=== PATIENT | male | born 1955 | race Two or more races ===

== ENCOUNTER 2023-10-21 09:14 | Outpatient (OUT) | payer MEDICARE, OTHER, SELFPAY ==
[2023-10-21 10:04] LABS: Creatinine Urine Random 140.42 mg/dL (20.00-300.00); Microalbum Creatinine Ratio Ur 140.2 mg/g (0.0-29.9); Microalbumin Urine Random 19.7 mg/dL (<=30.0)
[2023-10-21 10:18] LABS: Albumin Level 3.7 g/dL (3.4-5.0); Anion Gap 15.1; BUN Creatinine Ratio 18.1; Calcium 8.9 mg/dL (8.5-10.1); Carbon Dioxide 26.7 mmol/L (21.0-32.0); Chloride 105 mmol/L (98-107); Chol HDL Ratio 3.5; Cholesterol 165 mg/dL (<=200); Estimated GFR (African America 52 (>=60); Estimated GFR (Non-African Ame 43 (>=60); Free T3 2.05 pg/mL (2.18-3.98); Glucose 204 mg/dL (74-106); HDL Cholesterol 47 mg/dL (40-60); Phosphorus 4.2 mg/dL (2.6-4.7); Potassium 4.8 mmol/L (3.5-5.1); Sodium 142 mmol/L (136-145); Thyroid Stimulating Hormone 1.857 uIU/mL (0.358-3.740); Triglycerides 159 mg/dL (<=150); VLDL CHOLESTEROL 31.8 mg/dL
[2023-10-21 11:37] LABS: Free T4 1.16 ng/dL (0.76-1.46)
[2023-10-22 07:09] LABS: Thyroid Peroxidase (TPO) Ab <9 IU/mL (0-34)
[2023-10-23 11:07] LABS: C-Peptide, Serum 5.3 ng/mL (1.1-4.4)
== END 2023-10-21 09:15 | disposition home or self-care (01) ==
LOC: LAB 09:17
PROVIDERS: PCP Family Medicine; Visit Provider Internal Medicine
DX: E11.65 Type 2 diabetes mellitus with hyperglycemia (principal); E55.9 Vitamin D deficiency, unspecified; E06.3 Autoimmune thyroiditis; E03.9 Hypothyroidism, unspecified; Z71.3 Dietary counseling and surveillance; I10 Essential (primary) hypertension
CPT/HCPCS: 36415; 80061; 80069; 82043; 82306; 82570; 84439; 84443; 84481; 84681; 86376

== ENCOUNTER 2024-01-27 08:58 | Outpatient (OUT) | payer MEDICARE, SELFPAY ==
--- OUTSIDE RECORDS SUMMARY | 2024-01-27 09:09 | XMS_ITS | CCD ---
Author Name Unknown Address [address] [place] [address] Organization [facility] Care Team Providers Care Viscose Department Worker Name Role Phone WONG CARRENO Referring Unavailable KRISTIAN JONES Primary Care Unavailable ROBSON SANDERSON Referring Unavailable KRISTIAN JONES Primary Care Unavailable Grace Murray Primary Care Provider [phone] MISC, DOCTOR Attending Unavailable MISC, DOCTOR Admitting Unavailable MISC, DOCTOR Admitting Unavailable GRACE MURRAY Primary Care Unavailable MISC, DOCTOR Attending Unavailable MISC, DOCTOR Consulting Unavailable GRACE MURRAY Primary Care Unavailable MISC, DOCTOR Attending Unavailable MISC, DOCTOR Consulting Unavailable MISC, DOCTOR Admitting Unavailable Grace Murray Primary Care Provider MARIAM HAZEL Referring Unavailable GRACE MURRAY Primary Care Unavailable Tony Vasquez Primary Care Physician MD Tony Vasquez Attending Unavailable MD Tony Vasquez Attending Unavailable MD Tony Vasquez Attending Unavailable MD Tony Vasquez Attending Unavailable MD oTny Vasquez Attending Unavailable MD Tony Vasquez Admitting Unavailable MD Tony Vasquez Attending Unavailable Allergies Allergy Classification Reported Allergen(s) Allergy Type Date of Onset Reaction(s) Facility (1 source) No Known Medication Allergies; Translations: [No Known Medication Allergies] Propensity to adverse reactions (disorder) [facility] Repository Medications Current Medications Medication Drug Class(es) Dates Sig (Normalized) Sig (Original) atorvastatin 80 mg oral tablet (3 sources) HMG-CoA Reductase Inhibitor Start: 05-05-2023 take 1 tablet by mouth once daily atorvastatin 80 mg Tab 80 mg = 1 tab(s), Oral, Daily, Refills(s) 0 Start Date: 05/05/23 Status: Ordered take 1 tablet by mouth once eyal y atorvastatin (LIPITOR) 80 MG tablet Take 80 mg by mouth nightly 0 Active cholecalciferol 65517 unt oral capsule (2 sources) Vitamin D Cholecalciferol (VITAMIN D3) 64494 UNITS CAPS Take by mouth every 14 days 0 Active ergocalciferol 1.25 mg oral capsule (1 source) Provitamin D2 Compound Start: take 1 capsule by mouth every other week ergocalciferol 50,000 intl units Cap See Instructions, 1 cap(s) Oral every other week, Refills(s) 0 Start Date: 05/05/23 Status: Ordered fenofibrate 48 mg oral tablet (3 sources) Peroxisome Proliferator Receptor alpha Agonist Start: take 1 tablet by mouth once daily fenofibrate 48 mg Tab 48 mg = 1 tab(s), Oral, Daily, Refills(s) 0 Start Date: 05/05/23 Status: Ordered fenofibrate 160 MG tablet Take 48 mg by mouth daily 0 Active glipiZIDE 5 mg oral tablet (2 sources) Sulfonylurea take 1 tablet by mouth once daily glipiZIDE (GLUCOTROL) 5 MG tablet 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) Take 5 mg by mouth daily 0 Active 3 ml insulin detemir 100 unt/ml pen injector (2 sources) Insulin Analog Start: 10-30-20 LEVEMIR FLEXTOUCH 100 UNIT/ML injection pen 35 Units 2 times daily 0 10/30/2019 Active 1.5 ml insulin glargine 300 unt/ml pen injector (1 source) Insulin Analog Insulin Glargine , 1 Unit Dial, 300 UNIT/ML SOPN Inject into the skin 0 Active NPH Insulin, Human / Regular Insulin, Human (1 source) Insulin Start: 05-05-20 inject 40 [IU] by subcutaneous injection at breakfast, then inject 80 [IU] by subcutaneous injection at bedtime insulin isophane-insulin regular See Instructions, Refill(s) 0, inject 40 units SQ at breakfast and 80 units at bedtime Start Date: 05/05/23 Status: Ordered 3 ml insulin lispro 50 unt/ml / insulin, protamine lispro, human 50 unt/ml pen injector (1 source) Insulin Analog insulin lispro p rot & lispro (HUMALOG 50/50) (50-50) 100 UNIT per ML SUPN injection pen Inject into the skin 3 times daily 0 Active insulin, regular, human 100 unt/ml injectable solution (1 source) Insulin Start: 05-05-20 inject 20 [IU] by subcutaneous injection at breakfast, then inject 35 [IU] by subcutaneous injection at dinner Novolin R 100 units/mL Injection See Instructions, inject 20 units SQ at breakfast and lunch and 35 units at dinner, Refills(s) 0 Start Date: 05/05/23 Status: Ordered levothyroxine sodium 0.125 mg oral tablet (3 sources) l-Thyroxine Start: 05-05-20 take 1 tablet by mouth once daily levothyroxine 125 mcg (0.125 mg) Tab 125 mcg = 1 tab(s), Oral, Daily, Refills(s) 0 Start Date: 05/05/23 Status: Ordered take 1 tablet by mouth once eyal y levothyroxine (SYNTHROID) 125 MCG tablet Take 125 mcg by mouth Daily. 0 Active lisinopril 2.5 mg oral tablet (3 sources) Angiotensin Converting Enzyme Inhibitor Start: 05-05-2023 take 1 tablet by mouth once daily lisinopril 2.5 mg Tab 2.5 mg = 1 tab(s), Oral, Daily, Refills(s) 0 Start Date: 05/05/23 Status: Ordered Start: 10-02-2015 take 1 tablet by sindi th once daily lisinopril (PRINIVIL;ZESTRIL) 2.5 MG tablet Take 2.5 mg by mouth daily 0 10/02/2015 Active magnesium oxide 400 mg oral tablet (3 sources) Start: 05-05-2023 take 1 tablet by mouth once daily magnesium oxide 400 mg Tab 400 mg = 1 tab(s), Oral, Daily, Refills(s) 0 Start Date: 05/05/23 Status: Ordered take 1 tablet by sindi th once daily in the morning magnesium oxide (MAG-OX) 400 MG tablet Take 400 mg by mouth every morning 0 Active omeprazole 20 mg delayed release oral capsule (3 sources) Proton Pump Inhibitor Start: 05-05-2023 take 1 capsule by mouth once daily omeprazole 20 mg Cap-DR 20 mg = 1 cap(s), Oral, Daily, Refills(s) 0 Start Date: 05/05/23 Status: Ordered take 1 capsule by mouth once julian ly omeprazole (PRILOSEC) 20 MG delayed release capsule Take 20 mg by mouth daily 0 Active sucralfate 1000 mg oral tablet (1 source) Aluminum Complex Start: 03-14-2017 take 1 tablet by mouth four times daily sucralfate (CARAFATE) 1 GM tablet Take 1 g by mouth 4 times daily 0 03/14/2017 Active Problems Active Problems Problem Classification Problem Date Documented Date Episodic/Chronic Acute and unspecified renal failure (1 source) Ficqb-qv-vybyqoz renal failure; Translations: [Acute on chronic kidney failure] 07-05-2014 Chronic Chronic kidney disease (3 sources) Chronic kidney disease, stage 3 (moderate); Translations: [Chronic kidney disease stage 3] Onset: 06-06-2014 06-06-2014 Chronic Deficiency and other anemia (1 source) 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; Translations: [Antineoplastic chemotherapy induced anemia] Onset: 11-08-2014 11-08-2014 Diabetes mellitus with complications (7 sources) Other specified diabetes mellitus with diabetic chronic kidney disease; Translations: [Type 2 diabetes mellitus with other diabetic kidney complication] Onset: 03-02-2018 Resolved: 03-02-2018 03-02-2018 Chronic Diabetes mellitus without complication (2 sources) Diabetes mellitus; Translations: [Diabetes mellitus] 07-05-2014 Chronic Disorders of lipid metabolism (4 sources) Hyperlipidemia; Translations: [Hyperlipidemia, unspecified] Onset: 12-03-2020 07-05-2014 Chronic Esophageal disorders (2 sources) Gastroesophageal reflux disease; Translations: [Gastroesophageal reflux disease without esophagitis] Onset: 03-31-2017 04-22-2020 Chronic Essential hypertension (3 sources) Hypertensive disorder; Translations: [Hypertension] 07-05-2014 Chronic Fluid and electrolyte disorders (2 sources) Hyperkalemia; Translations: [Hyperkalemia] Onset: 02-13-2019 Episodic Hypertension with complications and secondary hypertension (6 sources) Hypertensive chronic kidney disease with stage 1 through stage 4 chronic kidney disease, or unspecified chronic kidney disease; Translations: [Hypertensive chronic kidney disease with stage 1 through stage 4 chronic kidney disease, or unspecified chronic kidney disease] Onset: 03-02-2018 Resolved: 03-02-2018 03-02-2018 Chronic Malaise and fatigue (1 source) Fatigue; Translations: [Chronic fatigue, unspecified] 07-31-2023 Chronic Miscellaneous mental health disorders (2 sources) Primary insomnia; Translations: [Primary insomnia] Onset: 09-12-2017 09-12-2017 Chronic Non-Hodgkin`s lymphoma (12 sources) Non-Hodgkin's lymphoma (clinical); Translations: [Diffuse non-Hodgkin's lymphoma, large cell (clinical)] Onset: 05-13-2014 05-24-2016 Chronic Nutritional deficiencies (1 source) Vitamin D deficiency 05-05-2023 Chronic Other aftercare (1 source) Long-term current use of insulin; 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] Onset: 06-27-2023 Episodic Other male genital disorders (2 sources) Disorder of prostate; Translations: [Disorder of prostate, unspecified] Onset: 05-04-2019 04-22-2020 Episodic Other nutritional; endocrine; and metabolic disorders (1 source) Hypomagnesemia; Translations: [Hypomagnesemia] Onset: 03-02-2018 Chronic Other nutritional; endocrine; and metabolic disorders (1 source) Severe obesity; Translations: [Severe obesity (BMI 35.0-39.9) with comorbidity] Onset: 07-05-2018 04-22-2020 Chronic Residual codes; unclassified (2 sources) Sleep apnea; Translations: [Sleep apnea] 07-05-2014 Chronic Residual codes; unclassified (1 source) Sleep disorder 06-27-2023 Episodic Thyroid disorders (1 source) Hypothyroidism 05-05-2023 Chronic Thyroid disorders (2 sources) Disorder of thyroid gland; Translations: [Thyroid disease] 07-05-2014 Episodic Unclassified (1 source) CHRN KIDNEY DISEASE STG 3 UNSP; Translations: [CHRN KIDNEY DISEASE STG 3 UNSP] Onset: 12-19-2020 Past or Other Problems Problem Classification Problem Date Documented Date Episodic/Chronic Acute and unspecified renal failure (1 source) [id number] renal failure 07-05-2014 Episodic Chronic kidney disease (1 source) Chronic kidney disease Resolved: 03-02-2018 03-02-2018 Deficiency and other anemia (1 source) 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 Onset: 11-08-2014 11-08-2014 Episodic Diabetes mellitus with complications (1 source) Diabetes mellitus with complications Resolved: 03-02-2018 03-02-2018 Other male genital disorders (2 sources) Testicular mass; Translations: [Testicular mass] Onset: 05-13-2014 Episodic Other skin disorders (2 sources) Mass of chest wall; Translations: [Chest wall mass] Onset: 05-09-2014 Episodic Results Test Name Value Interpretation Reference Range Facil ity Consultation Noteon 11-03-20 Consultation Note [id number] .00TIFF Normal [facility] Consultation Noteon 10-26-20 Consultation Note [id number] .00TIFF Normal [facility] Lab Reportson 10-26-2023 Lab Reports [id number]. 00TIFF Normal [facility] Lab Reports [id number] .00TIFF [facility] Lab Reports [id number]#1. 00TIFF [facility] Ambulatory Visit Summaryon 1 12-25-2022 Ambulatory Visit Summary ISAIAH MORROW I :1955 Visit Date:10/25/2023 Ambulatory Visit Instructions Your Diagnosis Type 2 diabetes mellitus with hypercholesterolemia Hypercholesterolemia Long-term insulin use Morbid obesity Stage 3a chronic kidney disease (CKD) Type 2 diabetes mellitus with stage 3a chronic kidney disease BMI 39.0-39.9,adult Class 1 obesity due to excess calories in adult Former smoker Your Care Team Attending Physician - Tony Vasquez MD Primary Care Physician - Tony Vasquez MD This Is Your Medications List Misc Prescription (Misc DME Prescription) Misc Prescription (syrings) Misc Prescription (test strips) atorvastatin (atorvastatin 80 mg Tab) ergocalciferol (ergocalciferol 50,000 intl units Cap) fenofibrate (fenofibrate 48 mg Tab) insulin isophane-insulin regular insulin regular (Novolin R 100 units/mL Injection) levothyroxine (levothyroxine 125 mcg (0.125 mg) Tab) lisinopril (lisinopril 2.5 mg Tab) magnesium oxide (magnesium oxide 400 mg Tab) omeprazole (omeprazole 20 mg Cap-DR) quetiapine (SEROquel 25 mg Tab) Procedures Performed Insulin pump, Tonsillectomy and adenoidectomy. Discharge Vitals Temperature (Temporal Artery) 37.0 ?C Heart Rate (Peripheral) 84 Respiratory Rate 16 Blood Pressure 126/74 Height 172.9 cm Height 68 in Weight 117.4 kg Weight 258.28 lb BMI 39.27 Medications What How Much When Instructions Unchanged atorvastatin (atorvastatin 80 mg Tab) 1 Tablets By Mouth Every day Unchanged ergocalciferol (ergocalciferol 50,000 intl units Cap) See instructions 1 cap(s) Oral every other week Unchanged fenofibrate (fenofibrate 48 mg Tab) 1 Tablets By Mouth Every day Unchanged insulin isophane-insulin regular See instructions inject 40 units SQ at breakfast and 80 units at bedtime Unchanged insulin regular (Novolin R 100 units/ mL Injection) See instructions inject 20 units SQ at breakfast and lunch and 35 units at dinner Unchanged levothyroxine (levothyroxine 125 mcg (0.125 mg) Tab) 1 Tablets By Mouth Every day Unchanged lisinopril (lisinopril 2.5 mg Tab) 1 Tablets By Mouth Every day Unchanged magnesium oxide (magnesium oxide 400 mg Tab) 1 Tablets By Mouth Every day Unchanged Misc Prescription (Misc DME Prescription) See instructions lancet use QID e11.9 Unchanged Misc Prescription (syrings) See instructions syrings 31g x8mm use qid and prn E11.9 Unchanged Misc Prescription (test strips) See instructions [employer] test strips Test sugars 4 times a day e11.9 Unchanged omeprazole (omeprazole 20 mg Cap-DR) 1 Capsules By Mouth Every day Unchanged quetiapine (SEROquel 25 mg Tab) 2 Tablets By Mouth Every day as needed for Insomnia Allergies No Known Medication Allergies Problems Ongoing - Any problem that you are currently receiving treatment for. Chronic fatigue Disorder of prostate Gastroesophageal reflux disease without esophagitis Hypercholesterolemia Hypothyroidism Long-term insulin use Lymphoblastic lymphoma Morbid obesity Primary hypertension Sleep disorder Stage 3a chronic kidney disease (CKD) 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 2 diabetes mellitus with stage 3a chronic kidney disease Vitamin D deficiency Patient Survey You may receive a survey via text or e-mail asking about your office visit. Please share your experience with us by completing your survey. We appreciate your feedback and thank you for choosing us for your care. Normal [facility] Family Medicine Office/Clini c Noteon 10-25-2023 Family Medicine Office/Clinic Note HPI Staff Isaiah is a 68 year old male presenting for 3 month follow up DM and HTN Do you have any of the following symptoms? Foot Exam: none Eye Exam: Due Oct 2023 Last A1C: Hgb A1C %: 7.7 % High (06/27/23 15:17:00) A1C @ endo 6.7% on 07/28/23 Statin: atorvastatin 80mg qd Patient is here for follow up on hypertension. How often are you checking your blood pressure? Doesnt check BP at home What are your average readings? N/A, Not checking at home Yearly BMP: 10/21/23 flu: UTD questions/concerns: none History of Present Illness - See staff HPI. Review of Systems PHQ Score Initial Depression Screen Score: 0 SCORE Physical Exam Vitals & Measurements T: 37.0 ?C(Temporal Artery) HR: 84(Peripheral) RR: 16 BP: 126/74 SpO2: 95% HT: 68 in HT: 172.9 cm WT: 117.4 kg WT: 258.28 lb BMI: 39.27 General: alert, no acute distress ENMT: oral mucosa moist, Cardiovascular: regular rate and rhythm, normal peripheral perfusion Respiratory: Lungs CTA, respirations non labored Extremities: no deformity, no trauma Neurological: oriented x 4, LOC appropriate for age, CN II-XII intact, motor strength equal & normal bilaterally, speech normal Abdomen: Soft, Nontender, Non-distended, + BS Assessment/Plan 1. Type 2 diabetes mellitus with hypercholesterolemia (E11.69: Type 2 diabetes mellitus with other specified complication) - Have asked Endos help to transition the patient from Novolin to Lantus and SSI. - Pt is also wanting Ozempic. - Discussed in detail. - Follow up in 6 months. - Pt is at goal with an A1c of 6.7. Ordered: Body Mass Index (BMI) documented 3008F Current tobacco non-user 1036F Depression Screening Negative 3352F Influenza immunization administered or previously received 4274F Most recent diastolic blood pressure <80 mm Hg 3078F Patient screen for fall risk: no falls in last year or 1 fall with no injury in last year 1101F Systolic BP <130 mm Hg (Most Recent) 3074F 2. Hypercholesterolemia (E78.00: Pure hypercholesterolemia, unspecified) - Continue on a statin. Ordered: Body Mass Index (BMI) documented 3008F Current tobacco non-user 1036F Depression Screening Negative 3352F Influenza immunization administered or previously received 4274F Most recent diastolic blood pressure <80 mm Hg 3078F Patient screen for fall risk: no falls in last year or 1 fall with no injury in last year 1101F Systolic BP <130 mm Hg (Most Recent) 3074F 3. 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 Morbid obesity (E66.01: Morbid (severe) obesity due to excess calories) - Diet and exercise discussed. - Possible use of Ozempic to help Ordered: Body Mass Index (BMI) documented 3008F Current tobacco non-user 1036F Depression Screening Negative 3352F Influenza immunization administered or previously received 4274F Most recent diastolic blood pressure <80 mm Hg 3078F Patient screen for fall risk: no falls in last year or 1 fall with no injury in last year 1101F Systolic BP <130 mm Hg (Most Recent) 3074F 5. Stage 3a chronic kidney disease (CKD) (N18.31: Chronic kidney disease, stage 3a) - Will continue to monitor. Ordered: Body Mass Index (BMI) documented 3008F Current tobacco non-user 1036F Depression Screening Negative 3352F Influenza immunization administered or previously received 4274F Most recent diastolic blood pressure <80 mm Hg 3078F Patient screen for fall risk: no falls in last year or 1 fall with no injury in last year 1101F Systolic BP <130 mm Hg (Most Recent) 3074F 6. Type 2 diabetes mellitus with stage 3a chronic kidney disease (E11.22: Type 2 diabetes mellitus with diabetic chronic kidney disease) - As per Number 1. Ordered: Body Mass Index (BMI) documented 3008F Current tobacco non-user 1036F Depression Screening Negative 3352F Influenza immunization administered or previously received 4274F Most recent diastolic blood pressure <80 mm Hg 3078F Patient screen for fall risk: no falls in last year or 1 fall with no injury in last year 1101F Systolic BP <130 mm Hg (Most Recent) 3074F 7. BMI 39.0-39.9,adult (Z68.39: Body mass index [BMI] 39.0-39.9, adult) - BMI education given Ordered: Body Mass Index (BMI) documented 3008F Current tobacco non-user 1036F Depression Screening Negative 3352F Influenza immunization administered or previously received 4274F Most recent diastolic blood pressure <80 mm Hg 3078F Patient screen for fall risk: no falls in last year or 1 fall with no i (more content not included)... Normal [facility] Comment on above: Result Comment: Elec tronically Signed By: Pedro RODRIGES, Tony Hoffman\.br\Date and Time Signed: 10/25/23 13:38 EST Patient Educationon 10-25-20 Patient Education Nutrition BMI for Adults What is BMI? Body mass index (BMI) is a number that is calculated from a person's weight and height. BMI can help estimate how much of a person's weight is composed of fat. BMI does not measure body fat directly. Rather, it is an alternative to procedures that directly measure body fat, which can be difficult and expensive. BMI can help identify people who may be at higher risk for certain medical problems. What are BMI measurements used for? BMI is used as a screening tool to identify possible weight problems. It helps determine whether a person is obese, overweight, a healthy weight, or underweight. BMI is useful for: ? Identifying a weight problem that may be related to a medical condition or may increase the risk for medical problems. ? Promoting changes, such as changes in diet and exercise, to help reach a healthy weight. BMI screening can be repeated to see if these changes are working. How is BMI calculated? BMI involves measuring your weight in relation to your height. Both height and weight are measured, and the BMI is calculated from those numbers. This can be done either in [place] or metric measurements. Note that charts and online BMI calculators are available to help you find your BMI quickly and easily without having to do these calculations yourself. To calculate your BMI in [place] measurements: 1. Measure your weight in pounds (lb). 2. Multiply the number of pounds by 703. ? For example, for a person who weighs 180 lb, multiply that number by 703, which equals 126,540. 3. Measure your height in inches. Then multiply that number by itself to get a measurement called inches squared. ? For example, for a person who is 70 inches tall, the inches squared measurement is 70 inches x 70 inches, which equals 4,900 inches squared. 4. Divide the total from step 2 (number of lb x 703) by the total from step 3 (inches squared): 126,540 ? 4,900 = 25.8. This is your BMI. To calculate your BMI in metric measurements: 1. Measure your weight in kilograms (kg). 2. Measure your height in meters (m). Then multiply that number by itself to get a measurement called meters squared. ? For example, for a person who is 1.75 m tall, the meters squared measurement is 1.75 m x 1.75 m, which is equal to 3.1 meters squared. 3. Divide the number of kilograms (your weight) by the meters squared number. In this example: 70 ? 3.1 = 22.6. This is your BMI. What do the results mean? BMI charts are used to identify whether you are underweight, normal weight, overweight, or obese. The following guidelines will be used: ? Underweight: BMI less than 18.5. ? Normal weight: BMI between 18.5 and 24.9. ? Overweight: BMI between 25 and 29.9. ? Obese: BMI of 30 or above. Keep these notes in mind: ? Weight includes both fat and muscle, so someone with a muscular build, such as an athlete, may have a BMI that is higher than 24.9. In cases like these, BMI is not an accurate measure of body fat. ? To determine if excess body fat is the cause of a BMI of 25 or higher, further assessments may need to be done by a health care provider. ? BMI is usually interpreted in the same way for men and women. Where to find more information For more information about BMI, including tools to quickly calculate your BMI, go to these websites: ? Centers for Disease Control and Prevention: www.cdc.gov ? [place] [employer]: www.heart.org ? National Heart, Lung, and Blood Fitzpatrick: www.nhlbi.nih.gov Summary ? Body mass index (BMI) is a number that is calculated from a person's weight and height. ? BMI may help estimate how much of a person's weight is composed of fat. BMI can help identify those who may be at higher risk for certain medical problems. ? BMI can be measured using [place] measurements or metric measurements. ? BMI charts are used to identify whether you are underweight, normal weight, overweight, or obese. This information is not intended to replace advice given to you by your health care provider. Make sure you discuss any questions you have with your health care provider. Document Revised: 08/06/2020 Document Reviewed: 06/13/2020 [employer] Patient Education ? 2022 [employer] [facility] Pre-Visit Planningon 023 Pre-Visit Planning - From: Selin Davis To: Pedro RODRIGES, Tony Hoffman; Sent: 10/21/2023 14:04:51 EST Subject: Pre-Visit Planning Due Date/Time: 10/21/2023 14:04:00 EST Caller Name: ISAIAH MORROW I; Caller Number: Adam , Vt Dr. Vasquez. During a pre-visit planning chart review, I noted the following documentation in the medical record: ? Glomerular filtration rate (GFR): =52 on 10/21/2023 and =50 on 06/27/2023. Based on your medical judgment, can you please clarify which, if any, of the following conditions are present? I can update the Chronic Problem List with your response if you would like. -Chronic Kidney Disease Stage 3a (GFR 45-59) -Chronic Kidney Disease Stage 3, unspecified (GFR 30-59) -Other (please specify): In responding to this request, please exercise your independent professional judgment. The fact that a question is asked does not imply that any particular answer is desired or expected. If you have any questions, please feel free to contact me at extension [phone]. Thank you! Selin Davis LPN From: Tony Vasquez MD To: Selni Davis; Sent: 10/23/2023 12:46:22 EST Subject: RE: Pre-Visit Planning Caller Name: ISAIAH MORROW I; Caller Number: H , M CKD stage 3a- Please add Normal [address] [facility] Pre-Visit Planning - From: Selin Davis To: Tony Vasquez MD; Sent: 10/21/2023 14:01:17 EST Subject: Pre-Visit Planning Due Date/Time: 10/21/2023 14:01:00 EST Caller Name: ISAIAH MORRWO I; Caller Number: H , M Vt Dr. Vasquez. During a pre-visit planning chart review, I noted the following documentation in the medical record indicates that this patient had BMI of 37.69 on 07/25/2023 and a diagnosis of Hypertension and Type 2 diabetes mellitus with hyperlipidemia noted on Current Problem List. If BMI during this current visit is greater than 35: Based on your medical judgment, can you further clarify the following? I can update the Chronic Problem List with your response if you would like. -Morbid obesity (please also include additional diagnosis to reflect current BMI) -Class 3 severe obesity with serious comorbidity in adult (please also include additional diagnosis to reflect current BMI) -Other (please specify): -Unable to determine In responding to this request, please exercise your independent professional judgment. The fact that a question is asked does not imply that any particular answer is desired or expected. If you have any questions, please feel free to contact me per TEAMS or . Thank you! Selin Davis LPN From: Tony Vasquez MD To: Selin Davis; Sent: 10/23/2023 12:45:55 EST Subject: RE: Pre-Visit Planning Caller Name: ISAIAH MORROW I; Caller Number: H , M Morbid Obesity- Please add Normal [address] [facility] Consultation Noteon 08-10-20 Consultation Note [id number]. 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 Your Care Team Attending Physician - Tony Vasquez MD Primary Care Physician - Tony Vasquez MD This Is Your Medications List Misc Prescription (Misc DME Prescription) Misc Prescription (Misc DME Prescription) Misc Prescription (syrings) atorvastatin (atorvastatin 80 mg Tab) ergocalciferol (ergocalciferol 50,000 intl units Cap) fenofibrate (fenofibrate 48 mg Tab) insulin isophane-insulin regular insulin regular (Novolin R 100 units/mL Injection) levothyroxine (levothyroxine 125 mcg (0.125 mg) Tab) lisinopril (lisinopril 2.5 mg Tab) magnesium oxide (magnesium oxide 400 mg Tab) omeprazole (omeprazole 20 mg Cap-DR) Procedures Performed Insulin pump, Tonsillectomy and adenoidectomy. Discharge Vitals Temperature (Oral) 36.7 ?C Heart Rate (Peripheral) 93 Respiratory Rate 16 Blood Pressure 126/68 Height 175.2 cm Height 69 in Weight 115.7 kg Weight 254.54 lb BMI 37.69 What to do next Scheduled Follow-Up Appointments Tuesday 2:00 PM EDT With: Where: [facility] [address] [place] [address]- \.br\ Medications\.br\ What How Much When Instructions\.br\ Unchanged atorvastatin (atorvastatin 80 mg Tab) 1 Tablets By Mouth Every day\.br\ Unchanged ergocalciferol (ergocalciferol 50,000 intl units Cap) See instructions 1 cap(s) Oral every other week \.br\ Unchanged fenofibrate (fenofibrate 48 mg Tab) 1 Tablets By Mouth Every day\.br\ Unchanged insulin isophane-insulin regular See instructions inject 40 units SQ at breakfast and 80 units at bedtime \.br\ Unchanged insulin regular (Novolin R 100 units/ mL Injection) See instructions inject 20 units SQ at breakfast and lunch and 35 units at dinner \.br\ Unchanged levothyroxine (levothyroxine 125 mcg (0.125 mg) Tab) 1 Tablets By Mouth Every day\.br\ Unchanged lisinopril (lisinopril 2.5 mg Tab) 1 Tablets By Mouth Every day\.br\ Unchanged magnesium oxide (magnesium oxide 400 mg Tab) 1 Tablets By Mouth Every day\.br\ Unchanged Misc Prescription (Misc DME Prescription) See instructions [employer] [facility] test strips Test sugars 4 times a day \.br\ Unchanged Misc Prescription (Misc DME Prescription) [facility] pro twist lancets use to test sugars 4 times a day \.br\ Unchanged Misc Prescription (syrings) See instructions syrings 31g x8mm use qid and prn E11.9 \.br\ Unchanged omeprazole (omeprazole 20 mg Cap-DR) 1 Capsules By Mouth Every day\.br\ Allergies\.br\ No Known Medication Allergies\.br\ Problems\.br\ Ongoing - Any problem that you are currently receiving treatment for.\.br\ Chronic fatigue\.br\ Disorder of prostate\.br\ Gastroesophageal reflux disease without esophagitis\.br\ Hypercholesterole manuel\.br\ Hypothyroidism\.b r\ Lymphoblastic lymphoma\.br\ Primary hypertension\.br\ Sleep disorder\.br\ Type 2 diabetes mellitus without complication, with long-term current use of insulin\.br\ Vitamin D deficiency\.br\ \.br\ [facility] Family Medicine Office/Clini c Noteon 07-25-2023 Family Medicine Office/Clinic Note Chief Complaint follow up diabetes HPI Staff Patient presents for one month follow up diabetes Do you have any of the following symptoms? Foot Exam: none Eye Exam: next month has appt Last A1C: Hgb A1C %: 7.7 % High (06/27/23 15:17:00) Statin: atorvastatin 80mg questions/concerns: none History of Present Illness - Here for follow up. - A1c is elevated - Pt states he has an apt with endo - He would like to try ozempic - No other issues today. Review of Systems PHQ Score Initial Depression Screen Score: 0 Physical Exam Vitals & Measurements T: 36.7 ?C(Oral) HR: 93(Peripheral) RR: 16 BP: 126/68 SpO2: 95% HT: 69 in HT: 175.2 cm WT: 115.7 kg WT: 254.54 lb BMI: 37.69 General: alert, no acute distress ENMT: oral mucosa moist, Cardiovascular: regular rate and rhythm, normal peripheral perfusion Respiratory: Lungs CTA, respirations non labored Extremities: no deformity, no trauma Neurological: oriented x 4, LOC appropriate for age, CN II-XII intact, motor strength equal & normal bilaterally, speech normal Abdomen: Soft, Nontender, Non-distended, + BS Assessment/Plan 1. Type 2 diabetes mellitus without complication, with long-term current use of insulin (E11.9: Type 2 diabetes mellitus without complications) ? Not at goal at this time and patient is seeing endo at the end of the month ?Goal is to get the patient off regular insulin and a mixed insulin. ?Discussed GLP-1 and how this m Ordered: Body Mass Index (BMI) documented 3008F Current tobacco non-user 1036F Depression Screening Negative 3352F Influenza immunization administered or previously received 4274F Most recent diastolic blood pressure <80 mm Hg 3078F Patient screen for fall risk: no falls in last year or 1 fall with no injury in last year 1101F Systolic BP <130 mm Hg (Most Recent) 3074F 2. Primary hypertension (I10: Essential (primary) hypertension) - At goal. Ordered: Body Mass Index (BMI) documented 3008F Current tobacco non-user 1036F Depression Screening Negative 3352F Influenza immunization administered or previously received 4274F Most recent diastolic blood pressure <80 mm Hg 3078F Patient screen for fall risk: no falls in last year or 1 fall with no injury in last year 1101F Systolic BP <130 mm Hg (Most Recent) 3074F 3. Adult BMI 37.0-37.9 kg/sq m (Z68.37: Body mass index [BMI] 37.0-37.9, adult) - BMI education given Ordered: Body Mass Index (BMI) documented 3008F Current tobacco non-user 1036F Depression Screening Negative 3352F Influenza immunization administered or previously received 4274F Most recent diastolic blood pressure <80 mm Hg 3078F Patient screen for fall risk: no falls in last year or 1 fall with no injury in last year 1101F Systolic BP <130 mm Hg (Most Recent) 3074F 4. 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) - Discussed issues with Insulin Ordered: Body Mass Index (BMI) documented 3008F Current tobacco non-user 1036F Depression Screening Negative 3352F Influenza immunization administered or previously received 4274F Most recent diastolic blood pressure <80 mm Hg 3078F Patient screen for fall risk: no falls in last year or 1 fall with no injury in last year 1101F Systolic BP <130 mm Hg (Most Recent) 3074F Follow-up No qualifying data available Problem List/Past Medical History Ongoing Chronic fatigue Disorder of prostate Gastroesophageal reflux disease without esophagitis Hypercholesterolemia Hypothyroidism Lymphoblastic lymphoma Primary hypertension Sleep disorder Type 2 diabetes mellitus without complication, with long-term current use of insulin Vitamin D deficiency Historical No qualifying data Procedure/Surgical History Insulin pump, Tonsillectomy and adenoidectomy. Medications atorvastatin 80 mg Tab, 80 mg= 1 tab(s), Oral, Daily ergocalciferol 50,000 intl units Cap, See Instructions fenofibrate 48 mg Tab, 48 mg= 1 tab(s), Oral, Daily insulin isophane-insulin regular, See Instructions levothyroxine 125 mcg (0.125 mg) Tab, 125 mcg= 1 tab(s), Oral, Daily lisinopril 2.5 mg Tab, 2.5 mg= 1 tab(s), Oral, Daily magnesium oxide 400 mg Tab, 400 mg= 1 tab(s), Oral, Daily Misc DME Prescription, See Instructions, 3 refills Misc DME Prescription Novolin R 100 units/mL Injection, See Instructions omeprazole 20 mg Cap-DR, 20 mg= 1 cap(s), Oral, Daily syrings, See Instructions, 3 refills Allergies N (more content not included)... Normal [facility] Comment on above: Result Comment: Elec tronically Signed By: Pedro RODRIGES, Tony Brown.br\Date and Time Signed: 07/25/23 11:48 EDT Physician Referralon 023 Physician Referral [id number] .00CD:127 Normal [facility] Formson 06-28-2023 Forms [id number]#1 .00CD:127 Normal [facility] Physician Referralon 023 Physician Referral [id number]# 1.00CD:127 Normal [facility] Auto Diffon 06-27-2023 Basophils/100 WBC (Bld) 0.9 % Normal 0.0-2.0 [facility] Comment on above: Order Comment: Order Added by Discern Expert. Performed By: #### 2 755467, 0753291, 6355639, 21138611, 7124808, 853065305, 62297661 ####[facility] [address] [place] [address] Basophils/Leukocytes Auto (Bld) [Pure # fraction] 0.1 E9/L Normal 0.0-0.2 [facility] Comment on above: Order Comment: Order Added by Discern Expert. Performed By: #### 2 168054, 2598432, 6619006, 76817320, 9597981, 064628611, 50706002 ####[facility] [address] [place] [address] Eosinophils/100 WBC (Bld) 3.5 % Normal 0.0-8.0 [facility] Comment on above: Order Comment: Order Added by Discern Expert. Performed By: #### 2 816369, 1127449, 4324412, 56984331, 7002579, 414155649, 43719555 ####[address] [place] [address] Eosinophils/Leukocyte s Auto (Bld) [Pure # fraction] 0.4 E9/L Normal 0.0-0.5 [facility] Comment on above: Order Comment: Order Added by Discern Expert. Performed By: #### 2 098506, 1589420, 2039626, 41575032, 4446149, 932263694, 39679377 ####[address] [address] Lymphocytes/100 WBC (Bld) 18.3 % Normal 14.0-50.0 [facility] Comment on above: Order Comment: Order Added by Discern Expert. Performed By: #### 2 332036, 0876624, 2916283, 98647273, 0927692, 660597869, 37904607 ####[address] [address] Lymphocytes/Leukocyte s Auto (Bld) [Pure # fraction] 1.9 E9/L Normal 1.0-4.0 [facility] Comment on above: Order Comment: Order Added by Discern Expert. Performed By: #### 2 215556, 4296662, 4068352, 94674842, 0628729, 502108570, 29261029 ####[address] [place] [address] Monocytes/100 WBC (Bld) 6.7 % Normal 4.0-14.0 [facility] Comment on above: Order Comment: Order Added by Discern Expert. Performed By: #### 2 223670, 5169553, 1677374, 47647119, 8240540, 958036046, 67304868 ####[address] [place] [address] Monocytes/Leukocytes Auto (Bld) [Pure # fraction] 0.7 E9/L Normal 0.2-1.0 [facility] Comment on above: Order Comment: Order Added by Discern Expert. Performed By: #### 2 231788, 0758685, 7732384, 60809345, 1762033, 867564960, 68459089 ####[facility] [address] [place] [address] Neutrophils/100 WBC (Bld) 70.6 % Normal 36.0-75.0 [facility] Comment on above: Order Comment: Order Added by Discern Expert. Performed By: #### 2 903279, 7176899, 7117344, 82161534, 7497607, 629597596, 54121925 ####[facility] [address] [place] [address] Neutrophils/Leukocyte s Auto (Bld) [Pure # fraction] 7.5 E9/L Normal 2.0-7.5 [facility] Comment on above: Order Comment: Order Added by Discern Expert. Performed By: #### 2 705039, 0710961, 5012423, 16132723, 5535141, 669590501, 63512616 ####[facility] [address] [place] [address] CBC w/ Auto Diffon 3 Erythrocyte distribution width (RBC) [Ratio] 15.1 % High 10.9-14.2 [facility] Comment on above: Performed By: #### 2 964301, 5986784, 9548631, 22786212, 5828745, 301517403, 46594627 ####[facility] [address] [place] [address] Hematocrit (Bld) [Volume fraction] 41.8 % Normal 37.7-49.0 [facility] Comment on above: Performed By: #### 2 035136, 9466035, 2165685, 11778023, 6958098, 206108476, 48560916 ####[facility] [address] [place] [address] Hemoglobin (Bld) [Mass/Vol] 13.7 g/dL Normal 13.5-17.5 [facility] Comment on above: Performed By: #### 2 978201, 6029819, 9610575, 88754522, 5055774, 097924708, 72012258 ####[facility] [address] [place] [address] MCH (RBC) [Entitic mass] 27.5 pg Normal 27.0-34.0 [facility] Comment on above: Performed By: #### 2 778002, 3576248, 8471369, 74667122, 1716458, 820035469, 24751324 ####[facility] [address] [place] [address] MCHC (RBC) [Mass/Vol] 32.7 g/dL Normal 31.4-36.0 [facility] Comment on above: Performed By: #### 2 206367, 5668682, 7166727, 24927034, 0790120, 923644721, 85656652 ####[address] [address] MCV (RBC) [Entitic vol] 84.2 fL Normal 80.0-100.0 [facility] Comment on above: Performed By: #### 2 172803, 5142959, 0415264, 49960092, 9723292, 249572896, 36131661 ####[address] [place] [address] Platelet mean volume (Bld) [Entitic vol] 9.9 fL Normal 6.4-10.8 [facility] Comment on above: Performed By: #### 2 222815, 6665752, 4129987, 32685231, 1650088, 829457429, 97722519 ####[address] [address] Platelets (Bld) [#/Vol] 209.0 E9/L Normal 150.0-500.0 [facility] Comment on above: Performed By: #### 2 185430, 6828184, 3565155, 96656564, 4328230, 260163606, 59970824 ####[facility] [address] [place] [address] RBC (Bld) [#/Vol] 5.0 E12/L Normal 4.3-5.9 [facility] Comment on above: Performed By: #### 2 786185, 4390497, 4955110, 78830058, 5371522, 855784166, 83895540 ####[facility] [address] [place] [address] WBC corrected for nucl RBC Auto (Bld) [#/Vol] 10.6 E9/L Normal 4.0-11.0 [facility] Comment on above: Performed By: #### 2 342725, 8231585, 7166700, 74382710, 9427819, 180372245, 20489858 ####[facility] [address] [place] [address] CHEMISTRYOrdered By: SYSTEM SYSTEM on 06-27-2023 Albumin [Mass/Vol] 4.3 g/dL Normal 3.3 - 5.0 gm/dL [facility] Albumin/Globulin [Mass ratio] 1.3 {ratio} Normal 1.1 - 2.2 [facility] ALP [Catalytic activity/Vol] 78 [iU]/d Normal 21 - 98 Int._Unit/L [facility] ALT No additional P-5'-P [Catalytic activity/Vol] 23 [iU]/d Normal 6 - 46 Int._Unit/L [facility] Anion gap [Moles/Vol] 12 mmol/L Normal 6 - 16 mEq/L [facility] AST [Catalytic activity/Vol] 22 [iU]/d Normal 5 - 43 Int._Unit/L [facility] Bilirubin [Mass/Vol] 0.5 mg/dL Normal 0.0 - 1.1 mg/dL [facility] Calcium [Mass/Vol] 10.1 mg/dL Normal 8.9 - 11.1 mg/dL [facility] Chloride [Moles/Vol] 107 mmol/L Normal 101 - 111 mmol/ L [facility] Cholesterol [Mass/Vol] 180 mg/dL Normal 120 - 200 mg/dL [facility] Cholesterol in HDL [Mass/Vol] 43 mg/dL Invalid Interpretation Code [facility] Cholesterol in LDL [Mass/Vol] 104 mg/dL Normal <=129mg/dL [facility] Cholesterol in VLDL [Mass/Vol] 47 mg/dL High 7 - 40 mg/dL [facility] CO2 [Moles/Vol] 27 mmol/L Normal 21 - 31 mmol/L [facility] Creatinine [Mass/Vol] 1.5 mg/dL High 0.5 - 1.3 mg/d L [facility] GFR/1.73 sq M.predicted among non-blacks MDRD (S/P/Bld) [Vol rate/Area] 50 mL/min/1.73 m2 Low >=59mL/min/1.73 m2 [facility] Chem S Globulin (S) [Mass/Vol] 3.2 g/dL Normal 1.4 - 4.0 gm/dL [facility] Glucose [Mass/Vol] 65 mg/dL Normal 55 - 199 mg/dL [facility] Potassium [Moles/Vol] 4.4 mmol/L Normal 3.5 - 5.3 mmol /L [facility] Protein [Mass/Vol] 7.5 g/dL Normal 6.0 - 7.8 gm/dL [facility] Sodium [Moles/Vol] 142 mmol/L Normal 135 - 145 mmol/L [facility] Triglyceride [Mass/Vol] 237 mg/dL High <=149mg/dL [facility] TSH Qn 1.09 m[IU]/L Normal 0.34 - 5.60 mcIU/mL [facility] Urea nitrogen [Mass/Vol] 25 mg/dL High 5 - 21 mg/dL [facility] Urea nitrogen/Creatinine [Mass ratio] 17 mg/mg Normal 10 - 20 [facility] CHEMISTRYOrdered By: Vaughn velasco on 06-27-2023 Albumin DL <= 20 mg/L (U) [Mass/Vol] 75.3 microgram/mL High 0.0 - 19.0 mcg/mL [facility] Albumin Elph (U) [Mass fraction] 13.8 mg/dL Invalid Interpretation Code [facility] Creatinine (U) [Mass/Vol] 78.2 mg/dL Invalid Interpretation Code [facility] Remisol U Prot/Creat Ratio 176.50 mg/gm Cr Normal 0.00 - 200.00 mg/gm Cr [facility] CHEMISTRYOrdered By: Nelson stanley on 06-27-2023 HbA1c (Bld) [Mass fraction] 7.7 % High <=5.9% [facility] ChemAutoSS CMPon 06-27-2023 Albumin [Mass/Vol] 4.3 g/dL Normal 3.3-5.0 [facility] Comment on above: Performed By: #### 2 566361, 0631357, 7296702, 03273619, 2052980, 043992532, 61166051 ####[facility] [address] [place] [address] Albumin/Globulin (S) [Mass conc ratio] 1.3 Normal 1.1-2.2 [facility] Comment on above: Performed By: #### 2 796044, 2010213, 9892722, 32679975, 7034103, 364700242, 08523450 ####[facility] [address] [place] [address] ALP [Catalytic activity/Vol] 78 Int._Unit/L Normal 21-98 [facility] Comment on above: Performed By: #### 2 609476, 7424958, 2526176, 41475201, 5789018, 379392320, 74193198 ####[facility] [address] [place] [address] ALT No additional P-5'-P [Catalytic activity/Vol] 23 Int._Unit/L Normal 6-46 [facility] Comment on above: Performed By: #### 2 656351, 2261506, 8967153, 34439106, 2606816, 140458091, 54381868 ####[facility] [address] [place] [address] Anion gap [Moles/Vol] 12 mmol/L Normal 6-16 [facility] Comment on above: Performed By: #### 2 008260, 8471914, 3937021, 47394497, 2372653, 730936155, 84845816 ####[facility] [address] [place] [address] AST [Catalytic activity/Vol] 22 Int._Unit/L Normal 5-43 [facility] Comment on above: Performed By: #### 2 715736, 1763489, 1886090, 44965188, 2542083, 852730025, 93156803 ####[facility] [address] [place] [address] Bilirubin [Mass/Vol] 0.5 mg/dL Normal 0.0-1.1 [facility] Comment on above: Performed By: #### 2 916755, 0293334, 6001398, 59477169, 2359208, 921270840, 33585861 ####[facility] [address] [place] [address] Calcium [Mass/Vol] 10.1 mg/dL Normal 8.9-11.1 [facility] Comment on above: Performed By: #### 2 903985, 4160133, 8166296, 75061293, 2187463, 142992777, 79586850 ####[facility] [address] [place] [address] Chloride [Moles/Vol] 107 mmol/L Normal 101-111 [facility] Comment on above: Performed By: #### 2 633297, 1322425, 2890279, 38257630, 2015855, 010778298, 24820150 ####[facility] [address] [place] [address] CO2 [Moles/Vol] 27 mmol/L Normal 21-31 [facility] Comment on above: Performed By: #### 2 966971, 3790619, 0129974, 36736485, 4250679, 609665044, 65187914 ####[facility] [address] [place] [address] Creatinine [Mass/Vol] 1.5 mg/dL High 0.5-1.3 [facility] Comment on above: Performed By: #### 2 267157, 6117278, 4775404, 64777563, 0695493, 842182982, 63400507 ####[facility] [address] [place] [address] Globulin (S) [Mass/Vol] 3.2 g/dL Normal 1.4-4.0 [facility] Comment on above: Performed By: #### 2 495727, 6232559, 0464872, 80864411, 3160502, 095895580, 04670338 ####[facility] [address] [place] [address] Glucose [Mass/Vol] 65 mg/dL Normal 55-199 [facility] Comment on above: Result Comment: If t his glucose result represents a fasting glucose, interpretation should refer to the following reference range: 55-99 mg/dL Performed By: #### 2 658127, 2440778, 5731296, 12040921, 9143816, 526134389, 40046510 ####[facility] [address] [place] [address] Potassium [Moles/Vol] 4.4 mmol/L Normal 3.5-5.3 [facility] Comment on above: Performed By: #### 2 140953, 2019202, 8365536, 19027936, 3898346, 803511416, 05507217 ####[facility] [address] [place] [address] Protein [Mass/Vol] 7.5 g/dL Normal 6.0-7.8 [facility] Comment on above: Performed By: #### 2 707839, 9242336, 6085451, 62966002, 1768399, 776686112, 13636437 ####[facility] [address] [place] [address] Sodium [Moles/Vol] 142 mmol/L Normal 135-145 [facility] Comment on above: Performed By: #### 2 271926, 4766605, 8220352, 60756980, 7262258, 218542629, 45814046 ####[facility] [address] [place] [address] Urea nitrogen [Mass/Vol] 25 mg/dL High 5-21 [facility] Comment on above: Performed By: #### 2 095562, 5777031, 9920047, 44259497, 8899025, 575487118, 12598051 ####[facility] [address] [place] [address] Urea nitrogen/Creatinine [Mass ratio] 17 No Units Normal 10-20 [facility] Comment on above: Performed By: #### 2 992168, 8472065, 8591246, 96095920, 4723371, 635600522, 81790856 ####[facility] [address] [place] [address] Family Medicine Office/Clini c Noteon 06-27-2023 Family Medicine Office/Clinic Note Chief Complaint establish care HPI Staff establish care, former patient or Dr Murray's Establish Care: History: IDDM,hypothyroid, htn, gerd, hypercholesterolemia Last provider: Trevor Any recent labs: Health Maintenance UTD: Colonoscopy: never, refuses PSA: unknown covid: UTD Acute: Current issues/complaints: dxed in past with sleep apnea, can't sleep well on his back with the mask he originally got, can he get a new and different machine recommend vitamins for his age pills to help lose weight History of Present Illness - Here to establish - BS are elevated. - Takes medications as prescribed - No longer seeing Endo - Wants medications to help with weight loss. - Has not seen a sleep doctor in many years Review of Systems PHQ Score Initial Depression Screen Score: 0 Physical Exam General: alert, no acute distress ENMT: oral mucosa moist, Cardiovascular: regular rate and rhythm, normal peripheral perfusion Respiratory: Lungs CTA, respirations non labored Extremities: no deformity, no trauma Neurological: oriented x 4, LOC appropriate for age, CN II-XII intact, motor strength equal & normal bilaterally, speech normal Abdomen: Soft, Nontender, Non-distended, + BS Procedure Vitals reviewed. Will not pull into note. Assessment/Plan 1. Type 2 diabetes mellitus without complication, with long-term current use of insulin (E11.9: Type 2 diabetes mellitus without complications) - Will order an A1c - Possible need for endos help with medications and not being controlled Ordered: Body Mass Index (BMI) documented 3008F CBC w/ Auto Diff Comprehensive Metabolic Panel Current tobacco non-user 1036F Depression Screening Negative 3352F [facility] [place] Ambulatory Referral HgbA1c Influenza immunization administered or previously received 4274F Lab Specimen Collect 33651 Lipid Panel Microalbumin Level Urine Most recent diastolic blood pressure <80 mm Hg 3078F Patient screen for fall risk: no falls in last year or 1 fall with no injury in last year 1101F Systolic BP 130-139 mm Hg (Most Recent) 3075F TSH With T4fr Reflex U Protein/Creat Ratio 2. Gastroesophageal reflux disease without esophagitis (K21.9: Gastro-esophageal reflux disease without esophagitis) - Continue on PPI Ordered: Body Mass Index (BMI) documented 3008F CBC w/ Auto Diff Comprehensive Metabolic Panel Current tobacco non-user 1036F Depression Screening Negative 3352F [facility] [place] Ambulatory Referral HgbA1c Influenza immunization administered or previously received 4274F Lab Specimen Collect 86051 Lipid Panel Microalbumin Level Urine Most recent diastolic blood pressure <80 mm Hg 3078F Patient screen for fall risk: no falls in last year or 1 fall with no injury in last year 1101F Systolic BP 130-139 mm Hg (Most Recent) 3075F TSH With T4fr Reflex U Protein/Creat Ratio 3. 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, unspecified site) - Pt should follow up with oncology Ordered: Body Mass Index (BMI) documented 3008F CBC w/ Auto Diff Comprehensive Metabolic Panel Current tobacco non-user 1036F Depression Screening Negative 3352F [facility] [place] Ambulatory Referral HgbA1c Influenza immunization administered or previously received 4274F Lab Specimen Collect 64567 Lipid Panel Microalbumin Level Urine Most recent diastolic blood pressure <80 mm Hg 3078F Patient screen for fall risk: no falls in last year or 1 fall with no injury in last year 1101F Systolic BP 130-139 mm Hg (Most Recent) 3075F TSH With T4fr Reflex U Protein/Creat Ratio 4. Sleep disorder (G47.9: Sleep disorder, unspecified) - Referral to sleep lab present. Ordered: Body Mass Index (BMI) documented 3008F CBC w/ Auto Diff Comprehensive Metabolic Panel Current tobacco non-user 1036F Depression Screening Negative 3352F [facility] [place] Ambulatory Referral HgbA1c Influenza immunization administered or previously received 4274F Lab Specimen Collect 25609 Lipid Panel Microalbumin Level Urine Most recent diastolic blood pressure <80 mm Hg 3078F Patient screen for fall risk: no falls in last year or 1 fall with no injury in last year 1101F Systolic BP 130-139 mm Hg (Most Recent) 3075F TSH With T4fr Reflex U Protein/Creat Ratio 5. Chronic fatigue (R53.82: Chronic fatigue, unspecified) - Will check sleep study and labs Ordered: Body Mass Index (BMI) documented 3008F CBC w/ Auto Diff Comprehensive Metabolic Panel Current tobacco non-user 1036F Depression Screening Negative 3352F [facility] [place] Ambulatory Referral HgbA1c Influenza immunization administered or previously received 4274F Lab Specimen Collect 86172 Lipid Panel Microalbumin Level Urine Most recent diastolic blood pressure <80 mm Hg 3078F Patient screen for fall risk: no falls in last year or 1 fall with no injury in last year 1101F Systolic BP 130- (more content not included)... Normal [facility] Comment on above: Result Comment: Elec tronically Signed By: Pedro RODRIGES, Tony Hoffman\.br\Date and Time Signed: 06/27/23 16:39 EDT HEMATOLOGYOrdered By: SYSTEM SYSTEM on 06-27-2023 Basophils/100 WBC (Bld) 0.9 % Normal 0.0 - 2.0 % [facility] Basophils/Leukocytes Auto (Bld) [Pure # fraction] 0.1 E9/L Normal 0.0 - 0.2 E9/L [facility] Eosinophils/100 WBC (Bld) 3.5 % Normal 0.0 - 8.0 % [facility] Eosinophils/Leukocyte s Auto (Bld) [Pure # fraction] 0.4 E9/L Normal 0.0 - 0.5 E9/L [facility] Lymphocytes/100 WBC (Bld) 18.3 % Normal 14.0 - 50.0 % [facility] Lymphocytes/Leukocyte s Auto (Bld) [Pure # fraction] 1.9 E9/L Normal 1.0 - 4.0 E9/L [facility] Monocytes/100 WBC (Bld) 6.7 % Normal 4.0 - 14.0 % [facility] Monocytes/Leukocytes Auto (Bld) [Pure # fraction] 0.7 E9/L Normal 0.2 - 1.0 E9/L [facility] Neutrophils/100 WBC (Bld) 70.6 % Normal 36.0 - 75.0 % [facility] Neutrophils/Leukocyte s Auto (Bld) [Pure # fraction] 7.5 E9/L Normal 2.0 - 7.5 E9/L [facility] HEMATOLOGYOrdered By: Nelson Orellana on 06-27-2023 Erythrocyte distribution width (RBC) [Ratio] 15.1 % High 10.9 - 14.2 % [facility] Hematocrit (Bld) [Volume fraction] 41.8 % Normal 37.7 - 49.0 % [facility] Hemoglobin (Bld) [Mass/Vol] 13.7 g/dL Normal 13.5 - 17.5 gm/dL [facility] MCH (RBC) [Entitic mass] 27.5 pg Normal 27.0 - 34.0 pg [facility] MCHC (RBC) [Mass/Vol] 32.7 g/dL Normal 31.4 - 36.0 gm /dL [facility] MCV (RBC) [Entitic vol] 84.2 fL Normal 80.0 - 100.0 fL [facility] Platelet mean volume (Bld) [Entitic vol] 9.9 fL Normal 6.4 - 10.8 fL [facility] Platelets (Bld) [#/Vol] 209.0 E9/L Normal 150.0 - 500.0 E9/L [facility] RBC (Bld) [#/Vol] 5.0 E12/L Normal 4.3 - 5.9 E12/L [facility] WBC corrected for nucl RBC Auto (Bld) [#/Vol] 10.6 E9/L Normal 4.0 - 11.0 E9/L [facility] [id number] 06-27-2023 HbA1c (Bld) [Mass fraction] 7.7 % High <=5.9 [facility] Comment on above: Performed By: #### 2 292767, 2752520, 5537577, 39566837, 9432693, [id number], [id number] ####[facility] [address] [place] [address] Lipid Panelon 06-27-2023 Cholesterol [Mass/Vol] 180 mg/dL Normal 120-200 [facility] Comment on above: Performed By: #### 2 106065, 4721729, 3234314, 70975713, 0884095, [id number], [id number] ####[facility] [address] [place] [address] Cholesterol in HDL [Mass/Vol] 43 mg/dL Invalid Interpretation Code [facility] Comment on above: Result Comment: HDL > or equal to 60 mg/dL: Low cardiovascular risk HDL < 40 mg/dL : High cardiovascular risk Performed By: #### 2 951886, 0115787, 9541798, 70981528, 4087707, [id number], 68151031 ####[facility] [address] [address] Cholesterol in LDL [Mass/Vol] 104 mg/dL Normal <=129 [facility] Comment on above: Performed By: #### 2 567025, 8310847, 7432006, 83826539, 6292133, 953021933, 37478420 ####[facility] [address] [place] [address] Cholesterol in VLDL [Mass/Vol] 47 mg/dL High 7-40 [facility] Comment on above: Performed By: #### 2 639375, 5295806, 5860878, 46177328, 5444505, [id number], 86212678 ####[facility] [address] [place] [address] Triglyceride [Mass/Vol] 237 mg/dL High <=149 [facility] Comment on above: Performed By: #### 2 015435, 2072549, 3858212, 94555561, 0401029, 799598548, 74503520 ####[facility] [address] [place] [address] TSH With T4fr Reflexon 06-27 TSH Qn 1.09 m[IU]/L Normal 0.34-5.60 [facility] Comment on above: Performed By: #### 2 877821, 4283811, 6981562, 99736155, 1613859, 064867467, 83096119 ####[facility] [address] [place] [address] U Microalbon 06-27-2023 Albumin DL <= 20 mg/L (U) [Mass/Vol] 75.3 microgram/mL High 0.0-19.0 [facility] Comment on above: Performed By: #### 1 1735469, [id number] ####[facility] [address] [place] [address] U Protein/Creat Ratioon 05-30 Albumin Elph (U) [Mass fraction] 13.8 mg/dL Invalid Interpretation Code [facility] Comment on above: Result Comment: The reference range and other method performance specifications have not been established for this test; results should be integrated into the clinical context for interpretation. Performed By: #### 1 [id number], [id number] ####[address] [address] Creatinine (U) [Mass/Vol] 78.2 mg/dL Invalid Interpretation Code [facility] Comment on above: Result Comment: The reference range and other method performance specifications have not been established for this test; results should be integrated into the clinical context for interpretation. Performed By: #### 1 2743542, [id number] ####[facility] [address] [place] [address] U Prot/Creat Ratio 176.50 mg/gm Cr Normal .00-200.00 [facility] Comment on above: Performed By: #### 1 6788438, [id number] ####[facility] [address] [place] [address] eGFRon 06-27-2023 GFR/1.73 sq M.predicted among non-blacks MDRD (S/P/Bld) [Vol rate/Area] 50 mL/min/1.73 m2 Low >=59 [facility] Comment on above: Order Comment: Order added by Discern Expert. Result Comment: Clerical Secretary starla kidney disease could be indicated at eGFR's of less than 60 mL/min/1.73m2. Kidney failure is indicated at less than 15 mL/min/1.73m2. Performed By: #### 2 546612, 1773989, 9172438, 84999418, 2386147, [id number], 73793643 ####[facility] [address] [place] [address] CBC with Diffon 05-27-2023 Abs. Basophil 0.10 k/uL Normal 0.0-0.2 [facility] Comment on above: Performed By: #### C JUSTICE, CP #### [place] [address] Carpenter Mold: Ernst Noriega MD #### LD #### [place] [phone] [place]: Jasbir Healy MD Abs.Neutrophil (Seg) 7.50 k/uL Normal 1.8-7.7 [facility] Comment on above: Performed By: #### C DP, CP #### [place] [phone] [place]: Ernst Noriega MD #### LD #### [place] [phone] [place]: Jasbir Healy MD Basophils/100 WBC (Bld) 1 % Normal 0-2 [facility] Comment on above: Performed By: #### C DP, CP #### [place] [phone] [place] [employer]: Ernst Noriega MD #### LD #### [address] [phone] [place] [employer]: Jsabir Healy MD Eosinophils (Bld) [#/Vol] 0.40 10*3/uL Normal 0.0-0.4 [facility] Comment on above: Performed By: #### C DP, CP #### [address] [phone] [place]: Ernst Noriega MD #### LD #### [address] [phone] [place] [employer]: Jasbir Healy MD Eosinophils/100 WBC (Bld) 3 % Normal 1-4 [facility] Comment on above: Performed By: #### C DP, CP #### [address] [phone] [place] [employer]: Ernst Noriega MD #### LD #### [address] [phone] [place] [employer]: Jasbir Healy MD Erythrocyte distribution width (RBC) [Ratio] 15.7 % High 12.5-15.4 [facility] Comment on above: Performed By: #### C DP, CP #### [address] [phone] [place] [employer]: Ernst Noriega MD #### LD #### [address] [phone] [place] [employer]: Jasbir Healy MD Hematocrit (Bld) [Volume fraction] 41.3 % Normal 41-53 [facility] Comment on above: Performed By: #### C DP, CP #### [address] [phone] [place] [employer]: Ernst Noriega MD #### LD #### [address] [address] [place]: Jasbir Healy MD Hemoglobin (Bld) [Mass/Vol] 13.4 g/dL Low 13.5-17.5 [facility] Comment on above: Performed By: #### C DP, CP #### [address] [phone] [employer]: Ernst Noriega MD #### LD #### [address] [phone] [place] [employer]: Jasbir Healy MD Lymphocytes (Bld) [#/Vol] 1.80 10*3/uL Normal 1.0-4.8 [facility] Comment on above: Performed By: #### C DP, CP #### [place] [phone] [place] [employer]: Ernst Noriega MD #### LD #### [place] [address] Carpenter Mold: Jasbir Healy MD Lymphocytes/100 WBC (Bld) 17 % Low 24-44 [facility] Comment on above: Performed By: #### C DP, CP #### [place] [phone] [employer]: Ernst Noriega MD #### LD #### [place] [address] Carpenter Mold: Jasbir Healy MD MCH (RBC) [Entitic mass] 27.6 pg Normal 26-34 [facility] Comment on above: Performed By: #### C DP, CP #### [place] [phone] Carpenter [employer]: Ernst Noriega MD #### LD #### [address] [phone] Carpenter [employer]: Jasbir Healy MD MCHC (RBC) [Mass/Vol] 32.5 g/dL Normal 31-37 [facility] Comment on above: Performed By: #### C DP, CP #### [address] [phone] [place] [employer]: Ernst Noriega MD #### LD #### [address] [phone] [place] [employer]: Jasbir Healy MD MCV (RBC) [Entitic vol] 84.8 fL Normal 80-100 [facility] Comment on above: Performed By: #### C DP, CP #### [place] [phone] Carpenter [employer]: Ernst Noriega MD #### LD #### [place] [address] Carpenter Mold: Jasbir Healy MD Monocytes (Bld) [#/Vol] 0.80 10*3/uL Normal 0.1-1.2 [facility] Comment on above: Performed By: #### C DP, CP #### [address] [phone] [place] [employer]: Ernst Noriega MD #### LD #### [address] [address] Carpenter [employer]: Jasbir Healy MD Monocytes/100 WBC (Bld) 7 % Normal 2-11 [facility] Comment on above: Performed By: #### C DP, CP #### [address] [phone] Carpenter [employer]: Ernst Noriega MD #### LD #### [address] [phone] Carpenter [employer]: Jasbir Healy MD Neutrophil (Seg) 72 % High 36-66 [facility] Comment on above: Performed By: #### C DP, CP #### [address] [phone] Carpenter [employer]: Ernst Noriega MD #### LD #### [address] [phone] Carpenter [employer]: Jasbir Healy MD Platelet mean volume (Bld) [Entitic vol] 9.9 fL Normal 6.0-12.0 [facility] Comment on above: Performed By: #### C DP, CP #### [place] [phone] Carpenter [employer]: Ernst Noriega MD #### LD #### [place] [address] Carpenter Mold: Jasbir Healy MD Platelets (Bld) [#/Vol] 203 10*3/uL Normal 140-450 [facility] Comment on above: Performed By: #### C DP, CP #### [place] [phone] Carpenter [employer]: Ernst Noriega MD #### LD #### [place] [address] Carpenter Mold: Jasbir Healy MD RBC (Bld) [#/Vol] 4.87 10*6/uL Normal 4.5-5.9 [facility] Comment on above: Performed By: #### C DP, CP #### [address] [phone] Carpenter [employer]: Ernst Noriega MD #### LD #### [address] [phone] Carpenter [employer]: Jasbir Healy MD WBC (Bld) [#/Vol] 10.6 10*3/uL Normal 3.5-11.0 [facility] Comment on above: Performed By: #### C DP, CP #### [place] [address] Carpenter Mold: Ernst Noriega MD #### LD #### [address] [address] Carpenter [place]: Jasbir Healy MD Comp Metabolic Profon 2022 Albumin [Mass/Vol] 4.1 g/dL Normal 3.5-5.2 [facility] Comment on above: Performed By: #### C DP, CP #### [place] [address] Carpenter Mold: Ernst Noriega MD #### LD #### [place] [address] Carpenter [employer]: Jasbir Healy MD Albumin/Glob Ratio 1.8 Normal 1.0-2.5 [facility] Comment on above: Performed By: #### C DP, CP #### [place] [address] Carpenter [employer]: Ernst Noriega MD #### LD #### [place] [address] Carpenter [employer]: Jasbir Healy MD Alkaline Phos 80 U/L Normal 40-129 [facility] Comment on above: Performed By: #### C DP, CP #### [place] [phone] Carpenter Mold: Ernst Noriega MD #### LD #### [address] [phone] Carpenter [employer]: Jasbir Healy MD ALT [Catalytic activity/Vol] 15 U/L Normal 5-41 [facility] Comment on above: Performed By: #### C DP, CP #### [address] [phone] [place] [employer]: Ernst Noriega MD #### LD #### [address] [phone] [place] [employer]: Jasbir Healy MD Anion gap [Moles/Vol] 10 mmol/L Normal 9-17 [facility] Comment on above: Performed By: #### C DP, CP #### [address] [phone] Carpenter [employer]: Ernst Noriega MD #### LD #### [address] [phone] Carpenter [employer]: Jasbir Healy MD AST [Catalytic activity/Vol] 15 U/L Normal <40 [facility] Comment on above: Performed By: #### C DP, CP #### [address] [phone] [place] [employer]: Ernst Noriega MD #### LD #### [address] [phone] Carpenter [employer]: Jasbir Healy MD Bilirubin [Mass/Vol] 0.4 mg/dL Normal 0.3-1.2 [facility] Comment on above: Performed By: #### C DP, CP #### [address] [phone] Carpenter [employer]: Ernst Noriega MD #### LD #### [address] [phone] Carpenter [employer]: Jasbir Healy MD Calcium [Mass/Vol] 9.4 mg/dL Normal 8.6-10.4 [facility] Comment on above: Performed By: #### C DP, CP #### [address] [phone] Carpenter [employer]: Ernst Noriega MD #### LD #### [address] [phone] Carpenter [employer]: Jasbir Healy MD Chloride [Moles/Vol] 104 mmol/L Normal 98-107 [facility] Comment on above: Performed By: #### C DP, CP #### [address] [phone] [place] [employer]: Ernst Noriega MD #### LD #### [address] [phone] [employer]: Jasbir Healy MD CO2 [Moles/Vol] 26 mmol/L Normal 20-31 [facility] Comment on above: Performed By: #### C DP, CP #### [address] [phone] Carpenter [employer]: Ernst Noriega MD #### LD #### [address] [phone] Carpenter [employer]: Jasbir Healy MD Creatinine [Mass/Vol] 1.77 mg/dL High 0.70-1.20 [facility] Comment on above: Performed By: #### C DP, CP #### [address] [phone] Carpenter [employer]: Ernst Noriega MD #### LD #### [address] [phone] Carpenter [employer]: Jasbir Healy MD GFR/1.73 sq M.predicted among non-blacks MDRD (S/P/Bld) [Vol rate/Area] 41 mL/min/{1.73_m2} Low >60 [facility] Comment on above: Result Comment: These results are not intended for use in patients <18 years of age. eGFR results are calculated without a race factor using the 2020 CKD-EPI equation. Careful clinical correlation is recommended, particularly when comparing to results calculated using previous equations. The CKD-EPI equation is less accurate in patients with extremes of muscle mass, extra-renal metabolism of creatine, excessive creatine ingestion, or following therapy that affects renal tubular secretion. Performed By: #### C JUSTICE, CP #### [address] [address] [place]: Ernst Noriega MD #### LD #### [address] [address] [place] [employer]: Jasbir Healy MD Glucose [Mass/Vol] 243 mg/dL High 70-99 [facility] Comment on above: Performed By: #### C JUSTIEC, CP #### [address] [address] [place] [employer]: Ernst Noriega MD #### LD #### [address] [address] Carpenter Mold: Jasbir Healy MD Potassium [Moles/Vol] 4.8 mmol/L Normal 3.7-5.3 [facility] Comment on above: Performed By: #### C DP, CP #### [address] [phone] [place] [employer]: Ernst Noriega MD #### LD #### [address] [phone] Carpenter [employer]: Jasbir Healy MD Protein [Mass/Vol] 6.4 g/dL Normal 6.4-8.3 [facility] Comment on above: Performed By: #### C DP, CP #### [address] [address] Carpenter [employer]: Ernst Noriega MD #### LD #### [address] [phone] Carpenter [employer]: Jasbir Healy MD Sodium [Moles/Vol] 140 mmol/L Normal 135-144 [facility] Comment on above: Performed By: #### C DP, CP #### [address] [address] Carpenter [employer]: Ernst Noriega MD #### LD #### [address] [phone] Carpenter [employer]: Jasbir Healy MD Urea nitrogen [Mass/Vol] 25 mg/dL High 8-23 [facility] Comment on above: Performed By: #### C JUSTICE, CP #### [address] [phone] Carpenter [employer]: Ernst Noriega MD #### LD #### [address] [phone] Carpenter [employer]: Jasbir Healy MD Lactate Dehydrogenaseon 04-30 LDH [Catalytic activity/Vol] 195 U/L Normal 135-225 [facility] Comment on above: Performed By: #### C DP, CP #### [address] [address] [place] [employer]: Ernst Noriega MD #### LD #### [address] [address] Carpenter [place]: Jasbir Healy MD BUNon 12-16-2020 Urea nitrogen [Mass/Vol] 32.0 mg/dL Critically high 9.0-20.0 [facility] Comment on above: Performed By: #### P HOS, CREA, BUN, ELEC, CA, MG #### [facility] [address] [place], [place] [address] Pb Lottie CALCIUMon 12-16-2020 Calcium [Mass/Vol] 9.8 mg/dL Normal 8.4-10.2 [facility] Comment on above: Performed By: #### P HOS, CREA, BUN, ELEC, CA, MG #### [facility] [address] [place], [place] [address] Pb Lottie CBC AUTO DIFFon 12-16-2020 Basophils (Bld) [#/Vol] 0.1 103/ul Normal 0.0-0.1 [facility] Comment on above: Performed By: #### C BC #### [facility] [address] [place], [place] [address] Pb Lottie Basophils/100 WBC (Bld) 0.6 % Normal 0.2-2.0 [facility] Comment on above: Performed By: #### C BC #### [facility] [address] [place], [place] [address] Pb Lottie Eosinophils (Bld) [#/Vol] 0.3 103/ul Normal 0.0-0.7 [facility] Comment on above: Performed By: #### C BC #### [facility] [address] [place], [place] [address]35[address] Pb Lottie Eosinophils/100 WBC (Bld) 3.2 % Normal 0.9-7.0 [facility] Comment on above: Performed By: #### C BC #### [facility] [address] [place], [place] [address] Pb Lottie Erythrocyte distribution width (RBC) [Ratio] 14.0 % Normal 11.0-15.0 [facility] Comment on above: Performed By: #### C BC #### [facility] [address] [place] [address] Pb Tafoya Hematocrit (Bld) [Volume fraction] 43.0 % Normal 42.0-54.0 [facility] Comment on above: Performed By: #### C BC #### [facility] [address] [place], [place] [address] Pb Lottie Hemoglobin (Bld) [Mass/Vol] 13.6 g/dL Critically low 14.0-18.0 [facility] Comment on above: Performed By: #### C BC #### [facility] [address] [place], [place] [address] Pb Lottie IG # 0.12 10e3/ul Critically high 0.00-0.03 [facility] Comment on above: Performed By: #### C BC #### [facility] [address] [place] [address] Pb Lottie IG % 1.2 % Critically high 0.0-0.5 [facility] Comment on above: Performed By: #### C BC #### [facility] [address] [place] [address] Pb Lottie Lymphocytes (Bld) [#/Vol] 1.9 103/ul Normal 1.2-3.8 [facility] Comment on above: Performed By: #### C BC #### [facility] [address] [place], [place] [address] Pb Tafoya Lymphocytes/100 WBC (Bld) 19.0 % Critically low 20.5-60.0 [facility] Comment on above: Performed By: #### C BC #### [facility] [address] [place], [place] [address] Pb Tafoya MANUAL DIFF REQ NO Normal [facility] Comment on above: Performed By: #### C BC #### [facility] [address] [place], [place] [address] Pb Tafoya MCH (RBC) [Entitic mass] 27.4 pg Normal 25.9-34.0 [facility] Comment on above: Performed By: #### C BC #### [facility] [address] [place], [place] [address] Pb Tafoya MCHC (RBC) [Mass/Vol] 31.6 g/dL Normal 29.9-35.2 [facility] Comment on above: Performed By: #### C BC #### [facility] [address] [id number] Pb Tafoya MCV (RBC) [Entitic vol] 86.5 fL Normal 80.0-94.0 [facility] Comment on above: Performed By: #### C BC #### [facility] [address] [place], [place] [address] Pb Lottie Monocytes (Bld) [#/Vol] 0.8 103/ul Normal 0.3-0.8 [facility] Comment on above: Performed By: #### C BC #### [facility] [address] [place] [address] Pb Lottie Monocytes/100 WBC (Bld) 7.8 % Normal 1.7-12.0 [facility] Comment on above: Performed By: #### C BC #### [facility] [address] [place] [address] Pb Lottie Neutrophils (Bld) [#/Vol] 6.7 103/ul Critically high 1.4-6.5 [facility] Comment on above: Performed By: #### C BC #### [facility] [address] [place] [address] Pb Lottie Neutrophils/100 WBC (Bld) 68.2 % Normal 43.0-75.0 [facility] Comment on above: Performed By: #### C BC #### [facility] [facility] [address] [place], [place] [id number] Pb Lottie Platelet mean volume (Bld) [Entitic vol] 11.1 fL Normal 9.5-13.5 [facility] Comment on above: Performed By: #### C BC #### [facility] [address] [place] [address] Pb Lottie Platelets (Bld) [#/Vol] 215 103/ul Normal 150-450 [facility] Comment on above: Performed By: #### C BC #### [facility] [address] [place] [address] Pb Tafoya RBC (Bld) [#/Vol] 4.97 106/ul Normal 4.70-6.10 [facility] Comment on above: Performed By: #### C BC #### [facility] [address] [place] [address] Pb Tafoya WBC (Bld) [#/Vol] 9.9 103/ul Normal 4.0-11.0 [facility] Comment on above: Performed By: #### C BC #### [facility] [address] [place] [address] Pb Tafoya CREATININEon 12-16-2020 Creatinine [Mass/Vol] 1.58 mg/dL Critically high 0.66-1.25 [facility] Comment on above: Performed By: #### P HOS, CREA, BUN, ELEC, CA, MG #### [facility] [address] [place] [address] Pb Lottie Creatinine [Mass/Vol] 44 mL/min/1.73m2 Critically low >=60 [facility] Comment on above: Performed By: #### P HOS, CREA, BUN, ELEC, CA, MG #### [facility] [address] [place] [address] Pb Lottie Creatinine [Mass/Vol] 53 mL/min/1.73m2 Critically low >=60 [facility] Comment on above: Performed By: #### P HOS, CREA, BUN, ELEC, CA, MG #### [facility] [address] [place] [address] Pb Tafoya ELECTROLYTESon 12-16-2020 Anion gap [Moles/Vol] 12.7 mmol/L Normal [facility] Comment on above: Performed By: #### P HOS, CREA, BUN, ELEC, CA, MG #### [facility] [address] [place] [address] Pb Tafoya Chloride [Moles/Vol] 107 mmol/L Normal 98-107 [facility] Comment on above: Performed By: #### P HOS, CREA, BUN, ELEC, CA, MG #### [facility] [address] [place] [address] Pb Lottie CO2 [Moles/Vol] 28.4 mmol/L Normal 22.0-30.0 [facility] Comment on above: Performed By: #### P HOS, CREA, BUN, ELEC, CA, MG #### [facility] [address] [place] [address] Pb Lottie Potassium [Moles/Vol] 4.1 mmol/L Normal 3.4-5.0 [facility] Comment on above: Performed By: #### P HOS, CREA, BUN, ELEC, CA, MG #### [facility] [address] [place] [address] Pb Lottie Sodium [Moles/Vol] 144 mmol/L Normal 137-145 [facility] Comment on above: Performed By: #### P HOS, CREA, BUN, ELEC, CA, MG #### [facility] [address] [place] [address] Pb Lottie MAGNESIUMon 12-16-2020 Magnesium [Mass/Vol] 1.8 mg/dL Normal 1.6-2.3 [facility] Comment on above: Performed By: #### C BC #### [facility] [address] [place] [address] Pb Lottie MICROALB CREAT RATIO RANDOMo n 12-16-2020 mALB 11.1 mg/dL Normal <=30.0 [facility] Comment on above: Performed By: #### M CRR #### [facility] [address] [place] [address] Pb Lottie MALB CR RATIO 115.1 MG/G Critically high 0.0-29.9 [facility] Comment on above: Performed By: #### M CRR #### [facility] [address] [place] [address] Pb Lottie MALB CR RATIO RANGE SEE BELOW Normal [facility] Comment on above: Result Comment: NO M ICROALBUMIN 0-29 MG/G CLINICAL MICROALBUMINURIA 30-300 MG/G MACROALBUMINURIA >300 MG/G Performed By: #### M CRR #### [facility] [address] [id number] Pb Tafoya URINE CREAT 96.40 mg/dL Normal 20.00-300.00 [facility] Comment on above: Performed By: #### M CRR #### [facility] [address] [place], [place] [id number] Pb Tafoya PHOSPHORUSon 12-16-2020 Phosphate [Mass/Vol] 3.1 mg/dL Normal 2.5-4.5 [facility] Comment on above: Performed By: #### P HOS, CREA, BUN, ELEC, CA, MG #### [facility] [address] [place], [place] [address] Pb Tafoya VITAMIN D 25 OHon 12-16-2020 VIT D 25-OH 71.6 ng/mL Normal [facility] Comment on above: Performed By: #### V ITAD #### [facility] [address] [place], [place] [id number] Pb Tafoya VIT D RANGES SEE BELOW Normal [facility] Comment on above: Result Comment: <20 ng/mL Vit D deficient 20 - <30 ng/mL Vit D insufficient 30 - 100 ng/mL Vit D sufficient >100 ng/mL Potential Toxicity Performed By: #### V ITAD #### [facility] [address] [place], [place] [id number] Pb Tafoya CBC With Auto Differentialon 12-01-2020 Basophils (Bld) [#/Vol] 0.10 10*3/uL [facility], [place] Basophils/100 WBC (Bld) 1 % 0 - 2 % [facility], [place] Differential Type NOT REPORTED [facility] Eosinophils (Bld) [#/Vol] 0.40 10*3/uL [facility] [place] Eosinophils/100 WBC (Bld) 4 % 1 - 4 % [facility] [place] Erythrocyte distribution width (RBC) [Ratio] 15.1 % 12.5 - 15.4 % [facility] [place] Hematocrit (Bld) [Volume fraction] 42.1 % 41 - 53 % [facility] [place] Hemoglobin (Bld) [Mass/Vol] 13.9 g/dL 13.5 - 17.5 g/dL [place], [place] Interpretation and review of laboratory results Abnormal [place] Lymphocytes (Bld) [#/Vol] 2.00 10*3/uL [place] Lymphocytes/100 WBC (Bld) 20 % Low 24 - 44 % [place] MCH (RBC) [Entitic mass] 27.9 pg 26 - 34 pg [place] MCHC (RBC) [Mass/Vol] 33.1 g/dL 31 - 37 g/dL [place] MCV (RBC) [Entitic vol] 84.2 fL 80 - 100 fL [place] Monocytes (Bld) [#/Vol] 0.70 10*3/uL [place] Monocytes/100 WBC (Bld) 7 % 2 - 11 % [place] Platelet mean volume (Bld) [Entitic vol] 9.3 fL 6 - 12 fL [place] Platelets (Bld) [#/Vol] NOT REPORTED [place] Platelets (Bld) [#/Vol] 254 10*3/uL [place] RBC (Bld) [#/Vol] 5.00 10*6/uL 4.5 - 5.9 m/uL [place] RBC morphology finding Nom (Bld) NOT REPORTED [place] Segmented neutrophils/100 WBC (Bld) 68 % High 36 - 66 % [place] Segs Absolute 7.10 [place] WBC (Bld) [#/Vol] 10.2 10*3/uL [place] WBC (Bld) [#/Vol] NOT REPORTED per 100 WBC [place] WBC Morphology NOT REPORTED [place] Comprehensive Metabolic Pane rey 12-01-2020 Albumin [Mass/Vol] 4.4 g/dL 3.5 - 5.2 g/dL [place], [place] Albumin/Globulin [Mass ratio] 1.6 {ratio} [place] ALP [Catalytic activity/Vol] 130 U/L High 40 - 129 U/L [place] ALT [Catalytic activity/Vol] 23 U/L 5 - 41 U/L [place] Anion gap [Moles/Vol] 12 mmol/L 9 - 17 mmol/L [place] AST [Catalytic activity/Vol] 22 U/L <40 [place] Bilirubin Ql (U) 0.33 mg/dL 0.3 - 1.2 mg/dL [place], [place] Bun/Cre Ratio NOT REPORTED [place] Calcium [Mass/Vol] 10.4 mg/dL 8.6 - 10.4 mg/dL [place] Chloride [Moles/Vol] 104 mmol/L 98 - 107 mmol/L [place] CO2 [Moles/Vol] 26 mmol/L 20 - 31 mmol/L [place] Creatinine [Mass/Vol] 1.4 mg/dL High 0.7 - 1.2 mg/d L [place] GFR >60 >60 mL/min [place] GFR Non- 51 mL/min Low >60 [place] GFR/1.73 sq M predicted among non-blacks MDRD (S/P/Bld) [Vol rate/Area] [place] Comment on above: Average GFR for 60-6 9 years old: 85 mL/min/1.73sq m Chronic Kidney Disease: <60 mL/min/1.73sq m Kidney failure: <15 mL/min/1.73sq m eGFR calculated using average adult body mass. Additional eGFR calculator available at: http://www.[employer]/multiple_crcl_2012.htm GFR/1.73 sq M predicted among non-blacks MDRD (S/P/Bld) [Vol rate/Area] NOT REPORTED [place] Glucose [Mass/Vol] 217 mg/dL High 70 - 99 mg/dL [place], [place] Interpretation and review of laboratory results Abnormal [place] Potassium [Moles/Vol] 5.0 mmol/L 3.7 - 5.3 mmol /L [place] Protein [Mass/Vol] 7.2 g/dL 6.4 - 8.3 g/dL [place] Sodium [Moles/Vol] 142 mmol/L 135 - 144 mmol/L [place] Urea nitrogen [Mass/Vol] 26 mg/dL High 8 - 23 mg/dL [place] Lactate Dehydrogenaseon LD 198 U/L 135 - 225 U/L [place] Otheron 12-01-2020 Immature granulocytes (Bld) [#/Vol] NOT REPORTED 0 % [place] LIPID PROFILEon 11-25-2020 CHOL-HDL RATIO NORM SEE BELOW Normal [facility] Comment on above: Result Comment: 3.3 - 4.4 LOW RISK 4.4 - 7.1 AVERAGE RISK 7.1 - 11.0 MODERATE RISK >11.0 HIGH RISK Performed By: #### L IPID, CMP #### [facility] [address] [place] [address] Pb Lottie Cholesterol [Mass/Vol] 193 mg/dL Normal <=200 [facility] Comment on above: Performed By: #### L IPID, CMP #### [facility] [address] [address] Pb Lottie Cholesterol in HDL [Mass/Vol] 45 mg/dL Normal [facility] Comment on above: Performed By: #### L IPID, CMP #### [facility] [address] [id number] Pb Lottie Cholesterol in HDL [Mass/Vol] > or = 60 mg/dl - LOW CARDIOVASCULAR RISK <40 mg/dl - HIGH CARDIOVASCULAR RISK Normal [facility] Comment on above: Performed By: #### L IPID, CMP #### [facility] [address] [id number] Pb Lottie Cholesterol in LDL [Mass/Vol] 108.4 mg/dL Normal [facility] Comment on above: Performed By: #### L IPID, CMP #### [facility] [address] [id number] Pb Lottie Cholesterol in LDL [Mass/Vol] SEE BELOW Normal [facility] Comment on above: Result Comment: <100 mg/dl OPTIMAL 100 - 129 mg/dl NEAR OR ABOVE OPTIMAL 130 - 159 mg/dl BORDERLINE HIGH 160 - 189 mg/dl HIGH >190 mg/dl VERY HIGH Performed By: #### L IPID, CMP #### [facility] [address] [id number] Pb Lottie Cholesterol.total/Cho lesterol in HDL [Mass ratio] 4.3 {ratio} Normal [facility] Comment on above: Performed By: #### L IPID, CMP #### [facility] [address] [id number] Pb Lottie Triglyceride [Mass/Vol] 198 mg/dL Critically high <=150 [facility] Comment on above: Performed By: #### L IPID, CMP #### [facility] [address] [place] [address] Pb Lottie VLDL CALC 39.6 mg/dL Normal [facility] Comment on above: Performed By: #### L IPID, CMP #### [facility] [address] [place], [place] [address] Pb Lottie MICROALB CREAT RATIO RANDOMo n 11-25-2020 mALB 14.8 mg/dL Normal <=30.0 [facility] Comment on above: Performed By: #### C BC #### [facility] [address] [place] [address] Pb Lottie MALB CR RATIO 174.1 MG/G Critically high 0.0-29.9 [facility] Comment on above: Performed By: #### C BC #### [facility] [address] [place], [place] [address] Pb Lottie MALB CR RATIO RANGE SEE BELOW Normal [facility] Comment on above: Result Comment: NO M ICROALBUMIN 0-29 MG/G CLINICAL MICROALBUMINURIA 30-300 MG/G MACROALBUMINURIA >300 MG/G Performed By: #### C BC #### [facility] [address] [place] [address] Pb Lottie URINE CREAT 85.02 mg/dL Normal 20.00-300.00 [facility] Comment on above: Performed By: #### C BC #### [facility] [address] [address] Pb Lottie PROF 14(COMP METB)on 020 Albumin [Mass/Vol] 3.9 g/dL Normal 3.5-5.0 [facility] Comment on above: Performed By: #### L IPID, CMP #### [facility] [address] [id number] Pb Lottie Albumin/Globulin [Mass ratio] 1.2 {ratio} Normal [facility] Comment on above: Performed By: #### L IPID, CMP #### [facility] [address] [address] Pb Lottie ALP [Catalytic activity/Vol] 125 U/L Normal 38-126 [facility] Comment on above: Performed By: #### L IPID, CMP #### [facility] [address] [place] [address] Pb Lottie ALT [Catalytic activity/Vol] 36 U/L Normal 21-72 [facility] Comment on above: Performed By: #### L IPID, CMP #### [facility] [address] [id number] Pb Lottie Anion gap [Moles/Vol] 13.0 mmol/L Normal [facility] Comment on above: Performed By: #### L IPID, CMP #### [facility] [address] [address] Pb Lottie AST [Catalytic activity/Vol] 26 U/L Normal 17-59 [facility] Comment on above: Performed By: #### L IPID, CMP #### [facility] [address] [place], [place] [address] Pb Lottie Bilirubin Ql (U) 0.5 mg/dL Normal 0.2-1.3 [facility] Comment on above: Performed By: #### L IPID, CMP #### [facility] [address] [place], [place] [address] Pb Lottie Calcium [Mass/Vol] 9.5 mg/dL Normal 8.4-10.2 [facility] Comment on above: Performed By: #### L IPID, CMP #### [facility] [address] [id number] Pb Lottie Chloride [Moles/Vol] 105 mmol/L Normal 98-107 [facility] Comment on above: Performed By: #### L IPID, CMP #### [facility] [address] [place] [address] Pb Lottie CO2 [Moles/Vol] 28.1 mmol/L Normal 22.0-30.0 [facility] Comment on above: Performed By: #### L IPID, CMP #### [facility] [address] [place] [address] Pb Lottie Creatinine [Mass/Vol] 1.54 mg/dL Critically high 0.66-1.25 [facility] Comment on above: Performed By: #### L IPID, CMP #### [facility] [address] [place] [address] Pb Lottie EGFR-AF INDONESIAN 55 mL/min/1.73m2 Critically low >=60 [facility] Comment on above: Performed By: #### L IPID, CMP #### [facility] [address] [place] [address] Pb Lottie EGFR-NON AF INDONESIAN 45 mL/min/1.73m2 Critically low >=60 [facility] Comment on above: Performed By: #### L IPID, CMP #### [facility] [address] [place] [address] Pb Lottie Globulin (S) [Mass/Vol] 3.2 g/dL Normal [facility] Comment on above: Performed By: #### L IPID, CMP #### [facility] [address] [place] [address] Pb Lottie Glucose [Mass/Vol] 208 mg/dL Critically high 74-106 [facility] Comment on above: Performed By: #### L IPID, CMP #### [facility] [address] [place] [address] Pb Lottie Potassium [Moles/Vol] 5.1 mmol/L Critically high 3.4-5.0 [facility] Comment on above: Performed By: #### L IPID, CMP #### [facility] [address] [place], [place] [address] Pb Lottie Protein [Mass/Vol] 7.1 g/dL Normal 6.1-8.2 [facility] Comment on above: Performed By: #### L IPID, CMP #### [facility] [address] [place], [place] [address] Pb Lottie Sodium [Moles/Vol] 141 mmol/L Normal 137-145 [facility] Comment on above: Performed By: #### L IPID, CMP #### [facility] [address] [place], [place] [address] Pb Lottie Urea nitrogen [Mass/Vol] 26.0 mg/dL Critically high 9.0-20.0 [facility] Comment on above: Performed By: #### L IPID, CMP #### [facility] [address] [place], [place] [address] Pb Lottie Urea nitrogen/Creatinine [Mass ratio] 16.9 mg/mg Normal [facility] Comment on above: Performed By: #### L IPID, CMP #### [facility] [address] [place], [place] [address] Pb Lottie CBC With Auto DifferentialOr dered By: Mariam Hazel on 12-03-2019 Absolute Eos # 0.40 [employer] Phone: Absolute Immature Granulocyte NOT REPORTED [facility] Phone: Absolute Lymph # 1.40 [place] Phone: Absolute [place] # 0.60 [facility] Phone: Basophils (Bld) [#/Vol] 0.10 10*3/uL [facility] Phone: Basophils/100 WBC (Bld) 1 % 0 - 2 % [facility] Phone: Differential Type NOT REPORTED [facility] Phone: Eosinophils/100 WBC (Bld) 4 % 1 - 4 % [facility] Phone: Erythrocyte distribution width (RBC) [Ratio] 14.7 % 12.5 - 15.4 % [facility] Phone: Hematocrit (Bld) [Volume fraction] 40.9 % Low 41 - 53 % [facility] Phone: Hemoglobin (Bld) [Mass/Vol] 13.5 g/dL 13.5 - 17.5 g/dL [place] Phone: Immature Granulocytes NOT REPORTED 0 % M [facility] Phone: Interpretation and review of laboratory results Abnormal [place] Phone: Lymphocytes/100 WBC (Bld) 16 % Low 24 - 44 % [facility] Phone: MCH (RBC) [Entitic mass] 27.3 pg 26 - 34 pg [facility] Phone: MCHC (RBC) [Mass/Vol] 33.0 g/dL 31 - 37 g/dL M [facility] Phone: MCV (RBC) [Entitic vol] 82.7 fL 80 - 100 fL [place] Phone: Monocytes/100 WBC (Bld) 7 % 2 - 11 % [facility] Phone: NRBC Automated NOT REPORTED per 100 WBC [facility] Phone: Platelet Estimate NOT REPORTED [facility] Phone: Platelet mean volume (Bld) [Entitic vol] 9.6 fL 6 - 12 fL [facility] Phone: Platelets (Bld) [#/Vol] 204 10*3/uL [facility] Phone: RBC (Bld) [#/Vol] 4.95 10*6/uL 4.5 - 5.9 m/uL [facility] Phone: RBC morphology finding Nom (Bld) NOT REPORTED [facility] Phone: Segmented neutrophils/100 WBC (Bld) 72 % High 36 - 66 % [facility] Phone: Segs Absolute 6.20 [facility] Phone: WBC (Bld) [#/Vol] 8.7 10*3/uL [facility] Phone: WBC Morphology NOT REPORTED [facility] Phone: Comprehensive Metabolic Pane lOrdered By: Mariam Hazel on 12-03-2019 Albumin [Mass/Vol] 4.3 g/dL 3.5 - 5.2 g/dL [facility]: Albumin/Globulin [Mass ratio] 1.5 {ratio} [place] [place] Phone: ALP [Catalytic activity/Vol] 150 U/L High 40 - 129 U/L [facility] Phone: ALT [Catalytic activity/Vol] 33 U/L 5 - 41 U/L [facility] Phone: Anion gap [Moles/Vol] 12 mmol/L 9 - 17 mmol/L [facility] Phone: AST [Catalytic activity/Vol] 34 U/L <40 [facility] Phone: Bilirubin [Mass/Vol] 0.38 mg/dL 0.3 - 1.2 mg/dL [facility] Phone: Bun/Cre Ratio NOT REPORTED [facility] Phone: Calcium [Mass/Vol] 9.5 mg/dL 8.6 - 10.4 mg/dL [facility] Phone: Chloride [Moles/Vol] 103 mmol/L 98 - 107 mmol/L [facility] Phone: CO2 [Moles/Vol] 25 mmol/L 20 - 31 mmol/L [facility]: Creatinine [Mass/Vol] 1.56 mg/dL High 0.7 - 1.2 mg/d L [facility] [employer] Phone: GFR 54 mL/min Low >60 [facility] [employer] Phone: GFR Comment [facility]: Comment on above: Average GFR for 60-6 9 years old: 85 mL/min/1.73sq m Chronic Kidney Disease: <60 mL/min/1.73sq m Kidney failure: <15 mL/min/1.73sq m eGFR calculated using average adult body mass. Additional eGFR calculator available at: http://www.[employer]/multiple_crcl_2012.htm GFR Non- 45 mL/min Low >60 [facility]: GFR Staging NOT REPORTED [facility] [employer] Phone: Glucose [Mass/Vol] 227 mg/dL High 70 - 99 mg/dL [facility] [employer] Phone: Interpretation and review of laboratory results Abnormal [facility] [employer] Phone: Potassium [Moles/Vol] 4.8 mmol/L 3.7 - 5.3 mmol /L [facility] [employer] Phone: Protein [Mass/Vol] 7.1 g/dL 6.4 - 8.3 g/dL [facility] [employer] Phone: Sodium [Moles/Vol] 140 mmol/L 135 - 144 mmol/L [facility]: Urea nitrogen [Mass/Vol] 30 mg/dL High 8 - 23 mg/dL [facility] [employer] Phone: Lactate DehydrogenaseOrdered By: Mariam Hazel on 12-03-2019 LD 189 U/L 135 - 225 U/L [facility] Work Phone: K (Potassium)on 02-13-2019 Potassium molar conc 4.6 mmol/L Normal 3.7-5.3 [facility] Comment on above: Performed By: #### K #### [facility] [address] [place] [address] Carpenter Mold: Alvarado Casillas MD BUN + Creatinineon 8 (cont.) Normal [facility] Comment on above: Result Comment: Aver age GFR for 60-69 years old: 85 mL/min/1.73sq m Chronic Kidney Disease: <60 mL/min/1.73sq m Kidney failure: <15 mL/min/1.73sq m eGFR calculated using average adult body mass. Additional eGFR calculator available at: http://www.[employer]/multiple_crcl_2011.htm Performed at [facility] [address] [place] [address] Performed By: #### B UNCRT, LYTE #### [address] [address] Creatinine mass conc 1.46 mg/dL High 0.70-1.20 [facility] Comment on above: Performed By: #### B UNCRT, LYTE #### [address] [address] GFR, Amer 59 mL/min Low >60 [facility] Comment on above: Performed By: #### B UNCRT, LYTE #### [address] [place] [address] GFR,non Amer 49 mL/min Low >60 [facility] Comment on above: Performed By: #### B UNCRT, LYTE #### [address] [address] Urea nitrogen mass conc 27 mg/dL High 8-23 [facility] Comment on above: Performed By: #### B UNCRT, LYTE #### [address] [address] Staging: NOT REPORTED Normal [facility] Comment on above: Performed By: #### B UNCRT, LYTE #### [address] [address] Electrolyteson 03-02-2018 Anion gap molar conc 14 mmol/L Normal 9-17 [facility] Comment on above: Result Comment: Perf ormed at [address] [address] Performed By: #### B UNCRT, LYTE #### [address] [address] Chloride molar conc 104 mmol/L Normal 98-107 [facility] Comment on above: Performed By: #### B UNCRT, LYTE #### [address] [address] CO2 molar conc 23 mmol/L Normal 20-31 [facility] Comment on above: Performed By: #### B UNCRT, LYTE #### [address] [address] Potassium molar conc 4.7 mmol/L Normal 3.7-5.3 [facility] Comment on above: Performed By: #### B UNCRT, LYTE #### [address] [address] Sodium molar conc 141 mmol/L Normal 135-144 [facility] Comment on above: Performed By: #### B UNCRT, LYTE #### [address] [address] Encounters Encounter Date Encounter Type Care Provider Facility Start: 01-30-2024 ambulatory MD Tony Vasquez [facility] ity:[facility] Start: 10-25-2023 End: 10-26-2023 ambulatory MD [facility] Start: 08-16-2023 End: 08-17-2023 ambulatory MD [facility] Vasquez [facility] Start: 07-25-2023 End: 07-26-2023 ambulatory MD Tony Vasquez Facility:[facility] Start: 06-27-2023 End: 06-28-2023 ambulatory MD Tony Vasquez Facility[facility] Start: 06-27-2023 End: 06-28-2023 ambulatory MD Tony Vasquez Facility:[facility] Start: 06-27-2023 End: 06-27-2023 Lab Drop off Tony Vasquez [facility] Start: 05-27-2023 End: 05-28-2023 ambulatory MARIAM Clifford [facility] Start: 05-05-2023 ambulatory MD Tony Vasquez [facility] Start: 12-16-2020 End: 12-17-2020 Patient encounter procedure DOCTOR MISC Facility:[facility] Start: 12-01-2020 End: 12-01-2020 Subsequent hospital visit by physician Grace Murray [facility] Comment on above: Non-Hodgkin's lympho ma, unspecified body region, unspecified non-Hodgkin lymphoma type (HCC) Start: 11-25-2020 End: 11-26-2020 Patient encounter procedure GRACE MURRAY Facility:[facility] Start: 04-09-2020 Patient encounter procedure DOCTOR MISC Facility:[facility] Start: 12-03-2019 End: 12-03-2019 Subsequent hospital visit by physician Grace Murray Work Phone: [facility] Comment on above: Diffuse large B-cell lymphoma of lymph nodes of multiple regions (HCC) Start: 02-13-2019 End: 02-14-2019 Patient encounter procedure ROBSON SANDERSON [facility] Start: 03-02-2018 End: 03-03-2018 Patient encounter procedure AKINFEMI S WAI [facility] Procedures Date Procedure Procedure Detail Performing Clinician Start: 12-01-2020 Blood count complete auto&auto difrntl wbc Mariam Hazel Work Phone: Start: 12-01-2020 Comprehensive metabo lic panel Mariam Hazel Work Phone: Start: 12-01-2020 Lactate dehydrogenase ldh Mariam Hazel Work Phone: Start: 12-03-2019 Comprehensive metabo lic panel Mariam Hazel MD Work Phone: Start: 02-13-2019 Potassium serum plasma/whole blood AKINFEMI WAI Start: 03-02-2018 BUN AND CREATININE THAO ELI [facility] Start: 03-02-2018 ELECTROLYTE PANEL AKINF CATHI [facility] Insulin pump, device (physical object) Tony Vasquez Tonsillectomy and adenoidectomy Tony Vasquez Plan of Treatment Date Care Activity Detail Author Start: 12-01-2021 Creatinine measurement Creatinine mo nitoring [place] [place] Start: 12-01-2021 Potassium monitoring Potassium monit [place], [place] Start: 08-28-2021 Pneumococcal 65+ yrs at Risk Vaccine (2 of 2 - PCV13) Pneumococcal 65+ yrs at Risk Vaccine (2 of 2 - PCV13) [place] Start: 12-23-2020 End: 12-23-2020 Office Visit 12/23/2020 Office Visit Nephrology Wong Carreno MD [address] [place] [address] [phone] [facility] Start: 05-28-2020 [facility] Start: 05-28-2020 Potassium monitoring Potassium monit [facility] Work Phone: Start: 02-07-2020 Lipid panel Lipid screen [place], [place] Start: 02-07-2020 Lipid screen Lipid screen [facility] Phone: Start: 07-29-2019 Influenza [facility] (# [facility] Start: 05-16-2019 Annual Wellness Visi t (AWV) Annual Wellness Visit (AWV) [facility] Phone: Start: 2019 Pneumococcal 65+ yea rs Vaccine (1 of 1 - PPSV23) Pneumococcal 65+ years Vaccine (1 of 1 - PPSV23) [facility] Phone: Start: 01-04-2018 A1C test (Diabetic o r Prediabetic) A1C test (Diabetic or Prediabetic) [facility]: Start: 01-04-2018 HbA1c (Bld) [Mass fraction] A1C test (Diabetic or Prediabetic) [place] Start: 2004 Colon cancer screen colonoscopy Colon cancer screen colonoscopy [facility] [employer] [facility] Phone: Start: 2004 Screening for malign ant neoplasm of colon Colon cancer screen colonoscopy [place], [place] Start: 2004 Shingles Vaccine (1 of 2) Shingles Vaccine (1 of 2) [facility] Start: 1973 DTaP/Tdap/Td vaccine (1 - Tdap) DTaP/Tdap/Td vaccine (1 - Tdap) [place] Start: 1965 DTaP/Tdap/Td vaccine (1 - Tdap) DTaP/Tdap/Td vaccine (1 - Tdap) [facility]: Start: 1964 3 comp foot exam completed Diabetic foot exam [facility]: Start: 1964 Diabetic foot examination Diabetic foot exam [place] Start: 1964 Diabetic retinal exam Diabetic retin al exam [facility]: Immunizations Immunization Date Immunization Notes Care Provider Fa cili 09-19-2022 influenza virus vacc ine, unspecified formulation Tony Vasquez [facility] 09-19-2022 SARS-CoV-2 (COVID-19 ) [id number] Tony Vasquez [facility] 03-06-2022 SARS-CoV-2 mRNA (oubnoqamnvu-hegl-bahbakd ) vaccine Tony Vasquez [facility] 08-29-2021 pneumococcal conjuga te vaccine, 13 valent Tony Vasquez [facility] 08-24-2021 influenza virus vacc ine, unspecified formulation Tony Vasquez [facility] 08-24-2021 SARS-CoV-2 (COVID-19 ) mRNA BNT-162b2 vax Tony Vasquez [facility] 02-07-2021 SARS-CoV-2 (COVID-19 ) mRNA BNT-162b2 vax Tony Vasquez [facility] Comment on above: Result Comment: 2022: [id number] 01-17-2021 SARS-CoV-2 (COVID-19 ) mRNA BNT-162b2 vamagan Vasquez [facility] Comment on above: Result Comment: 2022: [id number] 08-28-2020 influenza virus vacc ine, unspecified formulation Tony Vaqsuez [facility] 08-28-2020 pneumococcal polysaccharide vaccine, 23 valent Tony Vasquez [facility] 09-12-2017 influenza virus vacc ine, unspecified formulation Tony Vasquez [facility] 09-12-2017 influenza, injectabl e, quadrivalent, preservative free [facility], [place] 09-06-2005 Influenza Vaccine, unspecified formulation [facility] , [place] 09-06-2005 influenza virus vacc ine, unspecified formulation Tony Pedro [facility] Payers Date Payer Category Payer Medicare [id number] 2019 Medicare MEDICARE RAFRANROA D MEDICARE xxxxxxxxxxx 2019-Present [phone] [address] [address] [place] [address] xxxxxxxxxxx [id number] 2019 Unknown [employer] M [employer] [address] xxxxxxxxxxxx 2019-Present [phone] [address] [place] [address] xxxxxxxxxxxx [id number] 2014 Private Health Insurance [id number] 2014 Private Health Insurance [id number] 1959 Medicare [id number] 1959 Self-pay 1959 Unknown [id number] 1954 Unknown [id number] [id number] .176 1954 Unknown [id number] 2.16.840.1.472333.3.579.2 .176 1954 Unknown [id number] 2.16.840.1.079166.3.579.2 .593 1954 Unknown [id number] 2.16.840.1.855162.3.579.2 .593 1954 Unknown [id number] 2.16.840.1.897451.3.579.2 .593 1954 Unknown [id number] 2.16.840.1.999668.3.579.2 .175 1954 Unknown [id number] 2.16.840.1.471748.3.579.2 .727 1954 Unknown [id number] 2.16.840.1.419623.3.579.2 .727 1954 Unknown [id number] 2.16.840.1.939554.3.579.2 .727 1954 Unknown [id number] 2.16.840.1.912142.3.579.2 .727 1954 Unknown [id number] 2.16.840.1.611264.3.579.2 .727 1954 Unknown [id number] .727 Private Health Insurance [id number] Social History Date Type Detail Facility Start: 12-01-2020 End: 06-27-2023 Tobacco smoking status [facility] Former smoker [facility] End: 05-08-1990 History of tobacco use Current smoker [facility] Phone: End: 05-08-1990 History of tobacco use Cigarette Smoker [facility] Phone: Start: 12-03-2019 End: 12-01-2020 Cigarettes smoked current (pack per day) - Reported [facility] Phone: Start: 12-01-2020 Tobacco use and exposure Never used [employer] [place], [place] Start: 12-03-2019 End: 12-01-2020 Alcohol intake Current drinker of alcohol (finding) [facility] Phone: Start: 12-29-2015 Alcohol Comment social [employer] [facility] Work Phone: Sex Assigned At Not on file [facility] Phone: Tobacco smoking status Never [facility] Sex Assigned At Male [facility] Medical Equipment Procedure Code Equipment Code Equipment Origin al Text Equipment Identifier Dates BD PEN NEEDLE NA NO U/F 32G X 4 MM [facility] [id number] Start: 09-11-2015 TRUEPLUS INSULIN SYRINGE 31G X 5/16 1 ML [facility] [id number] Start: 04-02-2020 See Instructions , [employer] test strips Test sugars 4 times a day Start: 06-27-2023 [employer] health pr o twist lancets use to test sugars 4 times a day Start: 06-27-2023 syrings, See Instructions, 120 EA, 3, syrings 31g x8mm use qid and prn E11.9, [facility] [id number], Supply Start: 06-13-2023 Evaluation + Plan note Note Date & Type Note Facility Evaluation + Plan note Future Appointments Appointment Date:07/25/2023 11:40:00 AM Scheduled Provider:[facility]: Open Appointment Date:08/16/2023 02:00:00 PM Scheduled Provider: Location:[facility] Appointment Type: Medicare Wellness Subsequent [facility] Evaluation note Note Date & Type Note Facility Evaluation note Diagnosis Diffuse large B-cell lymphoma of lymph nodes of multiple regions (HCC) documented in this encounter [facility] Phone: Hospital course Narrative Note Date & Type Note Facility Hospital course Narrative No data available for this section [facility] Hospital Discharge instructions Note Date & Type Note Facility Hospital Discharge instructions No data available for this section [facility] Progress note Note Date & Type Note Facility Progress note No data available for this section [facility] Summary Purpose Family History No Family History Records FoundNo Family History Records FoundNo Family History Records FoundNo Family History Records Found Advance Directives No Advanced Directives Records FoundDocuments on File Type Date Recorded Patient [employer] Expl anation ACP-Advance Directive ACP-Power of [employer] Latest Code Status on File Code Status Date Activated Date Inactivated Comments Full Code 09/03/2014 2:03 PM 09/04/2014 3:11 AM Full Code 07/23/2014 1:30 PM 07/24/2014 3:09 AM Full Code 07/02/2014 1:51 PM 07/03/2014 3:10 AM Full Code 06/11/2014 2:21 PM 06/12/2014 3:09 AM Full Code 05/21/2014 10:55 AM 05/22/2014 9:57 PM Documents on File Type Date Recorded Patient [employer] Expl anation Advance Directives and Living Will 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 DATE CREATED AUTHOR AUTHOR'S ORGANIZ ATION 01/16/2024 [facility] Patient Care team informatio n (unrecognized section and content) Personnel Name: Tony Vasquez MD Address: Address: [address] [place], [place] [address] FOR RECORDS PERTAINING TO PATIENTS WHO ARE OR HAVE BEEN ENROLLED IN A CHEMICAL DEPENDENCY/SUBSTANCEABUSE PROGRAM, SOME INFORMATION MAY BE OMITTED. This clinical summary was aggregated from multiple sources. Caution should be exercised in using it in the provision of clinical care. This summary normalizes information from multiple sources, and as a consequence, information in this document may materially change the coding, format and clinical context of patient data. In addition, data may be omitted in some cases. CLINICAL DECISIONS SHOULD BE BASED ON THE PRIMARY CLINICAL RECORDS. [facility]. provides no warranty or guarantee of the accuracy or completeness of information in this document.
[2024-01-27 10:36] LABS: Albumin Level 3.4 g/dL (3.4-5.0); Anion Gap 11.3; BUN Creatinine Ratio 15.3; Carbon Dioxide 28.8 mmol/L (21.0-32.0); Chloride 108 mmol/L (98-107); Estimated GFR (African America 40 (>=60); Estimated GFR (Non-African Ame 33 (>=60); Glucose 164 mg/dL (74-106); Phosphorus 3.7 mg/dL (2.6-4.7); Potassium 5.1 mmol/L (3.5-5.1); Sodium 143 mmol/L (136-145)
[2024-01-27 10:41] LABS: Creatinine Urine Random 154.87 mg/dL (20.00-300.00); Microalbum Creatinine Ratio Ur 156.9 mg/g (0.0-29.9); Microalbumin Urine Random 24.3 mg/dL (<=30.0)
== END 2024-01-27 08:59 | disposition home or self-care (01) ==
LOC: LAB 09:01
PROVIDERS: PCP Family Medicine; Visit Provider Internal Medicine
DX: E11.65 Type 2 diabetes mellitus with hyperglycemia (principal); E55.9 Vitamin D deficiency, unspecified; Z71.3 Dietary counseling and surveillance
CPT/HCPCS: 36415; 80069; 82043; 82570

== ENCOUNTER 2024-08-17 10:13 | Outpatient (OUT) | payer MEDICARE, SELFPAY ==
--- OUTSIDE RECORDS SUMMARY | 2024-08-17 10:34 | XMS_ITS | CCD ---
Author Organization [facility] Care Team Providers Care [employer] Teacher Name Role Phone WAI, MARGAUX Donovan Referring Unavailable JONES, KRISTIAN Primary Care Unavailable ROBSON SANDERSON Referring Unavailable KAREN, KRISTIAN Primary Care Unavailable Lloyd Murray Primary Care Provider MISC, DOCTOR Attending Unavailable MISC, DOCTOR Admitting Unavailable MISC, DOCTOR Admitting Unavailable LLOYD MURRAY Primary Care Unavailable MISC, DOCTOR Attending Unavailable MISC, DOCTOR Consulting Unavailable LLOYD MURRAY Primary Care Unavailable MISC, DOCTOR Attending Unavailable MISC, DOCTOR Consulting Unavailable MISC, DOCTOR Admitting Unavailable Lloyd Murray Primary Care Provider Tony Figueroa Primary Care Physician REN SPAIN Attending Unavailable DERIAN DALTON Referring Unavailable LLOYD MURRAY Primary Care Unavailable CURT, IVANNA Consulting Unavailable LIZ, RATIKA Admitting Unavailable LLOYD MURRAY Primary Care Unavailable MARIAM HAZEL Referring Unavailable MD Pablo Beal Referring Unavailable MD Pablo Beal Attending Unavailable MD Pablo Beal Admitting Unavailable Tony Figueroa Attending Unavailable Tony Figueroa Admitting Unavailable Tony Figueroa Admitting Unavailable Tony Figueroa Attending Unavailable Elbert Hill Attending Unavailable Tony Figueroa Attending Unavailable Tony Figueroa Attending Unavailable Tony Figueroa Attending Unavailable Tony Figueroa Attending Unavailable Tony Figueroa Attending Unavailable Tony Figueroa Attending Unavailable Tony Figueroa Attending Unavailable Tony Figueroa Referring Unavailable MD Pablo Beal Attending Unavailable Allergies Allergy Classification Reported Allergen(s) Allergy Type Date of Onset Reaction(s) Facility (2 sources) No Known Medication Allergies; Translations: [No Known Medication Allergies] Propensity to adverse reactions (disorder) [facility] Repository Medications Current Medications Medication Drug Class(es) Dates Sig (Normalized) Sig (Original) atorvastatin 80 mg oral tablet (7 sources) HMG-CoA Reductase Inhibitor Start: 12-05-2023 take 1 tablet by mouth once daily atorvastatin 80 mg Tab 80 mg = 1 tab(s), Oral, Daily, # 90 tab(s), Refills(s) 3, Pharmacy: [facility]/pharmacy #[id number], 172.9, cm, 10/25/23 13:05:00 EST, Height/Length Dosing, 117.4, kg, 10/25/23 13:05:00 EST, Weight Dosing Start Date: 12/05/23 Status: Ordered Start: 05-05-2023 take 1 tablet by sindi once daily atorvastatin 80 mg Tab 80 mg = 1 tab(s), Oral, Daily, Refills(s) 0 Start Date: 05/05/23 Status: Ordered take 1 tablet by sindi once daily atorvastatin (LIPITOR) 80 MG tablet Take 80 mg by mouth nightly 0 Active cholecalciferol 93460 unt oral capsule (2 sources) Vitamin D Cholecalciferol (VITAMIN D3) 59690 UNITS CAPS Take by mouth every 14 days 0 Active ergocalciferol 1.25 mg oral capsule (5 sources) Provitamin D2 Compound Start: 07-17-20 take 1 capsule by mouth every other week ergocalciferol 50,000 intl units Cap See Instructions, 1 cap(s) Oral every other week, # 90 cap(s), Refills(s) 1, Pharmacy: [facility]/pharmacy #[id number], 175, cm, 07/17/24 13:17:00 EDT, Height/Length Dosing, 117.8, kg, 07/17/24 13:17:00 EDT, Weight Dosing Start Date: 07/17/24 Status: Ordered Start: 12-05-2023 take 1 capsule by mo [facility] every other week ergocalciferol 50,000 intl units Cap See Instructions, 1 cap(s) Oral every other week, # 90 cap(s), Refills(s) 1, Pharmacy: [facility]/pharmacy #[id number], 172.9, cm, 10/25/23 13:05:00 EST, Height/Length Dosing, 117.4, kg, 10/25/23 13:05:00 EST, Weight Dosing Start Date: 12/05/23 Status: Ordered Start: 05-05-2023 take 1 capsule by mo [facility] every other week ergocalciferol 50,000 intl units Cap See Instructions, 1 cap(s) Oral every other week, Refills(s) 0 Start Date: 05/05/23 Status: Ordered fenofibrate 48 mg oral tablet (7 sources) Peroxisome Proliferator Receptor alpha Agonist Start: 05-28-2024 take 1 tablet by mouth once daily fenofibrate 48 mg Tab See Instructions, TAKE 1 TABLET BY MOUTH EVERY DAY, # 90 tab(s), Refills(s) 1, Pharmacy: [facility] STORE [id number], 175.2, cm, 02/16/24 11:07:00 EDT, Height/Length Dosing, 116.6, kg, 02/16/24 11:07:00 EDT, Weight Dosing Start Date: 05/28/24 Status: Ordered Start: 12-05-2023 [facility] 48 mg Tab 48 mg = 1 tab(s), Oral, Daily, # 90 tab(s), Refills(s) 1, Pharmacy: [facility]/pharmacy #[id number], 172.9, cm, 10/25/23 13:05:00 EST, Height/Length Dosing, 117.4, kg, 10/25/23 13:05:00 EST, Weight Dosing Start Date: 12/05/23 Status: Ordered Start: 05-05-2023 take 1 tablet by sindi once daily fenofibrate 48 mg Tab 48 [...] pen injector (2 sources) Insulin Analog Start: 9 LEVEMIR FLEXTOUCH 100 UNIT/ML injection pen 35 Units 2 times daily 0 10/30/2019 Active 1.5 ml insulin glargine 300 unt/ml pen injector (1 source) Insulin Analog Insulin Glargine , 1 Unit Dial, 300 UNIT/ML SOPN Inject into the skin 0 Active insulin isophane / insulin, regular, human (5 sources) Insulin Start: 3 inject 40 [IU] by subcutaneous injection at [...] insulin, regular, human 100 unt/ml injectable solution (5 sources) Insulin Start: 4 inject 20 [IU] by subcutaneous injection at breakfast, then inject 35 [IU] by subcutaneous injection at dinner Novolin R 100 units/mL Injection See Instructions, inject 20 units SQ at breakfast and lunch and 35 units at dinner, # 15 mL, Refills(s) 1, Pharmacy: [facility]/pharmacy #[id number], 172.9, cm, 10/25/23 13:05:00 EST, Height/Length Dosing, 117.4, kg, 10/25/23 13:05:00 EST, Weight Dosing Start Date: 12/05/23 Status: Ordered Start: 05-05-2023 inject 20 [IU] by cantu bcutaneous injection at breakfast, then inject 35 [IU] by subcutaneous injection at dinner Novolin R 100 units/mL Injection See Instructions, inject 20 units SQ at breakfast and lunch and 35 units at dinner, Refills(s) 0 Start Date: 05/05/23 Status: Ordered levothyroxine sodium 0.125 mg oral tablet (7 sources) l-Thyroxine Start: 05-28-2024 take 1 tablet by mouth once daily levothyroxine 125 mcg (0.125 mg) Tab See Instructions, TAKE 1 TABLET BY MOUTH EVERY DAY, # 90 tab(s), Refills(s) 1, Pharmacy: [facility] STORE [id number], 175.2, cm, 02/16/24 11:07:00 EDT, Height/Length Dosing, 116.6, kg, 02/16/24 11:07:00 EDT, Weight Dosing Start Date: 05/28/24 Status: Ordered Start: 12-05-2023 take 1 tablet by sindi th once daily levothyroxine 125 mcg (0.125 mg) Tab 125 mcg = 1 tab(s), Oral, Daily, # 90 tab(s), Refills(s) 1, [id number] 172.9, cm, 10/25/23 13:05:00 EST, Height/Length Dosing, 117.4, kg, 10/25/23 13:05:00 EST, Weight Dosing Start Date: 12/05/23 Status: Ordered Start: 05-05-2023 take 1 tablet by sindi th once daily levothyroxine 125 mcg (0.125 mg) Tab 125 mcg = 1 tab(s), Oral, Daily, Refills(s) 0 Start Date: 05/05/23 Status: Ordered take 1 tablet by sindi th once daily levothyroxine (SYNTHROID) 125 MCG tablet Take 125 mcg by mouth Daily. 0 Active lisinopril 2.5 mg oral tablet (7 sources) Angiotensin Converting Enzyme Inhibitor Start: 05-28-2024 take 1 tablet by mouth once daily lisinopril 2.5 mg Tab See Instructions, TAKE 1 TABLET BY MOUTH EVERY DAY, # 90 tab(s), Refills(s) 1, Pharmacy: [facility] [id number], 175.2, cm, 02/16/24 11:07:00 EDT, Height/Length Dosing, 116.6, kg, 02/16/24 11:07:00 EDT, Weight Dosing Start Date: 05/28/24 Status: Ordered Start: 12-05-2023 take 1 tablet by sindi th once daily lisinopril 2.5 mg Tab 2.5 mg = 1 tab(s), Oral, Daily, # 90 tab(s), Refills(s) 1, Pharmacy: [facility]/pharmacy #[id number], 172.9, cm, 10/25/23 13:05:00 EST, Height/Length Dosing, 117.4, kg, 10/25/23 13:05:00 EST, Weight Dosing Start Date: 12/05/23 Status: Ordered Start: 05-05-2023 take 1 tablet by sindi th once daily lisinopril 2.5 mg Tab 2.5 [...] omeprazole 20 mg delayed release oral capsule (7 sources) Proton Pump Inhibitor Start: 05-28-2024 take 1 capsule by mouth once daily omeprazole 20 mg Cap-DR See Instructions, TAKE 1 CAPSULE BY MOUTH EVERY DAY, # 90 cap(s), Refills(s) 1, Pharmacy: [facility] STORE [id number], 175.2, cm, 02/16/24 11:07:00 EDT, Height/Length Dosing, 116.6, kg, 02/16/24 11:07:00 EDT, Weight Dosing Start Date: 05/28/24 Status: Ordered Start: 12-05-2023 take 1 capsule by mo [facility] once daily omeprazole 20 mg Cap-DR 20 mg = 1 cap(s), Oral, Daily, # 90 cap(s), Refills(s) 1, Pharmacy: [facility]/pharmacy #[id number], 172.9, cm, 10/25/23 13:05:00 EST, Height/Length Dosing, 117.4, kg, 10/25/23 13:05:00 EST, Weight Dosing Start Date: 12/05/23 Status: Ordered Start: 05-05-2023 take 1 capsule by mo [facility] once daily omeprazole 20 mg Cap-DR 20 mg = 1 cap(s), Oral, Daily, Refills(s) 0 Start Date: 05/05/23 Status: Ordered take 1 capsule by [facility] once daily omeprazole (PRILOSEC) 20 MG delayed release capsule Take 20 mg by mouth daily 0 Active sucralfate 1000 mg oral tablet (1 source) Aluminum Complex Start: 03-14-2017 take 1 tablet by mouth four times daily sucralfate (CARAFATE) 1 GM tablet Take 1 g by mouth 4 times daily 0 03/14/2017 Active Completed/Discontinued Medications Medication Drug Class(es) Dates Sig (Normalized) Sig (Original) 02 (3 sources) Start: 02-16-2024 02 02, See Instructions, 1 EA, 0, Ok to discontinue O2., Supply Start Date: 02/16/24 Status: Ordered Problems Active Problems Problem Classification Problem Date Documented Date Episodic/Chronic Acute and unspecified renal failure (1 source) [id number] renal failure; Translations: [Acute on chronic kidney failure] 07-05-2014 Chronic Cardiac dysrhythmias (1 source) Sinus bradycardia; Translations: [Bradycardia, unspecified] Onset: 01-30-2024 Episodic Chronic kidney disease (7 sources) Chronic kidney disease, stage 3 (moderate); Translations: [Chronic kidney disease stage 3] Onset: 06-06-2014 06-06-2014 Chronic Comment on above: added per 10/21/2023 query response. 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 linked DM with CKD p er OP CDI policy. Disorders of lipid metabolism (8 sources) Hyperlipidemia; Translations: [Hyperlipidemia, unspecified] Onset: 12-03-2020 07-05-2014 Chronic Esophageal disorders (6 sources) Gastroesophageal reflux disease; Translations: [Gastroesophageal reflux disease without esophagitis] Onset: 03-31-2017 04-22-2020 Chronic Essential hypertension (8 sources) Hypertensive disorder; Translations: [Essential hypertension] Onset: 06-22-2024 07-05-2014 Chronic Fluid and electrolyte disorders (2 [...] Resolved: 03-02-2018 03-02-2018 Chronic Malaise and fatigue (5 sources) Fatigue; Translations: [Chronic fatigue, unspecified] 06-27-2023 Chronic Miscellaneous mental health disorders (2 sources) Primary insomnia; Translations: [Primary insomnia] Onset: 09-12-2017 09-12-2017 Chronic Non-Hodgkin`s lymphoma (12 sources) Non-Hodgkin's lymphoma (clinical); Translations: [Diffuse non-Hodgkin's lymphoma, large cell (clinical)] Onset: 05-13-2014 05-24-2016 Chronic Non-Hodgkin`s lymphoma (4 sources) History of malignant lymphoma 01-30-2024 Episodic Nutritional deficiencies (5 sources) Vitamin D deficiency 05-05-2023 Chronic Other aftercare (1 source) Long-term current use of insulin; Translations: [long term care administrator (current) use of insulin] Onset: 06-27-2023 Episodic Other lower respiratory disease (4 sources) Dyspnea on exertion 01-30-2024 Episodic Other male genital disorders (6 sources) Disorder of prostate; Translations: [Disorder of prostate, unspecified] Onset: 05-04-2019 04-22-2020 Episodic Other nutritional; endocrine; and metabolic disorders (1 source) Hypomagnesemia; Translations: [Hypomagnesemia] Onset: 03-02-2018 Chronic Other nutritional; endocrine; and metabolic disorders (1 source) Severe obesity; Translations: [Severe obesity (BMI 35.0-39.9) with comorbidity] Onset: 07-05-2018 04-22-2020 Chronic Other nutritional; endocrine; and metabolic disorders (4 sources) Morbid obesity 10-24-2023 Chronic Comment on above: added per 10/21/2023 query response. Other nutritional; endocrine; and metabolic disorders (1 source) Morbid (severe) obesity due to excess calories; Translations: [Morbid (severe) obesity due to excess calories] Onset: 01-31-2024 Chronic Other nutritional; endocrine; and metabolic disorders (2 sources) Body mass index 30+ - obesity 07-17-2024 Chronic Residual codes; unclassified (2 sources) Sleep apnea; Translations: [Sleep apnea] 07-05-2014 Chronic Residual codes; unclassified (5 sources) Sleep disorder 06-27-2023 Episodic Thyroid disorders (5 sources) Hypothyroidism 05-05-2023 Chronic Thyroid disorders (2 sources) Disorder of thyroid gland; Translations: [Thyroid disease] 07-05-2014 Episodic Unclassified (1 source) CHRN KIDNEY DISEASE STG 3 UNSP; Translations: [CHRN KIDNEY DISEASE STG 3 UNSP] Onset: 12-19-2020 Unclassified (4 sources) Long-term current use of insulin 10-21-2023 Comment on above: Current Medication L ist includes Novolin R. added per OP CDI policy. Viral infection (3 sources) Disease caused by 2019-nCoV 02-08-2024 Past or Other Problems Problem Classification Problem Date Documented Date Episodic/Chronic Acute and unspecified renal failure (1 source) [id number]-[id number] renal failure 07-05-2014 Episodic Chronic kidney disease [...] Name Value Interpretation Reference Range Facil ity Ambulatory Visit Summaryon 0 07-25-2024 Ambulatory Visit Summary Ambulatory Visit Summary ISAIAH MORROW I :1955 Visit Date:07/17/2024 Ambulatory Visit Instructions Your Diagnosis Encounter for Medicare annual examination with abnormal findings Type 2 diabetes mellitus with hypercholesterolemi a Long-term insulin use Hypercholesterolemi a, Pure hypercholesterolemi a, unspecified Primary hypertension Gastroesophageal reflux disease without esophagitis Advance care planning Colonoscopy refused Chronic fatigue Class 1 obesity due to excess calories in adult Your Care Team Attending Physician - Pedro RODRIGES, Tony Figueroa MD, Tony Figueroa MD, Tony Hoffman Primary Care Physician - Pedro RODRIGES, Tony Hoffman This Is Your Medications List ergocalciferol (ergocalciferol 50,000 intl units Cap) Contact prescribing physician if questions or concerns Misc Prescription (02) Misc Prescription (Misc DME Prescription) Misc Prescription (syrings) atorvastatin (atorvastatin 80 mg Tab) fenofibrate (fenofibrate 48 mg Tab) insulin isophane-insulin regular insulin regular (Novolin R 100 units/mL Injection) levothyroxine (levothyroxine 125 mcg (0.125 mg) Tab) lisinopril (lisinopril 2.5 mg Tab) omeprazole (omeprazole 20 mg Cap-DR) Procedures Performed Pacemaker catheter, device (02/02/2024), Insulin pump, Tonsillectomy and adenoidectomy. Discharge Vitals Heart Rate (Peripheral) 110 Blood Pressure 130/70 Height 175 cm Height 69 in Weight 117.85 kg Weight 259.27 lb BMI 38.48 What to do next Scheduled Follow-Up Appointments 2023 11:30 AM EDT Where: [facility] Services Tuesday 9:30 AM EDT Where: [place] [id number]- Medications What How Much When Instructions Unchanged ergocalciferol (ergocalciferol 50,000 intl units Cap) See instructions 1 cap(s) Oral every other week Pickup at [facility]/pharmacy #[id number] Unchanged atorvastatin (atorvastatin 80 mg Tab) 1 Tablets By Mouth Every day Contact prescribing physician if questions or concerns Unchanged fenofibrate (fenofibrate 48 mg Tab) See instructions TAKE 1 TABLET BY MOUTH EVERY DAY Contact prescribing physician if questions or concerns Unchanged insulin isophane-insulin regular See instructions inject 40 units SQ at breakfast and 80 units at bedtime Contact prescribing physician if questions or concerns Unchanged insulin regular (Novolin R 100 units/ mL Injection) See instructions inject 20 units SQ at breakfast and lunch and 35 units at dinner Contact prescribing physician if questions or concerns Unchanged levothyroxine (levothyroxine 125 mcg (0.125 mg) Tab) See instructions TAKE 1 TABLET BY MOUTH EVERY DAY Contact prescribing physician if questions or concerns Unchanged lisinopril (lisinopril 2.5 mg Tab) See instructions TAKE 1 TABLET BY MOUTH EVERY DAY Contact prescribing physician if questions or concerns Unchanged Misc Prescription (02) See instructions Ok to discontinue O2. Contact prescribing physician if questions or concerns Unchanged Misc Prescription (Misc DME Prescription) See instructions lancet use QID e11.9 Contact prescribing physician if questions or concerns Unchanged Misc Prescription (syrings) See instructions syrings 31g x8mm use qid and prn E11.9 Contact prescribing physician if questions or concerns Unchanged omeprazole (omeprazole 20 mg Cap-DR) See instructions TAKE 1 CAPSULE BY MOUTH EVERY DAY Contact prescribing physician if questions or concerns Pharmacy Information [facility]/pharmacy #[id number]: [address], [place] [phone] Allergies No Known Medication Allergies Problems Ongoing - Any problem that you are currently receiving treatment for. BMI 38.0-38.9,adult Chronic fatigue COVID Disorder of prostate Gastroesophageal reflux disease without esophagitis Hx of lymphoma Hypercholesterolemi a Hypothyroidism Long-term insulin use Primary hypertension S/P placement of cardiac pacemaker Sleep disorder SOB (shortness of breath) on exertion Stage 3a chronic kidney disease (CKD) Type 2 diabetes mellitus with hypercholesterolemi a Type 2 diabetes mellitus with stage 3a chronic kidney disease Vitamin D deficiency Historical - Any problem that you are no longer receiving treatment for. Morbid obesity Patient Survey You may receive a survey via text or e-mail asking about your office visit. Please share your experience with us by completing your survey. We appreciate your feedback and thank you for choosing us for your care. Education Materials Heartburn Heartburn is a type of pain or discomfort that can happen in the throat or chest. It is often described as a burning pain. It may also cause a bad, acid-like taste in the mouth. Heartburn may feel worse when you lie down or bend over, and it is often worse at night. Heartburn may be caused by stomach contents that move back up into (more content not included)... Normal [facility] Family Medicine Office/Clini c Noteon 07-25-2024 Family Medicine Office/Clinic Note Family Medicine Office/Clinic Note Chief Complaint Initial Wellness Visit HPI Staff Isaiah is a 69 year old male presenting for visit after initial AMW Per Veronica he had an energy drink and has a pacemaker HR 110 Do you have any of the following symptoms? Foot Exam: none Eye Exam: Has appt in jul or Aug. Last A1C: Hgb A1C %: 7.7 % High (06/27/23 15:17:00) Statin: atorvastatin 80mg Patient is here for follow up on hypertension. How often are you checking your blood pressure? Doesnt check BP at home What are your average readings? N/A, Not checking at home Yearly BMP: 01/30/24_ questions/concerns: Needs his VIt D2 refilled rechecked HR still at 110 Review of Systems PHQ Score Initial Depression Screen Score: 1 SCORE Physical Exam Vitals & Measurements HR: 110(Peripheral) BP: 130/70 SpO2: 96% HT: 175 cm HT: 69 in WT: 117.85 kg WT: 259.27 lb BMI: 38.48 General: alert, no acute distress ENMT: oral mucosa moist, Cardiovascular: regular rate and rhythm, normal peripheral perfusion Respiratory: Lungs CTA, respirations non labored Extremities: no deformity, no trauma Neurological: oriented x 4, LOC appropriate for age, CN II-XII intact, motor strength equal & normal bilaterally, speech normal Abdomen: Soft, Nontender, Non-distended, + BS Assessment/Plan 1. Encounter for Medicare annual examination with abnormal findings (Z00.01: Encounter for general adult medical examination with abnormal findings) The patient was given a customized and personalized print out of all the current AHRQ USPSTF?s recommendations for preventative services and all current CDC recommended immunizations, relevant risk recommendations and the following patient brochures were given. Reviewed Medicare Prevention Services checklist. CDC-Falls Prevention and home safety screening reviewed. Patient denies any falls in last 12 months, voices no worry about falling. Exhibits no problems with sitting, standing or ambulation. Patient aware with keeping walk way area free of clutter to prevent tripping and/or falling. [place] Advance Directives discussed. Documents provided, encouraged to bring in for scanning into chart once completed. Patient denies any problems with ADL?s and Instrumental ADL?s. Cognitive screening completed with memory and clock face drawing. Patient was able to put the numbers on the clock, but was not able to draw hands on the clock to read 10:45. Patient did recite 3/3 memory words without difficulty. Immunization record reviewed, discussed Shingrix vaccine with educational handout and availability. 2 COVID vaccines have been administered, with 3 Boosters received. Allergies and medications reviewed and up to date. No concerns with taking medication as prescribed. Reviewed OTC medications, medication list up to date. Blood tests were reviewed: Discussed what tests need to be updated. Patient would like to discuss what is due with pcp. Patient has an appointment with pcp after wellness visit. Reviewed pain symptoms : Patient denies pain. Reviewed all outside providers that patient follows. Last visit summary notes available in chart and/or have been requested. Patient declines any signs or symptoms of depression at this time. 8 minutes spent with screening and documentation. PHQ2 screening score 0. Patient drinks alcohol 2-4 times monthly, 1-2 drinks, denies concerns. 8 minutes spent with screening and documentation. Audit score . Follow up scheduled with PCP, today after wellness visit. AWV has been scheduled, 07/22/2025 Abnormal findings with elevated Pulse 110. Patient reports drinking an energy prior to visit. Patient declines CCM referral. 2. Type 2 diabetes mellitus with hypercholesterolemi a (E11.69: Type 2 diabetes mellitus with other specified complication) Patient is compliant on current DM Insulins. Patient does monitors BS at home: DM stoplight handout reviewed with s/s to monitor for and report to PCP. Discussed ADA dietary recommendations with low carbs and reduce sugar intake. Patient encouraged to increase daily physical activity, adequate water intake and maintain a healthy weight. Pt follows up with Dr. Sy, Endocrinology as directed and prn. Reviewed healthy lifestyle with low fat diet and exercise regimen. When you are overweight our body produces more lipids. Risk also increases with family history of hyperlipidemia and with monitoring alcohol use and avoid smoking. Pt voices understanding with importance of monitoring dietary intake to reduce risk factors associated with CVA. Taking statin medications daily as directed. Will continue to follow up with office visits with updated labs as directed. 3. Long-term insulin use (Z79.4: long term care administrator (current) use of insulin) see #2 4. Hypercholesterolemi a, (E78.00: Pure hypercholesterolemi a, unspecified)Pure hypercholesterolemi a, unspecified see #2 5. Primary hypertension (I10: Essential (primary) hypertension) Patient is taking lisinopril daily as direc (more content not included)... Normal [facility] Comment on above: Result Comment: Elec tronically Signed By: Tony Figueroa MD\.br\Date and Time Signed: 07/25/24 08:53 EDT\.br\Electronically Co-Signed By: Veronica Paul\.br\Date and Time Co-Signed: 07/17/24 15:39 EDT Ambulatory Visit Summaryon 0 07-17-2024 Ambulatory Visit Summary Ambulatory Visit Summary ISAIAH MORROW I :1955 Visit Date:07/17/2024 Ambulatory Visit Instructions Your Diagnosis Primary hypertension Type 2 diabetes mellitus with hypercholesterolemi a Type 2 diabetes mellitus with stage 3a chronic kidney disease Hypothyroidism Sleep disorder Stage 3a chronic kidney disease (CKD) Vitamin D deficiency BMI 38.0-38.9,adult Class 1 obesity due to excess calories in adult Nonsmoker Your Care Team Attending Physician - Pedro RODRIGES, Tony Figueroa MD, Tony Aden MD Primary Care Physician - Tony Figueroa MD This Is Your Medications List ergocalciferol (ergocalciferol 50,000 intl units Cap) Contact prescribing physician if questions or concerns Misc Prescription (02) Misc Prescription (Misc DME Prescription) Misc Prescription (syrings) atorvastatin (atorvastatin 80 mg Tab) fenofibrate (fenofibrate 48 mg Tab) insulin isophane-insulin regular insulin regular (Novolin R 100 units/mL Injection) levothyroxine (levothyroxine 125 mcg (0.125 mg) Tab) lisinopril (lisinopril 2.5 mg Tab) omeprazole (omeprazole 20 mg Cap-DR) Procedures Performed Pacemaker catheter, device (02/02/2024), Insulin pump, Tonsillectomy and adenoidectomy. Discharge Vitals Heart Rate (Peripheral) 110 Blood Pressure 130/70 Height 175 cm Height 69 in Weight 117.85 kg Weight 259.27 lb BMI 38.48 What to do next Scheduled Follow-Up Appointments 2023 11:30 AM EDT Where: Cardiovascular Services Tuesday 9:30 AM EDT Where: [facility] [address] [id number]- Medications What How Much When Instructions Unchanged ergocalciferol (ergocalciferol 50,000 intl units Cap) See instructions 1 cap(s) Oral every other week Pickup at [facility]/pharmacy #[id number] Unchanged atorvastatin (atorvastatin 80 mg Tab) 1 Tablets By Mouth Every day Contact prescribing physician if questions or concerns Unchanged fenofibrate (fenofibrate 48 mg Tab) See instructions TAKE 1 TABLET BY MOUTH EVERY DAY Contact prescribing physician if questions or concerns Unchanged insulin isophane-insulin regular See instructions inject 40 units SQ at breakfast and 80 units at bedtime Contact prescribing physician if questions or concerns Unchanged insulin regular (Novolin R 100 units/ mL Injection) See instructions inject 20 units SQ at breakfast and lunch and 35 units at dinner Contact prescribing physician if questions or concerns Unchanged levothyroxine (levothyroxine 125 mcg (0.125 mg) Tab) See instructions TAKE 1 TABLET BY MOUTH EVERY DAY Contact prescribing physician if questions or concerns Unchanged lisinopril (lisinopril 2.5 mg Tab) See instructions TAKE 1 TABLET BY MOUTH EVERY DAY Contact prescribing physician if questions or concerns Unchanged Misc Prescription (02) See instructions Ok to discontinue O2. Contact prescribing physician if questions or concerns Unchanged Misc Prescription (Misc DME Prescription) See instructions lancet use QID e11.9 Contact prescribing physician if questions or concerns Unchanged Misc Prescription (syrings) See instructions syrings 31g x8mm use qid and prn E11.9 Contact prescribing physician if questions or concerns Unchanged omeprazole (omeprazole 20 mg Cap-DR) See instructions TAKE 1 CAPSULE BY MOUTH EVERY DAY Contact prescribing physician if questions or concerns Pharmacy Information [facility]/pharmacy #[id number]: [address], [place] [id number] [phone] Allergies No Known Medication Allergies Problems Ongoing - Any problem that you are currently receiving treatment for. Chronic fatigue COVID Disorder of prostate Gastroesophageal reflux disease without esophagitis Hx of lymphoma Hypercholesterolemi a Hypothyroidism Long-term insulin use Morbid obesity Primary hypertension S/P placement of cardiac pacemaker Sleep disorder SOB (shortness of breath) on exertion Stage 3a chronic kidney disease (CKD) Type 2 diabetes mellitus with hypercholesterolemi a Type 2 diabetes mellitus with stage 3a chronic kidney disease Vitamin D deficiency Patient Survey You may receive a survey via text or e-mail asking about your office visit. Please share your experience with us by completing your survey. We appreciate your feedback and thank you for choosing us for your care. Education Materials Hypertension, Adult High blood pressure (hypertension) is when the force of blood pumping through the arteries is too strong. The arteries are the blood vessels that carry blood from the heart throughout the body. Hypertension forces the heart to work harder to pump blood and may cause arteries to become narrow or stiff. Untreated or uncontrolled hypertension can lead to a heart attack, heart failure, a stroke, kidney disease, and other problems. A blood pressure reading consists of a higher number over a lowe (more content not included)... Normal [facility] CBC w/ Auto Diffon 4 Basophils/100 WBC (Bld) 0.9 % Normal 0.0-2.0 [facility] Comment on above: Performed By: #### 2 [id number] #### [facility] [address] [place] [address] Basophils/Leukocyte s Auto (Bld) [Pure # fraction] 0.1 E9/L Normal 0.0-0.2 [facility] Comment on above: Performed By: #### 2 [id number] #### [facility] [address] [place] [address] Eosinophils (Bld) [#/Vol] 0.3 E9/L Normal 0.0-0.5 [facility] Comment on above: Performed By: #### 2 [id number] #### [facility] [address] [place] [address] Eosinophils/100 WBC (Bld) 2.3 % Normal 0.0-8.0 [facility] Comment on above: Performed By: #### 2 [id number] #### [facility] [address] [place] [address] Erythrocyte distribution width (RBC) [Ratio] 15.2 % High 10.9-14.2 [facility] Comment on above: Performed By: #### 2 [id number] #### [facility] [address] [place] [address] Hematocrit (Bld) [Volume fraction] 40.3 % Normal 37.7-49.0 [facility] Comment on above: Performed By: #### 2 [id number] #### [facility] [address] [place] [address] Hemoglobin (Bld) [Mass/Vol] 13.0 g/dL Low 13.5-17.5 [facility] Comment on above: Performed By: #### 2 [id number] #### [facility] [address] [place] [address] Lymphocytes (Bld) [#/Vol] 2.2 E9/L Normal 1.0-4.0 [facility] Comment on above: Performed By: #### 2 [id number] #### [facility] [address] [place] [address] Lymphocytes/100 WBC (Bld) 17.3 % Normal 14.0-50.0 [facility] Comment on above: Performed By: #### 2 [id number] #### [facility] [address] [place] [address] MCH (RBC) [Entitic mass] 27.1 pg Normal 27.0-34.0 [facility] Comment on above: Performed By: #### 2 [id number] #### [facility] [address] [place] [address] MCHC (RBC) [Mass/Vol] 32.3 g/dL Normal 31.4-36.0 [facility] Comment on above: Performed By: #### 2 [id number] #### [facility] [address] [place] [address] MCV (RBC) [Entitic vol] 84.1 fL Normal 80.0-100.0 [facility] Comment on above: Performed By: #### 2 [id number] #### [facility] [address] [place] [address] Monocytes (Bld) [#/Vol] 0.8 E9/L Normal 0.2-1.0 [facility] Comment on above: Performed By: #### 2 [id number] #### [facility] [address] [place] [address] Neutrophils (Bld) [#/Vol] 9.4 E9/L High 2.0-7.5 [facility] Comment on above: Performed By: #### 2 [id number] #### [facility] [address] [place] [address] Neutrophils/100 WBC (Bld) 73.6 % Normal 36.0-75.0 [facility] Comment on above: Performed By: #### 2 [id number] #### [facility] [address] [place] [address] Platelet mean volume (Bld) [Entitic vol] 10.2 fL Normal 6.4-10.8 [facility] Comment on above: Performed By: #### 2 [id number] #### [facility] [address] [place] [address] Platelets (Bld) [#/Vol] 227.0 E9/L Normal 150.0-500.0 [facility] Comment on above: Performed By: #### 2 [id number] #### [facility] [address] [place] [address] RBC (Bld) [#/Vol] 4.8 E12/L Normal 4.3-5.9 [facility] Comment on above: Performed By: #### 2 [id number] #### [facility] [address] [place] [address] WBC corrected for nucl RBC Auto (Bld) [#/Vol] 12.8 E9/L High 4.0-11.0 [facility] Comment on above: Performed By: #### 2 [id number] #### [facility] [address] [place] [address] CHEMISTRYOrdered By: SYSTEM SYSTEM on 07-17-2024 25-hydroxyvitamin D3 [Mass/Vol] 34.3 ng/mL Normal 30.0 - 100.0 ng/mL [facility] Chem Albumin [Mass/Vol] 4.3 g/dL Normal 3.3 - 5.0 gm/dL R emisol Chem Albumin/Globulin [Mass ratio] 1.4 {ratio} Normal 1.1 - 2.2 [facility] ALP [Catalytic activity/Vol] 78 [iU]/d Normal 21 - 98 Int._Unit/L [facility] Chem ALT No additional P-5'-P [Catalytic activity/Vol] 22 [iU]/d Normal 6 - 46 Int._Unit/L [facility] Anion gap [Moles/Vol] 12 mmol/L Normal 6 - 16 mEq/L [facility] AST [Catalytic activity/Vol] 22 [iU]/d Normal 5 - 43 Int._Unit/L [facility] Bilirubin [Mass/Vol] 0.4 mg/dL Normal 0.0 - 1.1 mg/dL [facility] Calcium [Mass/Vol] 9.8 mg/dL Normal 8.9 - 11.1 mg/dL [facility] Chloride [Moles/Vol] 106 mmol/L Normal 101 - 111 mmol/L [facility] Cholesterol [Mass/Vol] 182 mg/dL Normal 120 - 200 mg/dL [facility] Cholesterol in HDL [Mass/Vol] 45 mg/dL Invalid Interpretation Code [facility] Comment on above: Result Comment: '>= 60 LOW RISK' '<= 40 HIGH RISK' Cholesterol in LDL [Mass/Vol] 99 mg/dL Normal <=129mg/dL [facility] Cholesterol in VLDL [Mass/Vol] 67 mg/dL High 7 - 40 mg/dL [facility] CO2 [Moles/Vol] 25 mmol/L Normal 21 - 31 mmol/L Remis ol Chem Creatinine [Mass/Vol] 1.8 mg/dL High 0.5 - 1.3 mg/dL [facility] eGFR 40 mL/min/1.73 m2 Low >=59mL/min/1.73 m2 [facility] Globulin (S) [Mass/Vol] 3.1 g/dL Normal 1.4 - 4.0 gm/dL [facility] Glucose [Mass/Vol] 171 mg/dL Normal 55 - 199 mg/dL Re misol Chem Potassium [Moles/Vol] 4.8 mmol/L Normal 3.5 - 5.3 mmol/L [facility] Prostate specific Ag [Mass/Vol] 0.2 ng/mL Normal 0.1 - 3.5 ng/mL [facility] Comment on above: Interpretive Data: T he concentration of PSA determined by different manufacturers can vary due to differences in assay methods and reagent specificity. Values obtained from different assay methods cannot be used interchangeably. The methodology used for this result was chemiluminescence using [employer]'s Access Hybritech PSA reagent. Protein [Mass/Vol] 7.4 g/dL Normal 6.0 - 7.8 gm/dL R emisol Chem Sodium [Moles/Vol] 138 mmol/L Normal 135 - 145 mmol/L [facility] Triglyceride [Mass/Vol] 333 mg/dL High <=149mg/dL [facility] TSH Qn 2.77 m[IU]/L Normal 0.34 - 5.60 mcIU/mL Rem isol Chem Urea nitrogen [Mass/Vol] 37 mg/dL High 5 - 21 mg/dL [facility] Urea nitrogen/Creatinine [Mass ratio] 21 mg/mg High 10 - 20 [facility] CHEMISTRYOrdered By: Jackson Daigle on 07-17-2024 HbA1c (Bld) [Mass fraction] 7.6 % High <=5.9% [facility] ChemAutoSS CMPon 07-17-2024 Albumin [Mass/Vol] 4.3 g/dL Normal 3.3-5.0 [facility] Comment on above: Performed By: #### 2 [id number] #### [facility] [address] [place] [address] Albumin/Globulin (S) [Mass conc ratio] 1.4 Normal 1.1-2.2 [facility] Comment on above: Performed By: #### 2 [id number] #### [facility] [address] [place] [address] ALP [Catalytic activity/Vol] 78 Int._Unit/L Normal 21-98 [facility] Comment on above: Performed By: #### 2 [id number] #### [facility] [address] [place] [address] ALT No additional P-5'-P [Catalytic activity/Vol] 22 Int._Unit/L Normal 6-46 [facility] Comment on above: Performed By: #### 2 [id number] #### [facility] [address] [place] [address] Anion gap [Moles/Vol] 12 mmol/L Normal 6-16 [facility] Comment on above: Performed By: #### 2 [id number] #### [facility] [address] [place] [address] AST [Catalytic activity/Vol] 22 Int._Unit/L Normal 5-43 [facility] Comment on above: Performed By: #### 2 [id number] #### [facility] [address] [place] [address] Bilirubin [Mass/Vol] 0.4 mg/dL Normal 0.0-1.1 [facility] Comment on above: Performed By: #### 2 [id number] #### [facility] [address] [place] [address] Calcium [Mass/Vol] 9.8 mg/dL Normal 8.9-11.1 [facility] Comment on above: Performed By: #### 2 [id number] #### [facility] [address] [place] [address] Chloride [Moles/Vol] 106 mmol/L Normal 101-111 [facility] Comment on above: Performed By: #### 2 [id number] #### [facility] [address] [place] [address] CO2 [Moles/Vol] 25 mmol/L Normal 21-31 [facility] Comment on above: Performed By: #### 2 [id number] #### [facility] [address] [place] [address] Creatinine [Mass/Vol] 1.8 mg/dL High 0.5-1.3 [facility] Comment on above: Performed By: #### 2 [id number] #### [facility] [address] [place] [address] Globulin (S) [Mass/Vol] 3.1 g/dL Normal 1.4-4.0 [facility] Comment on above: Performed By: #### 2 [id number] #### [facility] [address] [place] [address] Glucose [Mass/Vol] 171 mg/dL Normal 55-199 [facility] Comment on above: Performed By: #### 2 [id number] #### [facility] [address] [place] [address] Potassium [Moles/Vol] 4.8 mmol/L Normal 3.5-5.3 [facility] Comment on above: Performed By: #### 2 [id number] #### [facility] [address] [place] [address] Protein [Mass/Vol] 7.4 g/dL Normal 6.0-7.8 [facility] Comment on above: Performed By: #### 2 [id number] #### [facility] [address] [place] [address] Sodium [Moles/Vol] 138 mmol/L Normal 135-145 [facility] Comment on above: Performed By: #### 2 [id number] #### [facility] [address] [place] [address] Urea nitrogen [Mass/Vol] 37 mg/dL High 5-21 [facility] Comment on above: Performed By: #### 2 [id number] #### [facility] [address] [place] [address] Urea nitrogen/Creatinine [Mass ratio] 21 No Units High 10-20 [facility] Comment on above: Performed By: #### 2 [id number] #### [facility] [address] [place] [address] Family Medicine Office/Clini c Noteon 07-17-2024 Family Medicine Office/Clinic Note Family Medicine Office/Clinic Note Chief Complaint Initial Wellness Visit HPI Staff Isaiah is a 69 year old male presenting for visit after initial AMW Per Veronica he had an energy drink and has a pacemaker HR 110 Do you have any of the following symptoms? Foot Exam: none Eye Exam: Has appt in jul or Aug. Last A1C: Hgb A1C %: 7.7 % High (06/27/23 15:17:00) Statin: atorvastatin 80mg Patient is here for follow up on hypertension. How often are you checking your blood pressure? Doesnt check BP at home What are your average readings? N/A, Not checking at home Yearly BMP: 01/30/24_ questions/concerns: Needs his VIt D2 refilled rechecked HR still at 110 History of Present Illness - See staff HPI. Review of Systems PHQ Score Initial Depression Screen Score: 1 SCORE Physical Exam Vitals & Measurements HR: 110(Peripheral) BP: 130/70 SpO2: 96% HT: 175 cm HT: 69 in WT: 117.85 kg WT: 259.27 lb BMI: 38.48 General: alert, no acute distress ENMT: oral mucosa moist, Cardiovascular: Tachycardia and rhythm, normal peripheral perfusion Respiratory: Lungs CTA, respirations non labored Extremities: no deformity, no trauma Neurological: oriented x 4, LOC appropriate for age, CN II-XII intact, motor strength equal & normal bilaterally, speech normal Abdomen: Soft, Nontender, Non-distended, + BS Assessment/Plan 1. Primary hypertension (I10: Essential (primary) hypertension) - at goal today. - Continue on meds as before. Ordered: CBC w/ Auto Diff Comprehensive Metabolic Panel HgbA1c HST Home Sleep Testing Lipid Panel Microalbumin Level Urine PSA Screen, Total TSH With T4fr Reflex U Protein/Creat Ratio Vitamin D 25 Hydroxy 2. Type 2 diabetes mellitus with hypercholesterolemi a (E11.69: Type 2 diabetes mellitus with other specified complication) - Needs labs as he was lastly not controlled. - We will order labs and will adjust meds based on those labs. Ordered: CBC w/ Auto Diff Comprehensive Metabolic Panel HgbA1c HST Home Sleep Testing Lipid Panel Microalbumin Level Urine PSA Screen, Total TSH With T4fr Reflex U Protein/Creat Ratio Vitamin D 25 Hydroxy 3. Type 2 diabetes mellitus with stage 3a chronic kidney disease (E11.22: Type 2 diabetes mellitus with diabetic chronic kidney disease) - As above Ordered: CBC w/ Auto Diff Comprehensive Metabolic Panel HgbA1c HST Home Sleep Testing Lipid Panel Microalbumin Level Urine PSA Screen, Total TSH With T4fr Reflex U Protein/Creat Ratio Vitamin D 25 Hydroxy 4. Hypothyroidism (E03.9: Hypothyroidism, unspecified) - Will recheck today. - Follow up in 6 months - NO symptoms today. Ordered: CBC w/ Auto Diff Comprehensive Metabolic Panel HgbA1c HST Home Sleep Testing Lipid Panel Microalbumin Level Urine PSA Screen, Total TSH With T4fr Reflex U Protein/Creat Ratio Vitamin D 25 Hydroxy 5. Sleep disorder (G47.9: Sleep disorder, unspecified) - Will recheck today as he is complaining of being overly tired. - Follow up PRN Ordered: CBC w/ Auto Diff Comprehensive Metabolic Panel HgbA1c HST Home Sleep Testing Lipid Panel Microalbumin Level Urine PSA Screen, Total TSH With T4fr Reflex U Protein/Creat Ratio Vitamin D 25 Hydroxy 6. Stage 3a chronic kidney disease (CKD) (N18.31: Chronic kidney disease, stage 3a) - Will recheck labs today Ordered: CBC w/ Auto Diff Comprehensive Metabolic Panel HgbA1c HST Home Sleep Testing Lipid Panel Microalbumin Level Urine PSA Screen, Total TSH With T4fr Reflex U Protein/Creat Ratio Vitamin D 25 Hydroxy 7. Vitamin D deficiency (E55.9: Vitamin D deficiency, unspecified) - Will recheck labs today. Ordered: CBC w/ Auto Diff Comprehensive Metabolic Panel HgbA1c Lipid Panel Microalbumin Level Urine PSA Screen, Total TSH With T4fr Reflex U Protein/Creat Ratio Vitamin D 25 Hydroxy 8. BMI 38.0-38.9,adult (Z68.38: Body mass index [BMI] 38.0-38.9, adult) - BMI education added 9. Class 1 obesity due to excess calories in adult (E66.09: Other obesity due to excess calories) - Diet and exercise advised 10. Nonsmoker (Z78.9: Other specified health status) - Please continue to not smoke. Orders: ergocalciferol, See Instructions, 1 cap(s) Oral every other week, # 90 cap(s), Refills(s) 1, Pharmacy: [facility]/pharmacy #[id number], 175, cm, 07/17/24 13:17:00 EDT, Height/Length Dosing, 117.8, kg, 07/17/24 13:17:00 EDT, Weight Dosing HR is elevated 2/2 caffeine. 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 Normal [facility] Comment on above: Result Comment: Elec tronically Signed By: Pedro RODRIGES, Tony Brown.adam\Date and Time Signed: 07/17/24 14:20 EDT HEMATOLOGYOrdered By: SYSTEM SYSTEM on 07-17-2024 Basophils/100 WBC (Bld) 0.9 % Normal 0.0 - 2.0 % Rem[facility] Heme Basophils/Leukocyte s Auto (Bld) [Pure # fraction] 0.1 E9/L Normal 0.0 - 0.2 E9/L [facility]e Eosinophils (Bld) [#/Vol] 0.3 E9/L Normal 0.0 - 0.5 E9/L [facility]e Eosinophils/100 WBC (Bld) 2.3 % Normal 0.0 - 8.0 % [facility]e Erythrocyte distribution width (RBC) [Ratio] 15.2 % High 10.9 - 14.2 % [facility] Hematocrit (Bld) [Volume fraction] 40.3 % Normal 37.7 - 49.0 % [facility]e Hemoglobin (Bld) [Mass/Vol] 13.0 g/dL Low 13.5 - 17.5 gm/dL [facility]e Lymphocytes (Bld) [#/Vol] 2.2 E9/L Normal 1.0 - 4.0 E9/L [facility]e Lymphocytes/100 WBC (Bld) 17.3 % Normal 14.0 - 50.0 % Rem[facility] Heme MCH (RBC) [Entitic mass] 27.1 pg Normal 27.0 - 34.0 pg Remisol Heme MCHC (RBC) [Mass/Vol] 32.3 g/dL Normal 31.4 - 36.0 gm/dL Rem[facility] Heme MCV (RBC) [Entitic vol] 84.1 fL Normal 80.0 - 100.0 fL [facility]e Monocytes (Bld) [#/Vol] 0.8 E9/L Normal 0.2 - 1.0 E9/L [facility] Heme Monocytes/100 WBC (Bld) 5.9 % Normal 4.0 - 14.0 % [facility] Heme Neutrophils (Bld) [#/Vol] 9.4 E9/L High 2.0 - 7.5 E9/L [facility] Heme Neutrophils/100 WBC (Bld) 73.6 % Normal 36.0 - 75.0 % [facility]e Platelet mean volume (Bld) [Entitic vol] 10.2 fL Normal 6.4 - 10.8 fL [facility]e Platelets (Bld) [#/Vol] 227.0 E9/L Normal 150.0 - 500.0 E9/L [facility] Heme RBC (Bld) [#/Vol] 4.8 E12/L Normal 4.3 - 5.9 E12/L Re misol Heme WBC corrected for nucl RBC Auto (Bld) [#/Vol] 12.8 E9/L High 4.0 - 11.0 E9/L Remisol Heme [id number] 07-17-2024 HbA1c (Bld) [Mass fraction] 7.6 % High <=5.9 [facility] Comment on above: Performed By: #### 7 [id number] #### [facility] [address] [place] [address] Lipid Panelon 07-17-2024 Cholesterol [Mass/Vol] 182 mg/dL Normal 120-200 [facility] Comment on above: Performed By: #### 2 [id number] #### [facility] [address] [place] [address] Cholesterol in HDL [Mass/Vol] 45 mg/dL Invalid Interpretation Code [facility] Comment on above: Result Comment: '>= 60 LOW RISK' '<= 40 HIGH RISK' Performed By: #### 2 [id number] #### [facility] [address] [place] [address] Cholesterol in LDL [Mass/Vol] 99 mg/dL Normal <=129 [facility] Comment on above: Performed By: #### 2 [id number] #### [facility] [address] [place] [address] Cholesterol in VLDL [Mass/Vol] 67 mg/dL High 7-40 [facility] Comment on above: Performed By: #### 2 [id number] #### [facility] [address] [place] [address] Triglyceride [Mass/Vol] 333 mg/dL High <=149 [facility] Comment on above: Performed By: #### 2 [id number] #### [facility] [address] [place] [address] PSA Screen, Totalon 07-17-20 Prostate specific Ag [Mass/Vol] 0.2 ng/mL Normal 0.1-3.5 [facility] Comment on above: Result Comment: The concentration of PSA determined by different manufacturers can vary due to differences in assay methods and reagent specificity. Values obtained from different assay methods cannot be used interchangeably. The methodology used for this result was chemiluminescence using [employer]'s [employer] PSA reagent. Performed By: #### 1 [id number] #### [facility] [address] [place] [address] TSH With T4fr Reflexon 07-17 TSH Qn 2.77 m[IU]/L Normal 0.34-5.60 [facility] Comment on above: Performed By: #### 1 [id number] #### [facility] [address] [place] [address] Vitamin D 25 Hydroxyon 07-17 25-hydroxyvitamin D3 [Mass/Vol] 34.3 ng/mL Normal 30.0-100.0 [facility] Comment on above: Performed By: #### [id number] #### [facility] [address] [place] [address] eGFRon 07-17-2024 eGFR 40 mL/min/1.73 m2 Low >=59 [facility] Comment on above: Order Comment: Order added by Discern Expert. Performed By: #### [id number] #### [facility] [address] [place] [address] Heart and Vascular Office/Cl inic Noteon 06-28-2024 Heart and Vascular Office/Clinic Note Heart and Vascular Office/Clinic Note Chief Complaint here to establish care History of Present Illness The patient is a pleasant 69-year-old male with past medical history of diabetes, hypertension, dyslipidemia, who presents for establishment. He had a dual-chamber [employer] permanent pacemaker placed in January 2024 at [facility] in [place] in a context of complete heart block. He presents with no symptoms, besides some fatigue. Reports no chest pain, shortness of breath, PND or orthopnea. Review of Systems ROS - Provider Constitutional: no fever, no chills, yes fatigue Skin:no rash, no lesions ENMT: no ear pain, no sore throat, no congestion. Respiratory: no shortness of breath, no cough, no wheezing. Cardiovascular: no chest pain, no palpitations, no edema. Gastrointestinal: no nausea, no vomiting, no diarrhea, no GI bleeding. Genitourinary: no dysuria, no frequencyno hematuria Musculoskeletal: no back pain, no trauma. Neurologic: no headache, no dizziness, no numbness, no weakness. Psychiatric: no sleeping problems, no irritability, no mood swings/depression. Heme/Lymph: no bleeding tendency, no bruising tendency, no petechiae, Allergy/Immuno logic: no seasonal allergies, no food allergies, no recurrent infections Physical Exam Vitals & Measurements HR: 111(Peripheral) RR: 16 BP: 136/72 SpO2: 94% HT: 69 in HT: 175 cm WT: 118.1 kg WT: 259.82 lb BMI: 38.56 General: alert, no acute distress Neck: Supple, noJVD nocarotid bruit Cardiovascular: regular rate and rhythm, no murmur normal peripheral perfusion Respiratory: Lungs CTAB, respirations non labored Extremities: no edema left lower extremity. no edema right lower extremity Neurological: oriented x 4, LOC appropriate for age, speech normal Skin: Warm, dry, intact- no rash or concerning lesions Assessment/Plan History of permanent pacemaker in the setting of complete heart block. Patient will need a referral to a pacemaker clinic. His blood pressure appears to be well-controlled and is followed by primary services. He does have a stress test scheduled through Dr. Figueroa's services, as well. We will request records from [facility]. 1. Pacemaker (Z95.0: Presence of cardiac pacemaker) 2. Primary hypertension (I10: Essential (primary) hypertension) Follow-up No qualifying data available 1 year Problem List/Past Medical History Ongoing Chronic fatigue COVID Disorder of prostate Gastroesophageal reflux disease without esophagitis Hx of lymphoma Hypercholesterolemi a Hypothyroidism Long-term insulin use Morbid obesity Primary hypertension S/P placement of cardiac pacemaker Sleep disorder SOB (shortness of breath) on exertion Stage 3a chronic kidney disease (CKD) Type 2 diabetes mellitus with hypercholesterolemi a Type 2 diabetes mellitus with stage 3a chronic kidney disease Vitamin D deficiency Historical No qualifying data Procedure/Surgical History Pacemaker catheter, device (02/02/2024), Insulin pump, Tonsillectomy and adenoidectomy. Medications 02, See Instructions atorvastatin 80 mg Tab, 80 mg= 1 tab(s), Oral, Daily, 3 refills ergocalciferol 50,000 intl units Cap, See Instructions, 1 refills fenofibrate 48 mg Tab, See Instructions insulin isophane-insulin regular, See Instructions levothyroxine 125 mcg (0.125 mg) Tab, See Instructions lisinopril 2.5 mg Tab, See Instructions Misc DME Prescription, See Instructions, 5 refills Novolin R 100 units/mL Injection, See Instructions, 1 refills omeprazole 20 mg Cap-DR, See Instructions syrings, See Instructions, 3 refills Allergies No Known Medication Allergies Social History Tobacco Former smoker, quit more than 30 days ago Tobacco Use:. Never Smokeless Tobacco Use:. Cigarettes, Household tobacco concerns: No., 06/22/2024 Family History Primary malignant neoplasm of colon: Mother. Primary malignant neoplasm of female breast: Sister. Immunizations Vaccine Date Status Comments pneumococcal 20-valent conjugate vaccine 09/08/2023 Recorded influenza virus vaccine, inactivated 09/08/2023 Recorded influenza virus vaccine, inactivated 09/19/2022 Recorded SARS-CoV-2 (COVID-19) [id number] 09/19/2022 Recorded SARSCoV2 mRNA(tozinamer-edna -sucros) vac 03/06/2022 Recorded pneumococcal 13-valent vaccine 08/29/2021 Recorded influenza virus vaccine, inactivated 08/24/2021 Recorded SARS-CoV-2 (COVID-19) mRNA BNT-162b2 vax 08/24/2021 Recorded SARS-CoV-2 (COVID-19) mRNA BNT-162b2 vax 02/07/2021 Recorded 2023-06-09: [id number] SARS-CoV-2 (COVID-19) mRNA BNT-162b2 vax 01/17/2021 Recorded 2023-06-09: TPV65 pneumococcal 23-valent vaccine 08/28/2020 Recorded influenza virus vaccine, inactivated 08/28/2020 Recorded influenza virus vaccine, inactivated 09/12/2017 Recorded influenza virus vaccine, inactivated 09/06/2005 Recorded Records from [facility] received and reviewed. The patient did have a dual-chamber pacemaker p (more content not included)... Normal [facility] Comment on above: Result Comment: Elec tronically Signed By: Emigdio RODRIGES, Pablo Moses\.br\Date and Time Signed: 06/28/24 12:45 EDT Physician Referralon 024 Physician Referral [id number] EC#1.00TIFF Normal [facility] Ambulatory Visit Summaryon 0 02-16-2024 Ambulatory Visit Summary ISAIAH MORROW I :1955 Visit Date:02/16/2024 Ambulatory Visit Instructions Your Diagnosis COVID S/P placement of cardiac pacemaker Acute hypoxic respiratory failure BMI 37.0-37.9, adult Non-smoker Your Care Team Attending Physician - Tony Figueroa MD Primary Care Physician - Tony Figueroa MD This Is Your Medications List Misc Prescription () Contact prescribing physician if questions or concerns Misc Prescription (Misc DME Prescription) Misc Prescription (syrings) atorvastatin (atorvastatin 80 mg Tab) ergocalciferol (ergocalciferol 50,000 intl units Cap) fenofibrate (fenofibrate 48 mg Tab) insulin isophane-insulin regular insulin regular (Novolin R 100 units/mL Injection) levothyroxine (levothyroxine 125 mcg (0.125 mg) Tab) lisinopril (lisinopril 2.5 mg Tab) omeprazole (omeprazole 20 mg Cap-DR) Procedures Performed Pacemaker catheter, device (02/02/2024), Insulin pump, Tonsillectomy and adenoidectomy. Discharge Vitals Heart Rate (Peripheral) 68 Respiratory Rate 18 Blood Pressure 118/76 Height 175.2 cm Height 69 in Weight 116.6 kg Weight 256.52 lb BMI 37.99 What to do next Scheduled Follow-Up Appointments Tuesday 1:00 PM EDT With: Where: [facility] [place] [facility] [address] [place] [address]- \.br\ Medications\.br\ What How Much When Instructions\.br\ New Misc Prescription (02) See instructions Ok to discontinue O2. Printed Prescription\.br\ Unchanged atorvastatin (atorvastatin 80 mg Tab) 1 Tablets By Mouth Every day Contact prescribing physician if questions or concerns \.br\ Unchanged ergocalciferol (ergocalciferol 50,000 intl units Cap) See instructions 1 cap(s) Oral every other week Contact prescribing physician if questions or concerns \.br\ Unchanged fenofibrate (fenofibrate 48 mg Tab) 1 Tablets By Mouth Every day Contact prescribing physician if questions or concerns \.br\ Unchanged insulin isophane-insulin regular See instructions inject 40 units SQ at breakfast and 80 units at bedtime Contact prescribing physician if questions or concerns \.br\ Unchanged insulin regular (Novolin R 100 units/ mL Injection) See instructions inject 20 units SQ at breakfast and lunch and 35 units at dinner Contact prescribing physician if questions or concerns \.br\ Unchanged levothyroxine (levothyroxine 125 mcg (0.125 mg) Tab) 1 Tablets By Mouth Every day Contact prescribing physician if questions or concerns \.br\ Unchanged lisinopril (lisinopril 2.5 mg Tab) 1 Tablets By Mouth Every day Contact prescribing physician if questions or concerns \.br\ Unchanged Misc Prescription (Misc DME Prescription) See instructions lancet use QID e11.9 Contact prescribing physician if questions or concerns \.br\ Unchanged Misc Prescription (syrings) See instructions syrings 31g x8mm use qid and prn E11.9 Contact prescribing physician if questions or concerns \.br\ Unchanged omeprazole (omeprazole 20 mg Cap-DR) 1 Capsules By Mouth Every day Contact prescribing physician if questions or concerns \.br\ Allergies\.br\ No Known Medication Allergies\.br\ Problems\.br\ Ongoing - Any problem that you are currently receiving treatment for.\.br\ Chronic fatigue\.br\ COVID\.br\ Disorder of prostate\.br\ Gastroesophageal reflux disease without esophagitis\.br\ Hx of lymphoma\.br\ Hypercholesterolemia\ .br\ Hypothyroidism\.br\ Long-term insulin use\.br\ Morbid obesity\.br\ Primary hypertension\.br\ S/P placement of cardiac pacemaker\.br\ Sleep disorder\.br\ SOB (shortness of breath) on exertion\.br\ Stage 3a chronic kidney disease (CKD)\.br\ Type 2 diabetes mellitus with hypercholesterolemia\ .br\ Type 2 diabetes mellitus with stage 3a chronic kidney disease\.br\ Vitamin D deficiency\.br\ Patient Survey\.br\ You may receive a survey via text or e-mail asking about your office visit. Please share your experience with us by completing your survey. We appreciate your feedback and thank you for choosing us for your care.\.br\ \.br\ [facility] Family Medicine Office/Clini c Noteon 02-16-2024 Family Medicine Office/Clinic Note HPI Staff Isaiah is a 68 year old male presenting for one week follow up covid AHMET + for covid and hadn't been able to use his O2 due to congestion pt states he is feeling a lot better , pt hasn't needed to use O2 that often he did use it some yesterday. Checks Spo2 and its been running 92-94% on room air Pt would like re testing for sleep apnea he use to ear a machine a long time ago. Pt saw breaker layer yesterday [facility]-and he said he didn't need oxygen he would like to talk about getting the Discontinued, pt will have follow up appointment with cardiology 04/24/24 in [place]. He would like referral for breaker layer for [facility] 6minutes walk test, pulse ox 93 and up to 95, HR 110, then down to 104 History of Present Illness - Here for Covid follow up. - No issues today. - Improving - Wants off O2. - Wants a new Credit Control Officer. Review of Systems PHQ Score Initial Depression Screen Score: 0 SCORE Physical Exam Vitals & Measurements HR: 68(Peripheral) RR: 18 BP: 118/76 SpO2: 93% HT: 69 in HT: 175.2 cm WT: 116.6 kg WT: 256.52 lb BMI: 37.99 General: alert, no acute distress ENMT: oral mucosa moist, Cardiovascular: regular rate and rhythm, normal peripheral perfusion Respiratory: Lungs CTA, respirations non labored Extremities: no deformity, no trauma Neurological: oriented x 4, LOC appropriate for age, CN II-XII intact, motor strength equal & normal bilaterally, speech normal Abdomen: Soft, Nontender, Non-distended, + BS Assessment/Plan 1. COVID (U07.1: COVID-19) - Resolved - Back to his normal Ordered: [facility] Internal Ambulatory Referral 2. S/P placement of cardiac pacemaker (Z95.0: Presence of cardiac pacemaker) - Pt is asking for a referral to a [facility] breaker layer. Ordered: [facility] Internal Ambulatory Referral 3. Acute hypoxic respiratory failure (J96.01: Acute respiratory failure with hypoxia) - Resolved - 6 minute walk test is normal. Ordered: [facility] Internal Ambulatory Referral 4. BMI 37.0-37.9, adult (Z68.37: Body mass index [BMI] 37.0-37.9, adult) - BMI education given Ordered: [facility] Internal Ambulatory Referral 5. Non-smoker (Z78.9: Other specified health status) - Please continue to not smoke. Ordered: [facility] Internal Ambulatory Referral Orders: Misc Prescription, 02, See Instructions, 1 EA, 0, Ok to discontinue O2., Supply Follow-up No qualifying data available Problem List/Past Medical History Ongoing Chronic fatigue COVID Disorder of prostate Gastroesophageal reflux disease without esophagitis Hx of lymphoma Hypercholesterolemi a Hypothyroidism Long-term insulin use Morbid obesity Primary hypertension S/P placement of cardiac pacemaker Sleep disorder SOB (shortness of breath) on exertion Stage 3a chronic kidney disease (CKD) Type 2 diabetes mellitus with hypercholesterolemi a Type 2 diabetes mellitus with stage 3a chronic kidney disease Vitamin D deficiency Historical No qualifying data Procedure/Surgical History Pacemaker catheter, device (02/02/2024), Insulin pump, Tonsillectomy and adenoidectomy. Medications 02, See Instructions atorvastatin 80 mg Tab, 80 mg= 1 tab(s), Oral, Daily, 3 refills ergocalciferol 50,000 intl units Cap, See Instructions, 1 refills fenofibrate 48 mg Tab, 48 mg= 1 tab(s), Oral, Daily, 1 refills insulin isophane-insulin regular, See Instructions levothyroxine 125 mcg (0.125 mg) Tab, 125 mcg= 1 tab(s), Oral, Daily, 1 refills lisinopril 2.5 mg Tab, 2.5 mg= 1 tab(s), Oral, Daily, 1 refills Misc DME Prescription, See Instructions, 5 refills Novolin R 100 units/mL Injection, See Instructions, 1 refills omeprazole 20 mg Cap-DR, 20 mg= 1 cap(s), Oral, Daily, 1 refills syrings, See Instructions, 3 refills Allergies No Known Medication Allergies Social History Tobacco Former smoker, quit more than 30 days ago Tobacco Use:. Never Smokeless Tobacco Use:. Cigarettes, Household tobacco concerns: No., 02/16/2024 Family History Primary malignant neoplasm of colon: Mother. Primary malignant neoplasm of female breast: Sister. Immunizations Vaccine Date Status Comments pneumococcal 20-valent conjugate vaccine 09/08/2023 Recorded influenza virus vaccine, inactivated 09/08/2023 Recorded influenza virus vaccine, inactivated 09/19/2022 Recorded SARS-CoV-2 (COVID-19) [id number] 09/19/2022 Recorded SARSCoV2 mRNA(tozinamer-edna -sucros) vac 03/06/2022 Recorded pneumococcal 13-valent vaccine 08/29/2021 Recorded influenza virus vaccine, inactivated 08/24/2021 Recorded SARS-CoV-2 (COVID-19) mRNA BNT-162b2 vax 08/24/2021 Recorded SARS-CoV-2 (COVID-19) mRNA BNT-162b2 vax 02/07/2021 Recorded 2023-06-09: TPV65 SARS-CoV-2 (COVID-19) mRNA BNT-162b2 vax 01/17/2021 Recorded 2023-06-09: TPV65 pneumococcal 23-valent vaccine 08/28/2020 Recorded influenza virus vaccine, inactivated 08/28/2020 Recorded influenza virus vaccine, inactivated 09/12/2017 Recorded influenza virus vaccine, (more content not included)... [facility] Comment on above: Result Comment: Elec tronically Signed By: Pedro RODRIGES, Tony Brown.br\Date and Time Signed: 02/16/24 11:41 EDT Patient Correspondenceon Patient Correspondence [id number] 51#1.00TIFF [facility] Physician Orderon 02-16-2024 Physician Order [id number] 11#1.00TIFF [facility] Physician Referralon 024 Physician Referral [id number] 6#1.00TIFF [facility] Ambulatory Visit Summaryon 0 02-08-2024 Ambulatory Visit Summary ISAIAH MORROW I :1955 Visit Date:02/08/2024 Ambulatory Visit Instructions Your Diagnosis S/P placement of cardiac pacemaker COVID BMI 38.0-38.9,adult Former smoker Your Care Team Attending Physician - Tony Figueroa MD Primary Care Physician - Tony Figueroa MD This Is Your Medications List Misc Prescription (Misc DME Prescription) Misc Prescription (syrings) atorvastatin (atorvastatin 80 mg Tab) ergocalciferol (ergocalciferol 50,000 intl units Cap) fenofibrate (fenofibrate 48 mg Tab) insulin isophane-insulin regular insulin regular (Novolin R 100 units/mL Injection) levothyroxine (levothyroxine 125 mcg (0.125 mg) Tab) lisinopril (lisinopril 2.5 mg Tab) omeprazole (omeprazole 20 mg Cap-DR) oxycodone (oxyCODONE 5 mg Tab) Procedures Performed Pacemaker catheter, device (02/02/2024), Insulin pump, Tonsillectomy and adenoidectomy. Discharge Vitals Temperature (Tympanic) 36.8 ?C Heart Rate (Peripheral) 100 Respiratory Rate 18 Blood Pressure 132/78 Height 175.2 cm Height 69 in Weight 116.8 kg Weight 256.96 lb BMI 38.05 What to do next Scheduled Follow-Up Appointments 2023 11:15 AM EDT With: Tony iFgueroa MD Where: [place] [id number] \.br\ Medications\.br\ What How Much When Instructions\.br\ [...] Prescription) See instructions lancet use QID e11.9 \.br\ Unchanged Misc Prescription (syrings) See instructions syrings 31g x8mm use qid and prn E11.9 \.br\ Unchanged omeprazole (omeprazole 20 mg Cap-DR) 1 Capsules By Mouth Every day\.br\ Unchanged oxycodone (oxyCODONE 5 mg Tab) 5 tab(s), 0 Refill(s) \.br\ Allergies\.br\ No Known Medication Allergies\.br\ Problems\.br\ Ongoing - Any problem that you are currently receiving treatment for.\.br\ Chronic fatigue\.br\ COVID\.br\ Disorder of prostate\.br\ Gastroesophageal reflux disease without esophagitis\.br\ Hx of lymphoma\.br\ Hypercholesterolemia\ .br\ Hypothyroidism\.br\ Long-term insulin use\.br\ Morbid obesity\.br\ Primary hypertension\.br\ S/P placement of cardiac pacemaker\.br\ Sleep disorder\.br\ SOB (shortness of breath) on exertion\.br\ Stage 3a chronic kidney disease (CKD)\.br\ Type 2 diabetes mellitus with hypercholesterolemia\ .br\ Type 2 diabetes mellitus with stage 3a chronic kidney disease\.br\ Vitamin D deficiency\.br\ Patient Survey\.br\ You may receive a survey via text or e-mail asking about your office visit. Please share your experience with us by completing your survey. We appreciate your feedback and thank you for choosing us for your care.\.br\ Education Materials\.br\ BMI for Adults\.br\ What is BMI?\.br\ Body mass index (BMI) is a number that is calculated from a person's weight and height. BMI can help estimate how much of a person's weight is composed of fat. BMI does not measure body fat directly. Rather, it is an alternative to procedures that directly measure body fat, which can be difficult and expensive.\.br\ BMI can help identify people who may be at higher risk for certain medical problems.\.br\ What are BMI measurements used for?\.br\ BMI is used as a screening tool to identify possible weight problems. It helps determine whether a person is obese, overweight, a healthy weight, or underweight.\.br\ BMI is useful for:\.br\ ? \.br\ Identifying a weight problem that may be related to a medical condition or may increase the risk for medical problems.\.br\ ? \.br\ Promoting changes, such as changes in diet and exercise, to help reach a healthy weight. BMI screening can be repeated to see if these changes are working.\.br\ How is BMI calculated?\.br\ BMI involves measuring your weight in relation to your height. Both height and weight are measured, and the BMI is calculated from those numbers. This can be done either in [place] or metric measurements. Note that charts and online BMI calculators are available to help you find your BMI quickly and easily without having to do these calculations yourself.\.br\ To calculate your BMI in [place] measurements:\.br\ \.br\ 1. \.br\ Measure your weight in pounds (lb).\.br\ 2. \.br\ Multiply the number of pounds by 703.\.br\ ? \.br\ For example, for a person who weighs 180 lb, multiply that number by 703, which equals 126,540.\.br\ 3. \.br\ Measure your height in inches. Then multiply that number by itself to get a measurement called inches squared. \.br\ ? \.br\ For example, for a person who is 70 inches tall, the inches squared measurement is 70 inches x 70 inches, which equals 4,900 inches squared.\.br\ 4. \.br\ Divide the total from step 2 (number of lb x 703) by the total from step 3 (inches squared): 126,540 ? 4,900 = 25.8. This is your BMI.\.br\ To calculate your BMI in metric measurements:\.br\ 1. \.br\ Measure your weight in kilograms (kg).\.br\ 2. \.br\ Measure your height in meters (m). Then multiply that number by itself to get a measurement called meters squared. \.br\ ? \.br\ For example, for a person who is 1.75 m tall, the meters squared measurement is 1.75 m x 1.75 m, which is equal to 3.1 meters squared.\.br\ 3. \.br\ Divide the number of kilograms (your weight) by the meters squared number. In this example: 70 ? 3.1 = 22.6. This is your BMI.\.br\ What do the results mean?\.br\ BMI charts are used to identify whether you are underweight, normal weight, overweight, or obese. The following guidelines will be used:\.br\ ? \.br\ Underweight: BMI less than 18.5.\.br\ ? \.br\ Normal weight: BMI between 18.5 and 24.9.\.br\ ? \.br\ Overweight: BMI between 25 and 29.9.\.br\ ? \.br\ Obese: BMI of 30 or above.\.br\ Keep these notes in mind:\.br\ ? \.br\ Weight includes both fat and muscle, so someone with a muscular build, such as an athlete, may have a BMI that is higher than 24.9. In cases like these, BMI is not an accurate measure of body fat.\.br\ ? \.br\ To determine if excess body fat is the cause of a BMI of 25 or higher, further assessments may need to be done by a health care provider.\.br\ ? \.br\ BMI is usually interpreted in the same way for men and women.\.br\ Where to find more information\.br\ For more information about BMI, including tools to quickly calculate your BMI, go to these websites:\.br\ ? \.br\ Centers for Disease Control and Prevention: www.cdc.gov\.br\ ? \.br\ [place] [employer]: www.heart.org\.br\ ? \.br\ National Heart, Lung, and Blood [place]: www.nhlbi.nih.gov\.br \ Summary\.br\ ? \.br\ Body mass index (BMI) is a number that is calculated from a person's weight and height.\.br\ ? \.br\ BMI may help estimate how much of a person's weight is composed of fat. BMI can help identify those who may be at higher risk for certain medical problems.\.br\ ? \.br\ BMI can be measured using [place] measurements or metric measurements.\.br\ ? \.br\ BMI charts are used to identify whether you are underweight, normal weight, overweight, or obese.\.br\ This information is not intended to replace advice given to you by your health care provider. Make sure you discuss any questions you have with your health care provider.\.br\ Document Revised: 08/06/2020 Document Reviewed: 06/13/2020 [employer] Patient Education ? 2022 [employer].br\ \.br\ [facility] Family Medicine Office/Clini c Noteon 02-08-2024 Family Medicine Office/Clinic Note HPI Staff Isaiah is a 68 year old male presenting for hospital follow up after pacemaker implant Pt has follow up with Cardiology at [facility] 02/15/24. Pt is to be on oxygen but pt states 2 days after surgery with the oxygen his nose is congested and nasal discharge and productive cough with green/brown sputum, pt states he had chills few days ago. Symptoms started 02/04/24 Pt would like at home re titration study for sleep apnea in February. Pt does need new machine and all tubing History of Present Illness - Please see staff HPI. Review of Systems PHQ Score Initial Depression Screen Score: 0 SCORE Physical Exam Vitals & Measurements T: 36.8 ?C(Tympanic) HR: 100(Peripheral) RR: 18 BP: 132/78 SpO2: 94% HT: 69 in HT: 175.2 cm WT: 116.8 kg WT: 256.96 lb BMI: 38.05 General: alert, no acute distress ENMT: oral mucosa moist, Cardiovascular: regular rate and rhythm, normal peripheral perfusion Respiratory: Lungs CTA, respirations non labored Extremities: no deformity, no trauma Neurological: oriented x 4, LOC appropriate for age, CN II-XII intact, motor strength equal & normal bilaterally, speech normal Abdomen: Soft, Nontender, Non-distended, + BS Assessment/Plan 1. S/P placement of cardiac pacemaker (Z95.0: Presence of cardiac pacemaker) - Found to have a heart block - Pacer placed. - Now having congestion and runny nose - Found to have covid. - Pacer site is dressed and clean. 2. COVID (U07.1: COVID-19) With the patient complaining of being congested not not able to use his O2. - Covid was preformed - Positive test. - Precautions discussed in detail. - Follow up in 1 week. 3. BMI 38.0-38.9,adult (Z68.38: Body mass index [BMI] 38.0-38.9, adult) - BMI education given 4. Former smoker (Z87.891: Personal history of nicotine dependence) - Please continue to not smoking. Precautions discussed in detail. When to return discussed along with when to go to the ER. Pt verbalized understanding. Follow-up No qualifying data available Patient Education BMI for Adults Problem List/Past Medical History Ongoing Chronic fatigue COVID Disorder of prostate Gastroesophageal reflux disease without esophagitis Hx of lymphoma Hypercholesterolemi a Hypothyroidism Long-term insulin use Morbid obesity Primary hypertension S/P placement of cardiac pacemaker Sleep disorder SOB (shortness of breath) on exertion Stage 3a chronic kidney disease (CKD) Type 2 diabetes mellitus with hypercholesterolemi a Type 2 diabetes mellitus with stage 3a chronic kidney disease Vitamin D deficiency Historical No qualifying data Procedure/Surgical History Pacemaker catheter, device (02/02/2024), Insulin pump, Tonsillectomy and adenoidectomy. Medications atorvastatin 80 mg Tab, 80 mg= 1 tab(s), Oral, Daily, 3 refills ergocalciferol 50,000 intl units Cap, See Instructions, 1 refills fenofibrate 48 mg Tab, 48 mg= 1 tab(s), Oral, Daily, 1 refills insulin isophane-insulin regular, See Instructions levothyroxine 125 mcg (0.125 mg) Tab, 125 mcg= 1 tab(s), Oral, Daily, 1 refills lisinopril 2.5 mg Tab, 2.5 mg= 1 tab(s), Oral, Daily, 1 refills Misc DME Prescription, See Instructions, 5 refills Novolin R 100 units/mL Injection, See Instructions, 1 refills omeprazole 20 mg Cap-DR, 20 mg= 1 cap(s), Oral, Daily, 1 refills oxyCODONE 5 mg Tab syrings, See Instructions, 3 refills Allergies No Known Medication Allergies Social History Tobacco Former smoker, quit more than 30 days ago Tobacco Use:. Never Smokeless Tobacco Use:. Cigarettes, Household tobacco concerns: No., 02/08/2024 Family History Primary malignant neoplasm of colon: Mother. Primary malignant neoplasm of female breast: Sister. Immunizations Vaccine Date Status Comments pneumococcal 20-valent conjugate vaccine 09/08/2023 Recorded influenza virus vaccine, inactivated 09/08/2023 Recorded influenza virus vaccine, inactivated 09/19/2022 Recorded SARS-CoV-2 (COVID-19) [id number] 09/19/2022 Recorded SARSCoV2 mRNA(tozinamer-edna -sucros) vac 03/06/2022 Recorded pneumococcal 13-valent vaccine 08/29/2021 Recorded influenza virus vaccine, inactivated 08/24/2021 Recorded SARS-CoV-2 (COVID-19) mRNA BNT-162b2 vax 08/24/2021 Recorded SARS-CoV-2 (COVID-19) mRNA BNT-162b2 vax 02/07/2021 Recorded 2023-06-09: [id number] SARS-CoV-2 (COVID-19) mRNA BNT-162b2 vax 01/17/2021 Recorded 2023-06-09: TPV65 pneumococcal 23-valent vaccine 08/28/2020 Recorded influenza virus vaccine, inactivated 08/28/2020 Recorded influenza virus vaccine, inactivated 09/12/2017 Recorded influenza virus vaccine, inactivated 09/06/2005 Recorded Normal [facility] Comment on above: Result Comment: Elec tronically Signed By: Pedro RODRIGES, Tony Brown.br\Date and Time Signed: 02/08/24 11:14 EDT Patient Educationon 02-08-20 Patient Education Nutrition BMI for Adults What [...] numbers. This can be done either in [place] or metric measurements. Note that charts and online BMI calculators are available to help you find your BMI quickly and easily without having to do these calculations yourself. To calculate your BMI in [place] ([place] measurements: 1. Measure your weight in [...] for Disease Control and Prevention: www.cdc.gov ? [place] [employer]: www.heart.org ? National Heart, Lung, and Blood [place]: www.nhlbi.nih.gov Summary ? Body mass index (BMI) is a number that is calculated from a person's weight and height. ? BMI may help estimate how much of a person's weight is composed of fat. BMI can help identify those who may be at higher risk for certain medical problems. ? BMI can be measured using Lebanese measurements or metric measurements. ? BMI charts are used to identify whether you are underweight, normal weight, overweight, or obese. This information is not intended to replace advice given to you by your health care provider. Make sure you discuss any questions you have with your health care provider. Document Revised: 08/06/2020 Document Reviewed: 06/13/2020 [employer] Patient Education ? 2022 [employer] Normal [facility] Apolipoprotein Bon 4 Apolipoprotein B [Mass/Vol] 95 mg/dL Normal 66-133 [facility] Comment on above: Result Comment: (NOT E) REFERENCE INTERVAL: Apolipoprotein B A desirable fasting serum Apo B concentration for the prevention of atherosclerotic cardiovascular disease in adults is less than 90 mg/dL. A fasting serum Apo B concentration of 130 mg/dL or greater corresponds to a LDL cholesterol concentration greater than 160 mg/dL and constitutes a risk enhancing factor for atherosclerotic cardiovascular disease in adults. Performed By: [facility] [address] [place] [id number] Tram Operator: Sina Denise MD, PhD CLIA Number: [id number] Performed By: #### C DP, MG, CP, LIPR, GLYHGB, TSHX #### [address] [address] Tax Manager Cpa: Jasbir Healy MD Lipoprotein (a)on 02-04-2024 Lipoprotein a [Mass/Vol] 28 mg/dL Normal <=29 [facility] Comment on above: Result Comment: (NOT E) Performed By: [facility] [address] [place] [address] Tram Operator: Sina Denise MD, PhD CLIA Number: [id number] Performed By: #### C DP, MG, CP, LIPR, GLYHGB, TSHX #### [address] [address] Tax Manager Cpa: Jasbir Healy MD Comp Metabolic Profon 2023 Albumin [Mass/Vol] 4.3 g/dL Normal 3.5-5.2 [facility] Comment on above: Performed By: #### C DP, MG, CP, LIPR, GLYHGB, TSHX #### [address] [address] Tax Manager Cpa: Jasbir Healy MD Albumin/Glob Ratio 2.0 Normal 1.0-2.5 [facility] Comment on above: Performed By: #### C DP, MG, CP, LIPR, GLYHGB, TSHX #### [address] [address] Tax Manager Cpa: Jasbir Healy MD Alkaline Phos 96 U/L Normal 40-129 [facility] Comment on above: Performed By: #### C DP, MG, CP, LIPR, GLYHGB, TSHX #### [address] [address] Tax Manager Cpa: Jasbir Healy MD ALT [Catalytic activity/Vol] 27 U/L Normal 10-50 [facility] Comment on above: Performed By: #### C DP, MG, CP, LIPR, GLYHGB, TSHX #### [address] [address] Tax Manager Cpa: Jasbir Healy MD Anion gap [Moles/Vol] 13 mmol/L Normal 9-16 [facility] Comment on above: Performed By: #### C DP, MG, CP, LIPR, GLYHGB, TSHX #### [address] [address] Tax Manager Cpa: Jasbir Healy MD AST [Catalytic activity/Vol] 28 U/L Normal 10-50 [facility] Comment on above: Performed By: #### C DP, MG, CP, LIPR, GLYHGB, TSHX #### [address] [address] Tax Manager Cpa: Jasbir Healy MD Bilirubin [Mass/Vol] 0.6 mg/dL Normal 0.00-1.20 [facility] Comment on above: Performed By: #### C DP, MG, CP, LIPR, GLYHGB, TSHX #### [address] [address] Tax Manager Cpa: Jasbir Healy MD Calcium [Mass/Vol] 9.4 mg/dL Normal 8.6-10.4 [facility] Comment on above: Performed By: #### C DP, MG, CP, LIPR, GLYHGB, TSHX #### [address] [address] Tax Manager Cpa: Jasbir Healy MD Chloride [Moles/Vol] 100 mmol/L Normal 98-107 [facility] Comment on above: Performed By: #### C DP, MG, CP, LIPR, GLYHGB, TSHX #### [address] [address] Tax Manager Cpa: Jasbir Healy MD CO2 [Moles/Vol] 25 mmol/L Normal 20-31 [facility] Comment on above: Performed By: #### C DP, MG, CP, LIPR, GLYHGB, TSHX #### [address] [phone] Tax Manager Cpa: Jasbir Healy MD Creatinine [Mass/Vol] 1.6 mg/dL High 0.70-1.20 [facility] Comment on above: Performed By: #### C DP, MG, CP, LIPR, GLYHGB, TSHX #### [address] [phone] Tax Manager Cpa: Jasbir Healy MD GFR/1.73 sq M.predicted among non-blacks MDRD (S/P/Bld) [Vol rate/Area] 47 mL/min/{1.73_m2} Low >60 [facility] Comment on above: Result Comment: These [...] renal tubular secretion. Performed By: #### C DP, MG, CP, LIPR, GLYHGB, TSHX #### [address] [phone] Tax Manager Cpa: Jasbir Healy MD Glucose [Mass/Vol] 267 mg/dL High 74-99 [facility] Comment on above: Performed By: #### C DP, MG, CP, LIPR, GLYHGB, TSHX #### [address] [phone] Tax Manager Cpa: Jasbir Healy MD Potassium [Moles/Vol] 4.8 mmol/L Normal 3.7-5.3 [facility] Comment on above: Performed By: #### C DP, MG, CP, LIPR, GLYHGB, TSHX #### [facility] [place] [address] Tax Manager Cpa: Jasbir Healy MD Protein [Mass/Vol] 6.5 g/dL Low 6.6-8.7 [facility] Comment on above: Performed By: #### C DP, MG, CP, LIPR, GLYHGB, TSHX #### [facility] [address] [place] [address] [phone] Tax Manager Cpa: Jasbir Healy MD Sodium [Moles/Vol] 138 mmol/L Normal 136-145 [facility] Comment on above: Performed By: #### C DP, MG, CP, LIPR, GLYHGB, TSHX #### [facility] [address] [place] [phone] Tax Manager Cpa: Jasbir Healy MD Urea nitrogen [Mass/Vol] 25 mg/dL High - [facility] Comment on above: Performed By: #### C DP, MG, CP, LIPR, GLYHGB, TSHX #### [address] [phone] Tax Manager Cpa: Jasbir Healy MD Glucose,Whole Bloodon 2023 Glucose [Mass/Vol] 305 mg/dL High 75-110 [facility] Glucose [Mass/Vol] 196 mg/dL High 75-110 [facility] Glucose [Mass/Vol] 198 mg/dL High 75-110 [facility] XR CHEST PORTABLEon 02-03-20 24 XR CHEST PORTABLE EXAMINATION: ONE XRAY VIEW OF THE CHEST 02/03/2024 8:59 am COMPARISON: AP chest from 01/31/2024 HISTORY: ORDERING SYSTEM PROVIDED HISTORY: s/p PPM placement TECHNOLOGIST PROVIDED HISTORY: s/p PPM placement Reason for Exam: Upright port, PPM placement FINDINGS: New left-sided subclavian permanent pacemaker with 2 electrode leads, both of which appear satisfactory. Estephania left upper chest. Overlying ECG monitor leads and. Cardiomediastinal shadow plethora central markings but no new pulmonary abnormality or pneumothorax. Bones appear unchanged. IMPRESSION: New left-sided permanent pacemaker with 2 electrode leads, both of which appear satisfactory. No pneumothorax. Interpreted by: Giacomo Colorado MD Signed by: Giacomo Colorado MD 02/03/24 Final result Normal [facility] CBC with Diffon 02-02-2024 Abs. Basophil 0.11 k/uL Normal 0.00-0.20 [facility] Comment on above: Performed By: #### C DP, MG, CP, LIPR, GLYHGB, TSHX #### [facility] [address] [place] [address] Tax Manager Cpa: Jasbir Healy MD Abs.Imm.Granulocyte 0.06 k/uL Normal 0.00-0.30 [facility] Comment on above: Performed By: #### C DP, MG, CP, LIPR, GLYHGB, TSHX #### [facility] [address] [place] [address] Tax Manager Cpa: Jasbir Healy MD Abs.Neutrophil (Seg) 6.21 k/uL Normal 1.50-8.10 [facility] Comment on above: Performed By: #### C DP, MG, CP, LIPR, GLYHGB, TSHX #### [facility] [address] [place] [address] Tax Manager Cpa: Jasbir Healy MD Basophils/100 WBC (Bld) 1 % Normal 0-2 [facility] Comment on above: Performed By: #### C DP, MG, CP, LIPR, GLYHGB, TSHX #### [facility] [address] [place] [address] Tax Manager Cpa: Jasbir Healy MD Eosinophils (Bld) [#/Vol] 0.42 10*3/uL Normal 0.00-0.44 [facility] Comment on above: Performed By: #### C DP, MG, CP, LIPR, GLYHGB, TSHX #### [address] [address] Tax Manager Cpa: Jasbir Healy MD Eosinophils/100 WBC (Bld) 4 % Normal 1-4 [facility] Comment on above: Performed By: #### C DP, MG, CP, LIPR, GLYHGB, TSHX #### [address] [address] Tax Manager Cpa: Jasbir Healy MD Erythrocyte distribution width (RBC) [Ratio] 14.8 % High 11.8-14.4 [facility] Comment on above: Performed By: #### C DP, MG, CP, LIPR, GLYHGB, TSHX #### [place] [address] Tax Manager Cpa: Jasbir Healy MD Hematocrit (Bld) [Volume fraction] 43.2 % Normal 40.7-50.3 [facility] Comment on above: Performed By: #### C DP, MG, CP, LIPR, GLYHGB, TSHX #### [place] [address] Tax Manager Cpa: Jasbir Healy MD Hemoglobin (Bld) [Mass/Vol] 13.4 g/dL Normal 13.0-17.0 [facility] Comment on above: Performed By: #### C DP, MG, CP, LIPR, GLYHGB, TSHX #### [address] [address] Tax Manager Cpa: Jasbir Healy MD Immature granulocytes/100 WBC (Bld) 1 % High 0 [facility] Comment on above: Performed By: #### C DP, MG, CP, LIPR, GLYHGB, TSHX #### [address] [address] Tax Manager Cpa: Jasbir Healy MD Lymphocytes (Bld) [#/Vol] 1.89 10*3/uL Normal 1.10-3.70 [facility] Comment on above: Performed By: #### C DP, MG, CP, LIPR, GLYHGB, TSHX #### [address] [phone] Tax Manager Cpa: Jasbir Healy MD Lymphocytes/100 WBC (Bld) 20 % Low 24-43 [facility] Comment on above: Performed By: #### C DP, MG, CP, LIPR, GLYHGB, TSHX #### [place] [address] Tax Manager Cpa: Jasbir Healy MD MCH (RBC) [Entitic mass] 26.7 pg Normal 25.2-33.5 [facility] Comment on above: Performed By: #### C DP, MG, CP, LIPR, GLYHGB, TSHX #### [place] [address] Tax Manager Cpa: Jasbir Healy MD MCHC (RBC) [Mass/Vol] 31.0 g/dL Normal 28.4-34.8 [facility] Comment on above: Performed By: #### C DP, MG, CP, LIPR, GLYHGB, TSHX #### [place] [address] Tax Manager Cpa: Jasbir Healy MD MCV (RBC) [Entitic vol] 86.2 fL Normal 82.6-102.9 [facility] Comment on above: Performed By: #### C DP, MG, CP, LIPR, GLYHGB, TSHX #### [place] [address] Tax Manager Cpa: Jasbir Healy MD Monocytes (Bld) [#/Vol] 0.89 10*3/uL Normal 0.10-1.20 [facility] Comment on above: Performed By: #### C DP, MG, CP, LIPR, GLYHGB, TSHX #### [address] [address] Tax Manager Cpa: Jasbir Healy MD Monocytes/100 WBC (Bld) 9 % Normal 3-12 [facility] Comment on above: Performed By: #### C DP, MG, CP, LIPR, GLYHGB, TSHX #### [address] [address] Tax Manager Cpa: Jasbir Healy MD Neutrophil (Seg) 65 % Normal 36-65 [facility] Comment on above: Performed By: #### C DP, MG, CP, LIPR, GLYHGB, TSHX #### [address] [address] Tax Manager Cpa: Jasbir Healy MD NRBC Automated 0.0 per 100 WBC Normal 0.0 [facility] Comment on above: Performed By: #### C DP, MG, CP, LIPR, GLYHGB, TSHX #### [address] [address] Tax Manager Cpa: Jasbir Healy MD Platelet mean volume (Bld) [Entitic vol] 12.3 fL Normal 8.1-13.5 [facility] Comment on above: Performed By: #### C DP, MG, CP, LIPR, GLYHGB, TSHX #### [address] [address] Tax Manager Cpa: Jasbir Healy MD Platelets (Bld) [#/Vol] 196 10*3/uL Normal 138-453 [facility] Comment on above: Performed By: #### C DP, MG, CP, LIPR, GLYHGB, TSHX #### [address] [address] Tax Manager Cpa: Jasbir Healy MD RBC (Bld) [#/Vol] 5.01 10*6/uL Normal 4.21-5.77 [facility] Comment on above: Performed By: #### C DP, MG, CP, LIPR, GLYHGB, TSHX #### [address] [address] Tax Manager Cpa: Jasbir Healy MD RBC morphology finding Nom (Bld) ANISOCYTOSIS PRESENT Normal [facility] Comment on above: Performed By: #### C DP, MG, CP, LIPR, GLYHGB, TSHX #### [address] [address] Tax Manager Cpa: Jasbir Healy MD WBC (Bld) [#/Vol] 9.6 10*3/uL Normal 3.5-11.3 [facility] Comment on above: Performed By: #### C DP, MG, CP, LIPR, GLYHGB, TSHX #### [address] [address] Tax Manager Cpa: Jasbir Healy MD Comp Metabolic Profon 2023 Albumin [Mass/Vol] 4.0 g/dL Normal 3.5-5.2 [facility] Comment on above: Performed By: #### C DP, MG, CP, LIPR, GLYHGB, TSHX #### [facility] [address] [place] [address] Tax Manager Cpa: Jasbir Healy MD Albumin/Glob Ratio 1.0 Normal 1.0-2.5 [facility] Comment on above: Performed By: #### C DP, MG, CP, LIPR, GLYHGB, TSHX #### [facility] [address] [place] [address] Tax Manager Cpa: Jasbir Healy MD Alkaline Phos 93 U/L Normal 40-129 [facility] Comment on above: Performed By: #### C DP, MG, CP, LIPR, GLYHGB, TSHX #### [facility] [address] [place] [address] Tax Manager Cpa: Jasbir Healy MD ALT [Catalytic activity/Vol] 24 U/L Normal 10-50 [facility] Comment on above: Performed By: #### C DP, MG, CP, LIPR, GLYHGB, TSHX #### [address] [address] Tax Manager Cpa: Jasbir Healy MD Anion gap [Moles/Vol] 12 mmol/L Normal 9-16 [facility] Comment on above: Performed By: #### C DP, MG, CP, LIPR, GLYHGB, TSHX #### [address] [address] Tax Manager Cpa: Jasbir Healy MD AST [Catalytic activity/Vol] 28 U/L Normal 10-50 [facility] Comment on above: Performed By: #### C DP, MG, CP, LIPR, GLYHGB, TSHX #### [address] [address] Tax Manager Cpa: Jasbir Healy MD Bilirubin [Mass/Vol] 0.7 mg/dL Normal 0.00-1.20 [facility] Comment on above: Performed By: #### C DP, MG, CP, LIPR, GLYHGB, TSHX #### [address] [address] Tax Manager Cpa: Jasbir Healy MD Calcium [Mass/Vol] 9.3 mg/dL Normal 8.6-10.4 [facility] Comment on above: Performed By: #### C DP, MG, CP, LIPR, GLYHGB, TSHX #### [address] [address] Tax Manager Cpa: Jasbir Healy MD Chloride [Moles/Vol] 104 mmol/L Normal 98-107 [facility] Comment on above: Performed By: #### C DP, MG, CP, LIPR, GLYHGB, TSHX #### [address] [address] Tax Manager Cpa: Jasbir Healy MD CO2 [Moles/Vol] 22 mmol/L Normal 20-31 [facility] Comment on above: Performed By: #### C DP, MG, CP, LIPR, GLYHGB, TSHX #### [address] [address] Tax Manager Cpa: Jasbir Healy MD Creatinine [Mass/Vol] 1.6 mg/dL High 0.70-1.20 [facility] Comment on above: Performed By: #### C DP, MG, CP, LIPR, GLYHGB, TSHX #### [address] [address] Tax Manager Cpa: Jasbir Heayl MD GFR/1.73 sq M.predicted among non-blacks MDRD (S/P/Bld) [Vol rate/Area] 48 mL/min/{1.73_m2} Low >60 [facility] Comment on above: Result Comment: These [...] renal tubular secretion. Performed By: #### C DP, MG, CP, LIPR, GLYHGB, TSHX #### [address] [address] Tax Manager Cpa: Jasbir Healy MD Glucose [Mass/Vol] 164 mg/dL High 74-99 [facility] Comment on above: Performed By: #### C DP, MG, CP, LIPR, GLYHGB, TSHX #### [facility] [address] [place] [address] Tax Manager Cpa: Jasbir Healy MD Potassium [Moles/Vol] 4.6 mmol/L Normal 3.7-5.3 [facility] Comment on above: Performed By: #### C DP, MG, CP, LIPR, GLYHGB, TSHX #### [facility] [address] [place] [address] [phone] Tax Manager Cpa: Jasbir Healy MD Protein [Mass/Vol] 6.7 g/dL Normal 6.6-8.7 [facility] Comment on above: Performed By: #### C DP, MG, CP, LIPR, GLYHGB, TSHX #### [facility] [address] [place] [address] [phone] Tax Manager Cpa: Jasbir Healy MD Sodium [Moles/Vol] 138 mmol/L Normal 136-145 [facility] Comment on above: Performed By: #### C DP, MG, CP, LIPR, GLYHGB, TSHX #### [facility] [address] [place] [phone] Tax Manager Cpa: Jasbir Healy MD Urea nitrogen [Mass/Vol] 22 mg/dL Normal 8-23 [facility] Comment on above: Performed By: #### C DP, MG, CP, LIPR, GLYHGB, TSHX #### [facility] [address] [place] [address] Tax Manager Cpa: Jasbir Healy MD Glucose,Whole Bloodon 2023 Glucose [Mass/Vol] 144 mg/dL High 75-110 [facility] Glucose [Mass/Vol] 172 mg/dL High 75-110 [facility] Magnesiumon 02-02-2024 Magnesium [Mass/Vol] 2.0 mg/dL Normal 1.6-2.4 [facility] Comment on above: Performed By: #### C DP, MG, CP, LIPR, GLYHGB, TSHX #### [facility] [address] [place] [phone] Tax Manager Cpa: Jasbir Healy MD CBC with Diffon 02-01-2024 Abs. Basophil 0.09 k/uL Normal 0.00-0.20 [facility] Comment on above: Performed By: #### C DP, MG, CP, LIPR, GLYHGB, TSHX #### [place] [address] Tax Manager Cpa: Jasbir Healy MD Abs.Imm.Granulocyte 0.05 k/uL Normal 0.00-0.30 [facility] Comment on above: Performed By: #### C DP, MG, CP, LIPR, GLYHGB, TSHX #### [place] [address] Tax Manager Cpa: Jasbir Healy MD Abs.Neutrophil (Seg) 6.39 k/uL Normal 1.50-8.10 [facility] Comment on above: Performed By: #### C DP, MG, CP, LIPR, GLYHGB, TSHX #### [place] [address] Tax Manager Cpa: Jasbir Healy MD Basophils/100 WBC (Bld) 1 % Normal 0-2 [facility] Comment on above: Performed By: #### C DP, MG, CP, LIPR, GLYHGB, TSHX #### [facility] [address] [place] [address] Tax Manager Cpa: Jasbir Healy MD Eosinophils (Bld) [#/Vol] 0.35 10*3/uL Normal 0.00-0.44 [facility] Comment on above: Performed By: #### C DP, MG, CP, LIPR, GLYHGB, TSHX #### [address] [address] Tax Manager Cpa: Jasbir Healy MD Eosinophils/100 WBC (Bld) 4 % Normal 1-4 [facility] Comment on above: Performed By: #### C DP, MG, CP, LIPR, GLYHGB, TSHX #### [place] [address] Tax Manager Cpa: Jasbir Healy MD Erythrocyte distribution width (RBC) [Ratio] 14.9 % High 11.8-14.4 [facility] Comment on above: Performed By: #### C DP, MG, CP, LIPR, GLYHGB, TSHX #### [address] [address] Tax Manager Cpa: Jasbir Healy MD Hematocrit (Bld) [Volume fraction] 41.6 % Normal 40.7-50.3 [facility] Comment on above: Performed By: #### C DP, MG, CP, LIPR, GLYHGB, TSHX #### [place] [address] Tax Manager Cpa: Jasbir Healy MD Hemoglobin (Bld) [Mass/Vol] 12.9 g/dL Low 13.0-17.0 [facility] Comment on above: Performed By: #### C DP, MG, CP, LIPR, GLYHGB, TSHX #### [address] [address] Tax Manager Cpa: Jasbir Healy MD Immature granulocytes/100 WBC (Bld) 1 % High 0 [facility] Comment on above: Performed By: #### C DP, MG, CP, LIPR, GLYHGB, TSHX #### [place] [address] Tax Manager Cpa: Jasbir Healy MD Lymphocytes (Bld) [#/Vol] 1.78 10*3/uL Normal 1.10-3.70 [facility] Comment on above: Performed By: #### C DP, MG, CP, LIPR, GLYHGB, TSHX #### [address] [address] Tax Manager Cpa: Jasbir Healy MD Lymphocytes/100 WBC (Bld) 19 % Low 24-43 [facility] Comment on above: Performed By: #### C DP, MG, CP, LIPR, GLYHGB, TSHX #### [address] [address] Tax Manager Cpa: Jasbir Healy MD MCH (RBC) [Entitic mass] 27.1 pg Normal 25.2-33.5 [facility] Comment on above: Performed By: #### C DP, MG, CP, LIPR, GLYHGB, TSHX #### [address] [address] Tax Manager Cpa: Jasbir Healy MD MCHC (RBC) [Mass/Vol] 31.0 g/dL Normal 28.4-34.8 [facility] Comment on above: Performed By: #### C DP, MG, CP, LIPR, GLYHGB, TSHX #### [address] [address] Tax Manager Cpa: Jasbir Healy MD MCV (RBC) [Entitic vol] 87.4 fL Normal 82.6-102.9 [facility] Comment on above: Performed By: #### C DP, MG, CP, LIPR, GLYHGB, TSHX #### [address] [address] Tax Manager Cpa: Jasbir Healy MD Monocytes (Bld) [#/Vol] 0.96 10*3/uL Normal 0.10-1.20 [facility] Comment on above: Performed By: #### C DP, MG, CP, LIPR, GLYHGB, TSHX #### [address] [address] Tax Manager Cpa: Jasbir Healy MD Monocytes/100 WBC (Bld) 10 % Normal 3-12 [facility] Comment on above: Performed By: #### C DP, MG, CP, LIPR, GLYHGB, TSHX #### [address] [address] Tax Manager Cpa: Jasbir Healy MD Neutrophil (Seg) 65 % Normal 36-65 [facility] Comment on above: Performed By: #### C DP, MG, CP, LIPR, GLYHGB, TSHX #### [address] [address] Tax Manager Cpa: Jasbir Healy MD NRBC Automated 0.0 per 100 WBC Normal 0.0 [facility] Comment on above: Performed By: #### C DP, MG, CP, LIPR, GLYHGB, TSHX #### [address] [address] Tax Manager Cpa: Jasbir Healy MD Platelet mean volume (Bld) [Entitic vol] 12.7 fL Normal 8.1-13.5 [facility] Comment on above: Performed By: #### C DP, MG, CP, LIPR, GLYHGB, TSHX #### [address] [address] Tax Manager Cpa: Jasbir Healy MD Platelets (Bld) [#/Vol] 181 10*3/uL Normal 138-453 [facility] Comment on above: Performed By: #### C DP, MG, CP, LIPR, GLYHGB, TSHX #### [address] [address] Tax Manager Cpa: Jasbir Healy MD RBC (Bld) [#/Vol] 4.76 10*6/uL Normal 4.21-5.77 [facility] Comment on above: Performed By: #### C DP, MG, CP, LIPR, GLYHGB, TSHX #### [address] [address] Tax Manager Cpa: Jasbir Healy MD RBC morphology finding Nom (Bld) ANISOCYTOSIS PRESENT Normal [facility] Comment on above: Performed By: #### C DP, MG, CP, LIPR, GLYHGB, TSHX #### [address] [address] Tax Manager Cpa: Jasbir Healy MD WBC (Bld) [#/Vol] 9.6 10*3/uL Normal 3.5-11.3 [facility] Comment on above: Performed By: #### C DP, MG, CP, LIPR, GLYHGB, TSHX #### [address] [address] Tax Manager Cpa: Jasbir Healy MD Comp Metabolic Profon 2023 Albumin [Mass/Vol] 3.9 g/dL Normal 3.5-5.2 [facility] Comment on above: Performed By: #### C DP, MG, CP, LIPR, GLYHGB, TSHX #### [address] [address] Tax Manager Cpa: Jasbir Healy MD Albumin/Glob Ratio 1.6 Normal 1.0-2.5 [facility] Comment on above: Performed By: #### C DP, MG, CP, LIPR, GLYHGB, TSHX #### [address] [address] Tax Manager Cpa: Jasbir Healy MD Alkaline Phos 93 U/L Normal 40-129 [facility] Comment on above: Performed By: #### C DP, MG, CP, LIPR, GLYHGB, TSHX #### [address] [address] Tax Manager Cpa: Jasbir Healy MD ALT [Catalytic activity/Vol] 27 U/L Normal 5-41 [facility] Comment on above: Performed By: #### C DP, MG, CP, LIPR, GLYHGB, TSHX #### [address] [address] Tax Manager Cpa: Jasbir Healy MD Anion gap [Moles/Vol] 12 mmol/L Normal 9-17 [facility] Comment on above: Performed By: #### C DP, MG, CP, LIPR, GLYHGB, TSHX #### [address] [address] Tax Manager Cpa: Jasbir Healy MD AST [Catalytic activity/Vol] 20 U/L Normal <40 [facility] Comment on above: Performed By: #### C DP, MG, CP, LIPR, GLYHGB, TSHX #### [address] [address] Tax Manager Cpa: Jasbir Healy MD Bilirubin [Mass/Vol] 0.7 mg/dL Normal 0.3-1.2 [facility] Comment on above: Performed By: #### C DP, MG, CP, LIPR, GLYHGB, TSHX #### [address] [address] Tax Manager Cpa: Jasbir Healy MD Calcium [Mass/Vol] 9.1 mg/dL Normal 8.6-10.4 [facility] Comment on above: Performed By: #### C DP, MG, CP, LIPR, GLYHGB, TSHX #### [facility] [address] [place] [phone] Tax Manager Cpa: Jasbir Healy MD Chloride [Moles/Vol] 104 mmol/L Normal 98-107 [facility] Comment on above: Performed By: #### C DP, MG, CP, LIPR, GLYHGB, TSHX #### [facility] [address] [place] [phone] Tax Manager Cpa: Jasbir Healy MD CO2 [Moles/Vol] 21 mmol/L Normal 20-31 [facility] Comment on above: Performed By: #### C DP, MG, CP, LIPR, GLYHGB, TSHX #### [address] [phone] Tax Manager Cpa: Jasbir Healy MD Creatinine [Mass/Vol] 1.5 mg/dL High 0.7-1.2 [facility] Comment on above: Performed By: #### C DP, MG, CP, LIPR, GLYHGB, TSHX #### [address] [phone] Tax Manager Cpa: Jasbir Healy MD GFR/1.73 sq M.predicted among non-blacks MDRD (S/P/Bld) [Vol rate/Area] 50 mL/min/{1.73_m2} Low >60 [facility] Comment on above: Result Comment: These [...] renal tubular secretion. Performed By: #### C DP, MG, CP, LIPR, GLYHGB, TSHX #### [address] [phone] Tax Manager Cpa: Jasbir Healy MD Glucose [Mass/Vol] 147 mg/dL High 70-99 [facility] Comment on above: Performed By: #### C DP, MG, CP, LIPR, GLYHGB, TSHX #### [address] [phone] Tax Manager Cpa: Jasbir Healy MD Potassium [Moles/Vol] 4.6 mmol/L Normal 3.7-5.3 [facility] Comment on above: Performed By: #### C DP, MG, CP, LIPR, GLYHGB, TSHX #### [facility] [address] [place] [address] [phone] Tax Manager Cpa: Jasbir Healy MD Protein [Mass/Vol] 6.4 g/dL Normal 6.4-8.3 [facility] Comment on above: Performed By: #### C DP, MG, CP, LIPR, GLYHGB, TSHX #### [facility] [address] [place] [address] [phone] Tax Manager Cpa: Jasbir Healy MD Sodium [Moles/Vol] 137 mmol/L Normal 135-144 [facility] Comment on above: Performed By: #### C DP, MG, CP, LIPR, GLYHGB, TSHX #### [facility] [address] [place] [address] [phone] Tax Manager Cpa: Jasbir Healy MD Urea nitrogen [Mass/Vol] 23 mg/dL Normal 8-23 [facility] Comment on above: Performed By: #### C DP, MG, CP, LIPR, GLYHGB, TSHX #### [facility] [address] [place] [phone] Tax Manager Cpa: Jasbir Healy MD Glucose,Whole Bloodon 2023 Glucose [Mass/Vol] 204 mg/dL High 75-110 [facility] Glucose [Mass/Vol] 172 mg/dL High 75-110 [facility] Glucose [Mass/Vol] 204 mg/dL High 75-110 [facility] Glucose [Mass/Vol] 129 mg/dL High 75-110 [facility] Insurance Correspondenceon 0 02-01-2024 Insurance Correspondence [id number] Normal [facility] Magnesiumon 02-01-2024 Magnesium [Mass/Vol] 1.8 mg/dL Normal 1.6-2.6 [facility] Comment on above: Performed By: #### C DP, MG, CP, LIPR, GLYHGB, TSHX #### [facility] [address] [place] [phone] Tax Manager Cpa: Jasbir Healy MD PTon 02-01-2024 INR Coag (PPP) [Relative time] 1.0 {INR} Normal [facility] Comment on above: Result Comment: Therapeutic Range: Moderate Anticoagulant Intensity: INR = 2.0-3.0 High Anticoagulant Intensity: INR = 2.5-3.5 Performed By: #### C DP, MG, CP, LIPR, GLYHGB, TSHX #### [place] [address] Tax Manager Cpa: Jasbir Healy MD PT Coag (PPP) [Time] 12.9 s Normal 11.7-14.9 [facility] Comment on above: Performed By: #### C DP, MG, CP, LIPR, GLYHGB, TSHX #### [facility] [address] [place] [address] Tax Manager Cpa: Jasbir Healy MD CBC with Diffon 01-31-2024 Abs. Basophil 0.08 k/uL Normal 0.00-0.20 [facility] Comment on above: Performed By: #### C DP, MG, CP, LIPR, GLYHGB, TSHX #### [facility] [address] [place] [address] Tax Manager Cpa: Jasbir Healy MD Abs.Imm.Granulocyte 0.06 k/uL Normal 0.00-0.30 [facility] Comment on above: Performed By: #### C DP, MG, CP, LIPR, GLYHGB, TSHX #### [facility] [address] [place] [phone] Tax Manager Cpa: Jasbir Healy MD Abs.Neutrophil (Seg) 6.20 k/uL Normal 1.50-8.10 [facility] Comment on above: Performed By: #### C DP, MG, CP, LIPR, GLYHGB, TSHX #### [place] [address] Tax Manager Cpa: Jasbir Healy MD Basophils/100 WBC (Bld) 1 % Normal 0-2 [facility] Comment on above: Performed By: #### C DP, MG, CP, LIPR, GLYHGB, TSHX #### [place] [address] Tax Manager Cpa: Jasbir Healy MD Eosinophils (Bld) [#/Vol] 0.16 10*3/uL Normal 0.00-0.44 [facility] Comment on above: Performed By: #### C DP, MG, CP, LIPR, GLYHGB, TSHX #### [place] [address] Tax Manager Cpa: Jasbir Healy MD Eosinophils/100 WBC (Bld) 2 % Normal 1-4 [facility] Comment on above: Performed By: #### C DP, MG, CP, LIPR, GLYHGB, TSHX #### [place] [address] Tax Manager Cpa: Jasbir Healy MD Erythrocyte distribution width (RBC) [Ratio] 15.2 % High 11.8-14.4 [facility] Comment on above: Performed By: #### C DP, MG, CP, LIPR, GLYHGB, TSHX #### [facility] [address] [place] [address] Tax Manager Cpa: Jasbir Healy MD Hematocrit (Bld) [Volume fraction] 43.6 % Normal 40.7-50.3 [facility] Comment on above: Performed By: #### C DP, MG, CP, LIPR, GLYHGB, TSHX #### [facility] [address] [place] [address] Tax Manager Cpa: Jasbir Healy MD Hemoglobin (Bld) [Mass/Vol] 13.0 g/dL Normal 13.0-17.0 [facility] Comment on above: Performed By: #### C DP, MG, CP, LIPR, GLYHGB, TSHX #### [address] [address] Tax Manager Cpa: Jasbir Healy MD Immature granulocytes/100 WBC (Bld) 1 % High 0 [facility] Comment on above: Performed By: #### C DP, MG, CP, LIPR, GLYHGB, TSHX #### [address] [address] Tax Manager Cpa: Jasbir Healy MD Lymphocytes (Bld) [#/Vol] 1.61 10*3/uL Normal 1.10-3.70 [facility] Comment on above: Performed By: #### C DP, MG, CP, LIPR, GLYHGB, TSHX #### [address] [address] Tax Manager Cpa: Jasbir Healy MD Lymphocytes/100 WBC (Bld) 19 % Low 24-43 [facility] Comment on above: Performed By: #### C DP, MG, CP, LIPR, GLYHGB, TSHX #### [address] [address] Tax Manager Cpa: Jasbir Healy MD MCH (RBC) [Entitic mass] 27.4 pg Normal 25.2-33.5 [facility] Comment on above: Performed By: #### C DP, MG, CP, LIPR, GLYHGB, TSHX #### [address] [address] Tax Manager Cpa: Jasbir Healy MD MCHC (RBC) [Mass/Vol] 29.8 g/dL Normal 28.4-34.8 [facility] Comment on above: Performed By: #### C DP, MG, CP, LIPR, GLYHGB, TSHX #### [address] [address] Tax Manager Cpa: Jasbir Healy MD MCV (RBC) [Entitic vol] 92.0 fL Normal 82.6-102.9 [facility] Comment on above: Performed By: #### C DP, MG, CP, LIPR, GLYHGB, TSHX #### [place] [address] Tax Manager Cpa: Jasbir Healy MD Monocytes (Bld) [#/Vol] 0.58 10*3/uL Normal 0.10-1.20 [facility] Comment on above: Performed By: #### C DP, MG, CP, LIPR, GLYHGB, TSHX #### [place] [address] Tax Manager Cpa: Jasbir Healy MD Monocytes/100 WBC (Bld) 7 % Normal 3-12 [facility] Comment on above: Performed By: #### C DP, MG, CP, LIPR, GLYHGB, TSHX #### [place] [address] Tax Manager Cpa: Jasbir Healy MD Neutrophil (Seg) 70 % High 36-65 [facility] Comment on above: Performed By: #### C DP, MG, CP, LIPR, GLYHGB, TSHX #### [address] [address] Tax Manager Cpa: Jasbir Healy MD NRBC Automated 0.0 per 100 WBC Normal 0.0 [facility] Comment on above: Performed By: #### C DP, MG, CP, LIPR, GLYHGB, TSHX #### [address] [address] Tax Manager Cpa: Jasbir Healy MD Platelet mean volume (Bld) [Entitic vol] 13.0 fL Normal 8.1-13.5 [facility] Comment on above: Performed By: #### C DP, MG, CP, LIPR, GLYHGB, TSHX #### [address] [address] Tax Manager Cpa: Jasbir Healy MD Platelets (Bld) [#/Vol] 186 10*3/uL Normal 138-453 [facility] Comment on above: Performed By: #### C DP, MG, CP, LIPR, GLYHGB, TSHX #### [address] [address] Tax Manager Cpa: Jasbir Healy MD RBC (Bld) [#/Vol] 4.74 10*6/uL Normal 4.21-5.77 [facility] Comment on above: Performed By: #### C DP, MG, CP, LIPR, GLYHGB, TSHX #### [address] [address] Tax Manager Cpa: Jasbir Healy MD RBC morphology finding Nom (Bld) ANISOCYTOSIS PRESENT Normal [facility] Comment on above: Performed By: #### C DP, MG, CP, LIPR, GLYHGB, TSHX #### [address] [address] Tax Manager Cpa: Jasbir Healy MD WBC (Bld) [#/Vol] 8.7 10*3/uL Normal 3.5-11.3 [facility] Comment on above: Performed By: #### C DP, MG, CP, LIPR, GLYHGB, TSHX #### [address] [address] Tax Manager Cpa: Jasbir Healy MD Comp Metabolic Profon 2023 Albumin [Mass/Vol] 4.0 g/dL Normal 3.5-5.2 [facility] Comment on above: Performed By: #### C DP, MG, CP, LIPR, GLYHGB, TSHX #### [address] [address] Tax Manager Cpa: Jasbir Healy MD Albumin/Glob Ratio 1.0 Normal 1.0-2.5 [facility] Comment on above: Performed By: #### C DP, MG, CP, LIPR, GLYHGB, TSHX #### [address] [address] Tax Manager Cpa: Jasbir Healy MD Alkaline Phos 98 U/L Normal 40-129 [facility] Comment on above: Performed By: #### C DP, MG, CP, LIPR, GLYHGB, TSHX #### [address] [address] Tax Manager Cpa: Jasbir Healy MD ALT [Catalytic activity/Vol] 36 U/L Normal 10-50 [facility] Comment on above: Performed By: #### C DP, MG, CP, LIPR, GLYHGB, TSHX #### [address] [address] Tax Manager Cpa: Jasbir Healy MD Anion gap [Moles/Vol] 14 mmol/L Normal 9-16 [facility] Comment on above: Performed By: #### C DP, MG, CP, LIPR, GLYHGB, TSHX #### [address] [address] Tax Manager Cpa: Jasbir Healy MD AST [Catalytic activity/Vol] 27 U/L Normal 10-50 [facility] Comment on above: Performed By: #### C DP, MG, CP, LIPR, GLYHGB, TSHX #### [address] [address] Tax Manager Cpa: Jasbir Healy MD Bilirubin [Mass/Vol] 0.5 mg/dL Normal 0.00-1.20 [facility] Comment on above: Performed By: #### C DP, MG, CP, LIPR, GLYHGB, TSHX #### [address] [address] Tax Manager Cpa: Jasbir Healy MD Calcium [Mass/Vol] 9.1 mg/dL Normal 8.6-10.4 [facility] Comment on above: Performed By: #### C DP, MG, CP, LIPR, GLYHGB, TSHX #### [address] [address] Tax Manager Cpa: Jasbir Healy MD Chloride [Moles/Vol] 107 mmol/L Normal 98-107 [facility] Comment on above: Performed By: #### C DP, MG, CP, LIPR, GLYHGB, TSHX #### [address] [address] Tax Manager Cpa: Jasbir Healy MD CO2 [Moles/Vol] 18 mmol/L Low 20-31 [facility] Comment on above: Performed By: #### C DP, MG, CP, LIPR, GLYHGB, TSHX #### [address] [address] Tax Manager Cpa: Jasbir Healy MD Creatinine [Mass/Vol] 1.8 mg/dL High 0.70-1.20 [facility] Comment on above: Performed By: #### C DP, MG, CP, LIPR, GLYHGB, TSHX #### [facility] [address] [place] [address] Tax Manager Cpa: Jasbir Healy MD GFR/1.73 sq M.predicted among non-blacks MDRD (S/P/Bld) [Vol rate/Area] 41 mL/min/{1.73_m2} Low >60 [facility] Comment on above: Result Comment: These [...] renal tubular secretion. Performed By: #### C DP, MG, CP, LIPR, GLYHGB, TSHX #### [address] [address] Tax Manager Cpa: Jasbir Healy MD Glucose [Mass/Vol] 152 mg/dL High 74-99 [facility] Comment on above: Performed By: #### C DP, MG, CP, LIPR, GLYHGB, TSHX #### [address] [address] Tax Manager Cpa: Jasbir Healy MD Potassium [Moles/Vol] 5.1 mmol/L Normal 3.7-5.3 [facility] Comment on above: Performed By: #### C DP, MG, CP, LIPR, GLYHGB, TSHX #### [address] [address] Tax Manager Cpa: Jasbir Healy MD Protein [Mass/Vol] 6.7 g/dL Normal 6.6-8.7 [facility] Comment on above: Performed By: #### C DP, MG, CP, LIPR, GLYHGB, TSHX #### [facility] [address] [place] [address] Tax Manager Cpa: Jasbir Healy MD Sodium [Moles/Vol] 139 mmol/L Normal 136-145 [facility] Comment on above: Performed By: #### C DP, MG, CP, LIPR, GLYHGB, TSHX #### [address] [address] Tax Manager Cpa: Jasbir Healy MD Urea nitrogen [Mass/Vol] 28 mg/dL High 8-23 [facility] Comment on above: Performed By: #### C DP, MG, CP, LIPR, GLYHGB, TSHX #### [facility] [address] [phone] Tax Manager Cpa: Jasbir Healy MD ED Note-Physicianon 01-31-20 ED Note-Physician Basic Information Time Seen: Derian Dalton PA-C 01/30/2024 12:35 Chief Complaint Pt sent from 's office for bradycardia with heart block. Pt went to due to weeks of increased weakness/fatigue and dizziness with no new med changes or recent illness. History of Present Illness 68-year-old male comes to the ED for evaluation of bradycardia. Over the last week he has had weakness fatigue lightheadedness with near syncopal events. He is being evaluated at his PCPs office and was found to have bradycardia and is sent to the ED for further evaluation. He denies any history of this in the past. He has had no recent illnesses. No cough, congestion, fever, chills. No nausea or vomiting. Only cardiac issue is hypertension for which she is on lisinopril. No associated chest pain or abdominal pain. Review of Systems A 10 point review of systems is negative except as noted above. Medical and Surgical History: Reviewed and noted Social history: Lives at home Tobacco: Denies Physical Exam Vitals & Measurements T: 36.5 ?C(Oral) HR: 41(Peripheral) RR: 20 BP: 127/67 SpO2: 97% HT: 175.26 cm WT: 122.3 kg BMI: 39.82 Nurses notes and vital signs reviewed and patient is not hypoxic. General: Awake and alert, no distress Skin: Warm, dry, no pallor noted. Head: Atraumatic. Neck: No JVD. Eye: Normal conjunctiva. Ears, Nose, Mouth, and Throat: Moist mucous members. Cardiovascular: Strong distal pulses. Bradycardic. Chest wall: Respiratory: Respirations are nonlabored. Clear to auscultation. Back: Normal range of motion, no CVA tenderness. Musculoskeletal: Normal ROM with no gross deformity. Gastrointestinal: Soft and nontender. Urological: Neurological: Awake and alert. No focal deficits. Follows commands. GCS 15. Psychiatric: Cooperative. Medical Decision Making Patient presents with symptomatic bradycardia. EKG consistent with third-degree heart block. Heart rate in the 40s. Blood pressure stable, 127/67. Laboratory studies reviewed and noted. EKG with complete heart block. Chest x-ray showed no acute infiltrates. Case discussed with hospitalist and cardiology. Initially plan was to admit the patient to our facility for cardiac workup and consideration of pacemaker placement. However, the breaker layer who places the pacemakers had a recent injury, and is not currently practicing. Therefore, decision made to transfer the patient. Transfer options discussed with patient and family they requested [facility]. Case discussed with hospitalist team and cardiology, and the patient has been accepted for transfer. He continues to be hemodynamically stable here. Most recent blood pressure of 144/67. Heart rate remains in the mid 40s. Critical Care Time: 40 minutes, critical care time is separate from any procedures that are performed. The following was considered in the determination of critical care but not limited to the level medical decision-making, intensive cardiac and/or respiratory monitor, frequent vital sign monitoring, evaluation of laboratory studies, evaluation of a radiographic studies, oxygen monitoring and constant monitoring. Assessment/Plan 1. Complete AV block (I44.2: Atrioventricular block, complete) 2. Symptomatic bradycardia (R00.1: Bradycardia, unspecified) Orders: Basic Metabolic Panel CBC w/ Auto Diff ED Cardiac Monitoring ED Physician consult Hospitalist for continued care eGFR Extra SST Tube Magnesium Level Oxygen Saturation Oxygen Therapy PT & PTT Saline Lock Insert T4 & TSH Transfer Patient to Troponin 0 Hr. Troponin 3 Hr. Troponin 6 Hr. Troponin 9 Hr. XR Chest Single View Disposition Plan Patient Discharge Condition Disposition: Transferred Condition: Improved and stable Counseled: Patient and/or family were counseled to workup, results, treatment plan and follow-up recommendations Discharge Prescription List Prescriptions No active prescription medications Follow-up No qualifying data available Attestation I performed a substantive part of the MDM during the patient?s E/M visit. I personally made or approved the documented management plan and acknowledge its risk of complications. (Independent Interpretation) My (EKG/X-Ray/US/CT) interpretation as above. (Discussion) Management/test interpretation discussed with APC. This report was transcribed using voice recognition software. Every effort was made to ensure accuracy, however, inadvertently computerized clinical laboratory technician mistakes may be present. Appropriate healthcare PPE was used in evaluating this patient. Problem List/Past Medical History Ongoing Chronic fatigue Disorder of prostate Gastroesophageal reflux disease without esophagitis Hx of lymphoma Hypercholesterolemi a Hypothyroidism Long-term insulin use Morbid obesity Primary hypertension Sleep disorder SOB (shortness of breath) on exertion Stage 3a chronic kidney disease (CKD) Type 2 diabetes mellitus with hypercholest (more content not included)... Normal [facility] Comment on above: Result Comment: Elec tronically Signed By: Derian Dalton PA-C\.br\Date and Time Signed: 01/30/24 15:35 EST\.br\Electronically Co-Signed By: Elbert Hill DO\.br\Date and Time Co-Signed: 01/31/24 07:08 EST Glucose,Whole Bloodon 2023 Glucose [Mass/Vol] 156 mg/dL High 75-110 [facility] Glucose [Mass/Vol] 157 mg/dL High 75-110 [facility] Glucose [Mass/Vol] 141 mg/dL High 75-110 [facility] Glucose [Mass/Vol] 145 mg/dL High 75-110 [facility] Hemoglobin A1Con 01-31-2024 Glucose [Mass/Vol] 163 mg/dL Normal [facility] Comment on above: Result Comment: The ADA and AACC recommend providing the estimated average glucose result to permit better patient understanding of their HBA1c result. Performed By: #### C DP, MG, CP, LIPR, GLYHGB, TSHX #### [facility] [address] [place] [address] [phone] Tax Manager Cpa: Jasbir Healy MD HbA1c (Bld) [Mass fraction] 7.3 % High 4.0-6.0 [facility] Comment on above: Performed By: #### C DP, MG, CP, LIPR, GLYHGB, TSHX #### [facility] [address] [place], [place] [phone] Tax Manager Cpa: Jasbir Healy MD Lipid Profileon 01-31-2024 Cholesterol [Mass/Vol] 152 mg/dL Normal 0-199 [facility] Comment on above: Result Comment: Cholesterol Guidelines: <200 Desirable 200-240 Borderline >240 Undesirable Performed By: #### C DP, MG, CP, LIPR, GLYHGB, TSHX #### [address] [address] Tax Manager Cpa: Jasbir Healy MD Cholesterol in HDL [Mass/Vol] 47 mg/dL Normal >40 [facility] Comment on above: Result Comment: HDL Guidelines: <40 Undesirable 40-59 Borderline >59 Desirable Performed By: #### C DP, MG, CP, LIPR, GLYHGB, TSHX #### [address] [address] Tax Manager Cpa: Jasbir Healy MD Cholesterol in LDL [Mass/Vol] 77 mg/dL Normal 0-100 [facility] Comment on above: Result Comment: LDL Guidelines: <100 Desirable 100-129 Near to/above Desirable 130-159 Borderline >159 Undesirable Direct (measured) LDL and calculated LDL are not interchangeable tests. Performed By: #### C DP, MG, CP, LIPR, GLYHGB, TSHX #### [facility] [address] [place] [phone] Tax Manager Cpa: Jasbir Healy MD Cholesterol in VLDL [Mass/Vol] 29 mg/dL Normal [facility] Comment on above: Performed By: #### C DP, MG, CP, LIPR, GLYHGB, TSHX #### [facility] [address] [place] [address] Tax Manager Cpa: Jasbir Healy MD Cholesterol.total/C holesterol in HDL [Mass ratio] 3.0 {ratio} Normal [facility] Comment on above: Performed By: #### C DP, MG, CP, LIPR, GLYHGB, TSHX #### [facility] [address] [place] [phone] Tax Manager Cpa: Jasbir Healy MD Triglyceride [Mass/Vol] 143 mg/dL Normal <150 [facility] Comment on above: Result Comment: Triglyceride Guidelines: <150 Desirable 150-199 Borderline 200-499 High >499 Very high Based on AHA Guidelines for fasting triglyceride, August 2012. Performed By: #### C DP, MG, CP, LIPR, GLYHGB, TSHX #### [address] [address] Tax Manager Cpa: Jasbir Healy MD Magnesiumon 01-31-2024 Magnesium [Mass/Vol] 2.0 mg/dL Normal 1.6-2.4 [facility] Comment on above: Performed By: #### C DP, MG, CP, LIPR, GLYHGB, TSHX #### [address] [address] Tax Manager Cpa: Jasbir Healy MD TSH w/reflex to FT4on 2023 Thyroid Stim. Horm. 2.36 uIU/mL Normal 0.27-4.20 [facility] Comment on above: Performed By: #### C DP, MG, CP, LIPR, GLYHGB, TSHX #### [address] [address] Tax Manager Cpa: Jasbir Healy MD Thyroid Stim. Horm.on 2023 Thyroid Stim. Horm. 3.22 uIU/mL Normal 0.30-5.00 [facility] Comment on above: Performed By: #### T SH #### [address] [address] Tax Manager Cpa: Jasbir Healy MD XR CHEST PORTABLEon 01-31-20 24 XR CHEST PORTABLE EXAMINATION: ONE XRAY VIEW OF THE CHEST 01/31/2024 11:23 am COMPARISON: None. HISTORY: ORDERING SYSTEM PROVIDED HISTORY: status post temp pacer through right IJ TECHNOLOGIST PROVIDED HISTORY: status post temp pacer through right IJ FINDINGS: There is a temporary cardiac pacer in place, placed via the right internal jugular with distal tip overlying the apex of the right ventricle. Lungs appear clear. There is no pneumothorax. IMPRESSION: Temporary cardiac pacer in place with distal tip overlying the apex of the right ventricle. Interpreted by: Sina Fermin MD Signed by: Sina Fermin MD 01/31/24 Final result Normal [facility] Ambulatory Visit Summaryon 0 01-30-2024 Ambulatory Visit Summary ISAIAH MORROW I :1955 Visit Date:01/30/2024 Ambulatory Visit Instructions Your Diagnosis Type 2 diabetes mellitus with stage 3a chronic kidney disease Type 2 diabetes mellitus with hypercholesterolemi a Morbid obesity Long-term insulin use Chronic fatigue Hx of lymphoma Lymphoblastic lymphoma Hypothyroidism Vitamin D deficiency Sleep disorder BMI 39.0-39.9,adult SOB (shortness of breath) on exertion Class 1 obesity due to excess calories in adult Nonsmoker Chronic kidney disease, stage 3a Pure hypercholesterolemi a, unspecified Your Care Team Attending Physician - Tony Figueroa MD Primary Care Physician - Tony Figueroa MD This Is Your Medications List Contact prescribing physician if questions or concerns Misc Prescription (Misc DME Prescription) Misc Prescription (syrings) atorvastatin (atorvastatin 80 mg Tab) ergocalciferol (ergocalciferol 50,000 intl units Cap) fenofibrate (fenofibrate 48 mg Tab) insulin isophane-insulin regular insulin regular (Novolin R 100 units/mL Injection) levothyroxine (levothyroxine 125 mcg (0.125 mg) Tab) lisinopril (lisinopril 2.5 mg Tab) omeprazole (omeprazole 20 mg Cap-DR) Procedures Performed Insulin pump, Tonsillectomy and adenoidectomy. Discharge Vitals Temperature (Temporal Artery) 36.4 ?C Heart Rate (Peripheral) 54 Respiratory Rate 16 Blood Pressure 100/64 Height 17.9 cm Height 7 in Weight 122.2 kg Weight 268.84 lb What to do next Scheduled Follow-Up Appointments Tuesday 1:00 PM EDT Where: [facility] [place] Invalid Interpretation Code Type 2 diabetes mellitus with hypercholesterolemia [facility] BMPon 01-30-2024 Anion gap [Moles/Vol] 14 mmol/L Normal 6-16 [facility] Comment on above: Performed By: #### 2 523322, 0747485, 2239156, 69262780, 99075736, 25077376, 73682763 ####[facility] [address] [place] [address] Calcium [Mass/Vol] 8.8 mg/dL Low 8.9-11.1 [facility] Comment on above: Performed By: #### 2 439014, 3219399, 2186793, 75011223, 55825069, 88839354, 55771741 ####[facility] [address] [place] [address] Chloride [Moles/Vol] 109 mmol/L Normal 101-111 [facility] Comment on above: Performed By: #### 2 017725, 7654518, 9068089, 99571028, 95237474, 29416212, 64176163 ####[facility] [address] [place] [address] CO2 [Moles/Vol] 22 mmol/L Normal 21-31 [facility] Comment on above: Performed By: #### 2 616060, 3396460, 1291715, 87327094, 66926827, 41183401, 26338403 ####[facility] [address] [place] [address] Creatinine [Mass/Vol] 2.2 mg/dL High 0.5-1.3 [facility] Comment on above: Performed By: #### 2 979840, 8940602, 4410473, 64356764, 10951584, 53599154, 59693584 ####[facility] [address] [place] [address] Glucose [Mass/Vol] 120 mg/dL Normal 55-199 [facility] Comment on above: Performed By: #### 2 945024, 5962158, 1680882, 86783147, 31278782, 32220139, 35183726 ####[facility] [address] [place] [address] Potassium [Moles/Vol] 4.9 mmol/L Normal 3.5-5.3 [facility] Comment on above: Performed By: #### 2 535358, 6364299, 3644622, 15416204, 33852956, 91553105, 14651697 ####[facility] [address] [place] [address] Sodium [Moles/Vol] 140 mmol/L Normal 135-145 [facility] Comment on above: Performed By: #### 2 634195, 0271416, 6891156, 29376668, 06484291, 06003676, 46003942 ####[facility] [address] [place] [address] Urea nitrogen [Mass/Vol] 34 mg/dL High 5-21 [facility] Comment on above: Performed By: #### 2 127809, 6255049, 4672387, 91202865, 61280519, 99804750, 85271887 ####[facility] [address] [place] [address] Urea nitrogen/Creatinine [Mass ratio] 16 No Units Normal 10-20 [facility] Comment on above: Performed By: #### 2 226936, 5740775, 8253411, 45619899, 11637238, 37666713, 81120011 ####[facility] [address] [place] [address] CBC w/ Auto Diffon 4 Basophils/100 WBC (Bld) 0.6 % Normal 0.0-2.0 [facility] Comment on above: Performed By: #### 2 268456, 0255126, 6289970, 24930679, 40340187, 73462630, 28629429 ####[facility] [address] [place] [address] Basophils/Leukocyte s Auto (Bld) [Pure # fraction] 0.1 E9/L Normal 0.0-0.2 [facility] Comment on above: Performed By: #### 2 291226, 5672704, 1696268, 61822069, 52256895, 50366379, 41196479 ####[facility] [address] [place] [address] Eosinophils (Bld) [#/Vol] 0.2 E9/L Normal 0.0-0.5 [facility] Comment on above: Performed By: #### 2 060724, 4514381, 4341826, 66855947, 58370644, 62940457, 16044794 ####[facility] [address] [place] [address] Eosinophils/100 WBC (Bld) 1.5 % Normal 0.0-8.0 [facility] Comment on above: Performed By: #### 2 810289, 1129718, 5705833, 12607389, 60277171, 86524891, 05920969 ####[address] [place] [address] Erythrocyte distribution width (RBC) [Ratio] 15.8 % High 10.9-14.2 [facility] Comment on above: Performed By: #### 2 011918, 0474758, 6751154, 39651617, 27006050, 76160534, 82764267 ####[address] [place] [address] Hematocrit (Bld) [Volume fraction] 40.4 % Normal 37.7-49.0 [facility] Comment on above: Performed By: #### 2 188608, 1003653, 4394724, 08488377, 26813263, 77832824, 58221525 ####[facility] [address] [place] [address] Hemoglobin (Bld) [Mass/Vol] 12.3 g/dL Low 13.5-17.5 [facility] Comment on above: Performed By: #### 2 847105, 6571439, 2707239, 96333364, 39766617, 96802663, 86458224 ####[facility] [address] [place] [address] Lymphocytes (Bld) [#/Vol] 2.1 E9/L Normal 1.0-4.0 [facility] Comment on above: Performed By: #### 2 610898, 2560579, 1637382, 56104164, 38521852, 66054381, 13568420 ####[facility] [address] [place] [address] Lymphocytes/100 WBC (Bld) 18.6 % Normal 14.0-50.0 [facility] Comment on above: Performed By: #### 2 115523, 1569480, 1933175, 69912788, 20341085, 96180879, 44597692 ####[facility] [address] [place] [address] MCH (RBC) [Entitic mass] 26.0 pg Low 27.0-34.0 [facility] Comment on above: Performed By: #### 2 031874, 7714661, 4778219, 87776231, 54845453, 38997536, 46854863 ####[facility] [address] [place] [address] MCHC (RBC) [Mass/Vol] 30.5 g/dL Low 31.4-36.0 [facility] Comment on above: Performed By: #### 2 243498, 7712148, 2215778, 83448021, 54268689, 01839918, 87165401 ####[facility] [address] [place] [address] MCV (RBC) [Entitic vol] 85.1 fL Normal 80.0-100.0 [facility] Comment on above: Performed By: #### 2 676196, 7048493, 3125114, 93406925, 91254555, 61549231, 95705350 ####[facility] [address] [place] [address] Monocytes (Bld) [#/Vol] 0.8 E9/L Normal 0.2-1.0 [facility] Comment on above: Performed By: #### 2 854106, 7593269, 9044695, 91650647, 33896912, 98483456, 65702031 ####[facility] [address] [place] [address] Neutrophils (Bld) [#/Vol] 8.1 E9/L High 2.0-7.5 [facility] Comment on above: Performed By: #### 2 102175, 0363893, 9765396, 29436134, 13859115, 58917900, 37794916 ####[address] [place] [address] Neutrophils/100 WBC (Bld) 72.5 % Normal 36.0-75.0 [facility] Comment on above: Performed By: #### 2 743927, 4501395, 3185648, 64457783, 64487797, 66025824, 90882749 ####[address] [place] [address] Platelet 183.0 E9/L Normal 150.0-500.0 [facility] Comment on above: Performed By: #### 2 419674, 2610639, 8102914, 39419643, 86339586, 03049286, 78048433 ####[address] [place] [address] Platelet mean volume (Bld) [Entitic vol] 10.9 fL High 6.4-10.8 [facility] Comment on above: Performed By: #### 2 242681, 5282069, 5016305, 56944130, 75955260, 40180146, 54296505 ####[address] [place] [address] RBC (Bld) [#/Vol] 4.8 E12/L Normal 4.3-5.9 [facility] Comment on above: Performed By: #### 2 964547, 4274184, 7471297, 50384084, 14872539, 21797090, 00301610 ####[facility] [address] [place] [address] WBC corrected for nucl RBC Auto (Bld) [#/Vol] 11.2 E9/L High 4.0-11.0 [facility] Comment on above: Performed By: #### 2 515545, 1236126, 6948821, 13546387, 61328871, 25197198, 77223710 ####[facility] [address] [place] [address] CHEMISTRYOrdered By: SYSTEM SYSTEM on 01-30-2024 Troponin 19.00 pg/mL Normal 15.90 - 38.40 pg/mL [facility] Comment on above: Interpretive Data: T he 95% CI (Confidence Interval) PPV (Positive Predictive Value) for myocardial infarction in females is 38 pg/mL, in males 51 pg/mL. The results should be used in conjunction with clinical conditions of myocardial infarction. (Access High Sensitivity Troponin I Instructions For Use, [employer], June 2018) Troponin 17.40 pg/mL Normal 15.90 - 38.40 pg/mL [facility] Comment on above: Interpretive Data: T he 95% CI (Confidence Interval) PPV (Positive Predictive Value) for myocardial infarction in females is 38 pg/mL, in males 51 pg/mL. The results should be used in conjunction with clinical conditions of myocardial infarction. (Access High Sensitivity Troponin I Instructions For Use, [employer], June 2018) Troponin 15.50 pg/mL Low 15.90 - 38.40 pg/mL [facility] Comment on above: Interpretive Data: T he 95% CI (Confidence Interval) PPV (Positive Predictive Value) for myocardial infarction in females is 38 pg/mL, in males 51 pg/mL. The results should be used in conjunction with clinical conditions of myocardial infarction. (Access High Sensitivity Troponin I Instructions For Use, [employer], June 2018) Anion gap [Moles/Vol] 14 mmol/L Normal 6 - 16 mEq/L [facility] Calcium [Mass/Vol] 8.8 mg/dL Low 8.9 - 11.1 mg/dL [facility] Chloride [Moles/Vol] 109 mmol/L Normal 101 - 111 mmol/L [facility] CO2 [Moles/Vol] 22 mmol/L Normal 21 - 31 mmol/L Remis ol Chem Creatinine [Mass/Vol] 2.2 mg/dL High 0.5 - 1.3 mg/dL [facility] eGFR 31 mL/min/1.73 m2 Low >=59mL/min/1.73 m2 [facility] Glucose [Mass/Vol] 120 mg/dL Normal 55 - 199 mg/dL Re misol Chem Magnesium [Mass/Vol] 1.8 mg/dL Normal 1.3 - 2.4 mg/dL [facility] Potassium [Moles/Vol] 4.9 mmol/L Normal 3.5 - 5.3 mmol/L [facility] Sodium [Moles/Vol] 140 mmol/L Normal 135 - 145 mmol/L [facility] T4 [Mass/Vol] 12.0 ug/dL High 4.6 - 9.1 mcg/dL [facility]is [facility] TSH Qn 2.94 m[IU]/L Normal 0.34 - 5.60 mcIU/mL Rem isol Chem Urea nitrogen [Mass/Vol] 34 mg/dL High 5 - 21 mg/dL [facility] Urea nitrogen/Creatinine [Mass ratio] 16 mg/mg Normal 10 - 20 [facility] CHEMISTRYOrdered By: Lab ROP User on 01-30-2024 Glucose [Mass/Vol] 143 mg/dL High 55 - 99 mg/dL [facility] C POC Subsection POC Device SN [id number] Invalid Interpretation Code [facility] POC Subsection POC User ID [id number] Invalid Interpretation Code [facility] POC Subsection POC Username DANIEL SANTIAGO Invalid Interpretation Code [facility] POC Subsection COAGULATIONOrdered By: Katty Ashley on 01-30-2024 aPTT Coag (PPP) [Time] 33.5 s Normal 25.1 - 36.5 second(s) [facility] Auto Coag Comment on above: Interpretive Data: P arameter 15 days - 4 weeks 1 - 5 months 6 - 11 months 1 - 5 years 6 - 10 years 11 - 17 years PTT Mean: 35.4 (27.6-45.6) Mean: 33.5 (24.8-40.7) Mean: 32.4 (25.1-40.7) Mean: 31.6 (24.0-39.2) Mean: 31.6 (26.9-38.7) Mean: 31.0 (24.6-38.4) Pediatric Reference ranges were obtained from a study by Chuck Carroll et al. prepared from 1437 samples obtained at 7 different centers using the same coagulation reagent and instrumentation as [facility]. Currently there are no coagulation studies available worldwide for children to 14 days, and no normal ranges. Heparin therapeutic range (represented by Anti-Factor Xa activity of 0.2 - 0.4 U/mL) corresponds to PTT of 56.6 - 109.0 sec. INR Coag (PPP) [Relative time] 0.96 {INR} Invalid Interpretation Code [facility] Auto Coag Comment on above: Interpretive Data: I NR results are specifically intended to assess patients stabilized on long-term Anticoagulation therapy suggested INR s Less Intensive Anticoagulation 2.0 3.0 Conventional Range 3.0 4.5 PT Coag (PPP) [Time] 10.7 s Normal 9.4 - 12.5 second(s) [facility] Auto Coag Comment on above: Interpretive Data: 1 5 days - 4 weeks 1 - 5 months 6 -11 months 1 5 years 6 10 years 11 -17 years Mean: 11.2 (9.5 12.6) Mean: 11.0 (9.7 12.8) Mean: 11.0 (9.8 13.0) Mean: 11.3 (9.9 13.4) Mean: 11.7 (10.0 14.6) Mean: 11.8 (10.0 - 14.1) Pediatric Reference ranges were obtained from a study by Chuck Carroll et al. prepared from 1437 samples obtained at 7 different centers using the same coagulation reagent and instrumentation as [facility]. Currently there are no coagulation studies available worldwide for children to 14 days, and no normal ranges. Capillary Glucose POCon Glucose [Mass/Vol] 143 mg/dL High 55-99 [facility] Comment on above: Performed By: #### 2 [id number] #### [facility] [address] [place] [address] Consent for Treatmenton Consent for Treatment [id number] Normal [facility] ED Clinical Summaryon 2023 ED Clinical Summary [address] [address] ED Clinical Summary Person Information Name: ISAIAH MORROW[place] Age: 68 Years : 1955 Sex: Male Language: Lebanese PCP: Tony Figueroa MD Marital Status: Visit Id: Visit Reason: Dizziness; Weakness or fatigue; Bradycardia; seen per dr figueroa heart rate slow Speciality: Acuity: 2 Enc Type: Emergency Med Service: Emergency Arrival: 01/30/2024 12:23:27 Discharge: 01/30/2024 22:32:34 LOS: 000 10:09 Checkin: 01/30/2024 12:23:27 Checkout: 01/30/2024 22:32:34 Dispo Type: Short-Term Hosp as IP EVENTS: Event Name Event Status Request Date/Time Start Date/Time Complete Date/Time Arrive Complete 01/30/2024 12:23:27 01/30/2024 12:23:27 01/30/2024 12:23:27 Document Home Meds Request 01/30/2024 12:23:27 Triage Complete 01/30/2024 12:23:27 01/30/2024 12:33:09 01/30/2024 12:33:09 Bed Assign Complete 01/30/2024 12:26:45 01/30/2024 12:26:45 01/30/2024 12:26:45 Dr Exam Complete 01/30/2024 12:26:45 01/30/2024 12:35:30 01/30/2024 12:35:30 RN Exam Complete 01/30/2024 12:26:45 01/30/2024 13:16:32 01/30/2024 13:16:32 EKG Complete 01/30/2024 12:30:42 01/30/2024 12:32:32 Registration Complete 01/30/2024 12:35:30 01/30/2024 13:11:49 01/30/2024 13:11:49 Pending Labs Complete 01/30/2024 12:35:56 01/30/2024 21:49:34 Lab Complete 01/30/2024 12:35:56 01/30/2024 13:22:56 Patient Care Request 01/30/2024 12:35:56 RT Request 01/30/2024 12:35:56 X-Ray Complete 01/30/2024 12:35:56 01/30/2024 12:46:03 01/30/2024 12:53:54 Pending Labs Cancel 01/30/2024 12:39:46 01/30/2024 13:00:41 Dr Exam Complete 01/30/2024 12:41:36 01/30/2024 12:41:36 01/30/2024 12:41:36 Wet Read Complete 01/30/2024 12:53:54 01/30/2024 13:35:38 01/30/2024 13:35:46 Pending Labs Complete 01/30/2024 13:00:08 01/30/2024 13:00:08 01/30/2024 13:22:56 Lab Complete 01/30/2024 13:00:08 01/30/2024 13:00:08 01/30/2024 13:22:56 Pending Labs Cancel 01/30/2024 13:01:29 01/30/2024 13:01:29 01/30/2024 13:07:20 Pending Labs Complete 01/30/2024 13:01:43 01/30/2024 13:01:43 01/30/2024 13:01:44 Pending Labs Complete 01/30/2024 13:07:46 01/30/2024 13:07:46 01/30/2024 13:36:59 Reg Complete Request 01/30/2024 13:11:49 Reg Bed Request Complete 01/30/2024 13:11:49 01/30/2024 13:11:49 01/30/2024 13:11:49 Consult Request 01/30/2024 13:51:05 Hospitalist Consult Request 01/30/2024 13:51:05 Patient Care Request 01/30/2024 14:39:30 Transfer Complete 01/30/2024 14:39:30 01/30/2024 22:33:14 01/30/2024 22:33:14 Pending Labs Complete 01/30/2024 20:26:24 01/30/2024 20:26:24 01/30/2024 20:26:25 Discharge Complete 01/30/2024 22:33:14 01/30/2024 22:33:14 01/30/2024 22:33:14 ADDRESS: [address] [facility] [id number] PHYS DOC NOTES: MEDICAL INFORMATION: Prescriptions Given: Medications to Continue with No Changes Other Medications atorvastatin (atorvastatin 80 mg Tab) 1 Tablets By Mouth every day. Refills: 3. ergocalciferol (ergocalciferol 50,000 intl units Cap) 1 cap(s) Oral every other week. Refills: 1. fenofibrate (fenofibrate 48 mg Tab) 1 Tablets By Mouth every day. Refills: 1. insulin isophane-insulin regular inject 40 units SQ at breakfast and 80 units at bedtime. insulin regular (Novolin R 100 units/mL Injection) inject 20 units SQ at breakfast and lunch and 35 units at dinner. Refills: 1. levothyroxine (levothyroxine 125 mcg (0.125 mg) Tab) 1 Tablets By Mouth every day. Refills: 1. lisinopril (lisinopril 2.5 mg Tab) 1 Tablets By Mouth every day. Refills: 1. Misc Prescription (Misc DME Prescription) lancet use QID e11.9. Refills: 5. Misc Prescription (syrings) syrings 31g x8mm use qid and prn E11.9. Refills: 3. omeprazole (omeprazole 20 mg Cap-DR) 1 Capsules By Mouth every day. Refills: 1. PATIENT EDUCATION INFORMATION: Instructions: Follow up: DIAGNOSIS: 1:Complete AV block; 2:Symptomatic bradycardia Normal [facility] ED Patient Education Noteon 01-30-2024 ED Patient Education Note Normal [facility] ED Patient Summaryon 024 ED Patient Summary [address] [place] [id number] Patient Discharge Instructions Person Information Name: ISAIAH MORROW I Age: 68 Years Arrival Date: 01/30/2024 12:23:27 Discharge Diagnosis: 1:Complete AV block; 2:Symptomatic bradycardia Primary Care Physician: Tony Figueroa MD Provider Information Primary Provider: Elbert Hill DO [employer] Operator:Derian Dalton PA-C The exam and treatment you received in the Emergency Department were for an urgent problem and are not intended as complete care. It is important that you follow up with a doctor, nurse practitioner, or physician?s academic assistant for ongoing care. If your symptoms become worse or you do not improve as expected and you are unable to reach your usual health care provider, you should return to the Emergency Department. We are available 24 hours a day. ISAIAH MORROW I has been given the following list of patient education materials, prescriptions and follow-up instructions: Follow-up Instructions: In the event that this physician does not participate in your insurance network, please consult with your insurance company to find a nearby participating provider. Patient Education Materials: A MESSAGE TO ALL PATIENTS REGARDING OPIOIDS PRESCRIPTION OPIOIDS: WHAT YOU NEED TO KNOW Prescription opioids can be used to help relieve dvbkbzdl-kf-trjztq pain and are often prescribed following a surgery or injury, or for certain health conditions. These medications can be an important part of the treatment but also come with serious risks. It is important to work with your healthcare provider to make sure you are getting the safest, most effective care. WHAT ARE THE RISKS AND SIDE EFFECTS OF OPIOID USE? Prescription opioids carry serious risks of addiction and overdose, especially with prolonged use. An opioid overdose, often marked by slowed breathing, can cause sudden . The use of prescription opioids can have a number of side effects as well, even when taken as directed: ? Tolerance?meaning you might need to take more of the medication for the same pain relief ? Physical dependence?meaning you have symptoms of withdrawal when a medication is stopped ? Increased sensitivity to pain ? Constipation ? Nausea, vomiting, and dry mouth ? Sleepiness and dizziness ? Confusion ? Depression ? Low levels of testosterone that can result in lower sex drive, energy, and strength ? Itching and sweating RISKS ARE GREATER WITH: ? History of drug misuse, substance use disorder, or overdose ? Mental health conditions (such as depression or anxiety) ? Sleep apnea ? Older age (65 years and older) ? Avoid alcohol while taking prescription opioids. Also, unless specifically advised by your health care provider, medications to avoid include: ? Benzodiazepines (such as Xanax or Valium) ? Muscle relaxants (such as Soma or Flexeril) ? Hypnotics (such as Ambien or Lunesta) ? Other prescription opioids KNOW YOUR OPTIONS Talk to your health care provider about ways to manage your pain that don?t involve prescription opioids. Some of these options may actually work better and have fewer risks and side effects. Options may include: ? Pain relievers such as acetaminophen, ibuprofen, and naproxen ? Some medication that are also used for depression or seizures ? Physical therapy and exercise ? Cognitive behavioral therapy, a psychological, goal-directed approach, in which patients learn how to modify physical, behavioral, and emotional triggers of pain and stress. IF YOU ARE PRESCRIBED OPIOIDS FOR PAIN: ? Never take opioids in greater amounts or more often than prescribed. ? Follow up with your primary health care provider. o Work together to create a plan on how to manage your pain. o Talk about ways to help manage your pain that don?t involve prescription opioids. o Talk about any and all concerns and side effects. ? Help prevent misuse and abuse o Never sell or share prescription opioids. o Never use another person?s prescription opioids. ? Store prescription opioids in a secure place and out of reach of others (this may include visitors, children, friends, and family). ? Safely dispose of unused prescription opioids: Find your community drug take-back program or your pharmacy mail-back program, or flush them down the toilet, following guidance from the Food and Drug Administration (www.fda.gov/Drugs/ ResourcesForYou). ? Visit www.cdc.gov/drugove rdose to learn about the risks of opioids abuse and overdose. ? If you believe you may be struggling with addiction, tell your health healthcare science specialist and ask for guidance or call SAMHSA?S National Helpline at 0-640-025-MIYN. v Source: [place] Department of Health and Human Services/Center for Disease Control & Prevention [facility] Medications (more content not included)... Normal [facility] Family Medicine Office/Clini c Noteon 01-30-2024 Family Medicine Office/Clinic Note HPI Staff Blue is a 68 year old male presenting for follow up meds check Do you have any of the following symptoms? Foot Exam: none Eye Exam: over a year ago Last A1C: Hgb A1C %: 7.7 % High (06/27/23 15:17:00) BS high is 235 and 75 at lowest. was 217 before breakfast this morning Statin: atorvastatin 80mg Patient is here for follow up on hypertension. How often are you checking your blood pressure? Doesnt check BP at home What are your average readings? N/A, Not checking at home Yearly BMP: 10/21/23 flu: UTD 09/08/23 questions/concerns: feels very exhausted, would like something to help suppress his appetite, too much weight, says walking short distance and he gets short winded and exhausted. He has been lightheaded all noticed this within the last week History of Present Illness - Here for worsening fatigue. - SOB on Exertion - No CP - Feels off. - Not drinking enough water. Review of Systems PHQ Score Initial Depression Screen Score: 1 SCORE Physical Exam Vitals & Measurements T: 36.4 ?C(Temporal Artery) HR: 54(Peripheral) RR: 16 BP: 100/64 SpO2: 94% HT: 7 in HT: 17.9 cm WT: 122.2 kg WT: 268.84 lb General: alert, no acute distress ENMT: oral mucosa moist, Cardiovascular: Heriberto, normal peripheral perfusion Respiratory: Lungs CTA, respirations non labored Extremities: no deformity, no trauma Neurological: oriented x 4, LOC appropriate for age, CN II-XII intact, motor strength equal & normal bilaterally, speech normal Abdomen: Soft, Nontender, Non-distended, + BS Assessment/Plan Total time spent preparing for the encounter, evaluating and assessing the patient, documenting the visit, and ordering appropriate follow-up work was +65 minutes. 1. Type 2 diabetes mellitus with stage 3a chronic kidney disease (E11.22: Type 2 diabetes mellitus with diabetic chronic kidney disease) - Will need to recheck labs - Pt needs to increase water intake - Adjust meds with Endo Ordered: Body Mass Index (BMI) documented 3008F CBC w/ Auto Diff Comprehensive Metabolic Panel Current tobacco non-user 1036F Depression Screening Negative 3352F E&M of Est. Patient High 40-54 Min 29274 ECG 12 Lead Adult HgbA1c Influenza immunization administered or previously received 4274F Most recent diastolic blood pressure <80 mm Hg 3078F Patient screen for fall risk: no falls in last year or 1 fall with no injury in last year 1101F Prolonged OV 15 min 18931 Systolic BP <130 mm Hg (Most Recent) 3074F TSH With T4fr Reflex Vitamin D 25 Hydroxy 2. Type 2 diabetes mellitus with hypercholesterolemi a (E11.69: Type 2 diabetes mellitus with other specified complication) - As above Ordered: Body Mass Index (BMI) documented 3008F CBC w/ Auto Diff Comprehensive Metabolic Panel Current tobacco non-user 1036F Depression Screening Negative 3352F E&M of Est. Patient High 40-54 Min 06409 ECG 12 Lead Adult HgbA1c Influenza immunization administered or previously received 4274F Most recent diastolic blood pressure <80 mm Hg 3078F Patient screen for fall risk: no falls in last year or 1 fall with no injury in last year 1101F Prolonged OV 15 min 48745 Systolic BP <130 mm Hg (Most Recent) 3074F TSH With T4fr Reflex Vitamin D 25 Hydroxy 3. Morbid obesity (E66.01: Morbid (severe) obesity due to excess calories) -Diet and exercise advised Ordered: Body Mass Index (BMI) documented 3008F CBC w/ Auto Diff Comprehensive Metabolic Panel Current tobacco non-user 1036F Depression Screening Negative 3352F E&M of Est. Patient High 40-54 Min 24868 ECG 12 Lead Adult HgbA1c Influenza immunization administered or previously received 4274F Most recent diastolic blood pressure <80 mm Hg 3078F Patient screen for fall risk: no falls in last year or 1 fall with no injury in last year 1101F Prolonged OV 15 min 30494 Systolic BP <130 mm Hg (Most Recent) 3074F TSH With T4fr Reflex Vitamin D 25 Hydroxy 4. Long-term insulin use (Z79.4: USP (current) use of insulin) - Sees Endo Ordered: Body Mass Index (BMI) documented 3008F CBC w/ Auto Diff Comprehensive Metabolic Panel Current tobacco non-user 1036F Depression Screening Negative 3352F E&M of Est. Patient High 40-54 Min 20933 HgbA1c Influenza immunization administered or previously received 4274F Most recent diastolic blood pressure <80 mm Hg 3078F Patient screen for fall risk: no falls in last year or 1 fall with no injury in last year 1101F Prolonged OV 15 min 34879 Systolic BP <130 mm Hg (Most Recent) 3074F TSH With T4fr Reflex Vitamin D 25 Hydroxy 5. Chronic fatigue (R53.82: Chronic fatigue, unspecified) - Unsure the cause at this time. - Will check labs Ordered: Body Mass Index (BMI) documented 3008F CBC w/ Auto Diff Comprehensive Metabolic Panel Current tobacco non-user 1036F Depression Screening Negative 3352F E&M of Est. Patient High 40-54 Min 78274 HgbA1c Influenza immunization a (more content not included)... Normal [facility] Comment on above: Result Comment: Elec tronically Signed By: Pedro RODRIGES, Tony Hoffman\.br\Date and Time Signed: 01/30/24 11:54 EST HEMATOLOGYOrdered By: SYSTEM SYSTEM on 01-30-2024 Basophils/100 WBC (Bld) 0.6 % Normal 0.0 - 2.0 % Remisol Heme Basophils/Leukocyte s Auto (Bld) [Pure # fraction] 0.1 E9/L Normal 0.0 - 0.2 E9/L Remisol Heme Eosinophils (Bld) [#/Vol] 0.2 E9/L Normal 0.0 - 0.5 E9/L Remisol Heme Eosinophils/100 WBC (Bld) 1.5 % Normal 0.0 - 8.0 % Remisol Heme Erythrocyte distribution width (RBC) [Ratio] 15.8 % High 10.9 - 14.2 % Remisol Heme Hematocrit (Bld) [Volume fraction] 40.4 % Normal 37.7 - 49.0 % Remisol Heme Hemoglobin (Bld) [Mass/Vol] 12.3 g/dL Low 13.5 - 17.5 gm/dL Remisol Heme Lymphocytes (Bld) [#/Vol] 2.1 E9/L Normal 1.0 - 4.0 E9/L Remisol Heme Lymphocytes/100 WBC (Bld) 18.6 % Normal 14.0 - 50.0 % Remisol Heme MCH (RBC) [Entitic mass] 26.0 pg Low 27.0 - 34.0 pg Remisol Heme MCHC (RBC) [Mass/Vol] 30.5 g/dL Low 31.4 - 36.0 gm/dL Remisol Heme MCV (RBC) [Entitic vol] 85.1 fL Normal 80.0 - 100.0 fL Remisol Heme Monocytes (Bld) [#/Vol] 0.8 E9/L Normal 0.2 - 1.0 E9/L Remisol Heme Monocytes/100 WBC (Bld) 6.8 % Normal 4.0 - 14.0 % Remisol Heme Neutrophils (Bld) [#/Vol] 8.1 E9/L High 2.0 - 7.5 E9/L Remisol Heme Neutrophils/100 WBC (Bld) 72.5 % Normal 36.0 - 75.0 % Remisol Heme Platelet 183.0 E9/L Normal 150.0 - 500.0 E9/L Remiso l Heme Platelet mean volume (Bld) [Entitic vol] 10.9 fL High 6.4 - 10.8 fL Remisol Heme RBC (Bld) [#/Vol] 4.8 E12/L Normal 4.3 - 5.9 E12/L Re misol Heme WBC corrected for nucl RBC Auto (Bld) [#/Vol] 11.2 E9/L High 4.0 - 11.0 E9/L Remisol Heme Magnesiumon 01-30-2024 Magnesium [Mass/Vol] 1.8 mg/dL Normal 1.3-2.4 [facility] Comment on above: Performed By: #### 2 [id number], 4421679, 4079744, 38256942, 14513952, 90559675, [id number] ####[facility] [address] [place] [address] Monitor Recordon 01-30-2024 Monitor Record [id number]#1.00TIFF Normal [facility] Monitor Record [id number] 213#1.00TIFF Normal [facility] Monitor Record [id number] 660#1.00TIFF Normal [facility] Monitor Record [id number] 895#1.00TIFF Normal [facility] Monitor Record [id number] 446#1.00TIFF Normal [facility] Monitor Record [id number] 657#1.00TIFF Normal [facility] PT & PTTon 01-30-2024 aPTT Coag (PPP) [Time] 33.5 second(s) Normal 25.1-36.5 [facility] Comment on above: Result Comment: Para meter 15 days - 4 weeks 1 - 5 months 6 - 11 months 1 - 5 years 6 - 10 years 11 - 17 years PTT Mean: 35.4 (27.6-45.6) Mean: 33.5 (24.8-40.7) Mean: 32.4 (25.1-40.7) Mean: 31.6 (24.0-39.2) Mean: 31.6 (26.9-38.7) Mean: 31.0 (24.6-38.4) Pediatric Reference ranges were obtained from a study by Chuck Carroll et al. prepared from 1437 samples obtained at 7 different centers using the same coagulation reagent and instrumentation as [facility]. Currently there are no coagulation studies available worldwide for children to 14 days, and no normal ranges. Heparin therapeutic range (represented by Anti-Factor Xa activity of 0.2 - 0.4 U/mL) corresponds to PTT of 56.6 - 109.0 sec. Performed By: #### 2 862634, 2622857, 0029405, 14964450, 25093179, 47362905, 73911571 ####[facility] [address] [place] [address] INR Coag (PPP) [Relative time] 0.96 {INR} Invalid Interpretation Code [facility] Comment on above: Result Comment: INR results are specifically intended to assess patients stabilized on long-term Anticoagulation therapy suggested INR?s ?Less Intensive Anticoagulation? 2.0 ? 3.0 Conventional Range 3.0 ? 4.5 Performed By: #### 2 740682, 9475925, 2177569, 63306020, 26326826, 29258442, [id number] ####[facility] [address] [place] [address] PT Coag (PPP) [Time] 10.7 second(s) Normal 9.4-12.5 [facility] Comment on above: Result Comment: 15 d ays - 4 weeks 1 - 5 months 6 -11 months 1 ? 5 years 6 ? 10 years 11 -17 years Mean: 11.2 (9.5 ? 12.6) Mean: 11.0 (9.7 ? 12.8) Mean: 11.0 (9.8 ? 13.0) Mean: 11.3 (9.9 ? 13.4) Mean: 11.7 (10.0 ? 14.6) Mean: 11.8 (10.0 - 14.1) Pediatric Reference ranges were obtained from a study by Chuck Carroll et al. prepared from 1437 samples obtained at 7 different centers using the same coagulation reagent and instrumentation as [facility]. Currently there are no coagulation studies available worldwide for children to 14 days, and no normal ranges. Performed By: #### 2 805591, 1681940, 8331722, 55229072, 88288782, 06749686, 69550377 ####[facility] [address] [place] [address] Pre-Arrival Noteon Pre-Arrival Note Pre-Arrival Summary Name: vanita, Current Date: 01/30/2024 12:26:37 EST Gender: Male Date of : Age: 68 Pre-Arrival Type: EMS ETA: 01/30/2024 12:09:00 EST Primary Care Physician: Presenting Problem: sob, heriberto Pre-Arrival User: Elbert Hill DO Referring Source: Location: [place] Completion Date/Time: 01/30/2024 11:39:00 [facility] Emergency Department Pre-Hospital Report Form ___ Vital Signs: dm, bp low, smoker, hr 46 Pre-Hospital Report: Treatment in Route: Response to Treatment: Misc. Issues: Normal [facility] T4 & TSHon 01-30-2024 TSH Qn 2.94 m[IU]/L Normal 0.34-5.60 [facility] Comment on above: Performed By: #### 2 943182, 4882246, 5348795, 39223424, 90493657, 55397513, 81991412 ####[facility] [address] [place] [address] T4 [Mass/Vol] 12.0 microgram/dL High 4.6-9.1 [facility] Comment on above: Performed By: #### 2 479759, 5236756, 0517873, 08328530, 82003526, 45224218, 82409843 ####[facility] [address] [place] [address] Transfer Documentson 024 Transfer Documents [id number] 637#1.00TIFF Normal [facility] Troponin 0 Hr.on 01-30-2024 Troponin 14.40 pg/mL Low 15.90-38.40 [facility] Comment on above: Result Comment: The 95% CI (Confidence Interval) PPV (Positive Predictive Value) for myocardial infarction in females is 38 pg/mL, in males 51 pg/mL. The results should be used in conjunction with clinical conditions of myocardial infarction. (Access High Sensitivity Troponin I Instructions For Use, [employer], June 2018) Performed By: #### 2 251742, 7944693, 4326657, 01401691, 68260044, 26768259, 30865816 ####[facility] [address] [place] [address] Troponin 3 Hr.on 01-30-2024 Troponin 15.50 pg/mL Low 15.90-38.40 [facility] Comment on above: Result Comment: The 95% CI (Confidence Interval) PPV (Positive Predictive Value) for myocardial infarction in females is 38 pg/mL, in males 51 pg/mL. The results should be used in conjunction with clinical conditions of myocardial infarction. (Access High Sensitivity Troponin I Instructions For Use, [employer], June 2018) Performed By: #### 1 [id number] #### [facility] [address] [place] [address] Troponin 6 Hr.on 01-30-2024 Troponin 17.40 pg/mL Normal 15.90-38.40 [facility] Comment on above: Result Comment: The 95% CI (Confidence Interval) PPV (Positive Predictive Value) for myocardial infarction in females is 38 pg/mL, in males 51 pg/mL. The results should be used in conjunction with clinical conditions of myocardial infarction. (Access High Sensitivity Troponin I Instructions For Use, [employer], June 2018) Performed By: #### 1 [id number] #### [facility] [address] [place] [address] Troponin 9 Hr.on 01-30-2024 Troponin 19.00 pg/mL Normal 15.90-38.40 [facility] Comment on above: Result Comment: The 95% CI (Confidence Interval) PPV (Positive Predictive Value) for myocardial infarction in females is 38 pg/mL, in males 51 pg/mL. The results should be used in conjunction with clinical conditions of myocardial infarction. (Access High Sensitivity Troponin I Instructions For Use, [employer], June 2018) Performed By: #### 1 [id number] #### [facility] [address] [place] [address] XR Chest Single Viewon 01-29 XR Chest Single View Exam Date/Time: 01/30/2024 12:53 EST Reason for Exam: Chest pain Report IMPRESSION: No acute findings by portable radiography. EXAMINATION: XR Chest Single View Clinical History: Chest pain slow heart rate. Comparison: None RESULT: Limitations from portable technique and shallow inspiration. Elevation/eventrati on of the right hemidiaphragm. No distinct focal consolidation. No large pleural effusion. No pneumothorax. Borderline enlarged cardiomediastinal silhouette, accentuated by AP portable technique. No distinct acute osseous findings. Ordering Provider: Derian Dalton FINAL REPORT Dictated: 01/30/2024 1:26 pm Matthew Mata MD. Signed (Electronic Signature): 01/30/2024 1:26 pm Signed by: Matthew Mata MD Transcribed by: JUSTICE Technologist: DPR Technical Comments Radiation Dose: Ka,r in mGy = na DAP = na Normal [facility] eGFRon 01-30-2024 eGFR 31 mL/min/1.73 m2 Low >=59 [facility] Comment on above: Order Comment: Order added by Discern Expert. Performed By: #### 2 136848, 2477968, 7022014, 85308431, 45219327, 27918303, 35766852 ####[facility] [address] [place] [address] Consultation Noteon 11-03-20 Consultation Note [id number] FE#1.00TIFF Normal [facility] Consultation Noteon 10-26-20 Consultation Note [id number] 00#1.00TIFF Normal [facility] Lab Reportson 10-26-2023 Lab Reports [id number] 0#1.00TIFF Normal [facility] Lab Reports [id number] CC#1.00TIFF Normal [facility] Lab Reports [id number] E#1.00TIFF [facility] Ambulatory Visit Summaryon 1 12-25-2022 Ambulatory Visit Summary ISAIAH MORROW I :1955 Visit Date:10/25/2023 Ambulatory Visit Instructions Your Diagnosis Type 2 diabetes mellitus with hypercholesterolemi a Hypercholesterolemi a Long-term insulin use Morbid obesity Stage 3a chronic kidney disease (CKD) Type 2 diabetes mellitus with stage 3a chronic kidney disease BMI 39.0-39.9,adult Class 1 obesity due to excess calories in adult Former smoker Your Care Team Attending Physician - Tony Figueroa MD. Primary Care Physician - Tony Figueroa MD This Is Your Medications List Misc [...] Unchanged Misc Prescription (test strips) See instructions Huaatpro test strips Test sugars 4 times a [...] of prostate Gastroesophageal reflux disease without esophagitis Hypercholesterolemi a Hypothyroidism Long-term insulin use Lymphoblastic lymphoma Morbid obesity Primary hypertension Sleep disorder Stage 3a chronic kidney disease (CKD) Type 2 diabetes mellitus with hypercholesterolemi a Type 2 diabetes mellitus with stage 3a chronic kidney disease Vitamin D deficiency Patient Survey You may receive a survey via text or e-mail asking about your office visit. Please share your experience with us by completing your survey. We appreciate your feedback and thank you for choosing us for your care. Rosana [facility] Family Medicine Office/Clini c Noteon [...] Assessment/Plan 1. Type 2 diabetes mellitus with hypercholesterolemi a (E11.69: Type 2 diabetes mellitus with other [...] <130 mm Hg (Most Recent) 3074F 2. Hypercholesterolemi a (E78.00: Pure hypercholesterolemi a, unspecified) - Continue on a statin. Ordered: [...] Recent) 3074F 3. 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 Normal [facility] Comment on above: Result Comment: Elec [...] numbers. This can be done either in [place] ([place] or metric measurements. Note that charts and online BMI calculators are available to help you find your BMI quickly and easily without having to do these calculations yourself. To calculate your BMI in [place] ([place] measurements: 1. Measure your weight in [...] for Disease Control and Prevention: www.cdc.gov ? [place] Heart [employer]: www.heart.org ? National Heart, Lung, and Blood [place]: www.nhlbi.nih.gov Summary ? Body mass index (BMI) is a number that is calculated from a person's weight and height. ? BMI may help estimate how much of a person's weight is composed of fat. BMI can help identify those who may be at higher risk for certain medical problems. ? BMI can be measured using Lebanese measurements or metric measurements. ? BMI charts are used to identify whether you are underweight, normal weight, overweight, or obese. This information is not intended to replace advice given to you by your health care provider. Make sure you discuss any questions you have with your health care provider. Document Revised: 08/06/2020 Document Reviewed: 06/13/2020 [employer] Patient Education ? 2022 [employer] ([employer]). [facility] Pre-Visit Planningon 10-23- 023 Pre-Visit Planning -- From: Selin Davis To: Pedro RODRIGES, Tony Hoffman; Sent: 10/21/2023 14:04:51 EST Subject: Pre-Visit Planning Due Date/Time: 10/21/2023 14:04:00 EST Caller Name: ISAIAH MORROW I; Caller Number: , Mo Dr. Figueroa. During a pre-visit planning chart review, I [...] feel free to contact me at extension [phone]. Thank you! Selin Davis LPN -- From: Tony Figueroa MD To: Selin Davis; Sent: 10/23/2023 12:46:22 EST Subject: RE: Pre-Visit Planning Caller Name: ISAIAH MORROW I; Caller Number: H , M CKD stage 3a- Please add Normal [address] [place] [address] Pre-Visit Planning -- From: Selin Davis To: Tony Figueroa MD; Sent: 10/21/2023 14:01:17 EST Subject: Pre-Visit Planning Due Date/Time: 10/21/2023 14:01:00 EST Caller Name: ISAIAH MORROW I; Caller Number: H , M Mo Dr. Figueroa. During a pre-visit planning chart review, I [...] or . Thank you! Selin Davis LPN -- From: Pedro RODRIGES, Tony Hoffman To: Selin Davis; Sent: 10/23/2023 12:45:55 EST Subject: RE: Pre-Visit Planning Caller Name: ISAIAH MORROW I; Caller Number: Adam , Jose Morbid Obesity- Please add Normal [address] [facility] Consultation Noteon 08-10-20 Consultation Note [id number] A#1.00CD:127 Normal [facility] CHEMISTRYOrdered By: SYSTEM SYSTEM on 06-27-2023 Albumin [...] 12 mmol/L Normal 6 - 16 mEq/L [facility] Remisol AST [Catalytic activity/Vol] 22 [iU]/d Normal 5 - 43 Int._Unit/L [facility] Remisol Bilirubin [Mass/Vol] 0.5 mg/dL Normal 0.0 - 1.1 mg/dL [facility] Remisol Calcium [Mass/Vol] 10.1 mg/dL Normal 8.9 - 11.1 mg/dL [facility] Remisol Chloride [Moles/Vol] 107 mmol/L Normal 101 - 111 mmol/L [facility] Remisol Cholesterol [Mass/Vol] 180 mg/dL Normal 120 - 200 mg/dL [facility] Remisol Cholesterol in HDL [Mass/Vol] 43 mg/dL Invalid Interpretation Code [facility] Remisol Cholesterol in LDL [Mass/Vol] 104 mg/dL Normal <=129mg/dL [facility] Remisol Cholesterol in VLDL [Mass/Vol] 47 mg/dL High 7 - 40 mg/dL [facility] Remisol CO2 [Moles/Vol] 27 mmol/L Normal 21 - 31 mmol/L FT Remisol Creatinine [Mass/Vol] 1.5 mg/dL High 0.5 - 1.3 mg/dL FT Remisol GFR/1.73 sq M.predicted among non-blacks MDRD (S/P/Bld) [Vol rate/Area] 50 mL/min/1.73 m2 Low >=59mL/min/1.73 m2 [facility] Chem S Globulin (S) [Mass/Vol] 3.2 g/dL Normal 1.4 - 4.0 gm/dL FT Remisol Glucose [Mass/Vol] 65 mg/dL Normal 55 - 199 mg/dL FT Remisol Potassium [Moles/Vol] 4.4 mmol/L Normal 3.5 - 5.3 mmol/L FT Remisol Protein [Mass/Vol] 7.5 g/dL Normal 6.0 - 7.8 gm/dL [facility] Remisol Sodium [Moles/Vol] 142 mmol/L Normal 135 - 145 mmol/L FT Remisol Triglyceride [Mass/Vol] 237 mg/dL High <=149mg/dL FT Remisol TSH Qn 1.09 m[IU]/L Normal 0.34 - 5.60 mcIU/mL FTM C Remisol Urea nitrogen [Mass/Vol] 25 mg/dL High 5 - 21 mg/dL FT Remisol Urea nitrogen/Creatinine [Mass ratio] 17 mg/mg Normal 10 - 20 [facility] Rem[facility] CHEMISTRYOrdered By: Vaughn velasco on 06-27-2023 Albumin DL <= 20 mg/L (U) [Mass/Vol] 75.3 microgram/mL High 0.0 - 19.0 mcg/mL FT Remisol Albumin Elph (U) [Mass fraction] 13.8 mg/dL Invalid Interpretation Code [facility] Remisol Creatinine (U) [Mass/Vol] 78.2 mg/dL Invalid Interpretation Code [facility] Remisol U Prot/Creat Ratio 176.50 mg/gm Cr Normal 0.00 - 200.00 mg/gm Cr FT Remisol CHEMISTRYOrdered By: Nelson stanley on 06-27-2023 HbA1c (Bld) [Mass fraction] 7.7 % High <=5.9% [facility] ChemAutoSS HEMATOLOGYOrdered By: SYSTEM SYSTEM on 06-27-2023 Basophils/100 WBC (Bld) 0.9 % Normal 0.0 - 2.0 % [facility] HemeAutoSS Basophils/Leukocyte s Auto (Bld) [Pure # fraction] 0.1 E9/L Normal 0.0 - 0.2 E9/L [facility] HemeAutoSS Eosinophils/100 WBC (Bld) 3.5 % Normal 0.0 - 8.0 % [facility] HemeAutoSS Eosinophils/Leukocy sherly Auto (Bld) [Pure # fraction] 0.4 E9/L Normal 0.0 - 0.5 E9/L [facility] HemeAutoSS Lymphocytes/100 WBC (Bld) 18.3 % Normal 14.0 - 50.0 % [facility] HemeAutoSS Lymphocytes/Leukocy sherly Auto (Bld) [Pure # fraction] 1.9 E9/L Normal 1.0 - 4.0 E9/L [facility] HemeAutoSS Monocytes/100 WBC (Bld) 6.7 % Normal 4.0 - 14.0 % [facility] HemeAutoSS Monocytes/Leukocyte s Auto (Bld) [Pure # fraction] 0.7 E9/L Normal 0.2 - 1.0 E9/L [facility] HemeAutoSS Neutrophils/100 WBC (Bld) 70.6 % Normal 36.0 - 75.0 % [facility] HemeAutoSS Neutrophils/Leukocy sherly Auto (Bld) [Pure # fraction] 7.5 E9/L Normal 2.0 - 7.5 E9/L [facility] HemeAutoSS HEMATOLOGYOrdered By: Nelson Orellana on 06-27-2023 [...] [Mass/Vol] 32.7 g/dL Normal 31.4 - 36.0 gm/dL [facility] HemeAutoSS MCV (RBC) [Entitic vol] 84.2 fL Normal 80.0 - 100.0 fL [facility] HemeAutoSS Platelet mean volume (Bld) [Entitic vol] 9.9 fL Normal 6.4 - 10.8 fL [facility] HemeAutoSS Platelets (Bld) [#/Vol] 209.0 E9/L Normal 150.0 - 500.0 E9/L [facility] HemeAutoSS RBC (Bld) [#/Vol] 5.0 E12/L Normal 4.3 - 5.9 E12/L FT HemeAutoSS WBC corrected for nucl RBC Auto (Bld) [#/Vol] 10.6 E9/L Normal 4.0 - 11.0 E9/L [facility] HemeAutoSS CBC with Diffon 05-27-2023 Abs. Basophil 0.10 k/uL Normal 0.0-0.2 [facility] Comment on above: Performed By: #### C DP, MG, CP, LIPR, GLYHGB, TSHX #### [facility] [employer] [address] [place] [address] Tax Manager Cpa: Jasbir Healy MD Abs.Neutrophil (Seg) 7.50 k/uL Normal 1.8-7.7 [facility] Comment on above: Performed By: #### C DP, MG, CP, LIPR, GLYHGB, TSHX #### [facility] [employer] [address] [place] [address] Tax Manager Cpa: Jasbir Healy MD Basophils/100 WBC (Bld) 1 % Normal 0-2 [facility] Comment on above: Performed By: #### C DP, MG, CP, LIPR, GLYHGB, TSHX #### [facility] [employer] [address] [place] [address] Tax Manager Cpa: Jasbir Healy MD Eosinophils (Bld) [#/Vol] 0.40 10*3/uL Normal 0.0-0.4 [facility] Comment on above: Performed By: #### C DP, MG, CP, LIPR, GLYHGB, TSHX #### [facility] [employer] [facility] [employer] [address] [place] [address] [place] [address] Tax Manager Cpa: Jasbir Healy MD Eosinophils/100 WBC (Bld) 3 % Normal 1-4 [facility] Comment on above: Performed By: #### C DP, MG, CP, LIPR, GLYHGB, TSHX #### [facility] [address] [place] [address] Tax Manager Cpa: Jasbir Healy MD Erythrocyte distribution width (RBC) [Ratio] 15.7 % High 12.5-15.4 [facility] Comment on above: Performed By: #### C DP, MG, CP, LIPR, GLYHGB, TSHX #### [facility] [address] [place] [address] Tax Manager Cpa: Jasbir Healy MD Hematocrit (Bld) [Volume fraction] 41.3 % Normal 41-53 [facility] Comment on above: Performed By: #### C DP, MG, CP, LIPR, GLYHGB, TSHX #### [facility] [address] [place] [address] Tax Manager Cpa: Jasbir Healy MD Hemoglobin (Bld) [Mass/Vol] 13.4 g/dL Low 13.5-17.5 [facility] Comment on above: Performed By: #### C DP, MG, CP, LIPR, GLYHGB, TSHX #### [facility] [address] [place] [address] Tax Manager Cpa: Jasbir Healy MD Lymphocytes (Bld) [#/Vol] 1.80 10*3/uL Normal 1.0-4.8 [facility] Comment on above: Performed By: #### C DP, MG, CP, LIPR, GLYHGB, TSHX #### [facility] [address] [place] [address] Tax Manager Cpa: Jasbir Healy MD Lymphocytes/100 WBC (Bld) 17 % Low 24-44 [facility] Comment on above: Performed By: #### C DP, MG, CP, LIPR, GLYHGB, TSHX #### [address] [address] Tax Manager Cpa: Jasbir Healy MD MCH (RBC) [Entitic mass] 27.6 pg Normal 26-34 [facility] Comment on above: Performed By: #### C DP, MG, CP, LIPR, GLYHGB, TSHX #### [address] [address] Tax Manager Cpa: Jasbir Healy MD MCHC (RBC) [Mass/Vol] 32.5 g/dL Normal 31-37 [facility] Comment on above: Performed By: #### C DP, MG, CP, LIPR, GLYHGB, TSHX #### [address] [address] Tax Manager Cpa: Jasbir Healy MD MCV (RBC) [Entitic vol] 84.8 fL Normal 80-100 [facility] Comment on above: Performed By: #### C DP, MG, CP, LIPR, GLYHGB, TSHX #### [address] [address] Tax Manager Cpa: Jasbir Healy MD Monocytes (Bld) [#/Vol] 0.80 10*3/uL Normal 0.1-1.2 [facility] Comment on above: Performed By: #### C DP, MG, CP, LIPR, GLYHGB, TSHX #### [address] [address] Tax Manager Cpa: Jasbir Healy MD Monocytes/100 WBC (Bld) 7 % Normal 2-11 [facility] Comment on above: Performed By: #### C DP, MG, CP, LIPR, GLYHGB, TSHX #### [address] [address] Tax Manager Cpa: Jasbir Healy MD Neutrophil (Seg) 72 % High 36-66 [facility] Comment on above: Performed By: #### C DP, MG, CP, LIPR, GLYHGB, TSHX #### [address] [address] Tax Manager Cpa: Jasbir Healy MD Platelet mean volume (Bld) [Entitic vol] 9.9 fL Normal 6.0-12.0 [facility] Comment on above: Performed By: #### C DP, MG, CP, LIPR, GLYHGB, TSHX #### [address] [address] Tax Manager Cpa: Jasbir Healy MD Platelets (Bld) [#/Vol] 203 10*3/uL Normal 140-450 [facility] Comment on above: Performed By: #### C DP, MG, CP, LIPR, GLYHGB, TSHX #### [address] [address] Tax Manager Cpa: Jasbir Healy MD RBC (Bld) [#/Vol] 4.87 10*6/uL Normal 4.5-5.9 [facility] Comment on above: Performed By: #### C DP, MG, CP, LIPR, GLYHGB, TSHX #### [address] [address] Tax Manager Cpa: Jasbir Healy MD WBC (Bld) [#/Vol] 10.6 10*3/uL Normal 3.5-11.0 [facility] Comment on above: Performed By: #### C DP, MG, CP, LIPR, GLYHGB, TSHX #### [address] [address] Tax Manager Cpa: Jasbir Healy MD Comp Metabolic Profon 2022 Albumin [Mass/Vol] 4.1 g/dL Normal 3.5-5.2 [facility] Comment on above: Performed By: #### C DP, MG, CP, LIPR, GLYHGB, TSHX #### [address] [address] Tax Manager Cpa: Jasbir Healy MD Albumin/Glob Ratio 1.8 Normal 1.0-2.5 [facility] Comment on above: Performed By: #### C DP, MG, CP, LIPR, GLYHGB, TSHX #### [address] [address] Tax Manager Cpa: Jasbir Healy MD Alkaline Phos 80 U/L Normal 40-129 [facility] Comment on above: Performed By: #### C DP, MG, CP, LIPR, GLYHGB, TSHX #### [address] [address] Tax Manager Cpa: Jasbir Healy MD ALT [Catalytic activity/Vol] 15 U/L Normal 5-41 [facility] Comment on above: Performed By: #### C DP, MG, CP, LIPR, GLYHGB, TSHX #### [address] [address] Tax Manager Cpa: Jasbir Healy MD Anion gap [Moles/Vol] 10 mmol/L Normal 9-17 [facility] Comment on above: Performed By: #### C DP, MG, CP, LIPR, GLYHGB, TSHX #### [address] [address] Tax Manager Cpa: Jasbir Healy MD AST [Catalytic activity/Vol] 15 U/L Normal <40 [facility] Comment on above: Performed By: #### C DP, MG, CP, LIPR, GLYHGB, TSHX #### [address] [address] Tax Manager Cpa: Jasbir Healy MD Bilirubin [Mass/Vol] 0.4 mg/dL Normal 0.3-1.2 [facility] Comment on above: Performed By: #### C DP, MG, CP, LIPR, GLYHGB, TSHX #### [address] [address] Tax Manager Cpa: Jasbir Healy MD Calcium [Mass/Vol] 9.4 mg/dL Normal 8.6-10.4 [facility] Comment on above: Performed By: #### C DP, MG, CP, LIPR, GLYHGB, TSHX #### [address] [address] Tax Manager Cpa: Jasbir Healy MD Chloride [Moles/Vol] 104 mmol/L Normal 98-107 [facility] Comment on above: Performed By: #### C DP, MG, CP, LIPR, GLYHGB, TSHX #### [address] [address] Tax Manager Cpa: Jasbir Healy MD CO2 [Moles/Vol] 26 mmol/L Normal 20-31 [facility] Comment on above: Performed By: #### C DP, MG, CP, LIPR, GLYHGB, TSHX #### [address] [address] Tax Manager Cpa: Jasbir Healy MD Creatinine [Mass/Vol] 1.77 mg/dL High 0.70-1.20 [facility] Comment on above: Performed By: #### C DP, MG, CP, LIPR, GLYHGB, TSHX #### [address] [address] Tax Manager Cpa: Jasbir Healy MD GFR/1.73 sq M.predicted among non-blacks MDRD (S/P/Bld) [Vol rate/Area] 41 mL/min/{1.73_m2} Low >60 [facility] Comment on above: Result Comment: These [...] renal tubular secretion. Performed By: #### C DP, MG, CP, LIPR, GLYHGB, TSHX #### [facility] [employer] [address] [place] [address] Tax Manager Cpa: Jasbir Healy MD Glucose [Mass/Vol] 243 mg/dL High 70-99 [facility] Comment on above: Performed By: #### C DP, MG, CP, LIPR, GLYHGB, TSHX #### [address] [address] Tax Manager Cpa: Jasbir Healy MD Potassium [Moles/Vol] 4.8 mmol/L Normal 3.7-5.3 [facility] Comment on above: Performed By: #### C DP, MG, CP, LIPR, GLYHGB, TSHX #### [facility] [employer] [facility] [employer] [address] [place] [address] Tax Manager Cpa: Jasbir Healy MD Protein [Mass/Vol] 6.4 g/dL Normal 6.4-8.3 [facility] Comment on above: Performed By: #### C DP, MG, CP, LIPR, GLYHGB, TSHX #### [facility] [employer] [facility] [address] [place] [address] Tax Manager Cpa: Jasbir Healy MD Sodium [Moles/Vol] 140 mmol/L Normal 135-144 [facility] Comment on above: Performed By: #### C DP, MG, CP, LIPR, GLYHGB, TSHX #### [facility] [employer] [address] [place] [address] Tax Manager Cpa: Jasbir Healy MD Urea nitrogen [Mass/Vol] 25 mg/dL High 8-23 [facility] Comment on above: Performed By: #### C DP, MG, CP, LIPR, GLYHGB, TSHX #### [facility] [address] [place], [place] [phone] Tax Manager Cpa: Jasbir Healy MD Lactate Dehydrogenaseon 04-30 LDH [Catalytic activity/Vol] 195 U/L Normal 135-225 [facility] Comment on above: Performed By: #### C DP, MG, CP, LIPR, GLYHGB, TSHX #### [facility] [address] [place], [place] [phone] Tax Manager Cpa: Jasbir Healy MD BUNon 12-16-2020 Urea nitrogen [Mass/Vol] 32.0 mg/dL Critically high 9.0-20.0 [facility] Comment on above: Performed By: #### P HOS, CREA, BUN, ELEC, CA, MG #### [facility] [address] [place] [address] Pb Lottie CALCIUMon 12-16-2020 Calcium [Mass/Vol] 9.8 mg/dL Normal 8.4-10.2 [facility] Comment on above: Performed By: #### P HOS, CREA, BUN, ELEC, CA, MG #### [facility] [address] [place] [address] Pb Lottie CBC AUTO DIFFon 12-16-2020 Basophils (Bld) [#/Vol] 0.1 103/ul Normal 0.0-0.1 [facility] Comment on above: Performed By: #### C BC #### [facility] [address] [place] [address] Pb Lottie Basophils/100 WBC (Bld) 0.6 % Normal 0.2-2.0 [facility] Comment on above: Performed By: #### C BC #### [facility] [address] [place] [address] Pb Lottie Eosinophils (Bld) [#/Vol] 0.3 103/ul Normal 0.0-0.7 [facility] Comment on above: Performed By: #### C BC #### [facility] [address] [place], [place] [id number] Pb Lottie Eosinophils/100 WBC (Bld) 3.2 % Normal 0.9-7.0 [facility] Comment on above: Performed By: #### C BC #### [facility] [address] [place] [address] Pb Lottie Erythrocyte distribution width (RBC) [Ratio] 14.0 % Normal 11.0-15.0 [facility] Comment on above: Performed By: #### C BC #### [facility] [address] [place] [address] Pb Lottie Hematocrit (Bld) [Volume fraction] 43.0 % Normal 42.0-54.0 [facility] Comment on above: Performed By: #### C BC #### [facility] [address] [place] [address] Pb Lottie Hemoglobin (Bld) [Mass/Vol] 13.6 g/dL Critically low 14.0-18.0 [facility] Comment on above: Performed By: #### C BC #### [facility] [address] [place] [address] Pb Lottie IG # 0.12 10e3/ul Critically high 0.00-0.03 [facility] Comment on above: Performed By: #### C BC #### [facility] [address] [place] [address] Pb Lottie IG % 1.2 % Critically high 0.0-0.5 [facility] Comment on above: Performed By: #### C BC #### [facility] [address] [place], [place] [id number] Pb Lottie Lymphocytes (Bld) [#/Vol] 1.9 103/ul Normal 1.2-3.8 [facility] Comment on above: Performed By: #### C BC #### [facility] [address] [place], [place] [id number] Pb Lottie Lymphocytes/100 WBC (Bld) 19.0 % Critically low 20.5-60.0 [facility] Comment on above: Performed By: #### C BC #### [facility] [address] [place], [place] [id number] Pb Lottie MANUAL DIFF REQ NO Normal [facility] Comment on above: Performed By: #### C BC #### [facility] [address] [place], [place] [id number] Pb Lottie MCH (RBC) [Entitic mass] 27.4 pg Normal 25.9-34.0 [facility] Comment on above: Performed By: #### C BC #### [facility] [address] [place], [place] [id number] Pb Lottie MCHC (RBC) [Mass/Vol] 31.6 g/dL Normal 29.9-35.2 [facility] Comment on above: Performed By: #### C BC #### [facility] [address] [place], [place] [id number] Pb Lottie MCV (RBC) [Entitic vol] 86.5 fL Normal 80.0-94.0 [facility] Comment on above: Performed By: #### C BC #### [facility] [address] [place], [place] [id number] Pb Lottie Monocytes (Bld) [#/Vol] 0.8 103/ul Normal 0.3-0.8 [facility] Comment on above: Performed By: #### C BC #### [facility] [address] [place], [place] [id number] Pb Lottie Monocytes/100 WBC (Bld) 7.8 % Normal 1.7-12.0 [facility] Comment on above: Performed By: #### C BC #### [facility] [address] [place], [place] [id number] Pb Lottie Neutrophils (Bld) [#/Vol] 6.7 103/ul Critically high 1.4-6.5 [facility] Comment on above: Performed By: #### C BC #### [facility] [address] [place], [place] [id number] Pb Lottie Neutrophils/100 WBC (Bld) 68.2 % Normal 43.0-75.0 [facility] Comment on above: Performed By: #### C BC #### [facility] [address] [place], [place] [id number] Pb Tafoya Platelet mean volume (Bld) [Entitic vol] 11.1 fL Normal 9.5-13.5 [facility] Comment on above: Performed By: #### C BC #### [facility] [address] [place], [place] [id number] Pb Tafoya Platelets (Bld) [#/Vol] 215 103/ul Normal 150-450 [facility] Comment on above: Performed By: #### C BC #### [facility] [address] [place], [place] [id number] Pb Tafoya RBC (Bld) [#/Vol] 4.97 106/ul Normal 4.70-6.10 [facility] Comment on above: Performed By: #### C BC #### [facility] [address] [place], [place] [id number] Pb Tafoya WBC (Bld) [#/Vol] 9.9 103/ul Normal 4.0-11.0 [facility] Comment on above: Performed By: #### C BC #### [facility] [address] [place], [place] [id number] Pb Tafoya CREATININEon 12-16-2020 Creatinine [Mass/Vol] 1.58 mg/dL Critically high 0.66-1.25 [facility] Comment on above: Performed By: #### P HOS, CREA, BUN, ELEC, CA, MG #### [facility] [address] [place], [place] [id number] Pb Lottie Creatinine [Mass/Vol] 44 mL/min/1.73m2 Critically low >=60 [facility] Comment on above: Performed By: #### P HOS, CREA, BUN, ELEC, CA, MG #### [facility] [address] [place] [address] Pb Lottie Creatinine [Mass/Vol] 53 mL/min/1.73m2 Critically low >=60 [facility] Comment on above: Performed By: #### P HOS, CREA, BUN, ELEC, CA, MG #### [facility] [address] [place] [address] Pb Lottie ELECTROLYTESon 12-16-2020 Anion gap [Moles/Vol] 12.7 mmol/L Normal [facility] Comment on above: Performed By: #### P HOS, CREA, BUN, ELEC, CA, MG #### [facility] [address] [place] [address] Pb Lottie Chloride [Moles/Vol] 107 mmol/L Normal 98-107 [facility] Comment on above: Performed By: #### P HOS, CREA, BUN, ELEC, CA, MG #### [facility] [address] [place] [address] Pb Lottie CO2 [Moles/Vol] 28.4 mmol/L Normal 22.0-30.0 [facility] Comment on above: Performed By: #### P HOS, CREA, BUN, ELEC, CA, MG #### [facility] [address] [place] [address] Pb Ltotie Potassium [Moles/Vol] 4.1 mmol/L Normal 3.4-5.0 [facility] Comment on above: Performed By: #### P HOS, CREA, BUN, ELEC, CA, MG #### [facility] [address] [place] [address] Pb Lottie Sodium [Moles/Vol] 144 mmol/L Normal 137-145 [facility] Comment on above: Performed By: #### P HOS, CREA, BUN, ELEC, CA, MG #### [facility] [address] [place] [address] Pb Lottie MAGNESIUMon 12-16-2020 Magnesium [Mass/Vol] 1.8 mg/dL Normal 1.6-2.3 [facility] Comment on above: Performed By: #### C BC #### [facility] [address] [place] [address] Pb Lottie MICROALB CREAT RATIO RANDOMo n 12-16-2020 mALB 11.1 mg/dL Normal <=30.0 [facility] Comment on above: Performed By: #### M CRR #### [facility] [address] [place] [address] Pb Tafoya MALB CR RATIO 115.1 MG/G Critically high 0.0-29.9 [facility] Comment on above: Performed By: #### M CRR #### [facility] [address] [place] [address] Pbsierra Tafoya MALB CR RATIO RANGE SEE BELOW Normal [facility] Comment on above: Result Comment: NO M ICROALBUMIN 0-29 MG/G CLINICAL MICROALBUMINURIA 30-300 MG/G MACROALBUMINURIA >300 MG/G Performed By: #### M CRR #### [facility] [address] [place] [address] Pb Tafoya URINE CREAT 96.40 mg/dL Normal 20.00-300.00 [facility] Comment on above: Performed By: #### M CRR #### [facility] [address] [place] [address] Pb Tafoya PHOSPHORUSon 12-16-2020 Phosphate [Mass/Vol] 3.1 mg/dL Normal 2.5-4.5 [facility] Comment on above: Performed By: #### P HOS, CREA, BUN, ELEC, CA, MG #### [facility] [address] [place], [place] [id number] Pb Tafoya VITAMIN D 25 OHon 12-16-2020 VIT D 25-OH 71.6 ng/mL Normal [facility] Comment on above: Performed By: #### V ITAD #### [facility] [address] [place] [address] Pb Tafoya VIT D RANGES SEE BELOW Normal [facility] Comment on above: Result Comment: <20 ng/mL Vit D deficient 20 - <30 ng/mL Vit D insufficient 30 - 100 ng/mL Vit D sufficient >100 ng/mL Potential Toxicity Performed By: #### V ITAD #### [facility] [address] [place] [address] Pbsierra Tafoya CBC With Auto Differentialon 12-01-2020 Basophils (Bld) [#/Vol] 0.10 10*3/uL [place] Basophils/100 WBC (Bld) 1 % 0 - 2 % [place] Differential Type NOT REPORTED [place] Eosinophils (Bld) [#/Vol] 0.40 10*3/uL [place] Eosinophils/100 WBC (Bld) 4 % 1 - 4 % [place] Erythrocyte distribution width (RBC) [Ratio] 15.1 % 12.5 - 15.4 % [place] Hematocrit (Bld) [Volume fraction] 42.1 % 41 - 53 % [place] Hemoglobin (Bld) [Mass/Vol] 13.9 g/dL 13.5 - 17.5 g/dL [place] Interpretation and review of laboratory results Abnormal [place] Lymphocytes (Bld) [#/Vol] 2.00 10*3/uL [place] Lymphocytes/100 WBC (Bld) 20 % Low 24 - 44 % [place] MCH (RBC) [Entitic mass] 27.9 pg 26 - 34 pg [place] MCHC (RBC) [Mass/Vol] 33.1 g/dL 31 - 37 g/dL [place] MCV (RBC) [Entitic vol] 84.2 fL 80 - 100 fL [place] Monocytes (Bld) [#/Vol] 0.70 10*3/uL [place] Monocytes/100 WBC (Bld) 7 % 2 - 11 % [place] Platelet mean volume (Bld) [Entitic vol] 9.3 fL 6 - 12 fL [place] Platelets (Bld) [#/Vol] NOT REPORTED [place] Platelets (Bld) [#/Vol] 254 10*3/uL [place] RBC (Bld) [#/Vol] 5.00 10*6/uL 4.5 - 5.9 m/uL [place] RBC morphology finding Nom (Bld) NOT REPORTED [place] Segmented neutrophils/100 WBC (Bld) 68 % High 36 - 66 % [place] Segs Absolute 7.10 [place] WBC (Bld) [#/Vol] 10.2 10*3/uL [place] WBC (Bld) [#/Vol] NOT REPORTED per 100 WBC [place] WBC Morphology NOT REPORTED [place] Comprehensive Metabolic Pane rey 12-01-2020 Albumin [Mass/Vol] 4.4 g/dL 3.5 - 5.2 g/dL [place] Albumin/Globulin [Mass ratio] 1.6 {ratio} [place] ALP [Catalytic activity/Vol] 130 U/L High 40 - 129 U/L [place] ALT [Catalytic activity/Vol] 23 U/L 5 - 41 U/L [place] Anion gap [Moles/Vol] 12 mmol/L 9 - 17 mmol/L [place] AST [Catalytic activity/Vol] 22 U/L <40 [place] Bilirubin Ql (U) 0.33 mg/dL 0.3 - 1.2 mg/dL [place] Bun/Cre Ratio NOT REPORTED [place] Calcium [Mass/Vol] 10.4 mg/dL 8.6 - 10.4 mg/dL [place] Chloride [Moles/Vol] 104 mmol/L 98 - 107 mmol/L [place] CO2 [Moles/Vol] 26 mmol/L 20 - 31 mmol/L [place] Creatinine [Mass/Vol] 1.4 mg/dL High 0.7 - 1.2 mg/dL [place] GFR >60 >60 mL/min [place] GFR Non- 51 mL/min Low >60 [place] GFR/1.73 sq M predicted among non-blacks MDRD (S/P/Bld) [Vol rate/Area] [place] Comment on above: Average GFR for 60-6 9 years old: 85 mL/min/1.73sq m Chronic Kidney Disease: <60 mL/min/1.73sq m Kidney failure: <15 mL/min/1.73sq m eGFR calculated using average adult body mass. Additional eGFR calculator available at: http://www.[employer]/multiple_crcl_2012.htm GFR/1.73 sq M predicted among non-blacks MDRD (S/P/Bld) [Vol rate/Area] NOT REPORTED [place] Glucose [Mass/Vol] 217 mg/dL High 70 - 99 mg/dL [place] Interpretation and review of laboratory results Abnormal [place] Potassium [Moles/Vol] 5.0 mmol/L 3.7 - 5.3 mmol/L [place] Protein [Mass/Vol] 7.2 g/dL 6.4 - 8.3 g/dL [place] Sodium [Moles/Vol] 142 mmol/L 135 - 144 mmol/L [place] Urea nitrogen [Mass/Vol] 26 mg/dL High 8 - 23 mg/dL [place] Lactate Dehydrogenaseon LD 198 U/L 135 - 225 U/L [place] Otheron 12-01-2020 Immature granulocytes (Bld) [#/Vol] NOT REPORTED 0 % [place] LIPID PROFILEon 11-25-2020 CHOL-HDL RATIO NORM SEE BELOW Normal [facility] Comment on above: Result Comment: 3.3 - 4.4 LOW RISK 4.4 - 7.1 AVERAGE RISK 7.1 - 11.0 MODERATE RISK >11.0 HIGH RISK Performed By: #### L MAKSIM, CMP #### [facility] [address] [place], [place] [address] Pb Lottie Cholesterol [Mass/Vol] 193 mg/dL Normal <=200 [facility] Comment on above: Performed By: #### L MAKSIM, CMP #### [facility] [address] [place], [place] [address] Pb Lottie Cholesterol in HDL [Mass/Vol] 45 mg/dL Normal [facility] Comment on above: Performed By: #### L IPKAVIN, CMP #### [facility] [address] [place], [place] [address] Pb Lottie Cholesterol in HDL [Mass/Vol] > or = 60 mg/dl - LOW CARDIOVASCULAR RISK <40 mg/dl - HIGH CARDIOVASCULAR RISK Normal [facility] Comment on above: Performed By: #### L IPID, CMP #### [facility] [address] [place] [address] Pb Lottie Cholesterol in LDL [Mass/Vol] 108.4 mg/dL Normal [facility] Comment on above: Performed By: #### L IPID, CMP #### [facility] [address] [place] [phone] Pb Lottie Cholesterol in LDL [Mass/Vol] SEE BELOW Normal [facility] Comment on above: Result Comment: <100 mg/dl OPTIMAL 100 - 129 mg/dl NEAR OR ABOVE OPTIMAL 130 - 159 mg/dl BORDERLINE HIGH 160 - 189 mg/dl HIGH >190 mg/dl VERY HIGH Performed By: #### L IPID, CMP #### [facility] [address] [place] [address] Pb Lottie Cholesterol.total/C holesterol in HDL [Mass ratio] 4.3 {ratio} Normal [facility] Comment on above: Performed By: #### L IPID, CMP #### [facility] [address] [place] [address] Pb Lottie Triglyceride [Mass/Vol] 198 mg/dL Critically high <=150 [facility] Comment on above: Performed By: #### L IPID, CMP #### [facility] [address] [place] [address] Pb Lottie VLDL CALC 39.6 mg/dL Normal [facility] Comment on above: Performed By: #### L IPID, CMP #### [facility] [address] [place] [id number] Pb Lottie MICROALB CREAT RATIO RANDOMo n 11-25-2020 mALB 14.8 mg/dL Normal <=30.0 [facility] Comment on above: Performed By: #### C BC #### [facility] [address] [place] [address] Pb Lottie MALB CR RATIO 174.1 MG/G Critically high 0.0-29.9 [facility] Comment on above: Performed By: #### C BC #### [facility] [address] [place] [address] Pb Tafoya MALB CR RATIO RANGE SEE BELOW Normal [facility] Comment on above: Result Comment: NO M ICROALBUMIN 0-29 MG/G CLINICAL MICROALBUMINURIA 30-300 MG/G MACROALBUMINURIA >300 MG/G Performed By: #### C BC #### [facility] [address] [place] [address] Pb Tafoya URINE CREAT 85.02 mg/dL Normal 20.00-300.00 [facility] Comment on above: Performed By: #### C BC #### [facility] [address] [place] [address] Pb Tafoya PROF 14(COMP METB)on 020 Albumin [Mass/Vol] 3.9 g/dL Normal 3.5-5.0 [facility] Comment on above: Performed By: #### L IPID, CMP #### [facility] [address] [place] [address] Pb Tafoya Albumin/Globulin [Mass ratio] 1.2 {ratio} Normal [facility] Comment on above: Performed By: #### L IPKAVIN, CMP #### [facility] [address] [place] [address] Pb Lottie ALP [Catalytic activity/Vol] 125 U/L Normal 38-126 [facility] Comment on above: Performed By: #### L IPID, CMP #### [facility] [address] [place] [address] Pb Tafoya ALT [Catalytic activity/Vol] 36 U/L Normal 21-72 [facility] Comment on above: Performed By: #### L IPID, CMP #### [facility] [address] [place], [place] [id number] Pbsierra Tafoya Anion gap [Moles/Vol] 13.0 mmol/L Normal [facility] Comment on above: Performed By: #### L IPID, CMP #### [facility] [address] [place], [place] [id number] Pbsierra [place]afoya AST [Catalytic activity/Vol] 26 U/L Normal 17-59 [facility] Comment on above: Performed By: #### L IPID, CMP #### [facility] [address] [place] [address] Pb Lottie Bilirubin Ql (U) 0.5 mg/dL Normal 0.2-1.3 [facility] Comment on above: Performed By: #### L IPID, CMP #### [facility] [address] [place] [address] Pb Lottie Calcium [Mass/Vol] 9.5 mg/dL Normal 8.4-10.2 [facility] Comment on above: Performed By: #### L IPID, CMP #### [facility] [address] [place] [address] Pb Lottie Chloride [Moles/Vol] 105 mmol/L Normal 98-107 [facility] Comment on above: Performed By: #### L IPID, CMP #### [facility] [address] [place] [address] Pb Lottie CO2 [Moles/Vol] 28.1 mmol/L Normal 22.0-30.0 [facility] Comment on above: Performed By: #### L IPID, CMP #### [facility] [address] [place] [address] Pb Lottie Creatinine [Mass/Vol] 1.54 mg/dL Critically high 0.66-1.25 [facility] Comment on above: Performed By: #### L IPID, CMP #### [facility] [address] [place] [address] Pb Lottie EGFR-AF PAKISTANI 55 mL/min/1.73m2 Critically low >=60 [facility] Comment on above: Performed By: #### L IPID, CMP #### [facility] [address] [place] [address] Pb Lottie EGFR-NON AF PAKISTANI 45 mL/min/1.73m2 Critically low >=60 [facility] Comment on above: Performed By: #### L IPID, CMP #### [facility] [address] [place] [address] Pb Lottie Globulin (S) [Mass/Vol] 3.2 g/dL Normal [facility] Comment on above: Performed By: #### L IPID, CMP #### [facility] [address] [place] [address] Pb Lottie Glucose [Mass/Vol] 208 mg/dL Critically high 74-[address] [facility] Comment on above: Performed By: #### L IPID, CMP #### [facility] [address] [place] [address] Pb Lottie Potassium [Moles/Vol] 5.1 mmol/L Critically high 3.4-5.0 [facility] Comment on above: Performed By: #### L IPID, CMP #### [facility] [address] [place] [address] Pb Lottie Protein [Mass/Vol] 7.1 g/dL Normal 6.1-8.2 [facility] Comment on above: Performed By: #### L IPID, CMP #### [facility] [address] [place] [address] Pb Lottie Sodium [Moles/Vol] 141 mmol/L Normal 137-145 [facility] Comment on above: Performed By: #### L IPID, CMP #### [facility] [address] [place] [address] Pb Lottie Urea nitrogen [Mass/Vol] 26.0 mg/dL Critically high 9.0-20.0 [facility] Comment on above: Performed By: #### L IPID, CMP #### [facility] [address] [place] [address] Pb Lottie Urea nitrogen/Creatinine [Mass ratio] 16.9 mg/mg Normal [facility] Comment on above: Performed By: #### L IPID, CMP #### [facility] [address] [place], [place] [id number] Pb Lottie CBC With Auto DifferentialOr dered By: Mariam Hazel on 12-03-2019 Absolute Eos # 0.40 [employer] Phone: Absolute Immature Granulocyte NOT REPORTED [employer] Phone: Absolute Lymph # 1.40 [employer] Phone: Absolute [place] # 0.60 [employer] Phone: Basophils (Bld) [#/Vol] 0.10 10*3/uL [employer] Phone: Basophils/100 WBC (Bld) 1 % 0 - 2 % [employer] Phone: Differential Type NOT REPORTED [employer] Phone: Eosinophils/100 WBC (Bld) 4 % 1 - 4 % [employer] Phone: Erythrocyte distribution width (RBC) [Ratio] 14.7 % 12.5 - 15.4 % [employer] Phone: Hematocrit (Bld) [Volume fraction] 40.9 % Low 41 - 53 % [employer] Phone: Hemoglobin (Bld) [Mass/Vol] 13.5 g/dL 13.5 - 17.5 g/dL [employer] Phone: Immature Granulocytes NOT REPORTED 0 % [employer] Phone: Interpretation and review of laboratory results Abnormal [employer] Phone: Lymphocytes/100 WBC (Bld) 16 % Low 24 - 44 % [employer] Phone: MCH (RBC) [Entitic mass] 27.3 pg 26 - 34 pg [employer] Phone: MCHC (RBC) [Mass/Vol] 33.0 g/dL 31 - 37 g/dL [employer] Phone: MCV (RBC) [Entitic vol] 82.7 fL 80 - 100 fL [employer] Phone: Monocytes/100 WBC (Bld) 7 % 2 - 11 % [employer] Phone: NRBC Automated NOT REPORTED per 100 WBC [employer] Phone: Platelet Estimate NOT REPORTED [employer] Phone: Platelet mean volume (Bld) [Entitic vol] 9.6 fL 6 - 12 fL [employer] Phone: Platelets (Bld) [#/Vol] 204 10*3/uL [employer] Phone: RBC (Bld) [#/Vol] 4.95 10*6/uL 4.5 - 5.9 m/uL [facility] Phone: RBC morphology finding Nom (Bld) NOT REPORTED [employer] Phone: Segmented neutrophils/100 WBC (Bld) 72 % High 36 - 66 % [employer] Phone: Segs Absolute 6.20 [employer] Phone: WBC (Bld) [#/Vol] 8.7 10*3/uL [employer] Phone: WBC Morphology NOT REPORTED [employer] Phone: Comprehensive Metabolic Pane lOrdered By: Mariam Hazel on 12-03-2019 Albumin [Mass/Vol] 4.3 g/dL 3.5 - 5.2 g/dL [facility] Phone: Albumin/Globulin [Mass ratio] 1.5 {ratio} [employer] Phone: ALP [Catalytic activity/Vol] 150 U/L High 40 - 129 U/L [employer] Phone: ALT [Catalytic activity/Vol] 33 U/L 5 - 41 U/L [facility]: Anion gap [Moles/Vol] 12 mmol/L 9 - 17 mmol/L [employer] Phone: AST [Catalytic activity/Vol] 34 U/L <40 [employer] Phone: Bilirubin [Mass/Vol] 0.38 mg/dL 0.3 - 1.2 mg/dL [employer] Phone: Bun/Cre Ratio NOT REPORTED [employer] Phone: Calcium [Mass/Vol] 9.5 mg/dL 8.6 - 10.4 mg/dL [employer] Phone: Chloride [Moles/Vol] 103 mmol/L 98 - 107 mmol/L [employer] Phone: CO2 [Moles/Vol] 25 mmol/L 20 - 31 mmol/L [employer] Phone: Creatinine [Mass/Vol] 1.56 mg/dL High 0.7 - 1.2 mg/dL [employer] Phone: GFR 54 mL/min Low >60 [employer] Phone: GFR Comment [employer] Phone: Comment on above: Average GFR for 60-6 9 years old: 85 mL/min/1.73sq m Chronic Kidney Disease: <60 mL/min/1.73sq m Kidney failure: <15 mL/min/1.73sq m eGFR calculated using average adult body mass. Additional eGFR calculator available at: http://www.[employer]/multiple_crcl_2012.htm GFR Non- 45 mL/min Low >60 [employer] Phone: GFR Staging NOT REPORTED [facility] Phone: Glucose [Mass/Vol] 227 mg/dL High 70 - 99 mg/dL [facility] [employer] Work Phone: Interpretation and review of laboratory results Abnormal [employer] Phone: Potassium [Moles/Vol] 4.8 mmol/L 3.7 - 5.3 mmol/L [facility] [employer] Phone: Protein [Mass/Vol] 7.1 g/dL 6.4 - 8.3 g/dL Me [facility] Work Phone: Sodium [Moles/Vol] 140 mmol/L 135 - 144 mmol/L [facility] [employer] Phone: Urea nitrogen [Mass/Vol] 30 mg/dL High 8 - 23 mg/dL [facility] [employer] Phone: Lactate DehydrogenaseOrdered By: Mariam Hazel on 12-03-2019 LD 189 U/L 135 - 225 U/L [facility] Phone: K (Potassium)on 02-13-2019 Potassium molar conc 4.6 mmol/L Normal 3.7-5.3 [facility] Comment on above: Performed By: #### K #### [facility] [facility]. [place], [place] [id number] Tax Manager Cpa: Alvarado Casillas MD BUN + Creatinineon 8 (cont.) Normal [facility] Comment on above: Result Comment: Aver age GFR for 60-69 years old: 85 mL/min/1.73sq m Chronic Kidney Disease: <60 mL/min/1.73sq m Kidney failure: <15 mL/min/1.73sq m eGFR calculated using average adult body mass. Additional eGFR calculator available at: http://www.[employer]/multiple_crcl_2012.htm Performed at [facility] [address] [facility] [address] ([phone] Performed By: #### B COLINRTMARGAUX #### [facility] [address] [facility] [address] Creatinine mass conc 1.46 mg/dL High 0.70-1.20 [facility] Comment on above: Performed By: #### B COLINRT, LYTE #### [facility] [address] [facility] [place] [address] GFR, Amer 59 mL/min Low >60 [facility] Comment on above: Performed By: #### B UNCRT, LYTE #### [place] [id number] [facility] [place] [address] GFR,non Amer 49 mL/min Low >60 [facility] Comment on above: Performed By: #### B UNCRT, LYTE #### [place] [address] [facility] [place] [address] Urea nitrogen mass conc 27 mg/dL High 8-23 [facility] Comment on above: Performed By: #### B UNCRT, LYTE #### [address] [place] [address] Staging: NOT REPORTED Normal [facility] Comment on above: Performed By: #### B UNCRT, LYTE #### [address] [place] [address] Electrolyteson 03-02-2018 Anion gap molar conc 14 mmol/L Normal 9-17 [facility] Comment on above: Result Comment: Perf ormed at [facility] [address] [place] [address], [place] [address] Performed By: #### B UNCRT, LYTE #### [address] [place] [address] Chloride molar conc 104 mmol/L Normal 98-107 [facility] Comment on above: Performed By: #### B UNCRT, LYTE #### [address] [facility] [place] [address] CO2 molar conc 23 mmol/L Normal 20-31 [facility] Comment on above: Performed By: #### B UNCRT, LYTE #### [address] [address] Potassium molar conc 4.7 mmol/L Normal 3.7-5.3 [facility] Comment on above: Performed By: #### B UNCRT, LYTE #### [facility] [address] [facility] [address] Sodium molar conc 141 mmol/L Normal 135-144 [facility] Comment on above: Performed By: #### B UNCRT, LYTE #### [facility] [address] [facility] [place] [address] Vital Signs Date Time Vital Sign Value Performing Clinician Meng moncada 06-22-2024 13:02-0400 Diastolic blood pressure 72 mm[Hg] Pablo Kirnus [facility] 06-22-2024 13:02-0400 Heart rate 111 /min Pablo Kirnus [facility] 06-22-2024 13:02-0400 Respiratory rate 16 /min Pablo Kirnus [facility] 06-22-2024 13:02-0400 SaO2% (BldA) [Mass fraction] 94 % Pablo Kirnus [facility] 06-22-2024 13:02-0400 Systolic blood pressure 136 mm[Hg] Pablo Kirnus [facility] 01-30-2024 22:17-0500 Diastolic blood pressure 69 mm[Hg] Elbert Agrawale [facility] 01-30-2024 22:17-0500 Heart rate 37 /min Elbert Sergio [facility] 01-30-2024 22:17-0500 Mean blood pressure 94 mm[Hg] Elbert Sergio [facility] 01-30-2024 22:17-0500 Respiratory rate 16 /min Elbert Sergio [facility] 01-30-2024 22:17-0500 SaO2% (BldA) [Mass fraction] 93 % Elbert Sergio [facility] 01-30-2024 22:17-0500 Systolic blood pressure 145 mm[Hg] Elbert Sergio [facility] 01-30-2024 22:06-0500 Heart rate 36 /min Elbert Sergio [facility] 01-30-2024 22:06-0500 Respiratory rate 18 /min Elbert Sergio [facility] 01-30-2024 22:06-0500 SaO2% (BldA) [Mass fraction] 94 % Elbert Sergio [facility] 01-30-2024 20:52-0500 Diastolic blood pressure 65 mm[Hg] Elbert Sergio [facility] 01-30-2024 20:52-0500 Heart rate 38 /min Elbert Sergio [facility] 01-30-2024 20:52-0500 Mean blood pressure 90 mm[Hg] Elbert Sergio [facility] 01-30-2024 20:52-0500 SaO2% (BldA) [Mass fraction] 99 % Elbert Sergio [facility] 01-30-2024 20:52-0500 Systolic blood pressure 141 mm[Hg] Elbert Sergio [facility] 01-30-2024 18:54-0500 Diastolic blood pressure 67 mm[Hg] Elbert Sergio [facility] 01-30-2024 18:54-0500 Mean blood pressure 95 mm[Hg] Elbert Sergio [facility] 01-30-2024 18:54-0500 Systolic blood pressure 151 mm[Hg] Elbert Hill [facility] 01-30-2024 17:14-0500 Respiratory rate 18 /min Elbert Hill [facility] 01-30-2024 12:30-0500 Body temperature 97.7 [degF] Elbert Hill [facility] 01-30-2024 12:30-0500 Heart rate 41 /min Elbert Hill [facility] 01-30-2024 12:30-0500 Respiratory rate 20 /min Elbert Hill [facility] Encounters Encounter Date Encounter Type Care Provider Facility Start: 07-22-2025 ambulatory Tony Figueroa Facility :[facility] Start: 07-19-2024 End: 07-19-2024 ambulatory MD Pablo Beal Facility:[facility] Start: 07-19-2024 End: 07-19-2024 Patient encounter procedure Pablo Beal [facility] Start: 07-17-2024 End: 07-17-2024 ambulatory Tony Figueroa Facility:[facility] Start: 07-17-2024 End: 07-17-2024 Lab Drop off Tony Figueroa [facility] Start: 07-17-2024 End: 07-17-2024 ambulatory [facility] Start: 06-22-2024 End: 06-22-2024 ambulatory Tony Figueroa Facility:[facility] Start: 04-27-2024 End: 06-23-2024 Pre-admission assessment Pablo Beal [facility] Start: 02-16-2024 End: 02-16-2024 ambulatory Tony MaddenKevin Pedro Facility:[facility] Start: 02-08-2024 End: 02-08-2024 ambulatory Tonymaryam Figueroa Facility:[facility] Start: 01-31-2024 End: 02-03-2024 Evaluation and management of inpatient REN SPAIN [facility] Start: 01-30-2024 End: 01-30-2024 Emergency department patient visit Elbert Hill [facility] Start: 01-30-2024 End: 01-30-2024 ambulatory Tony MaddenKevin Figueroa Facility:[facility] Start: 10-25-2023 End: 10-25-2023 ambulatory Tony MaddenKevin Figueroa Facility: [facility] Start: 08-16-2023 End: 08-16-2023 ambulatory Tony Yasmin Figueroa Facility:[facility] Start: 06-27-2023 End: 06-27-2023 Lab Drop off Tony Figueroa [facility] Start: 05-27-2023 End: 05-28-2023 ambulatory LLOYD MURRAY [facility] Start: 12-16-2020 End: 12-17-2020 Patient encounter procedure DOCTOR MISC Facility:[facility] Start: 12-01-2020 End: 12-01-2020 Subsequent hospital visit by physician Lloyd Murray [facility] Comment on above: Non-Hodgkin's lympho ma, unspecified body region, unspecified non-Hodgkin lymphoma type (HCC) Start: 11-25-2020 End: 11-26-2020 Patient encounter procedure LLOYD MURRAY Facility:[facility] Start: 04-09-2020 Patient encounter procedure DOCTOR MISC Facility:[facility] Start: 12-03-2019 End: 12-03-2019 Subsequent hospital visit by physician Lloyd Murray Work Phone: [facility] Comment on above: Diffuse large B-cell lymphoma of lymph nodes of multiple regions (HCC) Start: 02-13-2019 End: 02-14-2019 Patient encounter procedure ROBSON SANDERSON [facility] Start: 03-02-2018 End: 03-03-2018 Patient encounter procedure MARGAUX CARRENO [facility] Procedures Date Procedure Procedure Detail Performing Clinician Start: 02-02-2024 Pacemaker catheter, device (physical object) Pablo Beaulieulori Start: 12-01-2020 Blood count complete auto&auto difrntl [...] [facility] Insulin pump, device (physical object) Tony Figueroa Tonsillectomy and adenoidectomy Tony Figueroa Plan of Treatment Date Care Activity Detail Author Start: 12-01-2021 Creatinine measurement Creatinine mo nitoring [place], [place] Start: 12-01-2021 Potassium monitoring Potassium monit [place], [place] Start: 08-28-2021 Pneumococcal 65+ yrs at Risk Vaccine (2 of 2 - PCV13) Pneumococcal 65+ yrs at Risk Vaccine (2 of 2 - PCV13) [place], [place] Start: 12-23-2020 End: 12-23-2020 Office Visit 12/23/2020 Office Visit Nephrology Margaux Carreno MD [address], [facility] [address] [place] [address] [phone] Renal Services [facility] Start: 05-28-2020 Creatinine monitoring Creatinine mon itoring [employer] Phone: Start: 05-28-2020 Potassium monitoring Potassium monit oring [employer] Phone: Start: 02-07-2020 [facility] [place] [place] Start: 02-07-2020 Lipid screen Lipid screen [employer] Work Phone: Start: 07-29-2019 Influenza vaccination Flu vaccine (# 1) [employer] Phone: Start: 05-16-2019 Annual Wellness Visi t (AWV) Annual Wellness Visit (AWV) [employer] Phone: Start: 2019 Pneumococcal 65+ yea rs Vaccine (1 of 1 - PPSV23) Pneumococcal 65+ years Vaccine (1 of 1 - PPSV23) [employer] Phone: Start: 01-04-2018 A1C test (Diabetic o r Prediabetic) A1C test (Diabetic or Prediabetic) [employer] Phone: Start: 01-04-2018 HbA1c (Bld) [Mass fraction] A1C test (Diabetic or Prediabetic) [place], [place] Start: 2004 Colon cancer screen colonoscopy [facility] Phone: Start: 2004 Screening for malign ant neoplasm of colon Colon cancer screen colonoscopy [place], [place] Start: 2004 Shingles Vaccine (1 of 2) Shingles Vaccine (1 of 2) [facility] Phone: Start: 1973 DTaP/Tdap/Td vaccine (1 - Tdap) DTaP/Tdap/Td vaccine (1 - Tdap) [place], [place] Start: 1965 DTaP/Tdap/Td vaccine (1 - Tdap) DTaP/Tdap/Td vaccine (1 - Tdap) [facility] Phone: Start: 05-17-1964 3 comp foot exam completed Diabetic foot exam [facility] Work Phone: Start: 1964 Diabetic foot examination Diabetic foot exam [facility] Start: 1964 Diabetic retinal exam Diabetic retin al exam [facility] Work Phone: Immunizations Immunization Date Immunization Notes Care Provider Fa [facility] 09-08-2023 influenza virus vacc ine, unspecified formulation [facility] 09-08-2023 pneumococcal 20-jc nt conjugate vaccine [facility] 09-19-2022 influenza virus vacc ine, unspecified formulation Tony Figueroa [facility] 09-19-2022 SARS-CoV-2 (COVID-19 ) [id number] Tony Pedro [facility] 03-06-2022 SARS-CoV-2 mRNA (umlvzexfwgr-zjhl-eueaibq ) vaccine Tony Pedro [facility] 08-29-2021 pneumococcal conjuga te vaccine, 13 valent Tony Pedro [facility] 08-24-2021 influenza virus vacc ine, unspecified formulation Tony Pedro [facility] 08-24-2021 SARS-CoV-2 (COVID-19 ) mRNA BNT-162b2 vax Tony Figueroa [facility] 02-07-2021 SARS-CoV-2 (COVID-19 ) mRNA BNT-162b2 vax Tony Figueroa [facility] Comment on above: Result Comment: 2022: [id number] 01-17-2021 SARS-CoV-2 (COVID-19 ) mRNA BNT-162b2 vax Tony Figueroa [facility] Comment on above: Result Comment: 2022: [id number] 08-28-2020 influenza virus vacc ine, unspecified formulation Tony Figueroa [facility] 08-28-2020 pneumococcal polysaccharide vaccine, 23 valent Tony Figueroa [facility] 09-12-2017 influenza virus vacc ine, unspecified formulation Tony Figueroa [facility] 09-12-2017 influenza, injectabl e, quadrivalent, preservative free [facility] [place] 09-06-2005 Influenza Vaccine, unspecified formulation [facility] , [place] 09-06-2005 influenza virus vacc ine, unspecified formulation Tony Figueroa [facility] Payers Date Payer Category Payer Private Health Insurance [id number] 2023 Medicare [id number] 2019 Medicare MEDICARE RAILROA D MEDICARE xxxxxxxxxxx 2019-Present [phone] [address] [address] [place] [address] [id number] 2019 Unknown [employer] M [employer]ICAL M[employer]UAL [address] xxxxxxxxxxxx 2019-Present [phone] [address] [place] [address] [id number] 2014 Private Health Insurance [id number] 2014 Private Health Insurance [id number] 1959 Medicare [id number] 1959 Self-pay 1959 Unknown [id number] .[id number] 1954 Unknown [id number] 2.16.840.1.784594.3.579.2 .176 1954 Unknown [id number] 2.16.840.1.458482.3.579.2 .176 1954 Unknown [id number] 2.16.840.1.606200.3.579.2 .593 1954 Unknown [id number] 2.16.840.1.505732.3.579.2 .593 1954 Unknown [id number] 2.16.840.1.906556.3.579.2 .593 1954 Unknown [id number] 2.16.840.1.287303.3.579.2 .175 1954 Unknown [id number] 2.16.840.1.977635.3.579.2 .175 1954 Unknown [id number] 2.16.840.1.130816.3.579.2 .727 1954 Unknown [id number] 2.16.840.1.010531.3.579.2 .727 1954 Unknown [id number] 2.16.840.1.874923.3.579.2 .727 1954 Unknown [id number] 2.16.840.1.384453.3.579.2 .727 1954 Unknown [id number] 2.16.840.1.778013.3.579.2 .727 1954 Unknown [id number] 2.16.840.1.628022.3.579.2 .727 1954 Unknown [id number] 2.16.840.1.467279.3.579.2 .727 1954 Unknown [id number] 2.16.840.1.681873.3.579.2 .727 1954 Unknown [id number] 2.16.840.1.716219.3.579.2 .727 1954 Unknown [id number] 2.16.840.1.686635.3.579.2 .727 1954 Unknown [id number] 2.16.840.1.175175.3.579.2 .727 1954 Unknown [id number] 2.16.840.1.455504.3.579.2 .727 Medicare [id number] Social History Date Type Detail Facility Start: 12-01-2020 End: 07-17-2024 Tobacco smoking status NVIS Former smoker [facility] Comment on above: patinet quite at age 24. End: 05-08-1990 History of tobacco use Current smoker [employer] Phone: End: 05-08-1990 History of tobacco use Cigarette Smoker [employer] Phone: Start: 12-03-2019 End: 12-01-2020 Cigarettes smoked current (pack per day) - Reported [employer] Work Phone: Start: 12-01-2020 Tobacco use and exposure Never used [employer] [place] [place] Start: 12-03-2019 End: 12-01-2020 Alcohol intake Current drinker of alcohol (finding) [employer] Work Phone: Start: 12-29-2015 Alcohol Comment social [facility] Work Phone: Sex Assigned At Not on file [employer] Work Phone: Tobacco smoking status Never [facility] Comment on above: patinet quite at age 24. Sex Assigned At Male [facility] Medical Equipment Procedure Code Equipment Code Equipment Origin al Text Equipment Identifier Dates BD PEN NEEDLE NA NO U/F 32G X 4 MM MISC [id number] Start: 09-11-2015 TRUEPLUS INSULIN SYRINGE 31G X 5/16 1 ML MISC [id number] Start: 04-02-2020 See Instructions , [employer] healthpro test strips Test sugars 4 times a day Start: 06-27-2023 krPV [employer] health pr o twist lancets use to test sugars 4 times a day Start: 06-27-2023 syrings, See Instructions, 120 EA, 3, syrings 31g x8mm use qid and prn E11.9, [facility] [id number], Supply Start: 06-13-2023 [facility] Pres[facility], See Instructions, 400 EA, 5, lancet use QID e11.9, [id number], Supply, 172.9, cm, 10/25/23 13:05:00 EST, Height/Length Dosing, 117.4, kg, 10/25/23 13:05:00 EST, Weight Dosing Start: 12-05-2023 syrings, See Instructions, 120 EA, 3, syrings 31g x8mm use qid and prn E11.9, [id number], Supply, 172.9, cm, 10/25/23 13:05:00 EST, Height/Length Dosing, 117.4, kg, 10/25/23 13:05:00 EST, Weight Dosing Start: 12-05-2023 [facility] Prescription, See Instructions, 400 EA, 5, lancet use QID e11.9, [id number], Supply, 172.9, cm, 10/25/23 13:05:00 EST, Height/Length Dosing, 117.4, kg, 10/25/23 13:05:00 EST, Weight Dosing Start: 12-05-2023 syrings, See Instructions, 120 EA, 3, syrings 31g x8mm use qid and prn E11.9, [id number], Supply, 172.9, cm, 10/25/23 13:05:00 EST, Height/Length Dosing, 117.4, kg, 10/25/23 13:05:00 EST, Weight Dosing Start: 12-05-2023 [facility] Prescription, See Instructions, 400 EA, 5, lancet use QID e11.9, [id number], Supply, 172.9, cm, 10/25/23 13:05:00 EST, Height/Length Dosing, 117.4, kg, 10/25/23 13:05:00 EST, Weight Dosing Start: 12-05-2023 syrings, See Instructions, 120 EA, 3, syrings 31g x8mm use qid and prn E11.9, [id number], Supply, 172.9, cm, 10/25/23 13:05:00 EST, Height/Length Dosing, 117.4, kg, 10/25/23 13:05:00 EST, Weight Dosing Start: 12-05-2023 Misc DME Prescription, See Instructions, 400 EA, 5, lancet use QID e11.9, [id number], Supply, 172.9, cm, 10/25/23 13:05:00 EST, Height/Length Dosing, 117.4, kg, 10/25/23 13:05:00 EST, Weight Dosing Start: 12-05-2023 syrings, See Instructions, 120 EA, 3, syrings 31g x8mm use qid and prn E11.9, [id number], Supply, 172.9, cm, 10/25/23 13:05:00 EST, Height/Length Dosing, 117.4, kg, 10/25/23 13:05:00 EST, Weight Dosing Start: 12-05-2023 Functional Status Date Assessment Result Facility 06-22-2024 Functional Status N/A [facility] 01-30-2024 Functional Status N/A [facility] Clinical Note 07-17-2024 Note Date & Type Note Facility 07-17-2024 Note Patient Education Cardiovascular Hypertension, Adult High blood pressure (hypertension) is when the force of blood pumping through the arteries is too strong. The arteries are the blood vessels that carry blood from the heart throughout the body. Hypertension forces the heart to work harder to pump blood and may cause arteries to become narrow or stiff. Untreated or uncontrolled hypertension can lead to a heart attack, heart failure, a stroke, kidney disease, and other problems. A blood pressure reading consists of a higher number over a lower number. Ideally, your blood pressure should be below 120/80. The first ( top ) number is called the systolic pressure. It is a measure of the pressure in your arteries as your heart beats. The second ( bottom ) number is called the diastolic pressure. It is a measure of the pressure in your arteries as the heart relaxes. What are the causes? The exact cause of this condition is not known. There are some conditions that result in high blood pressure. What increases the risk? Certain factors may make you more likely to develop high blood pressure. Some of these risk factors are under your control, including: ? Smoking. ? Not getting enough exercise or physical activity. ? Being overweight. ? Having too much fat, sugar, calories, or salt (sodium) in your diet. ? Drinking too much alcohol. Other risk factors include: ? Having a personal history of heart disease, diabetes, high cholesterol, or kidney disease. ? Stress. ? Having a family history of high blood pressure and high cholesterol. ? Having obstructive sleep apnea. ? Age. The risk increases with age. What are the signs or symptoms? High blood pressure may not cause symptoms. Very high blood pressure (hypertensive crisis) may cause: ? Headache. ? Fast or irregular heartbeats (palpitations). ? Shortness of breath. ? Nosebleed. ? Nausea and vomiting. ? Vision changes. ? Severe chest pain, dizziness, and seizures. How is this diagnosed? This condition is diagnosed by measuring your blood pressure while you are seated, with your arm resting on a flat surface, your legs uncrossed, and your feet flat on the floor. The cuff of the blood pressure monitor will be placed directly against the skin of your upper arm at the level of your heart. Blood pressure should be measured at least twice using the same arm. Certain conditions can cause a difference in blood pressure between your right and left arms. If you have a high blood pressure reading during one visit or you have normal blood pressure with other risk factors, you may be asked to: ? Return on a different day to have your blood pressure checked again. ? Monitor your blood pressure at home for 1 week or longer. If you are diagnosed with hypertension, you may have other blood or imaging tests to help your health care provider understand your overall risk for other conditions. How is this treated? This condition is treated by making healthy lifestyle changes, such as eating healthy foods, exercising more, and reducing your alcohol intake. You may be referred for counseling on a healthy diet and physical activity. Your health care provider may prescribe medicine if lifestyle changes are not enough to get your blood pressure under control and if: ? Your systolic blood pressure is above 130. ? Your diastolic blood pressure is above 80. Your personal target blood pressure may vary depending on your medical conditions, your age, and other factors. Follow these instructions at home: Eating and drinking ? Eat a diet that is high in fiber and potassium, and low in sodium, added sugar, and fat. An example of this eating plan is called the DASH diet. DASH stands for Dietary Approaches to Stop Hypertension. To eat this way: ? Eat plenty of fresh fruits and vegetables. Try to fill one half of your plate at each meal with fruits and vegetables. ? Eat whole grains, such as whole-wheat pasta, brown rice, or whole-grain bread. Fill about one fourth of your plate with whole grains. ? Eat or drink low-fat dairy products, such as skim milk or low-fat yogurt. ? Avoid fatty cuts of meat, processed or cured meats, and poultry with skin. Fill about one fourth of your plate with lean proteins, such as fish, chicken without skin, beans, eggs, or tofu. ? Avoid pre-made and processed foods. These tend to be higher in sodium, added sugar, and fat. ? Reduce your daily sodium intake. Many people with hypertension should eat less than 1,500 mg of sodium a day. ? Do not drink alcohol if: ? Your health care provider tells you not to drink. ? You are , may be , or are planning to become . ? If you drink alcohol: ? Limit how much you have to: ? 0?1 drink a day for women. ? 0?2 drinks a day for men. ? Know how much alcohol is in your drink. In the [place] one drink equals one 12 oz bottle of beer (355 mL), one 5 oz glass of wine (148 mL), (more content not included)... [facility] Evaluation + Plan note Note Date & Type Note Facility Evaluation + Plan note Future Appointments Appointment Date:07/25/2023 11:40:00 AM Scheduled Provider:Tony Figueroa MD Location:[facility] Appointment Type: Open Appointment Date:08/16/2023 02:00:00 PM Scheduled Provider: Location:[facility] Appointment Type: Medicare Wellness Subsequent [facility] Evaluation + Plan note LaboratoryRadiology Note Date & Type Note Facility Evaluation + Plan note Future Appointments Appointment Date:07/17/2024 01:00:00 PM Scheduled Provider: Location:[facility] Appointment Type: Medicare Wellness Initial Future Scheduled LocmwTjaW0e 3/4/24TSH With T4fr Reflex 3/4/24Vitamin D 25 Hydroxy 3/4/24CBC w/ Auto Diff 01/30/24Comprehensive Metabolic Panel 3/24NM Myocardial Spect Rest/Stress 2 Day 24NM Myocardial Spect Part 2 01/30/24 [facility] Evaluation + Plan note LaboratoryRadiology Note Date & Type Note Facility Evaluation + Plan note Future Appointments Appointment Date:07/17/2024 01:00:00 PM Scheduled Provider: Location:[facility] Appointment Type: Medicare Wellness Initial Appointment Date:07/17/2024 02:00:00 PM Scheduled Provider:Tony Figueroa MD Location:[facility] Appointment Type: Open Future Scheduled OonvlKzdU2h 3/4/24TSH With T4fr Reflex 3//24Vitamin D 25 Hydroxy //24CBC w/ Auto Diff 01/30/24Comprehensive Metabolic Panel 24NM Myocardial Spect Rest/Stress 2 Day 01/30/24NM Myocardial Spect Part 2 01/30/24 [facility] Evaluation + Plan note LaboratoryRadiology Note Date & Type Note Facility Evaluation + Plan note Future Appointments Appointment Date:07/19/2024 11:30:00 AM Scheduled [facility]: [facility] Type:NCV Pacemaker () Appointment Date:07/22/2025 09:30:00 AM Scheduled Provider: Location:[facility] Appointment Type: Medicare Wellness Subsequent Diagnostic Tests PendingMicroalbumin Level Urine 07/17/24U Protein/Creat Ratio 07/17/24 Future Scheduled WaaemGwpY0u 3/4/24TSH With T4fr Reflex 3/4/24Vitamin D 25 Hydroxy 3/4/24CBC w/ Auto Diff 24Comprehensive Metabolic Panel 24NM Myocardial Spect Rest/Stress 2 Day 24NM Myocardial Spect Part 2 01/30/24 [facility] Evaluation + Plan note LaboratoryRadiology Note Date & Type Note Facility Evaluation + Plan note Future Appointments Appointment Date:01/10/2025 11:30:00 AM Scheduled Provider: [facility] Appointment Type:NCV Pacemaker () Appointment Date:07/22/2025 09:30:00 AM Scheduled Provider: Location:[facility] Appointment Type: Medicare Wellness Subsequent Future Scheduled NlijsLdwY9d 01/30/24TSH With T4fr Reflex 01/30/24Vitamin D 25 Hydroxy 01/30/24CBC w/ Auto Diff 01/30/24Comprehensive Metabolic Panel 01/30/24NM Myocardial Spect Rest/Stress 2 Day 01/30/24NM Myocardial Spect Part 2 01/30/24 [facility] Evaluation note Note Date & Type Note Facility Evaluation note Diagnosis Diffuse large B-cell lymphoma of lymph nodes of multiple regions (HCC) documented in this encounter [facility] Work Phone: Hospital course Narrative Note Date & Type Note Facility Hospital course Narrative No data available for this section [facility] Hospital Discharge instructions Note Date & Type Note Facility Hospital Discharge instructions No data available for this section [facility] Progress note Note Date & Type Note Facility Progress note No data available for this section [facility] Summary Purpose Family History No Family History Records FoundNo Family History Records Found No data available for this section No Family History Records Found No data available for this section No data available for this section No Family History Records FoundNo Family History Records FoundNo Family History Records FoundNo Family History Records FoundNo Family History Records FoundNo Family History Records FoundNo Family History Records Found No data available for this section No Family History Records FoundNo Family History Records Found Advance Directives No Advanced Directives Records FoundDocuments on File Type Date Recorded Patient Extension Educator Expl anation ACP-Advance Directive ACP-Power of Nurse Consultant Latest Code Status on File Code Status Date Activated Date Inactivated Comments Full Code 09/03/2014 2:03 PM 09/04/2014 3:11 AM Full Code 07/23/2014 1:30 PM 07/24/2014 3:09 AM Full Code 07/02/2014 1:51 PM 07/03/2014 3:10 AM Full Code 06/11/2014 2:21 PM 06/12/2014 3:09 AM Full Code 05/21/2014 10:55 AM 05/22/2014 9:57 PM Documents on File Type Date Recorded Patient Extension Educator Expl anation Advance Directives and Living Will Power of Nurse Consultant Assessments Diagnosis Non-Hodgkin's lymphoma, unspecified body region, [...] section and content) DATE CREATED AUTHOR 02/14/2019 [facility] DATE CREATED AUTHOR AUTHOR'S ORGANIZ ATION 12/20/2020 [facility] DATE CREATED AUTHOR AUTHOR'S ORGANIZ ATION 02/07/2024 [facility] DATE CREATED AUTHOR AUTHOR'S ORGANIZ ATION 07/19/2024 [facility] DATE CREATED AUTHOR AUTHOR'S ORGANIZ ATION 07/26/2024 [facility] DATE CREATED AUTHOR AUTHOR'S ORGANIZ ATION 07/27/2024 [facility] Patient Care team informatio n (unrecognized section and content) Personnel Name: Tony Figueroa MD Address: Address: [address] [place] [address] Personnel Name: Tony Figueroa MD Address: Address: [address] [place] [address] Personnel Name: Tony Figueroa MD Address: Address: [address] [place] [address] Personnel Name: Tony Figueroa MD Address: Address: [address] [place] [address] Personnel Name: Tony Figueroa MD Address: Address: [address] [place] [address] FOR RECORDS PERTAINING TO PATIENTS WHO ARE [...] BE BASED ON THE PRIMARY CLINICAL RECORDS. [employer] [facility]. provides no warranty or guarantee of the accuracy or completeness of information in this document.
[2024-08-17 10:40] LABS: Basophils Absolute Auto 0.1 10^3/uL (0.0-0.1); Basophils Percent Auto 1.1 % (0.2-2.0); Eosinophils Absolute Auto 0.4 10^3/uL (0.0-0.7); Eosinophils Percent Auto 3.7 % (0.9-7.0); Hematocrit 40.8 % (42.0-54.0); Hemoglobin 12.7 g/dL (14.0-18.0); Immature Granulocytes Abs Auto 0.12 10^3/uL (0.00-0.03); Immature Granulocytes Pct Auto 1.1 % (0.0-0.5); Lymphocytes Percent Auto 18.6 % (20.5-60.0); Mean Corpuscular HGB Conc 31.1 g/dL (29.9-35.2); Mean Corpuscular Hemoglobin 27.4 pg (25.9-34.0); Mean Corpuscular Volume 88.1 fL (80.0-94.0); Mean Platelet Volume 10.5 fL (9.5-13.5); Monocytes Absolute Auto 0.7 10^3/uL (0.3-0.8); Monocytes Percent Auto 6.4 % (1.7-12.0); Neutrophils Absolute Auto 7.5 10^3/uL (1.4-6.5); Neutrophils Percent Auto 69.1 % (43.0-75.0); Platelet Count 252 10^3/uL (150-450); Red Blood Count 4.63 10^6/uL (4.70-6.10); Red Cell Distribution Width 14.3 % (11.0-15.0); White Blood Count 10.8 10^3/uL (4.0-11.0)
[2024-08-17 11:26] LABS: Alanine Aminotransferase 27 U/L (16-63); Albumin Globulin Ratio 0.8; Albumin Level 3.4 g/dL (3.4-5.0); Alkaline Phosphatase 107 U/L (46-116); Anion Gap 12.4; Aspartate Amino Transferase 32 U/L (15-37); BUN Creatinine Ratio 15.6; Bilirubin Total 0.5 mg/dL (0.2-1.0); Calcium 9.3 mg/dL (8.5-10.1); Carbon Dioxide 25.7 mmol/L (21.0-32.0); Chloride 105 mmol/L (98-107); Estimated GFR (African America 45 (>=60); Estimated GFR (Non-African Ame 37 (>=60); Globulin 4.3 g/dL; Glucose 107 mg/dL (74-106); Lactate Dehydrogenase 219 U/L (85-227); Potassium 5.1 mmol/L (3.5-5.1); Sodium 138 mmol/L (136-145); Total Protein 7.7 g/dL (6.4-8.2)
== END 2024-08-17 10:14 | disposition home or self-care (01) ==
LOC: LAB 10:16
PROVIDERS: PCP Family Medicine
DX: C85.90 Non-Hodgkin lymphoma, unspecified, unspecified site (principal)
CPT/HCPCS: 36415; 80053; 83615; 85025

== ENCOUNTER 2025-01-17 10:43 | Outpatient (OUT) | payer MEDICARE, SELFPAY ==
[2025-01-17 11:40] LABS: Microalbum Creatinine Ratio Ur 167.4 mg/g (0.0-29.9); Microalbumin Urine Random 18.7 mg/dL (<=30.0)
[2025-01-17 13:02] LABS: Albumin Level 3.6 g/dL (3.4-5.0); Anion Gap 15.6; BUN Creatinine Ratio 15.7; Calcium 9.1 mg/dL (8.5-10.1); Carbon Dioxide 25.5 mmol/L (21.0-32.0); Chloride 105 mmol/L (98-107); Chol HDL Ratio 3.3; Cholesterol 183 mg/dL (<=200); Estimated GFR (African America 52 (>=60 mL/min/1.73m^2); Estimated GFR (Non-African Ame 43 (>=60 mL/min/1.73m^2); Free T3 2.18 pg/mL (2.18-3.98); Glucose 81 mg/dL (74-106); HDL Cholesterol 56 mg/dL (40-60); Potassium 4.1 mmol/L (3.5-5.1); Sodium 142 mmol/L (136-145); Triglycerides 150 mg/dL (<=150)
[2025-01-17 13:15] LABS: Free T4 1.26 ng/dL (0.76-1.46)
== END 2025-01-17 10:44 | disposition home or self-care (01) ==
PROVIDERS: PCP Family Medicine; Visit Provider Internal Medicine
DX: E11.65 Type 2 diabetes mellitus with hyperglycemia (principal); Z79.4 Long term (current) use of insulin; E06.3 Autoimmune thyroiditis
CPT/HCPCS: 36415; 80061; 80069; 82043; 82306; 82570; 84439; 84443; 84481

== ENCOUNTER 2025-11-23 09:33 | Outpatient (OUT) | payer MEDICARE, SELFPAY ==
--- OUTSIDE RECORDS SUMMARY | 2025-11-23 09:41 | XMS_ITS | Clinical Summary ---
Author Organization [facility] Healthcare Address [address] [place] [address] Care Team Providers Care Foxing Closer Name Role Phone Tony Vasquez MD Primary Care Provider [phone] Allergies No known active allergies Medications MedicationSigDispense QuantityRefillsLast FilledStart DateEnd DateStatus atorvastatin (Lipitor) 80 MG tablet Take 80 mg by mouth DailyActive ergocalciferol (Vitamin D-2) 1.25 MG (15787 UT) capsule Take 1.25 mg by mouth 1 (one) time per weekActive fenofibrate (Tricor) 48 MG tablet Take 48 mg by mouth DailyActive finerenone (Kerendia) 10 MG tablet Active INSULIN NPH, HUMAN,, ISOPHANE, SC Inject under the skinActive levothyroxine (Synthroid, Levoxyl) 125 MCG tablet Take by mouth in the morning. Take before meals.Active lisinopril 2.5 MG tablet Take by mouth DailyActive omeprazole OTC (PriLOSEC OTC) 20 MG EC tablet Take 20 mg by mouth in the morning. Take before meals. Do not crush, chew, or split.Active Blood Glucose Monitoring Suppl (SaavnTouch Verio Flex System) w/Device kit 1 Device DailyActive insulin NPH, Isophane, (NovoLIN N FlexPen) 100 UNIT/ML injection Indications:Type 2 diabetes mellitus with hyperglycemia (HCC)Inject 50 Units under the skin in the morning and 50 Units in the evening. Inject before meals. 40 UNITS IN THE AM AND 80 UNITS IN THE PM. 90 mL 5Active Alcohol Swabs (Alcohol Prep) 70 % pads Indications:Type 2 diabetes mellitus with hyperglycemia, with long-term current use of insulin (HCC)3 TIMES A DAY 300 each 5Active insulin NPH, Isophane, (NovoLIN N FlexPen) 100 UNIT/ML injection Indications:Type 2 diabetes mellitus with hyperglycemia, with long-term current use of insulin (HCC)INJECT 40 UNITS IN THE MORNING AND 80 UNITS AT BEDTIME SUBQUTANEOUSLY. 120 mL 5Active insulin pen needle (Embecta Pen Needle Yokasta 2 Gen) 32G x 4 mm misc Indications:Type 2 diabetes mellitus with hyperglycemia (HCC)USE INSTRUCTED 3 TIMES A DAY 300 each 5Active insulin regular (NovoLIN R FlexPen) 100 UNIT/ML pen Indications:Type 2 diabetes mellitus with hyperglycemia (HCC)INJECT 30 UNITS UNDER THE SKIN IN THE MORNING, AT NOON AND IN THE EVENING WITH MEALS 90 mL 5Active glucose blood (OneTouch Ultra) test strip Indications:Type 2 diabetes mellitus with hyperglycemia (HCC)USE THREE TIMES A DAY 300 strip 5Active Lancets (SaavnTouch Delica Plus Wquhqf20C) misc Indications:Type 2 diabetes mellitus with hyperglycemia (HCC)USE TO TEST BLOOD SUGAR THREE TIMES DAILY 300 each 5Active Continuous Glucose Sensor (Dexcom G7 Sensor) misc Indications:Type 2 diabetes mellitus with hyperglycemia, with long-term current use of insulin (HCC)1 Bar Every 10 (ten) days 9 each 501/6Active Active Problems ProblemNoted DateDiagnosed DateType 2 diabetes mellitus with hyperglycemia 09/28/2024Vitamin D deficiency, yltcwitjfbk73/01/2024MI 37.0-37.9, adult 09/28/2024Essential (primary) vjjclivpskfb30/01/2024Mixed hyperlipidemia 09/28/2024utoimmune kowfviffnze50/01/2024Long term (current) use of insulin 4Chronic kidney disease, stage 3a09/28/2024 Encounters DateTypeDepartmentCare DzpzCpbyqrnrowg35/22/2025 10:10 AM EDTOffice Visit [facility] [address] [place] [address] Yasmine Hogan MD Type 2 diabetes mellitus with hyperglycemia, with long-term current use of insulin (HCC) (Primary Dx); Vitamin D deficiency, unspecified; Essential (primary) hypertension; Mixed hyperlipidemia; Autoimmune thyroiditis; residential (current) use of insulin (HCC); Chronic kidney disease, stage 3a ([facility]); Btbloclokmtigtup58/22/2025amboo flowsheet [facility] [address] [place] [id number] Yasmine Hogan MD 08/27/2025Refill [facility] [address] [place] [id number] Yasmine Hogan MD Type 2 diabetes mellitus with hyperglycemia (HCC)from Last 3 Months Immunizations ImmunizationAdministration DatesNext DueInfluenza, Goeysvwzsvg96/10/2005 Influenza, injectable, quadrivalent, preservative free09/12/2017 Family History Medical HistoryRelationNameCommentsCancerMotherRelationNameStatusCommentsFather DeceasedMotherDeceased Social History Tobacco UseTypesPacks/DayYears UsedDateSmoking Tobacco: NeverSmokeless Tobacco: Never Tobacco Cessation:Counseling Given: Not Answered Alcohol UseStandard Drinks/WeekCommentsNever0 (1 standard drink = 0.6 oz pure alcohol)Sex and Gender InformationValueDate RecordedSex Assigned at BirthNot on fileLegal LmqUzjz9508/01/2024 10:17 AM EDTGender IdentityNot on fileSexual OrientationNot on file Last Filed Vital Signs Vital SignReadingTime TakenCommentsBlood Bxjfwibl25/6009/18/2025 10:06 AM EDT Rxssw74483/22/2025 10:06 AM EDTTemperature--Respiratory Sayj875305/22/2025 10:18 AM EDTOxygen Fklfdogboi58%09/18/2025 10:06 AM EDTInhaled Oxygen Concentration-- Sqwley030 kg (233 lb)09/18/2025 10:06 AM QJRMsgcyl082.8 cm (5' 10 )09/18/2025 10:06 AM EDTBody Mass Index33.431 10:06 AM EDT Plan of Treatment DateTypeDepartmentCare Team (Latest Contact Info)Suweqilvdnd90/21/2026 11:00 AM ESTOffice Visit [facility] [address] [place] [phone] Yasmine Hogan MD [address] [place] [address] Health MaintenanceDue DateLast DoneCommentsCT Pvpbzpqtixis1954Colonoscopy 4Colorectal Cancer Fjezrzwch1954FIT-DNA1954FIT1954 FOBT1955 1142Xpmpzqtfzhdfp1954neumococcal Vaccine: 65+ YearsCompleted 09/08/2023, 08/29/2021, 08/28/2020Diabetes: Hemoglobin O7TNdgaixrdxkxj 09/18/2025, 05/22/2025, 01/24/2025, Additional history existsInfluenza Vaccine Ordfnhkhh45/28/2025, 08/27/2024, 09/08/2023, Additional history exists Procedures Procedure NamePriorityDate/TimeAssociated DiagnosisCommentsPOCT GLYCOSYLATED HEMOGLOBIN (HGB A1C)Zdjpfgu0509/18/2025 10:09 AM EDT Type 2 diabetes mellitus with hyperglycemia, with long-term current use of insulin (HCC) POCT ADDTUPSGcjpzuk57/22/2025 10:09 AM EDT Type 2 diabetes mellitus with hyperglycemia, with long-term current use of insulin (HCC) from Last 3 Months Results * POCT glycosylated hemoglobin (Hb A1C) docked device (09/18/2025 10:09 AM EDT) ComponentValueRef RangeTest MethodAnalysis TimePerformed AtPathologist SignatureHemoglobin A1C6.6Specimen (Source)Anatomical Location / Laterality Collection Method / VolumeCollection TimeReceived TimeBloodVenous blood specimen / Qtxpcsb6709/18/2025 10:09 AM EDT Narrative Authorizing ProviderResult TypeResult StatusYasmine Hogan MDPOINT OF CARE TEST ENTER/EDIT ORDERABLESFinal Result * POCT glucose manually resulted (09/18/2025 10:09 AM EDT)ComponentValueRef RangeTest MethodAnalysis TimePerformed AtPathologist SignatureGlucose Blood, ZBF507sp/dLSpecimen (Source)Anatomical Location / LateralityCollection Method / VolumeCollection TimeReceived TimeBloodCapillary blood specimen / Unknown 09/18/2025 10:09 AM EDT Narrative Authorizing ProviderResult TypeResult StatusYasmine Hogan MDPOINT OF CARE TEST ENTER/EDIT ORDERABLESFinal Result from Last [address] [place] [address] Care Teams Team MemberRelationshipSpecialtyStart DateEnd Date Tony Vasquez MD [address] [place] [address] PCP - GeneralFamily Frfsxgvp22/4/24
--- OUTSIDE RECORDS SUMMARY | 2025-11-23 09:41 | XMS_ITS | Patient Health Record ---
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 Name Role Phone Eliel Guevara MD Primary Care Provider Unavail able Reason For Referral No Information Medications Medication SIG (Take, Route, Frequency, Duration) Notes Start Date End Date Status multivitamin Multiple Vitamins 1 DAILY ActiveglipiZIDE 5 mg1 DAILY ActiveTricor 145 mg1 tablet DAILY ActiveLansoprazole 15 mg1 DAILY ActiveLisinopril 10 mg1 tablet DAILY ActiveSimvastatin 40 mg1 tablet DAILY Active Levoxyl 125 mcg (0.125 mg)1 tablet DAILY ActiveGlumetza 500 mg1 BID Active Plan Of Treatment Pending Test Test Name Order Date LDH 03/14/2017 LDH 09/11/2018 LDH 05/28/2019 LDH 12/03/2019 LDH 03/13/2018 LDH 09/12/2017 CBC AND AUTO DIFF * 09/12/2017 CBC AND AUTO DIFF * 03/13/2018 CBC AND AUTO DIFF * 12/03/2019 CBC AND AUTO DIFF * 05/28/2019 CBC AND AUTO DIFF * 09/11/2018 CBC AND AUTO DIFF * 03/14/2017 COMPREHENSIVE METABOLIC PANEL 03/14/2017 COMPREHENSIVE METABOLIC PANEL 09/11/2018 COMPREHENSIVE METABOLIC PANEL 05/28/2019 COMPREHENSIVE METABOLIC PANEL 12/03/2019 COMPREHENSIVE METABOLIC PANEL 03/13/2018 COMPREHENSIVE METABOLIC PANEL 09/12/2017 Insurance Providers Payer Name Payer Address Payer Phone Subscriber Number Group Number Insured Name Patient Relationship to Insured Coverage Start Date Coverage End Date [facility] [address] [address] [place], [place] [id number] Mirza Emerson Self - patient is the insured 3 Medical (General) History Surgical History Surgery Date(Month/Year) Surgical / procedural history MALIGNANT BX NECK MASS 04/2014
--- OUTSIDE RECORDS SUMMARY | 2025-11-23 09:41 | XMS_ITS | CCD ---
Author Organization [facility] Care Team Providers Care Photo Lab Specialist Name Role Phone THAO CARRENOELI Donovan Referring Unavailable JONES, KRISTIAN Primary Care Unavailable ROBSON SANDERSON Referring Unavailable KAREN, KRISTIAN Primary Care Unavailable Lloyd Murray Primary Care Provider [phone] MISC, DOCTOR Attending Unavailable MISC, DOCTOR Admitting Unavailable MISC, DOCTOR Admitting Unavailable LLOYD MURRAY Primary Care Unavailable MISC, DOCTOR Attending Unavailable MISC, DOCTOR Consulting Unavailable LLOYD MURRAY Primary Care Unavailable MISC, DOCTOR Attending Unavailable MISC, DOCTOR Consulting Unavailable MISC, DOCTOR Admitting Unavailable Lloyd Murray Primary Care Provider Tony Vasquez Primary Care Physician DERIAN CHRISTOPHER Referring Unavailable LLOYD MURRAY Primary Care Unavailable IVANNA ELIAS Consulting Unavailable REN SPAIN Attending Unavailable HIMANSHU HILL Admitting Unavailable Tony Vasquez MD Primary Care Provider CHANGLETICIA BERGMANMAD F Attending Unavailable CHANG, AHMAD F Attending Unavailable CHANG, AHMAD F Attending Unavailable CHANG, AHMAD F Attending Unavailable CHANG, AHMAD F Referring Unavailable Tony Vasquez Attending Unavailable Satinder Moore Attending Unavailable NONE, XXXX Referring Unavailable Tony Vasquez Referring Unavailable Sagrario Banks Attending Unavailable Tony Vasquez Attending Unavailable ANTONIA THOMAS Attending Unavailable Tony Vasquez Attending Unavailable Tony Vasquez Attending Unavailable Tiffany Lombardo Attending Unavailable NONE, XXXX Referring Unavailable Jocelyn Basem GKevin Attending Unavailable Sagrario Banks Referring Unavailable Sagrario Banks Attending Unavailable MD Maurice Badillo Admitting Unavailable MD Maurice Badillo Attending Unavailable Pablo Beal Referring Unavailable Tony Vasquez Attending Unavailable NONE, XXXX Referring Unavailable MD Maurice Badillo Admitting Unavailable MD Maurice Badillo Attending Unavailable Pablo Beal Admitting Unavailable Pablo Beal Attending Unavailable Pablo Beal Referring Unavailable Allergies Allergy ClassificationReported Allergen(s)Allergy TypeDate of OnsetReaction(s) Facility (2 sources)No Known Medication Allergies; Translations: [No Known Medication Allergies]Propensity to adverse reactions (disorder)[facility] Repository Medications Current Medications MedicationDrug Class(es)DatesSig (Normalized)Sig (Original)atorvastatin 80 mg oral tablet (20 sources)HMG-CoA Reductase InhibitorStart: 23-40-0234ddxy 1 tablet by mouth once dailyatorvastatin 80 mg Tab See Instructions, TAKE 1 TABLET BY MOUTH EVERY DAY, # 90 tab(s), Refills(s) 3, Pharmacy: [id number], 175, cm, 07/17/24 13:17:00 EDT, Height/Length Dosing, 117.8, kg, 07/17/24 13:17:00 EDT, Weight Dosing Start Date: 11/27/24 Status: Ordered Quantity: 90.0 Unit: tab(s) Repeat number: 1Blood Glucose Monitoring Suppl (OneTouch Verio Flex System) w/Device kit (14 sources)Blood Glucose Monitoring Suppl (OneTouch Verio Flex System) w/Device kit 1 Device Daily Activecholecalciferol 66849 unt oral capsule (2 sources)Vitamin DCholecalciferol (VITAMIN D3) 64905 UNITS CAPS Take by mouth every 14 days 0 ActiveContinuous Glucose Sensor (Dexcom G7 Sensor) misc (2 sources)Start: 09-18-2025 End: 60-76-6730Yqmmoedmkp Glucose Sensor (Dexcom G7 Sensor) misc Indications: Type 2 diabetes mellitus with hyperglycemia, with long-term current use of insulin (HCC) 1 Bar Every 10 (ten) days 9 each 1 09/18/2025 12/17/2025 Active ergocalciferol 1.25 mg oral capsule (20 sources)Provitamin D2 CompoundStart: 21-76-0033pwsj 1 capsule by mouth every other weekergocalciferol 50,000 intl units Cap See Instructions, 1 cap(s) Oral every other week, # 90 cap(s),Refills(s) 1, [id number], cm, 07/17/24 13:17:00 EDT, Height/Length Dosing, 117.8, kg, 07/17/24 13:17:00 EDT, Weight Dosing Start Date: 07/17/24 Status: Ordered Quantity: 90.0 Unit: cap(s) Repeat number: 2Start: 68-47-8897epyc 1 capsule by mouth every other week ergocalciferol 50,000 intl units Cap See Instructions, 1 cap(s) Oral every other week, # 90 cap(s),Refills(s) 1, [id number], 172.9, cm, 10/25/23 13:05:00 EST, Height/Length Dosing,117.4, kg, 10/25/23 13:05:00 EST, Weight Dosing Start Date: 12/05/23 Status: OrderedStart: 75-29-3075vsft 1 capsule by mouth every other weekergocalciferol 50,000 intl units Cap See Instructions, 1 cap(s) Oral every other week, Refills(s) 0Start Date: 05/05/23 Status: Ordered take 1 capsule by mouth every weekergocalciferol (Vitamin D-2) 1.25 MG (23412 UT) capsule Take 1.25 mg by mouth 1 (one) time per weekActivefenofibrate 48 mg oral tablet (20 sources)Peroxisome Proliferator Receptor alpha AgonistStart: 34-92-1571lvgt 1 tablet by mouth once dailyfenofibrate 48 mg Tab See Instructions, TAKE 1 TABLET BY MOUTH EVERY DAY, # 90 tab(s), Refills(s) 1, Pharmacy: [id number], 175, cm, 07/17/24 13:17:00 EDT, Height/Length Dosing, 117.8, kg, 07/17/24 13:17:00 EDT, Weight Dosing Start Date: 11/27/24 Status: Ordered Quantity: 90.0 Unit: tab(s) Repeat number: 1fenofibrate 160 MG tablet Take 48 mg by mouth daily 0 Activefinerenone (Kerendia) 10 MG tablet (14 sources)finerenone (Kerendia) 10 MG tablet Activefluticasone propionate 0.05 mg/actuat metered dose nasal spray (2 sources)CorticosteroidStart: 02-27-2025 End: 44-58-5219mtdsjjuugeh Nasal 0.05 mg/inh [place] 2 spray(s), Nasal, Daily for 30 day(s), 1 EA, Refill(s) 5, each nostril, [facility]/pharmacy #[id number], 175, cm, 02/27/25 11:22:00 EDT, Height/Length Dosing, 121, kg, 02/27/2511:22:00 EDT, Weight Dosing Start Date: 02/27/25 Stop Date: 08/26/25 Status: Ordered Quantity: 1.0 Unit: EA Repeat number: 6 Indication: Obstructive sleep apnea (adult) (pediatric)glipiZIDE 5 mg oral tablet (2 sources)Sulfonylureatake 1 tablet by mouth once dailyglipiZIDE (GLUCOTROL) 5 MG tablet 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) Take 5 mg by mouth daily 0 Active3 ml insulin detemir 100 unt/ml pen injector (2 sources)Insulin AnalogStart: 98-89-9693ADRBPDG FLEXTOUCH 100 UNIT/ML injection pen 35 Units 2 times daily 0 10/30/2019 Active1.5 ml insulin glargine 300 unt/ml pen injector (1 source)Insulin AnalogInsulin Glargine, 1 Unit Dial, 300 UNIT/ML SOPN Inject into the skin 0 Active3 ml insulin isophane, human 100 unt/ml pen injector (15 sources)Start: 03-78-2903habtgwq NPH, Isophane, (NovoLIN N FlexPen) 100 UNIT/ML injection Indications: Type 2 diabetes mellitus with hyperglycemia, with long-term current use of insulin (HCC) INJECT 40 UNITS IN THE MORNING AND 80 UNITS AT BEDTIME SUBQUTANEOUSLY. 120 mL 1 05/10/2025 ActiveStart: 02-16-2025 End: 33-02-5897eetpbr 50 [IU] by subcutaneous injection in the morning, then inject 50 [IU] by subcutaneous injection before mealtime, then inject 40 [IU] by subcutaneous injection in the morning, then inject 80 [IU] by subcutaneous injection in the eveninginsulin NPH, Isophane, (NovoLIN N FlexPen) 100 UNIT/ML injection Indications: Type 2 diabetes mellitus with hyperglycemia (HCC) Inject 50 Units under the skin in the morning and 50 Units in the evening. Inject before meals. 40 UNITS IN THE AM AND 80 UNITS IN THE PM. 90 mL 1 02/18/2025 Activeinsulin isophane / insulin, regular, human (12 sources)InsulinStart: 13-30-8863dwkfws 40 [IU] by subcutaneous injection at breakfast, then inject 80 [IU] by subcutaneous injection at bedtimeinsulin isophane-insulin regular See Instructions, Refill(s) 0, inject 40 units SQ at breakfast and80 units at bedtime Start Date: 05/05/23 Status: Ordered Repeat number: 1Start: 46-60-1002tkmtfy 40 [IU] by subcutaneous injection at breakfast, then inject 80 [IU] by subcutaneous injection at bedtimeinsulin isophane- insulin regular See Instructions, Refill(s) 0, inject 40 units SQ at breakfast and80 units at bedtime Start Date: 05/05/23 Status: Ordered3 ml insulin lispro 50 unt/ml / insulin, protamine lispro, human 50 unt/ml pen injector (1 source)Insulin Analoginsulin lispro prot & lispro (HUMALOG 50/50) (50-50) 100 UNIT per ML SUPN injection pen Inject into the skin 3 times daily 0 Active Insulin NPH Human, Isophane, (NOVOLIN N FLEXPEN SC) (5 sources)inject 40 [IU] by subcutaneous injection twice daily in the morning, then inject 80 [IU] by subcutaneous injection in the eveningInsulin NPH Human, Isophane, (NOVOLIN N FLEXPEN SC) Inject under the skin 2 (two) times a day 40 UNITS IN THE AM AND 80 UNITS IN THE PM ActiveINSULIN NPH, HUMAN,, ISOPHANE, SC (14 sources)INSULIN NPH, HUMAN,, ISOPHANE, SC Inject under the skin Active3 ml insulin, regular, human 100 unt/ml pen injector (20 sources)InsulinStart: 02-13-2025 End: 06-37-3705hfligcx regular (NovoLIN R FlexPen) 100 UNIT/ML pen Indications: Type 2 diabetes mellitus with hyperglycemia (HCC) INJECT 30 UNITS UNDER THE SKIN IN THE MORNING, AT NOON AND IN THE EVENING WITH MEALS90 mL 1 06/19/2025 Active Start: 42-30-4554pjzqwx 20 [IU] by subcutaneous injection at breakfast, then inject 35 [IU] by subcutaneous injection at dinnerNovolin R 100 units/mL Injection See Instructions, inject 20 units SQ at breakfast and lunch and 35 units at dinner, # 15 mL, Refills(s) 1, Pharmacy: [facility]/pharmacy #[id number], 172.9, cm, 10/25/23 13:05:00 EST, Height/Length Dosing, 117.4, kg, 10/25/23 13:05:00 EST, Weight Dosing Start Date: 12/05/23 Status: Ordered Quantity: 15.0 Unit: mL Repeat number: 2Start: 38-89-9559vvxkon 20 [IU] by subcutaneous injection at breakfast, then inject 35 [IU] by subcutaneous injection at dinnerNovolin R 100 units/mL Injection See Instructions, inject 20 units SQ at breakfast and lunch and 35 units at dinner, Refills(s) 0 Start Date: 05/05/23 Status: Orderedinsulin regular (NovoLIN R) 100 UNIT/ML pen Inject under the skin 3 (three) times a day with meals Activeisopropyl alcohol 0.7 ml/ml medicated pad (14 sources)Start: 66-39-2911Uflnbvl Swabs (Alcohol Prep) 70 % pads Indications: Type 2 diabetes mellitus with hyperglycemia, with long-term current use of insulin (HCC) 3 TIMES A DAY 300 each 1 03/26/2025 ActiveAlcohol Swabs pads 1 each in the morning and 1 each in the evening and 1 each before bedtime. Active levothyroxine sodium 0.125 mg oral tablet (20 sources)l-ThyroxineStart: 03-66-6934xowu 1 tablet by mouth once daily levothyroxine 125 mcg (0.125 mg) Tab See Instructions, TAKE 1 TABLET BY MOUTH EVERY DAY, # 90 tab(s), Refills(s) 1, Pharmacy: [id number], 175, cm, 07/17/24 13:17:00 EDT, Height/Length Dosing, 117.8, kg, 07/17/24 13:17:00 EDT, Weight Dosing Start Date: 11/27/24 Status: Ordered Quantity: 90.0 Unit: tab(s) Repeat number: 1Start: 58-81-4468vybj 1 tablet by mouth once dailylevothyroxine 125 mcg (0.125 mg) Tab 125 mcg = 1 tab(s), Oral, Daily, # 90 tab(s), Refills(s) 1, Pharmacy: [facility]/pharmacy #[id number], 172.9, cm, 10/25/23 13:05:00 EST, Height/Length Dosing, 117.4, kg, 10/25/23 13:05:00 EST, Weight Dosing Start Date: 12/05/23 Status: OrderedStart: 00-54-3825yapx 1 tablet by mouth once dailylevothyroxine 125 mcg (0.125 mg) Tab 125 mcg = 1 tab(s), Oral, Daily, Refills(s) 0 Start Date: 05/05/23 Status: Orderedlevothyroxine (Synthroid, Levoxyl) 125 MCG tablet Take by mouth in the morning. Take before meals. Activelisinopril 2.5 mg oral tablet (20 sources)Angiotensin Converting Enzyme InhibitorStart: 99-79-4419dyze 1 tablet by mouth once dailylisinopril 2.5 mg Tab See Instructions, TAKE 1 TABLET BY MOUTH EVERY DAY, # 90 tab(s), Refills(s) 1, Pharmacy: [id number], 175, cm, 07/17/24 13:17:00 EDT, Height/Length Dosing, 117.8, kg, 07/17/24 13:17:00 EDT, Weight Dosing Start Date: 11/27/24 Status: Ordered Quantity: 90.0 Unit: tab(s) Repeat number: 1magnesium oxide 400 mg oral tablet (3 sources)Start: 60-53-5291updh 1 tablet by mouth once dailymagnesium oxide 400 mg Tab 400 mg = 1 tab(s), Oral, Daily, Refills(s) 0 Start Date: 05/05/23 Status: Orderedtake 1 tablet by mouth once daily in the morningmagnesium oxide (MAG-OX) 400 MG tablet Take 400 mg by mouth every morning 0 Activeomeprazole 20 mg delayed release oral capsule (20 sources)Proton Pump InhibitorStart: 05-84-5584hpzh 1 capsule by mouth once dailyomeprazole 20 mg Cap-DR See Instructions, TAKE 1 CAPSULE BY MOUTH EVERY DAY, # 90 cap(s), Refills(s) 1, Pharmacy: [id number], 175, cm, 07/17/24 13:17:00 EDT, Height/Length Dosing, 117.8, kg, 07/17/24 13:17:00 EDT, Weight Dosing Start Date: 11/27/24 Status: Ordered Quantity: 90.0 Unit: cap(s) Repeat number: 1Start: 25-23-3213iouv 1 capsule by mouth once dailyomeprazole 20 mg Cap-DR 20 mg = 1 cap(s), Oral, Daily, # 90 cap(s), Refills(s) 1, Pharmacy: [facility]/pharmacy #[id number], 172.9, cm, 10/25/23 13:05:00 EST, Height/Length Dosing, 117.4, kg, 10/25/23 13:05:00 EST, Weight Dosing Start Date: 12/05/23 Status: OrderedStart: 27-02-8504ggwt 1 capsule by mouth once dailyomeprazole 20 mg Cap- DR 20 mg = 1 cap(s), Oral, Daily, Refills(s) 0 Start Date: 05/05/23 Status: Order edtake 1 tablet by mouth before mealtimeomeprazole OTC (PriLOSEC OTC) 20 MG EC tablet Take 20 mg by mouth in the morning. Take before meals. Do not crush, chew, or split. Activetake 1 capsule by mouth once dailyomeprazole (PRILOSEC) 20 MG delayed release capsule Take 20 mg by mouth daily 0 Activesucralfate 1000 mg oral tablet (1 source)Aluminum ComplexStart: 49-01-8935irjf 1 tablet by mouth four times dailysucralfate (CARAFATE) 1 GM tablet Take 1 g by mouth 4 times daily 0 03/14/2017 Active Completed/Discontinued Medications MedicationDrug Class(es)DatesSig (Normalized)Sig (Original)02 (10 sources)Start: 02, See Instructions, 1 EA, 0, Ok to discontinue O2., Supply Start Date: 02/16/24 Status: OrderedQuantity: 1.0 Unit: EA Repeat number: 1Start: 02, See Instructions, 1 EA, 0, Ok to discontinue O2., Supply Start Date: 02/16/24 Status: Ordered Problems Active Problems Problem ClassificationProblemDateDocumented DateEpisodic/ChronicAcute and unspecified renal failure (1 source)Qjzuq-iq-twmbabg renal failure; Translations: [Acute on chronic kidney failure]08-80-2728XpebissEjvzenz dysrhythmias (1 source)Sinus bradycardia; Translations: [Bradycardia, unspecified]Onset: 87-31-4936QbzgzwyfRwotbsa kidney disease (20 sources)Chronic kidney disease, stage 3 (moderate); Translations: [Chronic kidney disease stage 3]Onset: 327930-14-9317RccuchrMwfocpu on above:added per 10/21/2023 query response.Conduction disorders (13 sources)Complete atrioventricular block; Translations: [Atrioventricular block, complete]Onset: 30-02-9245PpbdduqNxlizhewai and other anemia (1 source)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; Translations: [Antineoplastic chemotherapy induced anemia]Onset: 089843-35-6949Jnofetow mellitus with complications (20 sources)Other specified diabetes mellitus with diabetic chronic kidney disease; Translations: [Type 2 diabetes mellitus with other diabetic kidney complication]Onset: 03-02-2018 Resolved: 108636-04-0387GhhnuooUuaovnrw mellitus without complication (20 sources)Diabetes mellitus; Translations: [Type 2 diabetes mellitus] 62-25-6833PlatnqrJewvljc on above:linked DM with HLD per OP CDI policy.linked DM with CKD per [facility]I policy.Disorders of lipid metabolism (20 sources)Hyperlipidemia; Translations: [Hyperlipidemia, unspecified]Onset: 236008-40-9451PugxpfeFavezcdxyt disorders (13 sources)Gastroesophageal reflux disease; Translations: [Gastroesophageal reflux disease without esophagitis]Onset: 225917-82-2911DuwnoufUfbhtlwfs hypertension (20 sources)Hypertensive disorder; Translations: [Essential hypertension]Onset: 369501-93-4076MzxhreuCxifg and electrolyte disorders (2 sources)Hyperkalemia; Translations: [Hyperkalemia]Onset: 32-58-4479Jluitfqd Genitourinary symptoms and ill-defined conditions (4 sources)Microalbuminuria; Translations: [Proteinuria, unspecified]01-24-2025 EpisodicHypertension with complications and secondary hypertension (6 sources)Hypertensive chronic kidney disease with stage 1 through stage 4 chronic kidney disease, or unspecified chronic kidney disease; Translations: [Hypertensive chronic kidney disease with stage 1 throughstage 4 chronic kidney disease, or unspecified chronic kidney disease]Onset: 03-02-2018 Resolved: 900692-90-4461VlrmybtHtzpcvf and fatigue (12 sources)Fatigue; Translations: [Chronic fatigue, unspecified]06-27-2023 ChronicMiscellaneous mental health disorders (2 sources)Primary insomnia; Translations: [Primary insomnia]Onset: 09-12-2017 32-02-5363JbyjbieFeh-Hodgkin`s lymphoma (11 sources)Non-Hodgkin's lymphoma (clinical); Translations: [Diffuse non- Hodgkin's lymphoma, large cell (clinical)]Onset: 151955-84-5253VnxysbpCju- Hodgkin`s lymphoma (11 sources)History of malignant zcxlnytu62-26-3521ZtyjqtnmLzowuvaphck deficiencies (20 sources)Vitamin D deficiency; Translations: [Vitamin D deficiency, unspecified]Onset: 370347-88-7783QspddfdNdmsr aftercare (20 sources)Long-term current use of insulin; 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]Onset: 15-01-6773BuqkitboZgryv lower respiratory disease (10 sources)Dyspnea on xfwjlvfe06-20-5048FykfbtjjLqhbs male genital disorders (13 sources)Disorder of prostate; Translations: [Disorder of prostate, unspecified]Onset: 031396-58-5921JbfmtvyhWpcwh nutritional; endocrine; and metabolic disorders (1 source)Hypomagnesemia; Translations: [Hypomagnesemia]Onset: 20-15-3390Cnklcam Other nutritional; endocrine; and metabolic disorders (1 source)Severe obesity; Translations: [Severe obesity (BMI 35.0-39.9) with comorbidity]Onset: 124933-27-1729BieztpxYqgwv nutritional; endocrine; and metabolic disorders (11 sources)Morbid zyzitoa54-16-3865JsytjboOphuuuq on above:added per 10/21/2023 query response.Other nutritional; endocrine; and metabolic disorders (20 sources)Body mass index 30+ - obesity; Translations: [Body mass index (BMI) 37.0-37.9, adult]Onset: 056084-02-0645WcqdxnnYumhs nutritional; endocrine; and metabolic disorders (1 source)Morbid (severe) obesity due to excess calories; Translations: [Morbid (severe) obesity due to excess calories]Onset: 50-02-0670VpijsnqXpexcvqz codes; unclassified (2 sources)Sleep apnea; Translations: [Sleep apnea]20-30-2443NsenvesCmkbtuyz codes; unclassified (8 sources)Obstructive sleep apnea syndrome; Translations: [Obstructive sleep apnea (adult) (pediatric)]Onset: 90-07-7600SgpjlvfTvpxifmc codes; unclassified (12 sources)Sleep tojpccjt08-75-0509FgbmtefjUvttboj disorders (20 sources)Hypothyroidism; Translations: [Autoimmune thyroiditis]Onset: 674179-70-9218TduwsylPsuxamo disorders (2 sources)Disorder of thyroid gland; Translations: [Thyroid disease]07-05-2014 EpisodicUnclassified (1 source)CHRN KIDNEY DISEASE STG 3 UNSP; Translations: [CHRN KIDNEY DISEASE STG 3 UNSP]Onset: 02-62-1326Uviobmxpfnyl (11 sources)Long-term current use of qggjpeo80-65-4725Dfcfikd on above:Current Medication List includes Novolin R. added per OP [facility]I policy.Unclassified (1 source)Irt-sgumxq29-22nqvqhg24-88-1605Fngyw infection (9 sources)Disease caused by 5543-uPxF06-52-2024 Past or Other Problems Problem ClassificationProblemDateDocumented DateEpisodic/ChronicAcute and unspecified renal failure (1 source)Ibais-wu-nitjkhk renal casmxcf46-39-5745WinnraclEncajbg kidney disease (1 source)Chronic kidney disease Resolved: 729764-76-6032Fzfxsfphia and other anemia (1 source)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Onset: EpisodicDiabetes mellitus with complications (1 source)Diabetes mellitus with complications Resolved: Other male genital disorders (2 sources)Testicular mass; Translations: [Testicular mass]Onset: 05-13-2014 EpisodicOther skin disorders (2 sources)Mass of chest wall; Translations: [Chest wall mass]Onset: 05-09-2014 Episodic Results Test NameValueInterpretationReference RangeFacilityAmbulatory Visit Summaryon 17-16-3986Inrrcwearb Visit SummaryAmbulatory Visit Summary ISAIAH EMERSON I :1955 Visit Date:09/30/2025 Ambulatory Visit Instructions Your Diagnosis 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 II diabetes mellitus with stage 3 chronic kidney disease Chronic kidney disease (CKD) stage G3b/A1, moderately decreased glomerular filtration rate (GFR) between 30-44 mL/min/1.73 square meter and albuminuria creatinine ratio less than 30 mg/g Hypercholesterolemia Hypothyroidism Screening for prostate cancer Your Care Team Attending Physician - ANTONIA THOMAS CNP Primary Care Physician - NONE, XXXX This Is Your Medications List Misc Prescription () Misc Prescription (Misc DME Prescription) Misc Prescription () atorvastatin (atorvastatin 80 mg Tab) ergocalciferol (ergocalciferol 50,000 intl units Cap) fenofibrate (fenofibrate 48 mg Tab) insulin isophane-insulin regular insulin regular (Novolin R 100 units/mL Injection) levothyroxine (levothyroxine 125 mcg (0.125 mg) Tab) lisinopril (lisinopril 2.5 mg Tab) metoprolol (metoprolol succinate 25 mg ER Tab) omeprazole (omeprazole 20 mg Cap-DR) Procedures Performed Pacemaker catheter, device (02/02/2024), Insulin pump, Tonsillectomy and adenoidectomy. Discharge Vitals Temperature (Temporal Artery) 36.5 ???C Heart Rate (Peripheral) 92 Respiratory Rate 18 Blood Pressure 120/70 Height 175 cm Height 69 in Weight 116.7 kg Weight 257.279 lb BMI 38.11 What to do next Scheduled Follow-Up Appointments Tuesday2025 10:20 AM EST With: Tiffany Lombardo DO Where: [address] [address] 2025 8:45 AM EDT With: Where: [facility] Tuesday2025 11:30 AM EDT With: Aby RODRIGES, Maurice Reed Where: [facility] 2025 11:00 AM EDT With: Where: [facility] You Need to Schedule the Following Appointments Follow Up with Tiffany Lombardo When: Within 3 months Comments: Diabetes Where: [address] [place] [phone] [facility] (1) Medications What How Much When Why Instructions Unchanged atorvastatin (atorvastatin 80 mg Tab) See instructions TAKE 1 TABLET BY MOUTH EVERY DAY Unchanged ergocalciferol (ergocalciferol 50,000 intl units Cap) See instructions 1 cap(s) Oral every other week Unchanged fenofibrate (fenofibrate 48 mg Tab) See instructions TAKE 1 TABLET BY MOUTH EVERY DAY Unchanged insulin isophane-insulin regular See instructions inject 40 units SQ at breakfast and 80 units at bedtime Unchanged insulin regular (Novolin R 100 units/ mL Injection) See instructions inject 20 units SQ at breakfast and lunch and 35 units at dinner Unchanged levothyroxine (levothyroxine 125 mcg (0.125 mg) Tab) See instructions TAKE 1 TABLET BY MOUTH EVERY DAY Unchanged lisinopril (lisinopril 2.5 mg Tab) See instructions TAKE 1 TABLET BY MOUTH EVERY DAY Unchanged metoprolol (metoprolol succinate 25 mg ER Tab) 1 Tablets By Mouth Every day Complete heart block Hypertension Unchanged Misc Prescription (02) See instructions Ok to discontinue O2. Unchanged Misc Prescription (Misc DME Prescription) See instructions lancet use QID e11.9 Unchanged Misc Prescription (syrings) See instructions syrings 31g x8mm use qid and prn E11.9 Unchanged omeprazole (omeprazole 20 mg Cap-DR) See instructions TAKE 1 CAPSULE BY MOUTH EVERY DAY Allergies No Known Medication Allergies Problems Ongoing - Any problem that you are currently receiving treatment for. BMI 38.0-38.9,adult Chronic fatigue Disorder of prostate Gastroesophageal reflux disease without esophagitis Hx of lymphoma Hypercholesterolemia Hypothyroidism Long-term insulin use Nonsmoker Obesity (BMI 30-39.9) MANNY (obstructive sleep apnea) Primary hypertension S/P placement of cardiac pacemaker Sleep disorder 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 [...] you for choosing us for your care. Patient Portal You may access all of your results and other medical record information on our secure patient portal. If you are not signed up for this yet, please contact [employer] at [phone] to get signed up today. Language Information Language assistance services are available as needed. [facility] [facility] [place] Medicine Office/Clinic Noteon [id number] Medicine Office/Clinic NoteFagaebler children's center Medicine Office/Clinic Note HPI Staff Please speak with patient about scheduling an AWV. Patient is here for follow up on hypertension. How often are you checking your blood pressure? Doesnt check BP at home What are your average readings? _ Do you have any of the following symptoms? Chest Pain? no Palpitations? no ROYAL/SOB? no Headache? no Peripheral Edema? no Light Headiness? no Patient is here for follow up on Diabetes. How often are you checking your blood sugars? 4 times per day What are your average readings? _150-273 Paresthesias, Ulcerations or sores? no Lisinopril, aspirin, statin therapy? Yes Foot Exam: due Eye Exam: LAST YEAR, SCHEDULED FOR February A1c: Hgb A1C %: 7.6 % High (07/17/24 14:34:00) eGFR: 40 mL/min/1.73 m2 Low (07/17/24 14:34:00) Creatinine: 1.8 mg/dL High (07/17/24 14:34:00) Questions/Concerns: Acute: Current issues/complaints: NO Refills: NO History of Present Illness 70 year old patient presents today to determine his provider so he can continue his medicaitons. Hehas a hx of diabetes and reports he does check his blood sugar and reports they have been running between 150-275. His last HgbA1C was 06/2024 at 7.6%. He is due to have laboratory testing completed. He denies any increased thirst or urination. He does not check his blood pressure and denies dizziness, headaches, vision change, chest pain, orheart palpitations. He declines needing medication refills at this visit. Review of Systems PHQ Score Initial Depression Screen Score: 0 SCORE Physical Exam Vitals & Measurements T: 36.5 ???C(Temporal Artery) HR: 92(Peripheral) RR: 18 BP: 120/70 HT: 69 in HT: 175 cm WT: 257.279 lb WT: 116.7 kg BMI: 38.11 General: alert, no acute distress Skin: warm, dry Head: no trauma, normocephalic Neck: Trachea midline, no adenopathy, no tenderness Eye: normal conjunctiva, sclera clear Cardiovascular: regular rate and rhythm, normal peripheral perfusion Respiratory: Lungs CTA, respirations non labored Assessment/Plan 1. Type 2 diabetes mellitus with hypercholesterolemia (E11.69: Type 2 diabetes mellitus with other specified complication) Awaiting laboratory results Encouraged low carb diet and daily exercise No medication refills at this visit F/U in 3 months Ordered: Comprehensive Metabolic Panel HgbA1c Microalbumin Level Urine 2. Type II diabetes mellitus with stage 3 chronic kidney disease (E11.22: Type 2 diabetes mellitus with diabetic chronic kidney disease) Awaiting laboratory results Encouraged low carb diet and daily exercise No medication refills at this visit F/U in 3 months Ordered: Comprehensive Metabolic Panel HgbA1c Microalbumin Level Urine 3. Chronic kidney disease (CKD) stage G3b/A1, moderately decreased glomerular filtration rate (GFR)between 30-44 mL/min/1.73 square meter and albuminuria creatinine ratio less than 30 mg/g (N18.32: Chronic kidney disease, stage 3b) Awaiting laboratory results May refer to nephrology pending results Encouraged daily exercise F/U in 3 months Ordered: CBC w/ Auto Diff Comprehensive Metabolic Panel Microalbumin Level Urine 4. Hypercholesterolemia (E78.00: Pure hypercholesterolemia, unspecified) Awaiting laboratory results Encouraged low fat diet and daily exercise No medication refills at this visit Continue atorvastatin 80 mg one tablet po daily F/U in 3 months Ordered: Lipid Panel 5. Hypothyroidism (E03.9: Hypothyroidism, unspecified) Stable Continue levothyroxine 125 mcg one tablet po daily Awaiting laboratory results F/U in 3 months Ordered: Thyroid Stimulating Hormone 6. Screening for prostate cancer (Z12.5: Encounter for screening for malignant neoplasm of prostate) Ordered: PSA Screen, Total Follow-up With When Contact Information Tiffany Lombardo Within 3 months [address] [place] [address]- [phone] Business (1) Additional Instructions: Diabetes Patient Education Chronic Kidney Disease, Adult, Hiqk-pl-Ndbs Problem List/Past Medical History Ongoing BMI 38.0-38.9,adult Chronic fatigue Disorder of prostate Gastroesophageal reflux disease without esophagitis Hx of lymphoma Hypercholesterolemia Hypothyroidism Long-term insulin use Nonsmoker Obesity (BMI 30-39.9) MANNY (obstructive sleep apnea) Primary hypertension S/P placement of cardiac pacemaker Sleep disorder 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 2 diabetes mellitus with stage 3a chronic kidney disease Vitamin D deficiency Historical Morbid obesity Procedure/Surgical History Pacemaker catheter, device (02/02/2024), Insulin pump, Tonsillectomy and adenoidectomy. Medications 02, See Instructions atorvastatin 80 mg Tab, See Instructions ergocalciferol 50,000 intl units Cap, See Instructions fenofibrate 48 mg Tab, See Instructions insulin isophane-insulin regular, See Instructions levothyroxine 125 mcg (0 (more content not included)...[facility] CenterComment on above:Result Comment: Electronically Signed By: ANTONIA THOMAS CNP\.br\Date and Time Signed: 09/30/25 11:54 ESTPre-Visit Planningon [id number]-Visit PlanningPre-Visit Planning From: Selin Davis To: ANTONIA THOMAS CNP; Sent: 09/27/2025 13:11:44 EDT Subject: Pre-Visit Planning Due Date/Time: 09/27/2025 13:11:00 EDT Caller Name: ISAIAH EMERSON I; Caller Number: , Haile Rubio. During a pre-visit planning chart review, I noted the following documentation in the medical record: Current Problem List: Type 2 diabetes mellitus with stage 3a CKD. ??? Glomerular filtration rate (GFR): Based on your medical judgment, can you please clarify which of the following conditions are present? I can update the Chronic Problem List with your response if you would like. -Chronic Kidney Disease Stage 3b (GFR 30-44) -Chronic Kidney Disease Stage 3a (GFR 45-59) -Other (please specify): In responding to this request, please exercise your independent professional judgment. The fact that a question is asked does not imply that any particular answer is desired or expected. If you have any questions, please feel free to contact me at extension [phone]. Thank you! Selin Davis LPN Clinical [facility] [place] [address] Extension: [phone] [email or web address] From: ANTONIA THOMAS CNP To: Selin Davis; Sent: 09/30/2025 11:55:22 EST Subject: RE: Pre-Visit Planning Caller Name: ISAIAH EMERSON I; Caller Number: H , M This dx added and documented in the plan: Chronic Kidney Disease Stage 3b (GFR 30-44)[facility] CenterPre- Visit PlanningPre-Visit Planning From: Selin Davis To: ANTONIA THOMAS CNP; Sent: 09/27/2025 13:02:26 EDT Subject: Pre-Visit Planning Due Date/Time: 09/27/2025 13:02:00 EDT Caller Name: ISAIAH EMERSON I; Caller Number: H , M Haile Rubio. During a pre-visit planning chart review, I noted the following documentation in the medical recordindicates that this patient had BMI of 37.16 on 08/08/2025 and a diagnosis of GERD, MANNY, HTN, and Type 2 diabetes mellitus with HLD noted on Current Problem List. If BMI during this current visit is greater than 35: Based on your medical judgment, can you further clarify the following? I can update the Chronic Problem List with your response if you would like. -Morbid obesity (please also include additional diagnosis to reflect current BMI) -Other (please specify): In responding to this request, please exercise your independent professional judgment. The fact that a question is asked does not imply that any particular answer is desired or expected. If you have any questions, please feel free to contact me per TEAMS or [phone]. Thank you! Selin Davis LPN [facility] [address] [address] TEAMS or [email or web address] From: ANTONIA THOMAS CNP To: Selin Davis; Sent: 09/30/2025 11:46:52 EST Subject: RE: Pre-Visit Planning Caller Name: ISAIAH EMERSON I; Caller Number: Adam , Jose BMI is 38.11 today in the office- Unable to add dx to list- Please do soNormal Trinity Health SystemGlucose (Bld) [Mass/Vol]on [id number] Blood, RVT440 mg/dLNOMS HealthcareLaboratory - Hematology and Cell countson 09-18-2025 HbA1c (Bld) [Mass fraction]6.6 %NOMS HealthcareNo Panel Informationon 09-18-2025 [facility] HealthcareHeart and Vascular Office/Clinic Noteon [id number] and Vascular Office/Clinic NoteHeart and Vascular Office/Clinic Note Chief Complaint Follow up after device check History of Present Illness Patient is a 70 year old male here to establish care with EP. Patient states he does have an at home monitor. Patient has sleep apnea, this can affect the heart. Patient has not been using his machine for about 2 months but he is going to start using it again. Review of Systems ROS - Provider Constitutional: no fever, no chills, no sweats, no weakness Respiratory: no shortness of breath, no cough Cardiovascular: no chest pain Neuro: no dizziness. no loss of consciousness Physical Exam Vitals & Measurements HR: 93(Peripheral) RR: 18 BP: 117/72 SpO2: 96% HT: 175 cm HT: 69 in WT: 250.886 lb WT: 113.8 kg BMI: 37.16 General: alert, no acute distress Neck: Supple, noJVD nocarotid bruit Cardiovascular: regular rate and rhythm, no murmur normal peripheral perfusion Respiratory: Lungs CTAB, respirations non labored Extremities: Trace edema left lower extremity. Trace edema right lower extremity small barrington bursts bilateral lower extremities Neurological: oriented x 4, LOC appropriate for age, speech normal Skin: Warm, dry, intact- no rash or concerning lesions Assessment/Plan 1. Pacemaker (Z95.0: Presence of cardiac pacemaker) Medtronic Dual Chamber placed 02/02/2024. NSVT episodes were noted lasting a couple seconds in duration, no changes are needed for this. Patient will get a chest x-ray today. Patient will have a remote device check and will follow up in 6 months or sooner if needed. Raymond have an ECHO before his next appointment. Patient will follow up I Leticia Brar personally transcribed this note for on 08/08/2025 at 1334. Follow-up With When Contact Information Aby RODRIGES, Maurice W, CAR Within [address] [place] [address]- Additional Instructions: remote device check Aby RODRIGES, Maurice Reed, CAR Within [address] [place] [address]- Additional Instructions: Problem List/Past Medical History Ongoing BMI 38.0-38.9,adult Chronic fatigue Disorder of prostate Gastroesophageal reflux disease without esophagitis Hx of lymphoma Hypercholesterolemia Hypothyroidism Long-term insulin use Nonsmoker Obesity (BMI 30-39.9) MANNY (obstructive sleep apnea) Primary hypertension S/P placement of cardiac pacemaker Sleep disorder Type 2 diabetes mellitus with hypercholesterolemia Vitamin D deficiency Historical Morbid obesity Procedure/Surgical History Pacemaker catheter, device (02/02/2024), Insulin pump, Tonsillectomy and adenoidectomy. Medications 02, See Instructions atorvastatin 80 mg Tab, See Instructions ergocalciferol 50,000 intl units Cap, See Instructions, 1 refills fenofibrate 48 mg Tab, See Instructions fluticasone Nasal 0.05 mg/inh [place], 2 spray(s), Nasal, Daily, 5 refills insulin isophane-insulin regular, See Instructions levothyroxine 125 mcg (0.125 mg) Tab, See Instructions lisinopril 2.5 mg Tab, See Instructions metoprolol succinate 25 mg ER Tab, 25 mg= 1 tab(s), Oral, Daily Misc DME Prescription, See Instructions, 5 refills Novolin R 100 units/mL Injection, See Instructions, 1 refills omeprazole 20 mg Cap-DR, See Instructions omeprazole 20 mg Cap-DR, See Instructions syrings, See Instructions, 3 refills Allergies No Known Medication Allergies Social History Alcohol Current. Wine, Liquor. 1-2 times per month., 03/25/2025 Substance Abuse - Denies Substance Abuse, 07/17/2024 Never., 03/25/2025 Tobacco - Denies Tobacco Use, 07/17/2024 Former smoker, quit more than 30 days ago Tobacco Use:. Never Smokeless Tobacco Use:. Household tobacco concerns: No. Yes, 08/08/2025 Family History Primary malignant neoplasm of colon: Mother. Primary malignant neoplasm of female breast: Sister. Immunizations Vaccine Date Status Comments pneumococcal 20-valent conjugate vaccine 09/08/2023 Recorded influenza virus vaccine, inactivated 09/08/2023 Recorded influenza virus vaccine, inactivated 09/19/2022 Recorded SARS-CoV-2 (COVID-19) [id number] 09/19/2022 Recorded SARSCoV2 mRNA(aftewrdqb-cxbu-kuczjh) vac 03/06/2022 Recorded pneumococcal 13-valent vaccine 08/29/2021 Recorded influenza virus vaccine, inactivated 08/24/2021 Recorded SARS-CoV-2 (COVID-19) mRNA BNT-162b2 vax 08/24/2021 Recorded SARS-CoV-2 (COVID-19) mRNA BNT-162b2 vax 02/07/2021 Recorded 2023-06-09: [id number] SARS-CoV-2 (COVID-19) mRNA BNT-162b2 vax 01/17/2021 Recorded 2023-06-09: TPV65 pneumococcal 23-valent vaccine 08/28/2020 Recorded influenza virus vaccine, inactivated 08/28/2020 Recorded influenza virus vaccine, inactivated 09/12/2017 Recorded influenza virus vaccine, inactivated 09/06/2005 RecordedUniversity Hospitals Elyria Medical CenterComment on above:Result Comment: Electronically Signed By: Maurice Badillo MD\.br\Date and Time Signed: 08/08/25 16:37EDT\.br\Electronically Co- Signed By: Leticia An\.br\Date and Time Co-Signed: 08/08/25 13:43 EDTXR Chest 2 Viewson [id number] Chest 2 ViewsExam Date/Time: 08/08/2025 14:12 EDT Reason for Exam: lead check;Lead check Report IMPRESSION: NO RADIOGRAPHIC EVIDENCE OF ACUTE INTRATHORACIC PROCESS. EXAMINATION: XR Chest 2 Views HISTORY: Pacemaker lead check. TECHNIQUE: Frontal and lateral views of the chest. COMPARISON: 01/30/2024 radiograph FINDINGS: Left-sided pacemaker is present, with leads terminating over the right atrium and right ventricle. Cardiomediastinal silhouette is within normal limits. No pneumothorax, pleural effusion, or consolidation. No acute osseous abnormality. Ordering Provider: Maurice Baidllo FINAL REPORT Dictated: 08/08/2025 4:36 pm Stuart Gorman DO Signed (Electronic Signature): 08/08/2025 4:36 pm Signed by: Stuart Gorman DO Transcribed by: JUSTICE Technologist: Jeaneth [facility] CenterHeart [facility] Vascular Office/Clinic Noteon [id number] and Vascular Office/Clinic Note Heart and Vascular Office/Clinic Note Chief Complaint 1 year follow up History of Present Illness The patient is a pleasant 70-year-old male with past medical history of diabetes, hypertension, dyslipidemia. Pt also has a dual-chamber Medtronic permanent pacemaker placed in January 2024 at [facility] in [place] in a context of complete heart block. Transthoracic echocardiogram at time of pacemaker placement showed normal LVEF, no significant local wall motion abnormalities, no evidenceof pulmonary hypertension. Patient comes in for 1 year follow-up today. Patient comes in with his , Hannah, who provides some history today. Reviewed prior device clinic checks At last visit, pt saw Dr. Beal at which time he was set up with device clinic. Patient's most recent device check was in 01/2025 which showed that he had 4 NSVT episodes all less than 7 seconds and was recommended follow-up in 6 months. Patient reports that he has been doing pretty well overall since last visit. EKG in the office shows that patient is slightly tachycardic with a heart rate of 101 bpm and he is being ventricularly paced by pacemaker. Does not appear the patient is being dually paced at this time. Patient is not currently taking medication for rate control. He was started on pacemaker due to complete heart block in 01/2024. Patient reports that he does not feel like his heart is racing does not have any specific heart palpitations at this time. Patient blood pressure at goal today in the office on recheck. He is currently only taking lisinopril 2.5 mg daily that would affect his blood pressure. Patient reports that his blood pressure is usually well-controlled and never as high as it was when he initially came into the office. Patient denies chest pain, shortness of breath, dizziness/lightheadedness, and swelling in lower legs. Review of Systems ROS - Provider Constitutional: no fever, no chills, no sweats, no weakness Respiratory: no shortness of breath, no cough Cardiovascular: no chest pain Neuro: no dizziness. no loss of consciousness Physical Exam Vitals & Measurements HR: 103(Peripheral) RR: 18 BP: 130/80 SpO2: 96% HT: 69 in HT: 175 cm WT: 264.775 lb WT: 120.1 kg BMI: 39.22 General: alert, no acute distress Cardiovascular: regular rate and rhythm, no murmur normal peripheral perfusion Respiratory: Lungs CTAB, respirations non labored Extremities: no edema left lower extremity. no edema right lower extremity Neurological: oriented x 4, LOC appropriate for age, speech normal Skin: Warm, dry, intact- no rash or concerning lesions Cardiac Diagnostics Assessment/Plan 1. Complete heart block (I44.2: Atrioventricular block, complete) Patient has history of complete heart block with dual chamber pacemaker placed. Most recent pacemaker check was good and he was suggested 6-month follow-up. Patient is tachycardic in the office todayand looking back at his fast vitals, it is often in this range. We did start patient on metoprolol 25 mg ER daily at this time to help slow down his heart rate slightly. 2. Pacemaker (Z95.0: Presence of cardiac pacemaker) Patient has pacemaker in place and is compliant with pacemaker checks at [facility] pacemaker clinic. Next check is in 07/2025. 3. Hypertension (I10: Essential (primary) hypertension) Blood pressure controlled on recheck in the office today. Patient is currently taking lisinopril 2.5 mg daily, affect his blood pressure. Suggested he continue to monitor, but no medications in the office today. Follow-up with Dr. Badillo as scheduled in 07/2025 and follow-up with me after that per Dr. Badillo's instruction. Portions of this record may have been created with voice recognition artificial intelligence software, specifically [employer] and or [employer]. Substitutions may have occurred due to the inherent limitations of voice recognition and artificial intelligence software. Total time spent preparing for the encounter, evaluating and assessing the patient, documenting thevisit, and ordering appropriate follow-up work was 30 minutes. Follow-up No qualifying data available Problem List/Past Medical History Ongoing BMI 38.0-38.9,adult Chronic fatigue Disorder of prostate Gastroesophageal reflux disease without esophagitis Hx of lymphoma Hypercholesterolemia Hypothyroidism Long-term insulin use Nonsmoker Obesity (BMI 30-39.9) MANNY (obstructive sleep apnea) Primary hypertension S/P placement of cardiac pacemaker Sleep disorder Type 2 diabetes mellitus with hypercholesterolemia Vitamin D deficiency Historical Morbid obesity Procedure/Surgical History Pacemaker catheter, device (02/02/2024), Insulin pump, Tonsillectomy and adenoidectomy. Medications 02, See Instructions atorvastatin 80 mg Tab, See Instructions ergocalciferol 50,000 intl units Cap, See Instructions, 1 refills fenofibrate 48 mg Tab, See Instructions fluticasone Nasal 0.05 (more content not included)...[facility] Medical CenterComment on above:Result Comment: Electronically Signed By: Oscar CRUZ, Satinder Elizalde\.br\Date and Time Signed: 06/17/25 08:36 EDTGlucose (Bld) [Mass/Vol]on [id number] Blood, ABK718 mg/dLNOME HealthcareLaboratory - Hematology and Cell countson [id number] (Bld) [Mass fraction]7.7 %NOMS HealthcareNo Panel Informationon [id number] HealthcareAmbulatory Visit Summaryon 04-11-2025 Ambulatory Visit SummaryAmbulatory Visit Summary ISAIAH EMERSON I :1955 Visit Date:04/11/2025 Ambulatory Visit Instructions Your Diagnosis Stage 3a chronic kidney disease (CKD) BMI 38.0-38.9,adult Obesity (BMI 30-39.9) Nonsmoker Your Care Team Attending Physician - Tony Vasquez MD Primary Care Physician - Tony Vasquez MD This Is Your Medications List Misc Prescription (02) Misc Prescription (Misc DME Prescription) Misc Prescription (syrings) atorvastatin (atorvastatin 80 mg Tab) ergocalciferol (ergocalciferol 50,000 intl units Cap) fenofibrate (fenofibrate 48 mg Tab) fluticasone nasal (fluticasone Nasal 0.05 mg/inh [place]) insulin isophane-insulin regular insulin regular (Novolin R 100 units/mL Injection) levothyroxine (levothyroxine 125 mcg (0.125 mg) Tab) lisinopril (lisinopril 2.5 mg Tab) omeprazole (omeprazole 20 mg Cap-DR) omeprazole (omeprazole 20 mg Cap-DR) Procedures Performed Pacemaker catheter, device (02/02/2024), Insulin pump, Tonsillectomy and adenoidectomy. Discharge Vitals Temperature (Tympanic) 36.8 ???C Heart Rate (Peripheral) 100 Respiratory Rate 20 Blood Pressure 132/78 Height 175 cm Height 69 in Weight 119 kg Weight 262.35 lb BMI 38.86 What to do next Scheduled Follow-Up Appointments Tuesday 1:45 PM EDT With: Javon RODRIGES, Julio Muro Where: [facility] [place] Tuesday 1:00 PM EDT With: Where: [address] [address]- Tuesday 3:20 PM EDT With: Tony Vasquez MD Where: [address] [address]- 2024 1:00 PM EDT With: Where: [facility] 2024 1:30 PM EDT With: Aby RODRIGES, Maurice Reed Where: [facility] Medications What How Much When Why Instructions Unchanged atorvastatin (atorvastatin 80 mg Tab) See instructions TAKE 1 TABLET BY MOUTH EVERY DAY Unchanged ergocalciferol (ergocalciferol 50,000 intl units Cap) See instructions 1 cap(s) Oral every other week Unchanged fenofibrate (fenofibrate 48 mg Tab) See instructions TAKE 1 TABLET BY MOUTH EVERY DAY Unchanged fluticasone nasal (fluticasone Nasal 0.05 mg/ inh [place]) 2 Sprays Nasal Inhalation Every day MANNY (obstructive sleep apnea) Duration: 30 Days each nostril Unchanged insulin isophane-insulin regular See instructions inject 40 units SQ at breakfast and 80 units at bedtime Unchanged insulin regular (Novolin R 100 units/ mL Injection) See instructions inject 20 units SQ at breakfast and lunch and 35 units at dinner Unchanged levothyroxine (levothyroxine 125 mcg (0.125 mg) Tab) See instructions TAKE 1 TABLET BY MOUTH EVERY DAY Unchanged lisinopril (lisinopril 2.5 mg Tab) See instructions TAKE 1 TABLET BY MOUTH EVERY DAY Unchanged Misc Prescription (02) See instructions Ok to discontinue O2. Unchanged Misc Prescription (Misc DME Prescription) See instructions lancet use QID e11.9 Unchanged Misc Prescription (syrings) See instructions syrings 31g x8mm use qid and prn E11.9 Unchanged omeprazole (omeprazole 20 mg Cap-DR) See instructions TAKE 1 CAPSULE BY MOUTH EVERY DAY Unchanged omeprazole (omeprazole 20 mg Cap-DR) See instructions TAKE 1 CAPSULE BY MOUTH EVERY DAY Allergies No Known Medication Allergies Problems Ongoing - Any problem that you are currently receiving treatment for. BMI 38.0-38.9,adult Chronic fatigue Disorder of prostate Gastroesophageal reflux disease without esophagitis Hx of lymphoma Hypercholesterolemia Hypothyroidism Long-term insulin use Nonsmoker Obesity (BMI 30-39.9) MANNY (obstructive sleep apnea) Primary hypertension S/P placement of cardiac pacemaker Sleep disorder Stage 3a chronic kidney disease (CKD) Type 2 diabetes mellitus with hypercholesterolemia Vitamin D deficiency Historical - Any problem that you are no longer receiving treatment for. Morbid obesity Patient Survey You may receive a survey via text or e-mail asking about your office visit. Please share your experience with us by completing your survey. We appreciate your feedback and thank you for choosing us for your care. [facility] [place] Medicine Office/Clinic Noteon [phone] Medicine Office/Clinic NoteFagaebler children's center Medicine Office/Clinic Note Chief Complaint Acute Sick Visit The patient presents with a rash described as shingles, accompanied by vesicular lesions and burning sensation. HPI Staff Pt presents today for acute sick visit. Acute itchy rash on neck and back on arm that he noticed a couple days ago. Believes its shingles. Has had chicken pox in the past. History of Present Illness - The patient is a 69 year old male presenting with a rash. - Rash onset: 3-4 days ago. - Occurs on one arm and neck; vesicular, burning, and mildly itchy. - Suggestive of shingles with a dermatomal distribution. - Manages diabetes with insulin, requiring careful glucose monitoring during steroid treatment. Review of Systems PHQ Score Initial Depression Screen Score: 2 SCORE Physical Exam Vitals & Measurements T: 36.8 ???C(Tympanic) HR: 100(Peripheral) RR: 20 BP: 132/78 SpO2: 96% HT: 175 cm HT: 69 in WT: 119 kg WT: 262.35 lb BMI: 38.86 General: alert, no acute distress ENMT: oral mucosa moist Cardiovascular: Regular rate and rhythm, normal peripheral perfusion Respiratory: Lungs clear to auscultation, respirations non labored Extremities: no deformity, no trauma, rash present on arm,vesicular, burning, and mildly itchy. Neurological: oriented x 4, level of consciousness appropriate for age, CN II- XII intact, motor strength equal & normal bilaterally, speech normal Abdomen: Soft, Non-tender, Non-distended, + Bowel sounds Assessment/Plan 1. Type 2 diabetes mellitus without complications (E11.9) - Adjust insulin dosage if elevated blood glucose. - Monitor glucose regularly. Ordered: predniSONE, 20 mg = 1 tab(s), Oral, Daily, X 5 day(s), # 5 tab(s), Refills(s) 0, Pharmacy: [facility]/pharmacy #[id number], 175, cm, 04/11/25 11:36:00 EDT, Height/Length Dosing, 119, kg, 04/11/25 11:36:00 EDT, Weight Dosing Body Mass Index (BMI) documented 3008F Current tobacco non-user 1036F Depression Screening Negative 3352F Discharge medications reconciled with current medications in outpatient record 1111F Influenza immunization status assessed 1030F Medication list documented in medical record 1159F Most recent diastolic blood pressure <80 mm Hg 3078F Patient screen for fall risk: no falls in last year or 1 fall with no injury in last year 1101F Review of all meds by a prescribing practitioner or clinical pharmacist documented in EHR 1160F Systolic BP 130-139 mm Hg (Most Recent) 3075F 2. BMI 38.0-38.9,adult (Z68.38: Body mass index [BMI] 38.0-38.9, adult) - BMI education added. Ordered: predniSONE, 20 mg = 1 tab(s), Oral, Daily, X 5 day(s), # 5 tab(s), Refills(s) 0, Pharmacy: [facility]/pharmacy #[id number], 175, cm, 04/11/25 11:36:00 EDT, Height/Length Dosing, 119, kg, 04/11/25 11:36:00 EDT, Weight Dosing 3. Obesity (BMI 30-39.9) (E66.9: Obesity, unspecified) - Diet and exercise advised Ordered: predniSONE, 20 mg = 1 tab(s), Oral, Daily, X 5 day(s), # 5 tab(s), Refills(s) 0, Pharmacy: [facility]/pharmacy #[id number], 175, cm, 04/11/25 11:36:00 EDT, Height/Length Dosing, 119, kg, 04/11/25 11:36:00 EDT, Weight Dosing 4. Nonsmoker (Z78.9: Other specified health status) - Please continue to not smoke Ordered: predniSONE, 20 mg = 1 tab(s), Oral, Daily, X 5 day(s), # 5 tab(s), Refills(s) 0, [id number], 175, cm, 04/11/25 11:36:00 EDT, Height/Length Dosing, 119, kg, 04/11/25 11:36:00 EDT, Weight Dosing 5. Zoster without complications (B02.9) - Prescribe low dose steroid therapy. - Closely monitor blood glucose due to steroid use. Ordered: predniSONE, 20 mg = 1 tab(s), Oral, Daily, X 5 day(s), # 5 tab(s), Refills(s) 0, Pharmacy: [facility]/pharmacy #[id number], 175, cm, 04/11/25 11:36:00 EDT, Height/Length Dosing, 119, kg, 04/11/25 11:36:00 EDT, Weight Dosing - Low dose steroid prescribed for rash, once daily. - 69 year old male with history of obesity, stage 3a CKD, and diabetes mellitus presenting with a rash. - Probable shingles due to dermatomal, vesicular rash. - Monitor glucose levels due to steroid therapy. I discussed with the patient the likely diagnosis of shingles based on the vesicular rash with a dermatomal distribution. We agreed to start a low dose steroid to alleviate the rash and associated symptoms. I explained the need for continuous monitoring of blood glucose levels, as the steroid couldresult in increased blood sugar, necessitating adjustments in the sliding scale insulin regimen. The patient is advised to keep the rash covered, especially when around children under one year or women, until it resolves. The importance of monitoring and possibly increasing the insulin dose was explained, and the new sliding scale doses were provided for his meals. He understands the need for regular blood sugar checks and precautions to avoid spreading the infection. Follow-up No qualifying data available Problem List/Past Medical History Ongoing BMI 38.0-38.9,adult Chronic fatigue Disorder of prostate Gastroesophage (more content not included)...[facility] Comment on above:Result Comment: Electronically Signed By: Tony Vasquez MD\.br\Date and Time Signed: 04/11/25 12:31 EDTAmbulatory Visit Summaryon [id number] Visit SummaryAmbulatory Visit Summary ISAIAH EMERSON I :1955 Visit Date:03/25/2025 Ambulatory Visit Instructions Your Diagnosis Type 2 diabetes mellitus with hypercholesterolemia Long-term insulin use Gastroesophageal reflux disease without esophagitis Hypercholesterolemia Hypothyroidism MANNY (obstructive sleep apnea) Primary hypertension Vitamin D deficiency BMI 39.0-39.9,adult Obesity (BMI 30-39.9) Nonsmoker Your Care Team Attending Physician - Tony Vasquez MD. Primary Care Physician - Tony Vasquez MD. This Is Your Medications List [facility] Prescription (02) Misc Prescription (Misc DME Prescription) Misc Prescription (syring) atorvastatin (atorvastatin 80 mg Tab) ergocalciferol (ergocalciferol 50,000 intl units Cap) fenofibrate (fenofibrate 48 mg Tab) fluticasone nasal (fluticasone Nasal 0.05 mg/inh [place]) insulin isophane-insulin regular insulin regular (Novolin R 100 units/mL Injection) levothyroxine (levothyroxine 125 mcg (0.125 mg) Tab) lisinopril (lisinopril 2.5 mg Tab) omeprazole (omeprazole 20 mg Cap-DR) omeprazole (omeprazole 20 mg Cap-DR) Procedures Performed Pacemaker catheter, device (02/02/2024), Insulin pump, Tonsillectomy and adenoidectomy. Discharge Vitals Temperature (Tympanic) 36.8 ???C Heart Rate (Peripheral) 94 Respiratory Rate 18 Blood Pressure 136/82 Height 175 cm Height 69 in Weight 120.4 kg Weight 265.436 lb BMI 39.31 What to do next Scheduled Follow-Up Appointments Tuesday 1:00 PM EDT With: Where: [address] [address]- Tuesday 3:20 PM EDT With: Pedro RODRIGES, Tony Hoffman Where: [address] [address]- 2024 1:00 PM EDT With: Where: [facility] 2024 1:30 PM EDT With: Aby RODRIGES, Maurice Reed Where: [facility] Medications What How Much When Why Instructions Unchanged atorvastatin (atorvastatin 80 mg Tab) See instructions TAKE 1 TABLET BY MOUTH EVERY DAY Unchanged ergocalciferol (ergocalciferol 50,000 intl units Cap) See instructions 1 cap(s) Oral every other week Unchanged fenofibrate (fenofibrate 48 mg Tab) See instructions TAKE 1 TABLET BY MOUTH EVERY DAY Unchanged fluticasone nasal (fluticasone Nasal 0.05 mg/ inh [place]) 2 Sprays Nasal Inhalation Every day MANNY (obstructive sleep apnea) Duration: 30 Days each nostril Unchanged insulin isophane-insulin regular See instructions inject 40 units SQ at breakfast and 80 units at bedtime Unchanged insulin regular (Novolin R 100 units/ mL Injection) See instructions inject 20 units SQ at breakfast and lunch and 35 units at dinner Unchanged levothyroxine (levothyroxine 125 mcg (0.125 mg) Tab) See instructions TAKE 1 TABLET BY MOUTH EVERY DAY Unchanged lisinopril (lisinopril 2.5 mg Tab) See instructions TAKE 1 TABLET BY MOUTH EVERY DAY Unchanged Misc Prescription () See instructions Ok to discontinue O2. Unchanged Misc Prescription (Misc DME Prescription) See instructions lancet use QID e11.9 Unchanged Misc Prescription (syrings) See instructions syrings 31g x8mm use qid and prn E11.9 Unchanged omeprazole (omeprazole 20 mg Cap-DR) See instructions TAKE 1 CAPSULE BY MOUTH EVERY DAY Unchanged omeprazole (omeprazole 20 mg Cap-DR) See instructions TAKE 1 CAPSULE BY MOUTH EVERY DAY Allergies No Known Medication Allergies Problems Ongoing - Any problem that you are currently receiving treatment for. BMI 39.0-39.9,adult Chronic fatigue Disorder of prostate Gastroesophageal reflux disease without esophagitis Hx of lymphoma Hypercholesterolemia Hypothyroidism Long-term insulin use Nonsmoker Obesity (BMI 30-39.9) MANNY (obstructive sleep apnea) Primary hypertension S/P placement of cardiac pacemaker Sleep disorder Stage 3a chronic kidney disease [...] you for choosing us for your care. [facility] Medicine Office/Clinic Noteon [id number] [facility]/Clinic Note Chief Complaint Check up HPI Staff Pt presents today for annual medication review. Patient is here for follow up on Diabetes. How often are you checking your blood sugars? _ occasionally What are your average readings? _ 160-200 Paresthesias, Ulcerations or sores? no Lisinopril, aspirin, statin therapy? Yes Foot Exam: none Eye Exam: last yr Last A1c: Hgb A1C %: 7.6 % High (07/17/24 14:34:00) Patient is here for follow up on hypertension. How often are you checking your blood pressure? _no What are your average readings? _ Yearly BMP: _ BUN: 37 mg/dL High (07/17/24 14:34:00) Calcium Lvl: 9.8 mg/dL (07/17/24 14:34:00) Chloride: 106 mmol/L (07/17/24 14:34:00) CO2: 25 mmol/L (07/17/24 14:34:00) Creatinine: 1.8 mg/dL High (07/17/24 14:34:00) eGFR: 40 mL/min/1.73 m2 Low (07/17/24 14:34:00) Glucose Lvl: 171 mg/dL (07/17/24 14:34:00) Potassium Lvl: 4.8 mmol/L (07/17/24 14:34:00) Sodium Lvl: 138 mmol/L (07/17/24 14:34:00) Questions/Concerns: Would like updated almaz delaney. History of Present Illness Here for follow up. - NO symptoms of hypothyroidism. - DM is being managed by Endo. Pt states he had an A1c of 7. - No issues with GERD - HTN is well controlled. - No other issues at this time. Review of Systems PHQ Score Initial Depression Screen Score: 0 SCORE Physical Exam Vitals & Measurements T: 36.8 ???C(Tympanic) HR: 94(Peripheral) RR: 18 BP: 136/82 SpO2: 96% HT: 175 cm HT: 69 in WT: 120.4 kg WT: 265.436 lb BMI: 39.31 General: alert, no acute distress ENMT: oral [...] 2 diabetes mellitus with other specified complication) Stable. - Not at goal. - Continue on meds as before. Ordered: Body Mass Index (BMI) documented 3008F Current tobacco non-user 1036F Depression Screening Negative 3352F Discharge medications reconciled with current medications in outpatient record 1111F HBA1C 7.0 to <8.0 Most Recent Level 3051F Influenza immunization status assessed 1030F Medication list documented in medical record 1159F Most recent diastolic blood pressure 80-89 mm Hg 3079F Most recent LDL-C < 100 mg/Dl 3048F Patient screen for fall risk: no falls in last year or 1 fall with no injury in last year 1101F Review of all meds by a prescribing practitioner or clinical pharmacist documented in EHR 1160F Systolic BP 130-139 mm Hg (Most Recent) 3075F 2. Long-term insulin use (Z79.4: FDC (current) use of insulin) Continue to see Endo. 3. Gastroesophageal reflux disease without esophagitis (K21.9: Gastro-esophageal reflux disease without esophagitis) Well controlled 4. Hypercholesterolemia (E78.00: Pure hypercholesterolemia, unspecified) Continue on Statin. 5. Hypothyroidism (E03.9: Hypothyroidism, unspecified) Will recheck at next visit. - No symptoms at this time. 6. MANNY (obstructive sleep apnea) (G47.33: Obstructive sleep apnea (adult) (pediatric)) Continue to use CPAP 7. Primary hypertension (I10: Essential (primary) hypertension) At goal at this time. 8. Vitamin D deficiency (E55.9: Vitamin D deficiency, unspecified) Will recheck in 1 month. 9. BMI 39.0-39.9,adult (Z68.39: Body mass index [BMI] 39.0-39.9, adult) BMI education added 10. Obesity (BMI 30-39.9) (E66.9: Obesity, unspecified) Diet and exercise advised 11. Nonsmoker (Z78.9: Other specified health status) Please continue Orders: atorvastatin, 80 mg = 1 tab(s), Oral, Daily, # 90 tab(s), Refills(s) 3, Pharmacy: [facility]/pharmacy #[id number], 172.9, cm, 10/25/23 13:05:00 EST, Height/Length Dosing, 117.4, kg, 10/25/23 13:05:00 EST, Weight Dosing fenofibrate, See Instructions, TAKE 1 TABLET BY MOUTH EVERY DAY, # 90 tab(s), Refills(s) 1, Pharmacy: [facility] [id number], 175.2, cm, 02/16/24 11:07:00 EDT, Height/Length Dosing, 116.6, kg, 02/16/24 11:07:00 EDT, Weight Dosing levothyroxine, See Instructions, TAKE 1 TABLET BY MOUTH EVERY DAY, # 90 tab(s), Refills(s) 1, Pharmacy: [facility] [id number], 175.2, cm, 02/16/24 11:07:00 EDT, Height/Length Dosing, 116.6, kg, 02/16/24 11:07:00 EDT, Weight Dosing lisinopril, See Instructions, TAKE 1 TABLET BY MOUTH EVERY DAY, # 90 tab(s), Refills(s) 1, Pharmacy: [facility] [id number], 175.2, cm, 02/16/24 11:07:00 EDT, Height/Length Dosing, 116.6, kg, 02/16/24 11:07:00 EDT, Weight Dosing Follow-up No qualifying data available Problem List/Past Medical History Ongoing BMI 39.0-39.9,adult Chronic fatigue Disorder of prostate Gastroesophageal reflux disease without esophagitis Hx of lymphoma H (more content not included)...[facility] on [facility]:Result Comment: Electronically Signed By: Pedro RODRIGES, Tony Brown.br\Date and Time Signed: 03/25/25 10:51 EDTSleep Office/Clinic Noteon [id number] Office/Clinic NoteSleep Office/Clinic Note History of Present Illness Here for follow-up for obstructive sleep apnea. The patient reports he has been using his auto titrating CPAP with a pressure range of 5 to 20 cm via nasal pillow mask with a chinstrap for the past week with good tolerance. He has started out with a fullface mask but could not tolerated and now using this nasal pillow mask with significant improvement in his tolerance and compliance. He reports that his sleep quality is significantly better with the use of the machine and his fatigue and daytime sleepiness has also improved with it. No snoring while he is on the machine per his . His weight has been relatively stable. He has been complaining of significant nasal congestion with the use of his CPAP. Review of Systems Constitutional: no fever, no chills, no sweats, no weakness Skin: no Jaundice, no rash, no lesions, no petechiae ENT: no ear pain, no sore throat, no congestion, no hoarseness Respiratory: Denies shortness of breath, cough or wheezing Cardiovascular: no chest pain, no palpitations, no edema Gastrointestinal: no nausea, no vomiting, no diarrhea, no GI bleeding Genitourinary: no dysuria, no hematuria, no discharge, no pain Musculoskeletal: no back pain, no trauma Neurologic: no headache, no dizziness, no numbness, no weakness Psychiatric: no irritability, no mood swings/depression. Heme/Lymph: no bleeding tendency, no bruising tendency, no petechiae, no swollen nodes Allergy/Immunologic: no seasonal allergies, no food allergies, no recurrent infections, no impairedimmunity Additional ROS info: Except as noted in the above Review of Systems and in the History of Present Illness all other systems have been reviewed and are negative or noncontributory. Physical Exam Vitals & Measurements HR: 103(Peripheral) BP: 145/77 SpO2: 96% HT: 175 cm WT: 121 kg BMI: 39.51 General: Awake and alert in no acute distress HEENT: NC, AT. Prolonged soft palate Neck: Supple no JVD Assessment/Plan 1. MANNY (obstructive sleep apnea) (G47.33: Obstructive sleep apnea (adult) (pediatric)) Appears to be doing well on current pressures without significant side effects with good tolerance and compliance with CPAP with a significant improvement in the apnea hypopnea index to 3/hour with relatively mild leakage based on his most recent download from January 27, 2025 to February 25, 2025 which was reviewed with the patient today. He was advised to increase his humidity level to see if this helps with his nasal congestion and I will also add topical nasal steroid to see if this helps with the above. The patient was advised to clean the machine regularly and change supplies as needed. Avoid drivingwhile sleepy and avoid sedatives and hypnotics such as alcohol. We will continue with same pressure unless new issues develop and see the patient back after 1 year. The patient will call us back in the meantime if any issues. Ordered: fluticasone nasal, 2 spray(s), Nasal, Daily for 30 day(s), 1 EA, Refill(s) 5, each nostril, [facility]/pharmacy #[id number], 175, cm, 02/27/25 11:22:00 EDT, Height/Length Dosing, 121, kg, 02/27/25 11:22:00 EDT, Weight Dosing Follow-up With When Contact Information Jocelyn RODRIGES, Sagrario Phan, PUL, KJ Within [address] [place] [address]- Additional Instructions: Problem List/Past Medical History Ongoing BMI 38.0-38.9,adult Chronic fatigue COVID Disorder of prostate Gastroesophageal reflux disease without esophagitis Hx of lymphoma Hypercholesterolemia Hypothyroidism Long-term insulin use MANNY (obstructive sleep apnea) Primary hypertension S/P placement of cardiac pacemaker Sleep disorder SOB (shortness of breath) on exertion Stage 3a chronic kidney disease (CKD) 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 2 diabetes mellitus with stage 3a chronic kidney disease Vitamin D deficiency Historical Morbid obesity Procedure/Surgical History Pacemaker catheter, device (02/02/2024), Insulin pump, Tonsillectomy and adenoidectomy. Medications 02, See Instructions atorvastatin 80 mg Tab, 80 mg= 1 tab(s), Oral, Daily, 3 refills atorvastatin 80 mg Tab, See Instructions ergocalciferol 50,000 intl units Cap, See Instructions, 1 refills fenofibrate 48 mg Tab, See Instructions fenofibrate 48 mg Tab, See Instructions fluticasone Nasal 0.05 mg/inh [place], 2 spray(s), Nasal, Daily, 5 refills insulin isophane-insulin regular, See Instructions levothyroxine 125 mcg (0.125 mg) Tab, See Instructions levothyroxine 125 mcg (0.125 mg) Tab, See Instructions lisinopril 2.5 mg Tab, See Instructions lisinopril 2.5 mg Tab, See Instructions Misc DME Prescription, See Instructions, 5 refills Novolin R 100 units/mL Injection, See Instructions, 1 refills omeprazole 20 mg Cap-DR, See Instructions omeprazole 20 mg Cap-DR, See Instructions syrings, See Instructions, 3 refills Allergies No Known Medication Allergi (more content not included)...[facility] CenterComment on above:Result Comment: Electronically Signed By: Jocelyn RODRIGES, Navid Emilie\.br\Date and Time Signed: 02/27/25 11:44 EDTSleep Office/Clinic Noteon [id number] Office/Clinic NoteSleep Office/Clinic Note History of Present Illness Here for follow-up after initiating CPAP. The patient reports has been having difficulties tolerating his machine via a fullface mask as he feels that he is being smothered. He reports that when he does use this the machine he feels that his sleep quality is somewhat better and his energy during the day did improve. His reports no snoring while he is on the machine. His weight has been relatively stable. Review of Systems Constitutional: no fever, no chills, no sweats, no weakness Skin: no Jaundice, no rash, no lesions, no petechiae ENT: no ear pain, no sore throat, no congestion, no hoarseness Respiratory: Denies shortness of breath, cough or wheezing Cardiovascular: no chest pain, no palpitations, no edema Gastrointestinal: no nausea, no vomiting, no diarrhea, no GI bleeding Genitourinary: no dysuria, no hematuria, no discharge, no pain Musculoskeletal: no back pain, no trauma Neurologic: no headache, no dizziness, no numbness, no weakness Psychiatric: no irritability, no mood swings/depression. Heme/Lymph: no bleeding tendency, no bruising tendency, no petechiae, no swollen nodes Allergy/Immunologic: no seasonal allergies, no food allergies, no recurrent infections, no impairedimmunity Additional ROS info: Except as noted in the above Review of Systems and in the History of Present Illness all other systems have been reviewed and are negative or noncontributory. Physical Exam Vitals & Measurements HR: 95(Peripheral) BP: 128/78 SpO2: 94% HT: 175 cm WT: 120 kg BMI: 39.18 General: Awake and alert in no acute distress HEENT: NC, AT. Prolonged soft palate Neck: Supple no JVD Assessment/Plan 1. MANNY (obstructive sleep apnea) (G47.33: Obstructive sleep apnea (adult) (pediatric)) I have reviewed the patient's CPAP download from December 28, 2024 till January 26, 2025 today with him. He has suboptimal compliance with the use of CPAP with an average usage of 47%. His apnea-hypopneaindex was reduced to 6.3/hour when he actually uses it with relatively okay leakage. He is having difficulties tolerating his CPAP mostly due to the fullface mask for him. Given the above I will switch him to a nasal mask with a chinstrap to see if he has better tolerance to this andreevaluate his treatment plan in 4 to 6 weeks. Follow-up With When Contact Information Jocelyn RODRIGES, Sagrario Phan, PUL, KJ Within 6 weeks [address] [facility] [place] [address]- Additional Instructions: Problem List/Past Medical History Ongoing BMI 38.0-38.9,adult Chronic fatigue COVID Disorder of prostate Gastroesophageal reflux disease without esophagitis Hx of lymphoma Hypercholesterolemia Hypothyroidism Long-term insulin use MANNY (obstructive sleep apnea) Primary hypertension S/P placement of cardiac pacemaker Sleep disorder SOB (shortness of breath) on exertion Stage 3a chronic kidney disease (CKD) 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 2 diabetes mellitus with stage 3a chronic kidney disease Vitamin D deficiency Historical Morbid obesity Procedure/Surgical History Pacemaker catheter, device (02/02/2024), Insulin pump, Tonsillectomy and adenoidectomy. Medications 02, See Instructions atorvastatin 80 mg Tab, 80 mg= 1 tab(s), Oral, Daily, 3 refills atorvastatin 80 mg Tab, See Instructions ergocalciferol 50,000 intl units Cap, See Instructions, 1 refills fenofibrate 48 mg Tab, See Instructions fenofibrate 48 mg Tab, See Instructions insulin isophane-insulin regular, See Instructions levothyroxine 125 mcg (0.125 mg) Tab, See Instructions levothyroxine 125 mcg (0.125 mg) Tab, See Instructions lisinopril 2.5 mg Tab, See Instructions lisinopril 2.5 mg Tab, See Instructions Misc DME Prescription, See Instructions, 5 refills Novolin R 100 units/mL Injection, See Instructions, 1 refills omeprazole 20 mg Cap-DR, See Instructions omeprazole 20 mg Cap-DR, See Instructions syrings, See Instructions, 3 refills Allergies No Known Medication Allergies Social History Alcohol Current, Wine, Liquor, 1-2 times per month, Alcohol use interferes with work or home: No. Drinks more than intended: No. Others hurt by drinking: No. Ready to change: No. Household alcohol concerns: No., 07/17/2024 Substance Abuse - Denies Substance Abuse, 07/17/2024 Tobacco - Denies Tobacco Use, 07/17/2024 Former smoker, quit more than 30 days ago Tobacco Use:. Never Smokeless Tobacco Use:. Cigarettes, Household tobacco concerns: No., 07/17/2024 Family History Primary malignant neoplasm of colon: Mother. Primary malignant neoplasm of female breast: Sister. Immunizations Vaccine Date Status Comments pneumococcal 20-valent conjugate vaccine 09/08/2023 Recorded influenza virus vaccine, inactivated 09/08/2023 Recorded influenza virus vaccine, inactivated 09/19/2022 Recorded SARS-CoV-2 (COVID-19) [id number] 09/19 (more content not included)... [facility] CenterComment on above:Result Comment: Electronically Signed By: Jocelyn RODRIGES, Sagrario Phan\.br\Date and Time Signed: 01/28/25 11:13 EST Glucose (Bld) [Mass/Vol]on [id number] Blood, POC73 mg/dLNOME Healthcare Interpretation and review of laboratory resultsNormalNOMS LaohbvyjhmToK4g (Bld) [Mass fraction]on [id number] and review of laboratory results AbnormalNOME HealthcareLaboratory - Hematology and Cell countson [id number] (Bld) [Mass fraction]7.2 %[facility] HealthcareNo Panel Informationon [id number] HealthcareSleep Office/Clinic Noteon [id number] Office/Clinic NoteSleep Office/Clinic Note History of Present Illness Here to establish care for possible obstructive sleep apnea. The patient reports that he was told by his that he stops breathing frequently while asleep. He feels that his sleep quality is disrupted, however he wakes up in the morning and feels that his sleep is not refreshing. He also has significant fatigue and daytime sleepiness. His weight has been stable over the past few years.Given the above the patient underwent a sleep study and is here to discuss results and guide further management. Of note that the patient did have prior diagnosis of sleep apnea but could not tolerate CPAP. During this titration study he had used a hybrid fullface mask and tolerated relatively okay Review of Systems Constitutional: no fever, no chills, no sweats, no weakness Skin: no Jaundice, no rash, no lesions, no petechiae ENT: no ear pain, no sore throat, no congestion, no hoarseness Respiratory: Denies shortness of breath, cough or wheezing Cardiovascular: no chest pain, no palpitations, no edema Gastrointestinal: no nausea, no vomiting, no diarrhea, no GI bleeding Genitourinary: no dysuria, no hematuria, no discharge, no pain Musculoskeletal: no back pain, no trauma Neurologic: no headache, no dizziness, no numbness, no weakness Psychiatric: no irritability, no mood swings/depression. Heme/Lymph: no bleeding tendency, no bruising tendency, no petechiae, no swollen nodes Allergy/Immunologic: no seasonal allergies, no food allergies, no recurrent infections, no impairedimmunity Additional ROS info: Except as noted in the above Review of Systems and in the History of Present Illness all other systems have been reviewed and are negative or noncontributory. Physical Exam General: Awake, alert, in no acute distress Skin: warm, dry Head: no trauma, normocephalic. Prolonged soft palate Neck: Trachea midline, no adenopathy, no tenderness Eye: normal conjunctiva, sclera clear ENMT: TM's clear, oral mucosa moist, no pharyngeal erythema or exudate Cardiovascular: regular rate and rhythm, normal peripheral perfusion Respiratory: Good breath sounds to both lung olivares without wheezing or crackles. Gastrointestinal: soft, non distended, no tenderness, no guarding. Back: No tenderness, Normal ROM, Normal alignment. Extremities: no deformity, no trauma Neurological: oriented x 4, LOC appropriate for age, CN II-XII intact, motor strength equal & normal bilaterally, sensation equal & normal bilaterally, speech normal Psychiatric: cooperative, affect appropriate for age, normal judgement, normal psychiatric thoughts. Assessment/Plan 1. MANNY (obstructive sleep apnea) (G47.33: Obstructive sleep apnea (adult) (pediatric)) The patient's sleep study was reviewed and results were discussed with the patient in details. Evidence of severe underlying obstructive sleep apnea with an apnea hypotony index of 39.2/hour with moderate oxygen desaturation noted. The etiology of obstructive sleep apnea and methods of treatment were discussed with the patient in details. His CPAP titration study was reviewed with suboptimal titration. He is agreeable to treatment trial which I will initiate with an auto titrating CPAP machine with apressure range of 5 to 20 cm via a mask of his choice with heated humidity and see him back after 6to 8 weeks with a download from his machine and reevaluate accordingly. He will call us back in the meantime if any issues. Follow-up With When Contact Information Jocelyn RODRIGES, Sagrario Phan, PUL, KJ Within 6 weeks [address] [facility] [place] [address]- Additional Instructions: Problem List/Past Medical History Ongoing BMI 38.0-38.9,adult Chronic fatigue COVID Disorder of prostate Gastroesophageal reflux disease without esophagitis Hx of lymphoma Hypercholesterolemia Hypothyroidism Long-term insulin use MANNY (obstructive sleep apnea) Primary hypertension S/P placement of cardiac pacemaker Sleep disorder SOB (shortness of breath) on exertion Stage 3a chronic kidney disease (CKD) 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 2 diabetes mellitus with stage 3a chronic kidney disease Vitamin D deficiency Historical Morbid obesity Procedure/Surgical History Pacemaker catheter, device (02/02/2024), Insulin [...] See Instructions syrings, See Instructions, 3 refills Allergi (more content not included)...NormalTrinity Health SystemComment on above:Result Comment: Electronically Signed By: Jocelyn RODRIGES, Base GKevin\.br\Date and Time Signed: 10/22/24 11:20 ESTGlucose (Bld) [Mass/Vol]on 32-05-5391Iezanbb Blood, OSC537 mg/dLNOME HealthcareLaboratory - Hematology and Cell countson 38-95-6174DcR1j (Bld) [Mass fraction]7.2 %NOMS HealthcareNo Panel Informationon 49-93-0651QXOI HealthcareCBC w/ Auto Diffon 79-98-0397Rzgshwxnq/100 WBC (Bld)0.9 %Normal0.0-2.0Trinity Health SystemComment on above:Performed By: #### [id number] #### [facility] [address] [place] [address] 32[address]Rmhkamqnv/Leukocytes Auto (Bld) [Pure # fraction]0.1 E9/LNormal 0.0-0.2[facility] CenterComment on above:Performed By: #### [id number] #### [facility] [address], [place] [address]Tifhwiqhekj (Bld) [#/Vol]0.3 E9/LNormal0.0-0.5FCommunity Memorial HospitalComment on above:Performed By: #### [id number] #### [facility] [address], [place] [address]Gupecwyhzki/100 WBC (Bld)2.3 %Normal0.0-8.0Trinity Health SystemComment on above:Performed By: #### [id number] #### [facility] [address] [place] [address]32[address]Hdftbbrfegi distribution width (RBC) [Ratio]15.2 %High10.9-14.2 Trinity Health SystemComment on above:Performed By: #### [id number] #### [facility] [address] [place] [address] 79085Hseoibtpxi (Bld) [Volume fraction]40.3 %Gasben14.7-49.0Trinity Health SystemComment on above:Performed By: #### [id number] #### [facility] [address] [place] [address] 76290Ehjhmkzlxa (Bld) [Mass/Vol]13.0 g/dLLow13.5-17.5FCommunity Memorial HospitalComment on above:Performed By: #### [id number] #### [facility] [address] [place] [address] 98414Auyzyrterpf (Bld) [#/Vol]2.2 E9/LNormal1.0-4.0Trinity Health SystemComment on above:Performed By: #### [id number] #### [facility] [address] [place] [address] 11327Jzdmkqueiso/100 WBC (Bld)17.3 %Hrbwft25.0-50.0Trinity Health SystemComment on above:Performed By: #### [id number] #### [facility] [address] [place] [address] 95813SFL (RBC) [Entitic mass]27.1 pfEwnpxh21.0-34.0Trinity Health SystemComment on above:Performed By: #### [id number] #### [facility] [address] [place] [address] 40665ACSD (RBC) [Mass/Vol]32.3 g/qTDrvfnp37.4-36.0Trinity Health SystemComment on above:Performed By: #### [id number] #### [facility] [address] [place] [address] 16329ZUJ (RBC) [Entitic vol]84.1 jYXyredo37.0-100.0Trinity Health SystemComment on above:Performed By: #### [id number] #### [facility] [address] [place] [address] 38771Fvjkzmkca (Bld) [#/Vol]0.8 E9/LNormal0.2-1.0Trinity Health SystemComment on above:Performed By: #### [id number] #### [facility] [address] [place] [address] 58080Hwnktwwdigp (Bld) [#/Vol]9.4 E9/LHigh2.0-7.5FCommunity Memorial HospitalComment on above:Performed By: #### [id number] #### [facility] [address] [place] [address] 74579Hzrcbbnparp/100 WBC (Bld)73.6 %Cogvar62.0-75.0Trinity Health SystemComment on above:Performed By: #### [id number] #### [facility] [address] [place] [address] 41101Ioupvhop mean volume (Bld) [Entitic vol]10.2 fLNormal6.4-10.8 Trinity Health SystemComment on above:Performed By: #### [id number] #### [facility] [address] [place] [address] 90323Coekcqxem (Bld) [#/Vol]227.0 E9/PMnduuf523.0-500.0Trinity Health SystemComment on above:Performed By: #### [id number] #### [facility] [address], [place] [address]NTK (Bld) [#/Vol]4.8 E12/LNormal4.3-5.9Trinity Health SystemComment on above:Performed By: #### [id number] #### [facility] [address] [place] [address] 44499UNE corrected for nucl RBC Auto (Bld) [#/Vol]12.8 E9/LHigh 4.0-11.0Trinity Health SystemComment on above:Performed By: #### [id number] #### [facility] [address] [place] [address] 30176IMTDGSXXJMzrdwhs By: SYSTEM SYSTEM on - hydroxyvitamin D3 [Mass/Vol]34.3 ng/oTKaezcq67.0 - 100.0 ng/mLRemisol Chem Albumin [Mass/Vol]4.3 g/dLNormal3.3 - 5.0 gm/dLRemisol ChemAlbumin/Globulin [Mass ratio]1.4 {ratio}Normal1.1 - 2.2Remisol ChemALP [Catalytic activity/Vol]78 [iU]/wOqials66 - 98 Int._Unit/LRemisol ChemALT No additional P-5'-P [Catalytic activity/Vol]22 [iU]/dNormal6 - 46 Int._Unit/LRemisol ChemAnion gap [Moles/Vol] 12 mmol/LNormal6 - 16 mEq/LRemisol ChemAST [Catalytic activity/Vol]22 [iU]/d Normal5 - 43 Int._Unit/LRemisol ChemBilirubin [Mass/Vol]0.4 mg/dLNormal0.0 - 1.1 mg/dLRemisol ChemCalcium [Mass/Vol]9.8 mg/dLNormal8.9 - 11.1 mg/dLRemisol Chem Chloride [Moles/Vol]106 mmol/AGsraem994 - 111 mmol/LRemisol ChemCholesterol [Mass/Vol]182 mg/eQHzbpwu813 - 200 mg/dLRemisol ChemCholesterol in HDL [Mass/Vol]45 mg/dLInvalid Interpretation CodeRemisol ChemComment on above:Result Comment: '>= 60 LOW RISK' '<= 40 HIGH RISK'Cholesterol in LDL [Mass/Vol]99 mg/dLNormal<=129mg/dLRemisol ChemCholesterol in VLDL [Mass/Vol]67 mg/dLHigh7 - 40 mg/dLRemisol ChemCO2 [Moles/Vol]25 mmol/YXmbasr71 - 31 mmol/LRemisol ChemCreatinine [Mass/Vol]1.8 mg/dLHigh0.5 - 1.3 mg/dLRemisol DovdzMZS69 mL/min/1.73 m2Low>=59mL/min/1.73 m2 Remisol ChemGlobulin (S) [Mass/Vol]3.1 g/dLNormal1.4 - 4.0 gm/dLRemisol Chem Glucose [Mass/Vol]171 mg/cAEhncbr55 - 199 mg/dLRemisol ChemPotassium [Moles/Vol] 4.8 mmol/LNormal3.5 - 5.3 mmol/LRemisol ChemProstate specific Ag [Mass/Vol]0.2 ng/mLNormal0.1 - 3.5 ng/mLRemisol ChemComment on above:Interpretive Data: The concentration of PSA determined by different manufacturers can vary due to di fferences in assay methods and reagent specificity. Values obtained from different assay methods cannot be used interchangeably. The methodology used for this result was chemiluminescence using [employer]'s Access Hybritech PSA reagent.Protein [Mass/Vol]7.4 g/dLNormal6.0 - 7.8 gm/dLRemisol ChemSodium [Moles/Vol]138 mmol/KHtqpan005 - 145 mmol/LRemisol ChemTriglyceride [Mass/Vol] 333 mg/dLHigh<=149mg/dLRemisol ChemTSH Qn2.77 m[IU]/LNormal0.34 - 5.60 mcIU/mL Remisol ChemUrea nitrogen [Mass/Vol]37 mg/dLHigh5 - 21 mg/dLRemisol ChemUrea nitrogen/Creatinine [Mass ratio]21 mg/kgHizq29 - 20Remisol ChemCHEMISTRYOrdered By: Jackson Daigle on 04-16-3856BtP6o (Bld) [Mass fraction]7.6 %High<=5.9%[facility] ChemAutoSSCMPon 25-07-6184Fsbiaze [Mass/Vol]4.3 g/dLNormal3.3-5.0Trinity Health SystemComment on above:Performed By: #### [id number] #### [facility] [address], [place] [address]Cddvegl/Globulin (S) [Mass conc ratio]1.7Bwxgwg4.1-2.2FCommunity Memorial HospitalComment on above:Performed By: #### [id number] #### [facility] [address], [place] [address]ZYG [Catalytic activity/Vol]78 Int._Unit/BFisipf00-25TtpnqeTrinity Health SystemComment on above:Performed By: #### [id number] #### [facility] [address], [place] [address]KBT No additional P-5'-P [Catalytic activity/Vol]22 Int._Unit/L Normal6-46Trinity Health SystemComment on above:Performed By: #### [id number] #### [facility] [address], [place] [address]Wtegm gap [Moles/Vol]12 mmol/LNormal6-16Trinity Health SystemComment on above:Performed By: #### [id number] #### [facility] [address], [place] [address]EWZ [Catalytic activity/Vol]22 Int._Unit/LNormal5-43Tr[facility] Health SystemComment on above:Performed By: #### [id number] #### [facility] [address], [place] [address]Iumwzfiwd [Mass/Vol]0.4 mg/dLNormal0.0-1.1FCommunity Memorial HospitalComment on above:Performed By: #### [id number] #### [facility] [address], [place] [address]Ghsrcxf [Mass/Vol]9.8 mg/dLNormal8.9-11.1FCommunity Memorial HospitalComment on above:Performed By: #### [id number] #### [facility] [address], [place] [address]Hdgxxgnt [Moles/Vol]106 mmol/KUliyfj366-677MbrehiTrinity Health SystemComment on above:Performed By: #### [id number] #### [facility] [address], [place] [address]ZH0 [Moles/Vol]25 mmol/KZgifib79-09KbrizyTrinity Health System Comment on above:Performed By: #### [id number] #### [facility] [address], [place] [address]Mmgtovlldk [Mass/Vol]1.8 mg/dLHigh0.5-1.3FCommunity Memorial HospitalComment on above:Performed By: #### [id number] #### [facility] [address], [place] [address]Ibnvfgto (S) [Mass/Vol]3.1 g/dLNormal1.4-4.0Trinity Health SystemComment on above:Performed By: #### [id number] #### [facility] [address], [place] [address]Nrgvkhr [Mass/Vol]171 mg/xIZakxud94-473JivhcvTrinity Health SystemComment on above:Performed By: #### [id number] #### [facility] [address], [place] [address]Jdzimgkcp [Moles/Vol]4.8 mmol/LNormal3.5-5.3FCommunity Memorial HospitalComment on above:Performed By: #### [id number] #### [facility] [address], [place] [address]Fntowbo [Mass/Vol]7.4 g/dLNormal6.0-7.8Tr[facility] Health SystemComment on above:Performed By: #### [id number] #### [facility] [address], [place] [address]Usugnc [Moles/Vol]138 mmol/PGayxur584-972HvecudTrinity Health SystemComment on above:Performed By: #### [id number] #### [facility] [address], [place] [address]Xsck nitrogen [Mass/Vol]37 mg/dLHigh5-21Trinity Health SystemComment on above:Performed By: #### [id number] #### [facility] [address], [place] [address]Utpa nitrogen/Creatinine [Mass ratio]21 No CxohhKgss89-55YjlwbpTrinity Health SystemComment on above:Performed By: #### [id number] #### [facility] [address], [place] [address]GCCOZLUOZCLdfqdxh By: SYSTEM SYSTEM on 93-97-4934Uljbqczvr/100 WBC (Bld)0.9 %Normal0.0 - 2.0 %Remisol HemeBasophils/Leukocytes Auto (Bld) [Pure # fraction]0.1 E9/LNormal0.0 - 0.2 E9/LRemisol HemeEosinophils (Bld) [#/Vol]0.3 E9/LNormal0.0 - 0.5 E9/LRemisol HemeEosinophils/100 WBC (Bld)2.3 %Normal0.0 - 8.0 %Remisol HemeErythrocyte distribution width (RBC) [Ratio]15.2 %High10.9 - 14.2 %Remisol HemeHematocrit (Bld) [Volume fraction]40.3 %Kitjmf18.7 - 49.0 % Remisol HemeHemoglobin (Bld) [Mass/Vol]13.0 g/dLLow13.5 - 17.5 gm/dLRemisol Heme Lymphocytes (Bld) [#/Vol]2.2 E9/LNormal1.0 - 4.0 E9/LRemisol HemeLymphocytes/100 WBC (Bld)17.3 %Ythocy61.0 - 50.0 %Remisol HemeMCH (RBC) [Entitic mass]27.1 pg Mudmeo43.0 - 34.0 pgRemisol HemeMCHC (RBC) [Mass/Vol]32.3 g/iSEwiuuj45.4 - 36.0 gm/dLRemisol HemeMCV (RBC) [Entitic vol]84.1 kSHxxfdu02.0 - 100.0 fLRemisol Heme Monocytes (Bld) [#/Vol]0.8 E9/LNormal0.2 - 1.0 E9/LRemisol HemeMonocytes/100 WBC (Bld)5.9 %Normal4.0 - 14.0 %Remisol HemeNeutrophils (Bld) [#/Vol]9.4 E9/LHigh 2.0 - 7.5 E9/LRemisol HemeNeutrophils/100 WBC (Bld)73.6 %Ofwroq39.0 - 75.0 % Remisol HemePlatelet mean volume (Bld) [Entitic vol]10.2 fLNormal6.4 - 10.8 fL Remisol HemePlatelets (Bld) [#/Vol]227.0 E9/DCfodvi277.0 - 500.0 E9/LRemisol HemeRBC (Bld) [#/Vol]4.8 E12/LNormal4.3 - 5.9 E12/LRemisol HemeWBC corrected for nucl RBC Auto (Bld) [#/Vol]12.8 E9/LHigh4.0 - 11.0 E9/LRemisol BvhfCwlV3obf 26-51-4580ZwO1v (Bld) [Mass fraction]7.6 %High<=5.9[facility] Comment on above:Performed By: #### [id number] #### [facility] [address], [place] [address]Yirmh Panelon 74-83-3804Ycbkbpffwae [Mass/Vol]182 mg/dLNormal 120-200Trinity Health SystemComment on above:Performed By: #### [id number] #### [facility] [address], [place] [address]Vkghftomkva in HDL [Mass/Vol]45 mg/dLInvalid Interpretation CodeTrinity Health SystemComment on above:Result Comment: '>= 60 LOW RISK' '<= 40 HIGH RISK'Performed By: #### [id number] #### [facility] [address], [place] [address]Gknywptypbz in LDL [Mass/Vol]99 mg/dLNormal<=129Trinity Health SystemComment on above:Performed By: #### [id number] #### [facility] [address], [place] [address]Gvpameswgxy in VLDL [Mass/Vol]67 mg/dLHigh7-40Tr[facility] Health SystemComment on above:Performed By: #### [id number] #### [facility] [address] [place] [address]Gckrhvixkisg [Mass/Vol]333 mg/dLHigh<=149Trinity Health SystemComment on above:Performed By: #### [id number] #### [facility] [address] [place] [address]AQQ Screen, Totalon 94-23-9382Vdzeqsgm specific Ag [Mass/Vol] 0.2 ng/mLNormal0.1-3.5FCommunity Memorial HospitalComment on above:Result Comment: The concentration of PSA determined by different manufacturers can vary due to differences in assay methods and reagent specificity. Values obtained from different assay methods cannot be used interchangeably. The methodology used for this result was chemiluminescence using [employer]'s Access Hybritech PSA reagent.Performed By: #### [id number] #### [facility] [address], [place] [address]CVQ With T4fr Reflexon 52-34-0250PJV Qn2.77 m[IU]/LNormal 0.34-5.60Trinity Health SystemComment on above:Performed By: #### [id number] #### [facility] [address], [place] [address]kGMSip 15-92-4794gPZI86 mL/min/1.73 m2Low>=59Trinity Health SystemComment on above:Order Comment: Order added by Discern Expert. Performed By: #### [id number] #### [facility] [address] [place], [place] [address]Dbrtqzaxotjvzi Bon 48-17-8317Vdumlngldacczk B [Mass/Vol]95 mg/wVWelqsv50-569VwxydSierra Vista HospitalComment on above:Result Comment: (NOTE) REFERENCE INTERVAL: Apolipoprotein B A desirable fasting serum Apo B concentration for the prevention of atherosclerotic cardiovascular disease in adults is less than 90 mg/dL. A fasting serum Apo B concentration of 130 mg/dL or greater corresponds to a LDL cholesterol concentration greater than 160 mg/dL and constitutes a risk enhancing factor for atherosclerotic cardiovascular disease in adults. Performed By: [employer] [address] [place] [id number] [employer] Supervisor: Sina Denise MD, PhD CLIA Number: [id number] By: #### MG, CDP, LIPR, GLYHGB, CP, TSHX #### [place] [id number] Chucker: Jasbir Healy MDLipoprotein (a)on 31-23-0874Wetaijwxekh a [Mass/Vol]28 mg/dLNormal<=29MerSierra Vista HospitalComment on above: Result Comment: (NOTE) Performed By: [employer] [address] [place], [place] [id number] [employer] Supervisor: Sina Denise MD, PhD CLIA Number: [id number] By: #### MG, CDP, LIPR, GLYHGB, CP, TSHX #### [facility] [employer] [address] [place], [place] [phone] Chucker: Jasbir Healy [facility] [place] – [place]omp Metabolic Profon 99-35-3973Bdvrnfd [Mass/Vol]4.3 g/dLNormal3.5-5.2Mer[facility] French CenterComment on above: Performed By: #### MG, CDP, LIPR, GLYHGB, CP, TSHX #### [facility] [employer] [address] [place] [address] [phone] Chucker: Jasbir Healy MDAlbumin/Glob Ratio2.4Mnmkjm3.0-2.5[facility] HospitalComment on above:Performed By: #### MG, CDP, LIPR, GLYHGB, CP, TSHX #### [address] [address] Chucker: Nas Lambert Phos96 U/SIeovtb18-465YrnabPremier Health Miami Valley HospitalComment on above:Performed By: #### MG, CDP, LIPR, GLYHGB, CP, TSHX #### [address] [address] Chucker: Jasbir Healy MDALT [Catalytic activity/Vol]27 U/CKzhiey68-00 [facility] HospitalComment on above:Performed By: #### MG, CDP, LIPR, GLYHGB, CP, TSHX #### [address] [address] Chucker: Naomy Lambert gap [Moles/Vol]13 mmol/LNormal9-16[facility] HospitalComment on above:Performed By: #### MG, CDP, LIPR, GLYHGB, CP, TSHX #### [address] [address] Chucker: Jasbir Healy MDAST [Catalytic activity/Vol]28 U/JJlxeol19-89 [facility] HospitalComment on above:Performed By: #### MG, CDP, LIPR, GLYHGB, CP, TSHX #### [address] [address] Chucker: Jasbir Healy MDBilirubin [Mass/Vol]0.6 mg/dLNormal0.00-1.20 [facility] HospitalComment on above:Performed By: #### MG, CDP, LIPR, GLYHGB, CP, TSHX #### [facility] [employer] [address] [place] [phone] Chucker: JOSE LUIS Lambertalcium [Mass/Vol]9.4 mg/dLNormal8.6-10.4[facility] HospitalComment on above:Performed By: #### MG, CDP, LIPR, GLYHGB, CP, TSHX #### [facility] [address] [place] [address] Chucker: JOSE LUIS Lamberthloride [Moles/Vol]100 mmol/DHiiuud74-428UvxraPremier Health Miami Valley HospitalComment on above:Performed By: #### MG, CDP, LIPR, GLYHGB, CP, TSHX #### [facility] [address] [place] [address] Chucker: Jasbir Healy MDCO2 [Moles/Vol]25 mmol/SWxcfdw59-37NjiezPremier Health Miami Valley HospitalComment on above:Performed By: #### MG, CDP, LIPR, GLYHGB, CP, TSHX #### [facility] [address] [place] [phone] Chucker: JOSE LUIS Lambertreatinine [Mass/Vol]1.6 mg/dLHigh0.70-1.20[facility] HospitalComment on above:Performed By: #### MG, CDP, LIPR, GLYHGB, CP, TSHX #### [facility] [address] [place] [phone] Chucker: Jasbir Healy MDGFR/1.73 sq M.predicted among non-blacks MDRD (S/P/Bld) [Vol rate/Area]47 mL/min/{1.73_m2}Low>60[facility] HospitalComment on above:Result Comment: These results are not intended for [...] or following therapy that affects renal tubular secretion.Performed By: #### MG, CDP, LIPR, GLYHGB, CP, TSHX #### [facility] [employer] [address] [place] [address] Chucker: Jasbir Healy MDGlucose [Mass/Vol]267 mg/sDJiwy71-33LflnyNorthBay Medical CenterComment on above:Performed By: #### MG, CDP, LIPR, GLYHGB, CP, TSHX #### [place] [address] Chucker: Jasbir Healy MDPotassium [Moles/Vol]4.8 mmol/LNormal3.7-5.3 [facility] HospitalComment on above:Performed By: #### MG, CDP, LIPR, GLYHGB, CP, TSHX #### [facility] [employer] [address] [place] [address] Chucker: Jasbir Healy MDProtein [Mass/Vol]6.5 g/dLLow6.6-8.7[facility] HospitalComment on above:Performed By: #### MG, CDP, LIPR, GLYHGB, CP, TSHX #### [facility] [employer] [address] [place] [address] Chucker: Jasbir Healy MDSodium [Moles/Vol]138 mmol/BGurvjp717-190EoavtPremier Health Miami Valley HospitalComment on above:Performed By: #### MG, CDP, LIPR, GLYHGB, CP, TSHX #### [facility] [address] [place] [address] Chucker: Jasbir Healy MDUrea nitrogen [Mass/Vol]25 mg/dLHigh8-23[facility] HospitalComment on above:Performed By: #### MG, CDP, LIPR, GLYHGB, CP, TSHX #### [facility] [address] [place] [address] Chucker: Jasbir Healy MDGlucose,Whole Bloodon 29-28-6723Mtonenr [Mass/Vol]305 mg/rPSlrs66-465HeqhoPremier Health Miami Valley HospitalGlucose [Mass/Vol] 196 mg/zMZlhi56-433IoyshPremier Health Miami Valley HospitalXR CHEST PORTABLEon 37-98-3468AR CHEST PORTABLEEXAMINATION: ONE XRAY VIEW OF THE CHEST 02/03/2024 [...] Signed by: Giacomo Colorado MD 02/03/24 Final resultNormalMerSierra Vista HospitalCBC with Diffon 20-10-3901Rum. Basophil0.11 k/uLNormal0.00-0.20[facility] HospitalComment on above:Performed By: #### MG, CDP, LIPR, GLYHGB, CP, TSHX #### [facility] [address] [place] [address] [phone] Chucker: Seda Lambert.Imm.Granulocyte0.06 k/uLNormal0.00-0.30[facility] HospitalComment on above:Performed By: #### MG, CDP, LIPR, GLYHGB, CP, TSHX #### [facility] [address] [place] [phone] Chucker: Seda Lambert.Neutrophil (Seg)6.21 k/uLNormal1.50-8.10 [facility] HospitalComment on above:Performed By: #### MG, CDP, LIPR, GLYHGB, CP, TSHX #### [place] [address] Chucker: Jasbir Healy MDBasophils/100 WBC (Bld)1 %Normal0-2MNorthBay Medical CenterComment on above:Performed By: #### MG, CDP, LIPR, GLYHGB, CP, TSHX #### [place] [address] Chucker: Jasbir Healy MDEosinophils (Bld) [#/Vol]0.42 10*3/uLNormal 0.00-0.44[facility] HospitalComment on above:Performed By: #### MG, CDP, LIPR, GLYHGB, CP, TSHX #### [place] [address] Chucker: NINA Lambertosinophils/100 WBC (Bld)4 %Normal1-4[facility] HospitalComment on above:Performed By: #### MG, CDP, LIPR, GLYHGB, CP, TSHX #### [place] [address] Chucker: Jasbir Healy MDErythrocyte distribution width (RBC) [Ratio]14.8 %High11.8-14.4[facility] HospitalComment on above:Performed By: #### MG, CDP, LIPR, GLYHGB, CP, TSHX #### [facility] [employer] [address] [place] [address] Chucker: Jasbir Healy MDHematocrit (Bld) [Volume fraction]43.2 %Normal 40.7-50.3MNorthBay Medical CenterComment on above:Performed By: #### MG, CDP, LIPR, GLYHGB, CP, TSHX #### [facility] [employer] [address] [place], [place] [id number] Chucker: Jasbir Healy MDHemoglobin (Bld) [Mass/Vol]13.4 g/dLNormal 13.0-17.0[facility] HospitalComment on above:Performed By: #### MG, CDP, LIPR, GLYHGB, CP, TSHX #### [address] [address] Chucker: Jasbir Healy MDImmature granulocytes/100 WBC (Bld)1 %Hoqu5LblivPremier Health Miami Valley HospitalComment on above:Performed By: #### MG, CDP, LIPR, GLYHGB, CP, TSHX #### [place] [address] Chucker: Jasbir Healy MDLymphocytes (Bld) [#/Vol]1.89 10*3/uLNormal 1.10-3.70[facility] HospitalComment on above:Performed By: #### MG, CDP, LIPR, GLYHGB, CP, TSHX #### [place] [address] Chucker: Violet Lambertmphocytes/100 WBC (Bld)20 %Enz45-42YwgxrPremier Health Miami Valley HospitalComment on above:Performed By: #### MG, CDP, LIPR, GLYHGB, CP, TSHX #### [place] [address] Chucker: MYA LambertCH (RBC) [Entitic mass]26.7 doJvyhzq96.2-33.5 [facility] HospitalComment on above:Performed By: #### MG, CDP, LIPR, GLYHGB, CP, TSHX #### [place] [address] Chucker: DYLAN LambertC (RBC) [Mass/Vol]31.0 g/bINvwdbm66.4-34.8 [facility] HospitalComment on above:Performed By: #### MG, CDP, LIPR, GLYHGB, CP, TSHX #### [facility] [employer] [address] [place] [address] Chucker: MYA LambertCV (RBC) [Entitic vol]86.2 jDPbicjm47.6-102.9 [facility] HospitalComment on above:Performed By: #### MG, CDP, LIPR, GLYHGB, CP, TSHX #### [place] [address] Chucker: MYA Lambertonocytes (Bld) [#/Vol]0.89 10*3/uLNormal 0.10-1.20[facility] HospitalComment on above:Performed By: #### MG, CDP, LIPR, GLYHGB, CP, TSHX #### [facility] [employer] [address] [place] [address] Chucker: MYA Lambertonocytes/100 WBC (Bld)9 %Normal3-12[facility] HospitalComment on above:Performed By: #### MG, CDP, LIPR, GLYHGB, CP, TSHX #### [place] [address] Chucker: Amanda Lambertutrophil (Seg)65 %Rsebyn81-44TnfcvPremier Health Miami Valley HospitalComment on above:Performed By: #### MG, CDP, LIPR, GLYHGB, CP, TSHX #### [facility] [employer] [address] [place] [address] Chucker: Jasbir Healy MDNRBC Automated0.0 per 100 WBCNormal0.0[facility] HospitalComment on above:Performed By: #### MG, CDP, LIPR, GLYHGB, CP, TSHX #### [address] [address] Chucker: Elmo Lambert mean volume (Bld) [Entitic vol]12.3 fL Normal8.1-13.5[facility] HospitalComment on above:Performed By: #### MG, CDP, LIPR, GLYHGB, CP, TSHX #### [address] [address] Chucker: Kj Lambert (Bld) [#/Vol]196 10*3/dISypoma337-158 [facility] HospitalComment on above:Performed By: #### MG, CDP, LIPR, GLYHGB, CP, TSHX #### [address] [address] Chucker: LUIS Lambert (Bld) [#/Vol]5.01 10*6/uLNormal4.21-5.77 [facility] HospitalComment on above:Performed By: #### MG, CDP, LIPR, GLYHGB, CP, TSHX #### [address] [address] Chucker: LUIS Lambert morphology finding Nom (Bld)ANISOCYTOSIS PRESENTNormalPremier Health Miami Valley HospitalComment on above:Performed By: #### MG, CDP, LIPR, GLYHGB, CP, TSHX #### [address] [address] Chucker: SAMANTHA Lambert (Bld) [#/Vol]9.6 10*3/uLNormal3.5-11.3MNorthBay Medical CenterComment on above:Performed By: #### MG, CDP, LIPR, GLYHGB, CP, TSHX #### [address] [address] Chucker: Jasbir Healy MDComp Metabolic Profon [id number] [Mass/Vol]4.0 g/dLNormal3.5-5.2MNorthBay Medical CenterComment on above: Performed By: #### MG, CDP, LIPR, GLYHGB, CP, TSHX #### [address] [address] Chucker: Jasbir Healy MDAlbumin/Glob Ratio1.7Fqozjr0.0-2.5[facility] HospitalComment on above:Performed By: #### MG, CDP, LIPR, GLYHGB, CP, TSHX #### [address] [address] Chucker: Jasbir Healy MDAlkaline Phos93 U/XRhujro19-854IosqtPremier Health Miami Valley HospitalComment on above:Performed By: #### MG, CDP, LIPR, GLYHGB, CP, TSHX #### [address] [address] Chucker: Jasbir Healy MDALT [Catalytic activity/Vol]24 U/QElljrn00-90 [facility] HospitalComment on above:Performed By: #### MG, CDP, LIPR, GLYHGB, CP, TSHX #### [address] [address] Chucker: Jasbir Healy MDAnion gap [Moles/Vol]12 mmol/LNormal9-16[facility] HospitalComment on above:Performed By: #### MG, CDP, LIPR, GLYHGB, CP, TSHX #### [address] [address] Chucker: Jasbir Healy MDAST [Catalytic activity/Vol]28 U/SQahudo59-68 [facility] HospitalComment on above:Performed By: #### MG, CDP, LIPR, GLYHGB, CP, TSHX #### [facility] [address] [place] [address] Chucker: Jasbir Healy MDBilirubin [Mass/Vol]0.7 mg/dLNormal0.00-1.20 [facility] HospitalComment on above:Performed By: #### MG, CDP, LIPR, GLYHGB, CP, TSHX #### [place] [address] Chucker: JOSE LUIS Lambertalcium [Mass/Vol]9.3 mg/dLNormal8.6-10.4[facility] HospitalComment on above:Performed By: #### MG, CDP, LIPR, GLYHGB, CP, TSHX #### [place] [address] Chucker: JOSE LUIS Lamberthloride [Moles/Vol]104 mmol/RNaokrf57-722TnuomPremier Health Miami Valley HospitalComment on above:Performed By: #### MG, CDP, LIPR, GLYHGB, CP, TSHX #### [facility] [employer] [address] [place] [address] Chucker: Jasbir Healy MDCO2 [Moles/Vol]22 mmol/HKmumem15-72YkiapPremier Health Miami Valley HospitalComment on above:Performed By: #### MG, CDP, LIPR, GLYHGB, CP, TSHX #### [facility] [employer] [address] [place] [address] Chucker: JOSE LUIS Lambertreatinine [Mass/Vol]1.6 mg/dLHigh0.70-1.20[facility] HospitalComment on above:Performed By: #### MG, CDP, LIPR, GLYHGB, CP, TSHX #### [facility] [employer] [address] [place] [address] Chucker: Jasbir Healy MDGFR/1.73 sq M.predicted among non-blacks MDRD (S/P/Bld) [Vol rate/Area]48 mL/min/{1.73_m2}Low>60[facility] HospitalComment on above:Result Comment: These results are not intended for [...] or following therapy that affects renal tubular secretion.Performed By: #### MG, CDP, LIPR, GLYHGB, CP, TSHX #### [facility] [address] [place] [address] Chucker: Jasbir Healy MDGlucose [Mass/Vol]164 mg/rPIrmu12-64UbeknNorthBay Medical CenterComment on above:Performed By: #### MG, CDP, LIPR, GLYHGB, CP, TSHX #### [facility] [address] [place] [address] Chucker: Jasbir Healy MDPotassium [Moles/Vol]4.6 mmol/LNormal3.7-5.3 [facility] HospitalComment on above:Performed By: #### MG, CDP, LIPR, GLYHGB, CP, TSHX #### [employer] [address] [place] [address] Chucker: Jasbir Healy MDProtein [Mass/Vol]6.7 g/dLNormal6.6-8.7[facility] HospitalComment on above:Performed By: #### MG, CDP, LIPR, GLYHGB, CP, TSHX #### [facility] [address] [place] [address] Chucker: Jasbir Healy MDSodium [Moles/Vol]138 mmol/CJrobtm983-827TgqcsPremier Health Miami Valley HospitalComment on above:Performed By: #### MG, CDP, LIPR, GLYHGB, CP, TSHX #### [facility] [place] [address] Chucker: Jasbir Healy MDUrea nitrogen [Mass/Vol]22 mg/dLNormal8-23[facility] HospitalComment on above:Performed By: #### MG, CDP, LIPR, GLYHGB, CP, TSHX #### [facility] [address] [place] [address] Chucker: Jasbir Healy MDGlucose,Whole Bloodon [id number] [Mass/Vol]198 mg/pXNxjf96-954EjbkdPremier Health Miami Valley HospitalGlucose [Mass/Vol] 144 mg/cFSrwz16-982NhafvPremier Health Miami Valley HospitalGlucose [Mass/Vol]172 mg/dL Gqan54-950ZtcyvPremier Health Miami Valley HospitalMagnesiumon 59-89-7297Naeivdqpo [Mass/Vol]2.0 mg/dLNormal1.6-2.4[facility] HospitalComment on above:Performed By: #### MG, CDP, LIPR, GLYHGB, CP, TSHX #### [facility] [employer] [address] [place] [address] Chucker: Jasbir Healy [facility] with Diffon [id number]. Basophil0.09 k/uL Normal0.00-0.20[facility] HospitalComment on above:Performed By: #### MG, CDP, LIPR, GLYHGB, CP, TSHX #### [facility] [address] [place] [address] Chucker: Seda Lambert.Imm.Granulocyte0.05 k/uLNormal0.00-0.30[facility] HospitalComment on above:Performed By: #### MG, CDP, LIPR, GLYHGB, CP, TSHX #### [facility] [employer] [address] [place] [address] [place] [address] Chucker: Seda Lambert.Neutrophil (Seg)6.39 k/uLNormal1.50-8.10 [facility] HospitalComment on above:Performed By: #### MG, CDP, LIPR, GLYHGB, CP, TSHX #### [place] [address] Chucker: Jasbir Healy MDBasophils/100 WBC (Bld)1 %Normal0-2MNorthBay Medical CenterComment on above:Performed By: #### MG, CDP, LIPR, GLYHGB, CP, TSHX #### [place] [address] Chucker: Jasbir Healy MDEosinophils (Bld) [#/Vol]0.35 10*3/uLNormal 0.00-0.44[facility] HospitalComment on above:Performed By: #### MG, CDP, LIPR, GLYHGB, CP, TSHX #### [place] [address] Chucker: Jasbir Healy MDEosinophils/100 WBC (Bld)4 %Normal1-4[facility] HospitalComment on above:Performed By: #### MG, CDP, LIPR, GLYHGB, CP, TSHX #### [place] [address] Chucker: Jasbir Healy MDErythrocyte distribution width (RBC) [Ratio]14.9 %High11.8-14.4[facility] HospitalComment on above:Performed By: #### MG, CDP, LIPR, GLYHGB, CP, TSHX #### [place] [address] Chucker: Jasbir Healy MDHematocrit (Bld) [Volume fraction]41.6 %Normal 40.7-50.3[facility] hospitaly [facility] French CenterComment on above:Performed By: #### MG, CDP, LIPR, GLYHGB, CP, TSHX #### [address] [address] Chucker: Jasbir Healy MDHemoglobin (Bld) [Mass/Vol]12.9 g/dLLow13.0-17.0 [facility] HospitalComment on above:Performed By: #### MG, CDP, LIPR, GLYHGB, CP, TSHX #### [address] [address] Chucker: Sabrina Lambertmature granulocytes/100 WBC (Bld)1 %Xtxc0CvspxPremier Health Miami Valley HospitalComment on above:Performed By: #### MG, CDP, LIPR, GLYHGB, CP, TSHX #### [place] [address] Chucker: Violet Lambertmphocytes (Bld) [#/Vol]1.78 10*3/uLNormal 1.10-3.70[facility] HospitalComment on above:Performed By: #### MG, CDP, LIPR, GLYHGB, CP, TSHX #### [address] [address] Chucker: Violet Lambertmphocytes/100 WBC (Bld)19 %Qck87-39MaygpPremier Health Miami Valley HospitalComment on above:Performed By: #### MG, CDP, LIPR, GLYHGB, CP, TSHX #### [address] [address] Chucker: MYA LambertCH (RBC) [Entitic mass]27.1 alTiicbb91.2-33.5 [facility] HospitalComment on above:Performed By: #### MG, CDP, LIPR, GLYHGB, CP, TSHX #### [address] [address] Chucker: MYA LambertCHC (RBC) [Mass/Vol]31.0 g/uOQaaeen18.4-34.8 [facility] HospitalComment on above:Performed By: #### MG, CDP, LIPR, GLYHGB, CP, TSHX #### [place] [address] Chucker: MYA LambertCV (RBC) [Entitic vol]87.4 ePPkmxev94.6-102.9 [facility] HospitalComment on above:Performed By: #### MG, CDP, LIPR, GLYHGB, CP, TSHX #### [place] [address] Chucker: MYA Lambertonocytes (Bld) [#/Vol]0.96 10*3/uLNormal 0.10-1.20[facility] HospitalComment on above:Performed By: #### MG, CDP, LIPR, GLYHGB, CP, TSHX #### [place] [address] Chucker: MYA Lambertonocytes/100 WBC (Bld)10 %Normal3-12[facility] HospitalComment on above:Performed By: #### MG, CDP, LIPR, GLYHGB, CP, TSHX #### [place] [address] Chucker: Jasbir Healy MDNeutrophil (Seg)65 %Lijgzy80-96MqsluPremier Health Miami Valley HospitalComment on above:Performed By: #### MG, CDP, LIPR, GLYHGB, CP, TSHX #### [facility] [employer] [address] [place] [address] Chucker: KEIRY Lambert Automated0.0 per 100 WBCNormal0.0[facility] HospitalComment on above:Performed By: #### MG, CDP, LIPR, GLYHGB, CP, TSHX #### [address] [address] Chucker: Elmo Lambert mean volume (Bld) [Entitic vol]12.7 fL Normal8.1-13.5[facility] HospitalComment on above:Performed By: #### MG, CDP, LIPR, GLYHGB, CP, TSHX #### [place] [address] Chucker: Maricel Lamberttejhon (Bld) [#/Vol]181 10*3/eIWomfue348-956 [facility] HospitalComment on above:Performed By: #### MG, CDP, LIPR, GLYHGB, CP, TSHX #### [place] [address] Chucker: LUIS Lambert (Bld) [#/Vol]4.76 10*6/uLNormal4.21-5.77 [facility] HospitalComment on above:Performed By: #### MG, CDP, LIPR, GLYHGB, CP, TSHX #### [facility] [employer] [address] [place] [address] Chucker: LUIS Lambert morphology finding Nom (Bld)ANISOCYTOSIS PRESENTNormalPremier Health Miami Valley HospitalComment on above:Performed By: #### MG, CDP, LIPR, GLYHGB, CP, TSHX #### [facility] [employer] [address] [place] [address] Chucker: SAMANTHA Lambert (Bld) [#/Vol]9.6 10*3/uLNormal3.5-11.3MNorthBay Medical CenterComment on above:Performed By: #### MG, CDP, LIPR, GLYHGB, CP, TSHX #### [facility] [employer] [address] [place] [address] Chucker: JOSE LUIS Lambertomp Metabolic Profon [id number] [Mass/Vol]3.9 g/dLNormal3.5-5.2MNorthBay Medical CenterComment on above: Performed By: #### MG, CDP, LIPR, GLYHGB, CP, TSHX #### [facility] [employer] [address] [place] [address] Chucker: Jasbir Healy MDAlbumin/Glob Ratio1.4Hmedov8.0-2.5[facility] HospitalComment on above:Performed By: #### MG, CDP, LIPR, GLYHGB, CP, TSHX #### [facility] [employer] [address] [place] [address] Chucker: Nas Lambert Phos93 U/NLgiiza58-562CrauaPremier Health Miami Valley HospitalComment on above:Performed By: #### MG, CDP, LIPR, GLYHGB, CP, TSHX #### [facility] [employer] [address] [place] [address] Chucker: Jasbir Healy MDALT [Catalytic activity/Vol]27 U/LNormal5-41 [facility] HospitalComment on above:Performed By: #### MG, CDP, LIPR, GLYHGB, CP, TSHX #### [facility] [employer] [address] [place] [address] Chucker: Jasbir Healy MDAniadam gap [Moles/Vol]12 mmol/LNormal9-17[facility] HospitalComment on above:Performed By: #### MG, CDP, LIPR, GLYHGB, CP, TSHX #### [address] [address] Chucker: Jasbir Healy MDAST [Catalytic activity/Vol]20 U/LNormal<40[facility] HospitalComment on above:Performed By: #### MG, CDP, LIPR, GLYHGB, CP, TSHX #### [address] [address] Chucker: Jasbir Healy MDBilirubin [Mass/Vol]0.7 mg/dLNormal0.3-1.2MNorthBay Medical CenterComment on above:Performed By: #### MG, CDP, LIPR, GLYHGB, CP, TSHX #### [place] [address] Chucker: Jasbir Healy MDCalcium [Mass/Vol]9.1 mg/dLNormal8.6-10.4[facility] HospitalComment on above:Performed By: #### MG, CDP, LIPR, GLYHGB, CP, TSHX #### [place] [address] Chucker: JOSE LUIS Lamberthloride [Moles/Vol]104 mmol/ONuvbcz84-119NgxvbPremier Health Miami Valley HospitalComment on above:Performed By: #### MG, CDP, LIPR, GLYHGB, CP, TSHX #### [place] [address] Chucker: Jasbir Healy MDCO2 [Moles/Vol]21 mmol/ZYkelrb20-73BzakgPremier Health Miami Valley HospitalComment on above:Performed By: #### MG, CDP, LIPR, GLYHGB, CP, TSHX #### [address] [address] Chucker: JOSE LUIS Lambertreatinine [Mass/Vol]1.5 mg/dLHigh0.7-1.2MNorthBay Medical CenterComment on above:Performed By: #### MG, CDP, LIPR, GLYHGB, CP, TSHX #### [place] [address] Chucker: Jasbir Healy MDGFR/1.73 sq M.predicted among non-blacks MDRD (S/P/Bld) [Vol rate/Area]50 mL/min/{1.73_m2}Low>60[facility] HospitalComment on above:Result Comment: These results are not intended for [...] or following therapy that affects renal tubular secretion.Performed By: #### MG, CDP, LIPR, GLYHGB, CP, TSHX #### [facility] [employer] [address] [place] [address] Chucker: Jasbir Healy MDGlucose [Mass/Vol]147 mg/yCUgst17-49EbpqvNorthBay Medical CenterComment on above:Performed By: #### MG, CDP, LIPR, GLYHGB, CP, TSHX #### [facility] [employer] [address] [place] [address] Chucker: Jasbir Healy MDPotassium [Moles/Vol]4.6 mmol/LNormal3.7-5.3 [facility] HospitalComment on above:Performed By: #### MG, CDP, LIPR, GLYHGB, CP, TSHX #### [facility] [employer] [address] [place] [address] Chucker: Jasbir Healy MDProtein [Mass/Vol]6.4 g/dLNormal6.4-8.3MNorthBay Medical CenterComment on above:Performed By: #### MG, CDP, LIPR, GLYHGB, CP, TSHX #### [facility] [place] [address] Chucker: RUDDY Lambertodium [Moles/Vol]137 mmol/ENihgnr218-578GlyvwPremier Health Miami Valley HospitalComment on above:Performed By: #### MG, CDP, LIPR, GLYHGB, CP, TSHX #### [facility] [address] [place] [address] Chucker: Jasbir Healy MDUrea nitrogen [Mass/Vol]23 mg/dLNormal8-23[facility] HospitalComment on above:Performed By: #### MG, CDP, LIPR, GLYHGB, CP, TSHX #### [facility] [address] [place] [address] Chucker: Jasbir Healy MDGlucose,Whole Bloodon 71-83-6901Frmkreq [Mass/Vol]204 mg/bGGzqj75-201DahmjPremier Health Miami Valley HospitalGlucose [Mass/Vol] 172 mg/sSWsuk37-701KdicyPremier Health Miami Valley HospitalGlucose [Mass/Vol]204 mg/dL Sfyb73-559HqzvxPremier Health Miami Valley HospitalGlucose [Mass/Vol]129 mg/qWSuni01-450 [facility] HospitalMagnesiumon 01-53-6823Bpqprywxo [Mass/Vol]1.8 mg/dLNormal1.6-2.6[facility] French CenterComment on above:Performed By: #### MG, CDP, LIPR, GLYHGB, CP, TSHX #### [facility] [address] [place] [id number] Chucker: Varun Lambert [phone] Coag (PPP) [Relative time]1.0 {INR}NormalPremier Health Miami Valley HospitalComment on above:Result Comment: Therapeutic Range: Moderate Anticoagulant Intensity: INR = 2.0-3.0 High Anticoagulant Intensity: INR = 2.5-3.5Performed By: #### MG, CDP, LIPR, GLYHGB, CP, TSHX #### [address] [address] Chucker: MARVIN Lambert ([facility]) [Time]12.9 oJhiyau51.7-14.9[facility] HospitalComment on above:Performed By: #### MG, CDP, LIPR, GLYHGB, CP, TSHX #### [address] [address] Chucker: JOSE LUIS Lambert with Diffon [id number]. Basophil0.08 k/uL Normal0.00-0.20[facility] HospitalComment on above:Performed By: #### MG, CDP, LIPR, GLYHGB, CP, TSHX #### [address] [address] Chucker: MDAbs. PetraImm.Granulocyte0.06 k/uLNormal0.00-0.30[facility] HospitalComment on above:Performed By: #### MG, CDP, LIPR, GLYHGB, CP, TSHX #### [address] [address] Chucker: MDAbs. PetraNeutrophil (Seg)6.20 k/uLNormal1.50-8.10 [facility] HospitalComment on above:Performed By: #### MG, CDP, LIPR, GLYHGB, CP, TSHX #### [address] [address] Chucker: Jasbir Healy MDBasophils/100 WBC (Bld)1 %Normal0-2MNorthBay Medical CenterComment on above:Performed By: #### MG, CDP, LIPR, GLYHGB, CP, TSHX #### [facility] [employer] [address] [place] [address] Chucker: Jasbir Healy MDEosinophils (Bld) [#/Vol]0.16 10*3/uLNormal 0.00-0.44[facility] HospitalComment on above:Performed By: #### MG, CDP, LIPR, GLYHGB, CP, TSHX #### [facility] [employer] [address] [place] [address] Chucker: NINA Lambertosinophils/100 WBC (Bld)2 %Normal1-4[facility] HospitalComment on above:Performed By: #### MG, CDP, LIPR, GLYHGB, CP, TSHX #### [facility] [employer] [address] [place] [address] Chucker: Jasbir Healy MDErythrocyte distribution width (RBC) [Ratio]15.2 %High11.8-14.4[facility] HospitalComment on above:Performed By: #### MG, CDP, LIPR, GLYHGB, CP, TSHX #### [facility] [employer] [address] [place] [address] Chucker: Jasbir Healy MDHematocrit (Bld) [Volume fraction]43.6 %Normal 40.7-50.3MNorthBay Medical CenterComment on above:Performed By: #### MG, CDP, LIPR, GLYHGB, CP, TSHX #### [facility] [employer] [address] [place] [address] Chucker: Jasbir Healy MDHemoglobin (Bld) [Mass/Vol]13.0 g/dLNormal 13.0-17.0[facility] HospitalComment on above:Performed By: #### MG, CDP, LIPR, GLYHGB, CP, TSHX #### [facility] [address] [place] [address] Chucker: Jasbir Healy MDImmature granulocytes/100 WBC (Bld)1 %Bksb6OmkslPremier Health Miami Valley HospitalComment on above:Performed By: #### MG, CDP, LIPR, GLYHGB, CP, TSHX #### [facility] [employer] [address] [place] [address] Chucker: Violet Lambertmphocytes (Bld) [#/Vol]1.61 10*3/uLNormal 1.10-3.70[facility] HospitalComment on above:Performed By: #### MG, CDP, LIPR, GLYHGB, CP, TSHX #### [facility] [employer] [address] [place] [address] Chucker: Violet Lambertmphocytes/100 WBC (Bld)19 %Mss55-10PhrckPremier Health Miami Valley HospitalComment on above:Performed By: #### MG, CDP, LIPR, GLYHGB, CP, TSHX #### [facility] [employer] [address] [place] [address] Chucker: DYLAN Lambert (RBC) [Entitic mass]27.4 elDauxnx17.2-33.5 [facility] HospitalComment on above:Performed By: #### MG, CDP, LIPR, GLYHGB, CP, TSHX #### [place] [address] Chucker: DYLAN LambertC (RBC) [Mass/Vol]29.8 g/hBMfwkjr82.4-34.8 [facility] HospitalComment on above:Performed By: #### MG, CDP, LIPR, GLYHGB, CP, TSHX #### [facility] [employer] [address] [place] [address] Chucker: MYA LambertCV (RBC) [Entitic vol]92.0 rQJsbacd41.6-102.9 [facility] HospitalComment on above:Performed By: #### MG, CDP, LIPR, GLYHGB, CP, TSHX #### [facility] [address] [place] [address] Chucker: MYA Lambertonocytes (Bld) [#/Vol]0.58 10*3/uLNormal 0.10-1.20[facility] HospitalComment on above:Performed By: #### MG, CDP, LIPR, GLYHGB, CP, TSHX #### [address] [address] Chucker: MYA Lambertonocytes/100 WBC (Bld)7 %Normal3-12[facility] HospitalComment on above:Performed By: #### MG, CDP, LIPR, GLYHGB, CP, TSHX #### [place] [address] Chucker: Wei Lambertophil (Seg)70 %[id number] Health [facility] HospitalComment on above:Performed By: #### MG, CDP, LIPR, GLYHGB, CP, TSHX #### [facility] [employer] [address] [place] [address] Chucker: Jasbir Healy MDNRBC Automated0.0 per 100 WBCNormal0.0[facility] HospitalComment on above:Performed By: #### MG, CDP, LIPR, GLYHGB, CP, TSHX #### [facility] [employer] [address] [place] [id number] Chucker: Maricel Lamberttelet mean volume (Bld) [Entitic vol]13.0 fL Normal8.1-13.5Prem[facility] Miami Valley HospitalComment on above:Performed By: #### MG, CDP, LIPR, GLYHGB, CP, TSHX #### [facility] [employer] [address] [place] [phone] Chucker: Maricel Lamberttelets (Bld) [#/Vol]186 10*3/xDFrvuzj789-874 [facility] HospitalComment on above:Performed By: #### MG, CDP, LIPR, GLYHGB, CP, TSHX #### [facility] [address] [place] [address] Chucker: HALINA LambertBC (Bld) [#/Vol]4.74 10*6/uLNormal4.21-5.77 [facility] HospitalComment on above:Performed By: #### MG, CDP, LIPR, GLYHGB, CP, TSHX #### [facility] [employer] [address] [place] [address] Chucker: LUIS Lambert morphology finding Nom (Bld)ANISOCYTOSIS PRESENTNormalMerSierra Vista HospitalComment on above:Performed By: #### MG, CDP, LIPR, GLYHGB, CP, TSHX #### [facility] [employer] [address] [place] [phone] Chucker: SAMANTHA Lambert (Bld) [#/Vol]8.7 10*3/uLNormal3.5-11.3MNorthBay Medical CenterComment on above:Performed By: #### MG, CDP, LIPR, GLYHGB, CP, TSHX #### [facility] [employer] [address] [place] [address] Chucker: JOSE LUIS Lambertriverton hospital Metabolic Profon 77-60-7160Ylfvbzg [Mass/Vol]4.0 g/dLNormal3.5-5.2MNorthBay Medical CenterComment on above: Performed By: #### MG, CDP, LIPR, GLYHGB, CP, TSHX #### [facility] [employer] [address] [place] [address] Chucker: Jasbir Healy MDAlbumin/Glob Ratio1.3Jveujt0.0-2.5[facility] HospitalComment on above:Performed By: #### MG, CDP, LIPR, GLYHGB, CP, TSHX #### [facility] [address] [place] [address] Chucker: Nas Lambert Phos98 U/DCkudob28-166ZybnwPremier Health Miami Valley HospitalComment on above:Performed By: #### MG, CDP, LIPR, GLYHGB, CP, TSHX #### [address] [address] Chucker: Jasbir Healy MDALT [Catalytic activity/Vol]36 U/YMppttu47-17 [facility] HospitalComment on above:Performed By: #### MG, CDP, LIPR, GLYHGB, CP, TSHX #### [address] [address] Chucker: Naomy Lambert gap [Moles/Vol]14 mmol/LNormal9-16[facility] HospitalComment on above:Performed By: #### MG, CDP, LIPR, GLYHGB, CP, TSHX #### [address] [address] Chucker: Jasbir Healy MDAST [Catalytic activity/Vol]27 U/ZLeckeg95-55 [facility] HospitalComment on above:Performed By: #### MG, CDP, LIPR, GLYHGB, CP, TSHX #### [address] [address] Chucker: Jasbir Healy MDBilirubin [Mass/Vol]0.5 mg/dLNormal0.00-1.20 [facility] HospitalComment on above:Performed By: #### MG, CDP, LIPR, GLYHGB, CP, TSHX #### [facility] [employer] [address] [place] [address] Chucker: JOSE LUIS Lambertalcium [Mass/Vol]9.1 mg/dLNormal8.6-10.4[facility] HospitalComment on above:Performed By: #### MG, CDP, LIPR, GLYHGB, CP, TSHX #### [facility] [address] [place] [address] Chucker: JOSE LUIS Lamberthloride [Moles/Vol]107 mmol/OKendlf79-856IbdlnPremier Health Miami Valley HospitalComment on above:Performed By: #### MG, CDP, LIPR, GLYHGB, CP, TSHX #### [facility] [place] [address] Chucker: Jabsir Healy MDCO2 [Moles/Vol]18 mmol/YBhs99-79XeyrePremier Health Miami Valley HospitalComment on above:Performed By: #### MG, CDP, LIPR, GLYHGB, CP, TSHX #### [facility] [address] [place] [address] Chucker: JOSE LUIS Lambertreatinine [Mass/Vol]1.8 mg/dLHigh0.70-1.20[facility] HospitalComment on above:Performed By: #### MG, CDP, LIPR, GLYHGB, CP, TSHX #### [facility] [address] [place] [address] Chucker: Jasibr Healy MDGFR/1.73 sq M.predicted among non-blacks MDRD (S/P/Bld) [Vol rate/Area]41 mL/min/{1.73_m2}Low>60Prem[facility] HospitalComment on above:Result Comment: These results are not intended for [...] or following therapy that affects renal tubular secretion.Performed By: #### MG, CDP, LIPR, GLYHGB, CP, TSHX #### [facility] [address] [place] [address] Chucker: Jasbir Healy MDGlucose [Mass/Vol]152 mg/vTQltw92-00LyptyNorthBay Medical CenterComment on above:Performed By: #### MG, CDP, LIPR, GLYHGB, CP, TSHX #### [place] [address] Chucker: CARINA Lambertotassium [Moles/Vol]5.1 mmol/LNormal3.7-5.3 [facility] HospitalComment on above:Performed By: #### MG, CDP, LIPR, GLYHGB, CP, TSHX #### [place] [address] Chucker: Jasbir Healy MDProtein [Mass/Vol]6.7 g/dLNormal6.6-8.7[facility] HospitalComment on above:Performed By: #### MG, CDP, LIPR, GLYHGB, CP, TSHX #### [place] [address] Chucker: Jasbir Healy MDSodium [Moles/Vol]139 mmol/BTdkfup008-694DjavlPremier Health Miami Valley HospitalComment on above:Performed By: #### MG, CDP, LIPR, GLYHGB, CP, TSHX #### [facility] [employer] [facility] [address] [place] [address] Chucker: Jasbir Healy MDUrea nitrogen [Mass/Vol]28 mg/dLHigh8-23[facility] HospitalComment on above:Performed By: #### MG, CDP, LIPR, GLYHGB, CP, TSHX #### [employer] [address] [place] [address] [phone] Chucker: Jasbir Healy MDGlucose,Whole Bloodon 73-76-1081Uxiiljz [Mass/Vol]156 mg/lZFjrm71-072JboxcPremier Health Miami Valley HospitalGlucose [Mass/Vol] 157 mg/vQSqao51-792QfcibPremier Health Miami Valley HospitalGlucose [Mass/Vol]141 mg/dL Ysdn94-486WkoywPremier Health Miami Valley HospitalGlucose [Mass/Vol]145 mg/xLEpkp99-226 [facility] HospitalHemoglobin A1Con 54-05-8737Iodtdqg [Mass/Vol]163 mg/dLNormalPremier Health Miami Valley HospitalComment on above:Result Comment: The ADA and AACC recommend providing the estimated average glucose result to permit better patient understanding of their HBA1c result.Performed By: #### MG, CDP, LIPR, GLYHGB, CP, TSHX #### [facility] [address] [place], [place] [phone] Chucker: Jasbir Healy MDHbA1c (Bld) [Mass fraction]7.3 %High4.0-6.0[facility] HospitalComment on above:Performed By: #### MG, CDP, LIPR, GLYHGB, CP, TSHX #### [facility] [address] [place] [address] [phone] Chucker: Jasbir Healy MDLipid Profileon 78-38-2787Jhgbozzmzlu [Mass/Vol] 152 mg/dLNormal0-199[facility] HospitalComment on above:Result Comment: Cholesterol Guidelines: <200 Desirable 200-240 Borderline >240 UndesirablePerformed By: #### MG, CDP, LIPR, GLYHGB, CP, TSHX #### [facility] [address] [place] [address] [phone] Chucker: JOSE LUIS Lambertholesterol in HDL [Mass/Vol]47 mg/dLNormal>40 [facility] HospitalComment on above:Result Comment: HDL Guidelines: <40 Undesirable 40-59 Borderline >59 DesirablePerformed By: #### MG, CDP, LIPR, GLYHGB, CP, TSHX #### [facility] [address] [place] [address] Chucker: JOSE LUIS Lambertholesterol in LDL [Mass/Vol]77 mg/dLNormal0-100 [facility] HospitalComment on above:Result Comment: LDL Guidelines: <100 Desirable 100-129 Near to/above Desirable 130-159 Borderline >159 Undesirable Direct (measured) LDL and calculated LDL are not interchangeable tests.Performed By: #### MG, CDP, LIPR, GLYHGB, CP, TSHX #### [facility] [address] [place] [address] Chucker: JOSE LUIS Lambertholesterol in VLDL [Mass/Vol]29 mg/dLNormal [facility] HospitalComment on above:Performed By: #### MG, CDP, LIPR, GLYHGB, CP, TSHX #### [facility] [address] [place] [address] Chucker: Gerhard Lambert.total/Cholesterol in HDL [Mass ratio]3.0 {ratio}NormalPremier Health Miami Valley HospitalComment on above: Performed By: #### MG, CDP, LIPR, GLYHGB, CP, TSHX #### [facility] [address] [place] [address] Chucker: Jasbir Healy MDTriglyceride [Mass/Vol]143 mg/dLNormal<150Prem[facility] HospitalComment on above:Result Comment: Triglyceride Guidelines: <150 Desirable 150-199 Borderline 200-499 High >499 Very high Based on AHA Guidelines for fasting triglyceride, August 2012.Performed By: #### MG, CDP, LIPR, GLYHGB, CP, TSHX #### [facility] [address] [place] [address] Chucker: Marie Lambert 18-18-8840Ukbtkmmto [Mass/Vol]2.0 mg/dLNormal1.6-2.4[facility] HospitalComment on above:Performed By: #### MG, CDP, LIPR, GLYHGB, CP, TSHX #### [facility] [address] [place] [address] [phone] Chucker: STEPHANIE Lambert w/reflex to FT4on 32-60-5838Icpacrc Stim. Horm.2.36 uIU/mLNormal0.27-4.20[facility] HospitalComment on above: Performed By: #### MG, CDP, LIPR, GLYHGB, CP, TSHX #### [facility] [address] [place] [address] [phone] Chucker: Jasbir Healy MDThyroid Stim. Horm.on 48-62-8350Dsxqqhz Stim. Horm.3.22 uIU/mLNormal0.30-5.00[facility] HospitalComment on above: Performed By: #### TSH #### [facility] [address] [place] [address] [phone] Chucker: CHATO Lambert CHEST PORTABLEon 48-44-9549VB CHEST PORTABLE EXAMINATION: ONE XRAY VIEW OF [...] Signed by: Sina Fermin MD 01/31/24 Final resultNormalMerSierra Vista HospitalCHEMISTRYOrdered By: SYSTEM SYSTEM on 83-78-8871Sfglnlah91.00 pg/bNFvwtzv56.90 - 38.40 pg/mLRemisol Chem Comment on above:Interpretive Data: The 95% CI (Confidence Interval) PPV (Positive Predictive Value) for myocardial infarction in females is 38 pg/mL, in males 51 pg/mL. The results should be used in conjunction withclinical conditions of myocardial infarction. ([facility] High Sensitivity Troponin I Instructions For Use, [employer], June 2018)Xnmeocvq02.40 pg/nBHehbdv74.90 - 38.40 pg/mLRemisol ChemComment on above:Interpretive Data: The 95% CI (Confidence Interval) PPV (Positive Predictive Value) for myocardial infarction in females is 38 pg/mL, in males 51 pg/mL. The results should be used in conjunction withclinical conditions of myocardial infarction. (Access High Sensitivity Troponin I Instructions For Use, [employer], June 2018)Txfyzzgr68.50 pg/mLLow15.90 - 38.40 pg/mLRemisol ChemComment on above:Interpretive Data: The 95% CI (Confidence Interval) PPV (Positive Predictive Value) for myocardial infarction in females is 38 pg/mL, in males 51 pg/mL. The results should be used in conjunction withclinical conditions of myocardial infarction. ([facility] High Sensitivity Troponin I Instructions For Use, [employer], June 2018)Anion gap [Moles/Vol]14 mmol/LNormal6 - 16 mEq/LRemisol ChemCalcium [Mass/Vol]8.8 mg/dLLow8.9 - 11.1 mg/dLRemisol ChemChloride [Moles/Vol]109 mmol/L Soolqi431 - 111 mmol/LRemisol ChemCO2 [Moles/Vol]22 mmol/GOdysmd17 - 31 mmol/L Remisol ChemCreatinine [Mass/Vol]2.2 mg/dLHigh0.5 - 1.3 mg/dLRemisol OslbqRMH79 mL/min/1.73 m2Low>=59mL/min/1.73 p4Diuqlke ChemGlucose [Mass/Vol]120 mg/dLNormal 55 - 199 mg/dLRemisol ChemMagnesium [Mass/Vol]1.8 mg/dLNormal1.3 - 2.4 mg/dL Remisol ChemPotassium [Moles/Vol]4.9 mmol/LNormal3.5 - 5.3 mmol/LRemisol Chem Sodium [Moles/Vol]140 mmol/LJqzmhy262 - 145 mmol/LRemisol ChemT4 [Mass/Vol]12.0 ug/dLHigh4.6 - 9.1 mcg/dLRemisol ChemTSH Qn2.94 m[IU]/LNormal0.34 - 5.60 mcIU/mL Remisol ChemUrea nitrogen [Mass/Vol]34 mg/dLHigh5 - 21 mg/dLRemisol ChemUrea nitrogen/Creatinine [Mass ratio]16 mg/ghHeaspc32 - 20Remisol ChemCHEMISTRY Ordered By: Saima Walker on 45-45-7828Jryalfp [Mass/Vol]143 mg/kXYrog18 - 99 mg/dLSUM[facility] POC SubsectionPOC Device [id number] 1Invalid Interpretation Code [facility] POC SubsectionPOC User [id number] 1Invalid Interpretation CodeSUM[facility] POC SubsectionPOC UsernameGTimothy DASILVAvalid Interpretation CodeSUM[facility] POC SubsectionCOAGULATIONOrdered By: Lori Ashley on 76-78-3836cIOQ Coag (PPP) [Time]33.5 pXomsai47.1 - 36.5 second(s)[facility] Auto CoagComment on above: Interpretive Data: Parameter 15 days - 4 weeks 1 - [...] the same coagulation reagent and instrumentation as [facility]. Currently there are no coagulation studies available worldwide for children to 14 days, andno normal ranges. Heparin therapeutic range (represented by Anti-Factor Xa activity of 0.2 - 0.4 U/mL) corresponds to PTT of 56.6 - 109.0 sec.INR Coag (PPP) [Relative time]0.96 {INR}Invalid Interpretation CodeSUM[facility] Auto CoagComment on above:Interpretive Data: INR results are specifically intended to assess patients stabilized on long-term Anticoagulation therapy suggested INR s Less Intensive Anticoagulation 2.0 3.0 Conventional Range 3.0 4.5PT Coag (PPP) [Time]10.7 sNormal9.4 - 12.5 second(s) [facility] Auto CoagComment on above:Interpretive Data: 15 days - 4 weeks 1 - [...] the same coagulation reagent and instrumentation as [facility]. Currently there are no coagulation studies available worldwide for children to 14 days, andno normal ranges.HEMATOLOGYOrdered By: SYSTEM SYSTEM on 25-93-3935Krdeiekww/100 WBC (Bld)0.6 %Normal0.0 - 2.0 %Remisol HemeBasophils/Leukocytes Auto (Bld) [Pure # fraction]0.1 E9/LNormal0.0 - 0.2 E9/LRemisol HemeEosinophils (Bld) [#/Vol]0.2 E9/LNormal0.0 - 0.5 E9/LRemisol HemeEosinophils/100 WBC (Bld)1.5 %Normal0.0 - 8.0 %Remisol HemeErythrocyte distribution width (RBC) [Ratio]15.8 %High10.9 - 14.2 %Remisol HemeHematocrit (Bld) [Volume fraction]40.4 %Vypxvp65.7 - 49.0 % Remisol HemeHemoglobin (Bld) [Mass/Vol]12.3 g/dLLow13.5 - 17.5 gm/dLRemisol Heme Lymphocytes (Bld) [#/Vol]2.1 E9/LNormal1.0 - 4.0 E9/LRemisol HemeLymphocytes/100 WBC (Bld)18.6 %Hhxrfe99.0 - 50.0 %Remisol HemeMCH (RBC) [Entitic mass]26.0 pg Low27.0 - 34.0 pgRemisol HemeMCHC (RBC) [Mass/Vol]30.5 g/dLLow31.4 - 36.0 gm/dL Remisol HemeMCV (RBC) [Entitic vol]85.1 fKBhuwue88.0 - 100.0 fLRemisol Heme Monocytes (Bld) [#/Vol]0.8 E9/LNormal0.2 - 1.0 E9/LRemisol HemeMonocytes/100 WBC (Bld)6.8 %Normal4.0 - 14.0 %Remisol HemeNeutrophils (Bld) [#/Vol]8.1 E9/LHigh 2.0 - 7.5 E9/LRemisol HemeNeutrophils/100 WBC (Bld)72.5 %Inbfgv71.0 - 75.0 % Remisol NuenAcgrjdvt946.0 E9/CEigvbp657.0 - 500.0 E9/LRemisol HemePlatelet mean volume (Bld) [Entitic vol]10.9 fLHigh6.4 - 10.8 fLRemisol HemeRBC (Bld) [#/Vol] 4.8 E12/LNormal4.3 - 5.9 E12/LRemisol HemeWBC corrected for nucl RBC Auto (Bld) [#/Vol]11.2 E9/LHigh4.0 - 11.0 E9/LRemisol HemeCHEMISTRYOrdered By: SYSTEM SYSTEM on 02-55-5954Knzjccl [Mass/Vol]4.3 g/dLNormal3.3 - 5.0 gm/dLFTMC Remisol Albumin/Globulin [Mass ratio]1.3 {ratio}Normal1.1 - 2.2[facility] RemisolALP [Catalytic activity/Vol]78 [iU]/oIxbwzu07 - 98 Int._Unit/LFTMC RemisolALT No additional P-5'-P [Catalytic activity/Vol]23 [iU]/dNormal6 - 46 Int._Unit/LFTMC RemisolAnion gap [Moles/Vol]12 mmol/LNormal6 - 16 mEq/LFTMC RemisolAST [Catalytic activity/Vol]22 [iU]/dNormal5 - 43 Int._Unit/LFTMC RemisolBilirubin [Mass/Vol]0.5 mg/dLNormal0.0 - 1.1 mg/dLFTMC RemisolCalcium [Mass/Vol]10.1 mg/dL Normal8.9 - 11.1 mg/dLFTMC RemisolChloride [Moles/Vol]107 mmol/MKwudfd455 - 111 mmol/LFTMC RemisolCholesterol [Mass/Vol]180 mg/hUNxamvy442 - 200 mg/dLFTMC RemisolCholesterol in HDL [Mass/Vol]43 mg/dLInvalid Interpretation CodeFTMC RemisolCholesterol in LDL [Mass/Vol]104 mg/dLNormal<=129mg/dLFTMC Remisol Cholesterol in VLDL [Mass/Vol]47 mg/dLHigh7 - 40 mg/dLFTMC RemisolCO2 [Moles/Vol]27 mmol/QTgwpht21 - 31 mmol/LFTMC RemisolCreatinine [Mass/Vol]1.5 mg/dLHigh0.5 - 1.3 mg/dLFTMC RemisolGFR/1.73 sq M.predicted among non-blacks MDRD (S/P/Bld) [Vol rate/Area]50 mL/min/1.73 m2Low>=59mL/min/1.73 m2FT Chem S Globulin (S) [Mass/Vol]3.2 g/dLNormal1.4 - 4.0 gm/dLFTMC RemisolGlucose [Mass/Vol]65 mg/rKYanzra85 - 199 mg/dLFTMC RemisolPotassium [Moles/Vol]4.4 mmol/LNormal3.5 - 5.3 mmol/LFTMC RemisolProtein [Mass/Vol]7.5 g/dLNormal6.0 - 7.8 gm/dLFTMC RemisolSodium [Moles/Vol]142 mmol/ATttnxg448 - 145 mmol/LFTMC RemisolTriglyceride [Mass/Vol]237 mg/dLHigh<=149mg/dLFTMC RemisolTSH Qn1.09 m[IU]/LNormal0.34 - 5.60 mcIU/mLFTMC RemisolUrea nitrogen [Mass/Vol]25 mg/dLHigh 5 - 21 mg/dLFTMC RemisolUrea nitrogen/Creatinine [Mass ratio]17 mg/xpUdyeiu56 - 20FT[facility] RemisolCHEMISTRYOrdered By: Vaughn Bailey on 00-58-9125Vtpwrfn DL <= 20 mg/L (U) [Mass/Vol]75.3 microgram/mLHigh0.0 - 19.0 mcg/mLFTMC RemisolAlbumin Elph (U) [Mass fraction]13.8 mg/dLInvalid Interpretation CodeFTMC Remisol Creatinine (U) [Mass/Vol]78.2 mg/dLInvalid Interpretation CodeFTMC RemisolU Prot/Creat Uqiha052.50 mg/gm CrNormal0.00 - 200.00 mg/gm CrFTMC RemisolCHEMISTRY Ordered By: Nelson Orellana on 08-13-0235VsB1o (Bld) [Mass fraction]7.7 %High <=5.9%[facility] ChemAutoSSHEMATOLOGYOrdered By: SYSTEM SYSTEM on 06-27-2023 Basophils/100 WBC (Bld)0.9 %Normal0.0 - 2.0 %[facility] HemeAutoSSBasophils/Leukocytes Auto (Bld) [Pure # fraction]0.1 E9/LNormal0.0 - 0.2 E9/LFTMC HemeAutoSS Eosinophils/100 WBC (Bld)3.5 %Normal0.0 - 8.0 %[facility] HemeAutoSS Eosinophils/Leukocytes Auto (Bld) [Pure # fraction]0.4 E9/LNormal0.0 - 0.5 E9/L [facility] HemeAutoSSLymphocytes/100 WBC (Bld)18.3 %Hrkqwt77.0 - 50.0 %[facility] HemeAutoSS Lymphocytes/Leukocytes Auto (Bld) [Pure # fraction]1.9 E9/LNormal1.0 - 4.0 E9/L [facility] HemeAutoSSMonocytes/100 WBC (Bld)6.7 %Normal4.0 - 14.0 %[facility] HemeAutoSS Monocytes/Leukocytes Auto (Bld) [Pure # fraction]0.7 E9/LNormal0.2 - 1.0 E9/L [facility] HemeAutoSSNeutrophils/100 WBC (Bld)70.6 %Pmjwpf76.0 - 75.0 %[facility] HemeAutoSS Neutrophils/Leukocytes Auto (Bld) [Pure # fraction]7.5 E9/LNormal2.0 - 7.5 E9/L [facility] HemeAutoSSHEMATOLOGYOrdered By: Nelson Orellana on 70-53-5991Bxoolxdljfg distribution width (RBC) [Ratio]15.1 %High10.9 - 14.2 %[facility] HemeAutoSSHematocrit (Bld) [Volume fraction]41.8 %Cxewkq96.7 - 49.0 %[facility] HemeAutoSSHemoglobin (Bld) [Mass/Vol]13.7 g/cPRgfpkd16.5 - 17.5 gm/dLFTMC HemeAutoSSMCH (RBC) [Entitic mass]27.5 krKltaqh25.0 - 34.0 pgFTMC HemeAutoSSMCHC (RBC) [Mass/Vol]32.7 g/dL Imlxuf08.4 - 36.0 gm/dLFTMC HemeAutoSSMCV (RBC) [Entitic vol]84.2 iDCodprh84.0 - 100.0 fLFTMC HemeAutoSSPlatelet mean volume (Bld) [Entitic vol]9.9 fLNormal6.4 - 10.8 fLFTMC HemeAutoSSPlatelets (Bld) [#/Vol]209.0 E9/OVmgnfg812.0 - 500.0 E9/L [facility] HemeAutoSSRBC (Bld) [#/Vol]5.0 E12/LNormal4.3 - 5.9 E12/LFTMC HemeAutoSSWBC corrected for nucl RBC Auto (Bld) [#/Vol]10.6 E9/LNormal4.0 - 11.0 E9/LFTMC HemeAutoSSBUNon 30-70-0420Crxg nitrogen [Mass/Vol]32.0 mg/dLCritically high 9.0-20.0[facility] GeneralComment on above:Performed By: #### PHOS, CREA, BUN, ELEC, CA, MG #### [facility] [address] [place] [address] Pb KarenCALCIUMon 58-96-7646Geelgnt [Mass/Vol]9.8 mg/dLNormal8.4-10.2[facility] GeneralComment on above:Performed By: #### PHOS, CREA, BUN, ELEC, CA, MG #### [facility] [address] [place] [address] Pb KarenCBC AUTO DIFFon 11-81-7171Yhwumwimi (Bld) [#/Vol]0.1 103/ulNormal 0.0-0.1[facility] GeneralComment on above:Performed By: #### CBC #### [facility] [address] [place] [address] Pb KarenBasophils/100 WBC (Bld)0.6 %Normal0.2-2.0[facility] Comment on above:Performed By: #### CBC #### [facility] [address] [place] [address] Pb KarenEosinophils (Bld) [#/Vol]0.3 103/ulNormal0.0-0.7The [facility] GeneralComment on above:Performed By: #### CBC #### [facility] [address] [place] [address] Pb KarenEosinophils/100 WBC (Bld)3.2 %Normal0.9-7.0[facility] Comment on above:Performed By: #### CBC #### [facility] [address] [place] [address] Pb KarenErythrocyte distribution width (RBC) [Ratio]14.0 %Ffrist97.0-15.0[facility] GeneralComment on above:Performed By: #### CBC #### [facility] [address] [place] [address] Pb KarenHematocrit (Bld) [Volume fraction]43.0 %Dckaft57.0-54.0[facility] GeneralComment on above:Performed By: #### CBC #### [facility] [address] [place] [address] Pb KarenHemoglobin (Bld) [Mass/Vol]13.6 g/dLCritically low14.0-18.0[facility] GeneralComment on above:Performed By: #### CBC #### [facility] [address] [place] [address] Pbsierra BaxterenIG #0.12 10e3/ulCritically high0.00-0.03The [facility] GeneralComment on above:Performed By: #### CBC #### [facility] [address] [place] [address] Pb KarenIG %1.2 %Critically high0.0-0.5The [facility] GeneralComment on above:Performed By: #### CBC #### [facility] [address] [place] [address] Pb KarenLymphocytes (Bld) [#/Vol]1.9 103/ulNormal1.2-3.8The [facility] GeneralComment on above:Performed By: #### CBC #### [facility] [address] [place] [address] Pb KarenLymphocytes/100 WBC (Bld)19.0 %Critically low20.5-60.0[facility] GeneralComment on above:Performed By: #### CBC #### [facility] [address] [place] [address] Pb KarenMANUAL DIFF REQNONormalThe [facility] GeneralComment on above: Performed By: #### CBC #### [facility] [address] [place] [address] Pb KarenMCH (RBC) [Entitic mass]27.4 abTrfyfh52.9-34.0[facility] Comment on above:Performed By: #### CBC #### [facility] [address] [place] [address] Pb KarenMCHC (RBC) [Mass/Vol]31.6 g/fFStpmpy78.9-35.2[facility] Comment on above:Performed By: #### CBC #### [facility] [address] [place], [place] [address] Pb KarenMCV (RBC) [Entitic vol]86.5 qRAunfiw85.0-94.0[facility] Comment on above:Performed By: #### CBC #### [facility] [address] [place], [place] [phone] Pb KarenMonocytes (Bld) [#/Vol]0.8 103/ulNormal0.3-0.8ThAvita Health [facility] Comment on above:Performed By: #### CBC #### [facility] [address] [place], [place] [phone] Pb KarenMonocytes/100 WBC (Bld)7.8 %Normal1.7-12.0[facility] Comment on above:Performed By: #### CBC #### [facility] [address] [place] [address] Pb KarenNeutrophils (Bld) [#/Vol]6.7 103/ulCritically high1.4-6.5The [facility] GeneralComment on above:Performed By: #### CBC #### [facility] [address] [place] [address] Pb KarenNeutrophils/100 WBC (Bld)68.2 %Fxzmym48.0-75.0[facility] Comment on above:Performed By: #### CBC #### [facility] [address] [place] [address] Pb KarenPlatelet mean volume (Bld) [Entitic vol]11.1 fLNormal9.5-13.5The [facility] GeneralComment on above:Performed By: #### CBC #### [facility] [address] [place], [place] [phone] Pb KarenPlatelets (Bld) [#/Vol]215 103/djEgmnrg880-849Npk [facility] Comment on above:Performed By: #### CBC #### [facility] [address] [place] [address] Pb KarenRBC (Bld) [#/Vol]4.97 106/ulNormal4.70-6.10ThAv[facility] Comment on above:Performed By: #### CBC #### [facility] [address] [place] [address] Pb KarenWBC (Bld) [#/Vol]9.9 103/ulNormal4.0-11.0[facility] Comment on above:Performed By: #### CBC #### [facility] [address] [place] [address] Pb KarenCREATININEon [id number] [Mass/Vol]1.58 mg/dLCritically high0.66-1.25The [facility] on above:Performed By: #### PHOS, CREA, BUN, ELEC, CA, MG #### [facility] [facility] [address] [place] [address] Pb KarenCreatinine [Mass/Vol]44 mL/min/1.37d7Owohqxyhjs low>=60The [facility] GeneralComment on above:Performed By: #### PHOS, CREA, BUN, ELEC, CA, MG #### [facility] [address] [place] [address] Pb KarenCreatinine [Mass/Vol]53 mL/min/1.02v8Cjysjshzrm low>=60The [facility] GeneralComment on above:Performed By: #### PHOS, CREA, BUN, ELEC, CA, MG #### [facility] [address] [place] [address] Pb KarenELECTROLYTESon 30-54-9599Ldfts gap [Moles/Vol]12.7 mmol/LNormalThe [facility] GeneralComment on above:Performed By: #### PHOS, CREA, BUN, ELEC, CA, MG #### [facility] [address] [place] [address] Pb KarenChloride [Moles/Vol]107 mmol/UOphmly61-099Csw [facility] Comment on above:Performed By: #### PHOS, CREA, BUN, ELEC, CA, MG #### [facility] [address] [place] [address] Pb KarenCO2 [Moles/Vol]28.4 mmol/LHjjoqv20.0-30.0The [facility] Comment on above:Performed By: #### PHOS, CREA, BUN, ELEC, CA, MG #### [facility] [address] [address] Pb KarenPotassium [Moles/Vol]4.1 mmol/LNormal3.4-5.0The [facility] Comment on above:Performed By: #### PHOS, CREA, BUN, ELEC, CA, MG #### [facility] [address] [place] [address] Pb KarenSodium [Moles/Vol]144 mmol/GKsexox076-069Zpz [facility] Comment on above:Performed By: #### PHOS, CREA, BUN, ELEC, CA, MG #### [facility] [address] [place] [address] Pb KarenMAGNESIUMon 36-06-9380Agbquupjz [Mass/Vol]1.8 mg/dLNormal1.6-2.3TProMedica Memorial HospitalComment on above:Performed By: #### CBC #### [facility] [address] [place] [address] Pb KarenMICROALB CREAT RATIO RANDOMon 24-62-8936lBOX03.1 mg/dLNormal<=30.0 [facility] GeneralComment on above:Performed By: #### MCRR #### [facility] [address] [place] [address] Pb KarenMALB CR NFDQU258.1 MG/GCritically high0.0-29.9The [facility] Comment on above:Performed By: #### MCRR #### [facility] [address] [place] [address] Pb KarenMALB CR RATIO RANGESEE BELOWNormalThe [facility] GeneralComment on above:Result Comment: NO MICROALBUMIN 0-29 MG/G CLINICAL MICROALBUMINURIA 30-300 MG/G MACROALBUMINURIA >300 MG/GPerformed By: #### MCRR #### [facility] [address] [place] [address] Pb TafoyaURINE CREAT96.40 mg/pIYtxdrw80.00-300.00[facility] SouthComment on above:Performed By: #### MCRR #### [facility] [address] [place] [address] Pb TafoyaPHOSPHORUSon 82-98-1459Tqrvhdfpl [Mass/Vol]3.1 mg/dLNormal2.5-4.5The [facility] GeneralComment on above:Performed By: #### PHOS, CREA, BUN, ELEC, CA, MG #### [facility] [address] [place] [address] Pb BaxterenVITAMIN D 25 OHon 75-51-8363BOX D 25-OH71.6 ng/mLNormalSelect Medical Specialty Hospital - Columbus SouthComment on above:Performed By: #### VITAD #### [facility] [address] [place] [address] Pb KarenVIT D RANGESSEE BELOWNormalThe [facility] GeneralComment on above: Result Comment: <20 ng/mL Vit D deficient 20 - <30 ng/mL Vit D insufficient 30 - 100 ng/mL Vit D sufficient >100 ng/mL Potential ToxicityPerformed By: #### VITAD #### [facility] [address] [place] [address] Pb BaxterenCBC With Auto Differentialon 43-13-6214Uueeijetm (Bld) [#/Vol]0.10 10*3/uLMercy Health- [place], KYBasophils/100 WBC (Bld)1 %0 - 2 %[facility] [place], [place] Differential TypeNOT REPORTEDMercy Health- [place], KYEosinophils (Bld) [#/Vol]0.40 10*3/uLMercy Health- [place], KYEosinophils/100 WBC (Bld)4 %1 - 4 %[facility]- [place], KYErythrocyte distribution width (RBC) [Ratio]15.1 %12.5 - 15.4 %[facility]- [place], KYHematocrit (Bld) [Volume fraction]42.1 %41 - 53 %[facility]- [place], [place] Hemoglobin (Bld) [Mass/Vol]13.9 g/dL13.5 - 17.5 g/dLParkview Health Bryan Hospital- [place], [place] Interpretation and review of laboratory resultsAbnormalUniversity Hospitals [facility], [place] Lymphocytes (Bld) [#/Vol]2.00 10*3/[facility]- [place], ARLymphocytes/100 WBC (Bld)20 %Low24 - 44 %[facility], [facility] (RBC) [Entitic mass]27.9 pg26 - 34 pgUniversity Hospitals Ge[facility], ARMCHC (RBC) [Mass/Vol]33.1 g/dL31 - 37 g/dLUniversity Hospitals Geauga Medical Center, CALIMCV (RBC) [Entitic vol]84.2 fL80 - 100 fLUniversity Hospitals Geauga Medical Center, CALIMonocytes (Bld) [#/Vol]0.70 10*3/[facility]- [place], CALIMonocytes/100 WBC (Bld)7 %2 - 11 % [facility] ARPlatelet mean volume (Bld) [Entitic vol]9.3 fL6 - 12 fLUniversity Hospitals Geauga Medical Center, CALIPlatelets (Bld) [#/Vol]NOT REPORTEDUniversity Hospitals [facility], CALIPlatelets (Bld) [#/Vol]254 10*3/[facility], CALIRBC (Bld) [#/Vol]5.00 10*6/uL4.5 - 5.9 m/[facility], ARRBC morphology finding Nom (Bld)NOT REPORTEDUniversity [facility]als [facility], ARSegmented neutrophils/100 WBC (Bld)68 %High36 - 66 %[facility], CALISegs Absolute7.10[facility], KYWBC (Bld) [#/Vol]10.2 10*3/[facility]- [place], CALIWBC (Bld) [#/Vol]NOT REPORTEDper 100 WBCParkview Health Bryan Hospital- [place], ARWBC MorphologyNOT REPORTEDWvumedicine [facility] [place], ARComprehensive Metabolic Panelon 10-40-3076Ydduhcf [Mass/Vol]4.4 g/dL3.5 - 5.2 g/dLUniversity Hospitals Geaug[facility], [place] Albumin/Globulin [Mass ratio]1.6 {ratio}[facility], KYALP [Catalytic activity/Vol]130 U/LHigh40 - 129 U/LMCleveland Clinic [facility]ucl[facility] [place], KYALT [Catalytic activity/Vol]23 U/L5 - 41 U/[facility] [place], KYAnion gap [Moles/Vol]12 mmol/L9 - 17 mmol/LMCleveland Clinic Euclid Hospital [place], KYAST [Catalytic activity/Vol]22 U/L<40[facility], KYBilirubin Ql (U)0.33 mg/dL0.3 - 1.2 mg/dLUniversity Hospitals [facility], [place] Bun/Cre RatioNOT REPORTEDUniversity [facility]als [facility], KYCalcium [Mass/Vol]10.4 mg/dL8.6 - 10.4 mg/dLUniversity Hospitals Ge[facility], KYChloride [Moles/Vol]104 mmol/L98 - 107 mmol/[facility], KYCO2 [Moles/Vol]26 mmol/L20 - 31 mmol/[facility], [place] Creatinine [Mass/Vol]1.4 mg/dLHigh0.7 - 1.2 mg/dLUniversity Hospitals [facility], KYGFR >60>60 mL/minUniversity Hospitals Geauga Medical Center, KYGFR Non- Cfhruqhw20 mL/minLow >60[facility], KYGFR/1.73 sq M predicted among non-blacks MDRD (S/P/Bld) [Vol rate/Area][facility], KYComment on above:Average GFR for 60-69 years old: 85 mL/min/1.73sq m Chronic Kidney Disease: <60 mL/min/1.73sq m Kidney failure: <15 mL/min/1.73sq m eGFR calculated using average adult body mass. Additional eGFR calculator available at: http://www.[employer]s [employer]Bay/multiple_crcl_2012.htm GFR/1.73 sq M predicted among non-blacks MDRD (S/P/Bld) [Vol rate/Area]NOT REPORTEDUniversity Hospitals [facility], ARGlucose [Mass/Vol]217 mg/fUJglc65 - 99 mg/dLUniversity Hospitals Geaug[facility], KYInterpretation and review of laboratory resultsAbnormalUniversity Hospitals [facility], KYPotassium [Moles/Vol]5.0 mmol/L3.7 - 5.3 mmol/LMCleveland Clinic [facility]ucl[facility] Hospital [place], KYProtein [Mass/Vol]7.2 g/dL6.4 - 8.3 g/dLUniversity Hospitals [facility], KYSodium [Moles/Vol] 142 mmol/L135 - 144 mmol/[facility], KYUrea nitrogen [Mass/Vol]26 mg/dL High8 - 23 mg/dLUniversity Hospitals Geauga [facility] Center, KYLactate Dehydrogenaseon 97-06-1261IF726 U/L 135 - 225 U/[facility], KYOtheron 97-96-9862Vhmoadrb granulocytes (Bld) [#/Vol]NOT REPORTED0 %[facility], KYLIPID PROFILEon 75-07-6116KNQH-HDL RATIO NORMSEE [facility] CenterComment on above:Result Comment: 3.3 - 4.4 LOW RISK 4.4 - 7.1 AVERAGE RISK 7.1 - 11.0 MODERATE RISK >11.0 HIGH RISKPerformed By: #### LIPID, CMP #### [facility] [address] [address] Pb KarenCholesterol [Mass/Vol]193 mg/dLNormal<=200[facility] Comment on above:Performed By: #### LIPID, CMP #### [facility] [address] [address] Pb KarenCholesterol in HDL [Mass/Vol]45 mg/dLCity Hospital Comment on above:Performed By: #### LIPID, CMP #### [facility] [address] [address] Pb KarenCholesterol in HDL [Mass/Vol]> or = 60 mg/dl - LOW CARDIOVASCULAR RISK <40 mg/dl - HIGH CARDIOVASCULAR RISKCity HospitalComment on above:Performed By: #### LIPID, CMP #### [facility] [address] [address] Pb KarenCholesterol in LDL [Mass/Vol]108.4 mg/dLCity Hospital Comment on above:Performed By: #### LIPID, CMP #### [facility] [address] [address] Pb KarenCholesterol in LDL [Mass/Vol]SEE [facility] Comment on above:Result Comment: <100 mg/dl OPTIMAL 100 - 129 mg/dl NEAR OR ABOVE OPTIMAL 130 - 159 mg/dl BORDERLINE HIGH 160 - 189 mg/dl HIGH >190 mg/dl VERY HIGHPerformed By: #### LIPID, CMP #### [facility] [address] [address] Pb KarenCholesterol.total/Cholesterol in HDL [Mass ratio]4.3 {ratio}Normal The [facility] GeneralComment on above:Performed By: #### LIPID, CMP #### [facility] [address] [address] Pb KarenTriglyceride [Mass/Vol]198 mg/dLCritically high<=150The [facility] GeneralComment on above:Performed By: #### LIPID, CMP #### [facility] [address] [address] Pb KarenVLDL CALC39.6 mg/dLCity HospitalComment on above: Performed By: #### LIPID, CMP #### [facility] [address] [address] Pb KarenMICROALB CREAT RATIO RANDOMon 24-30-9870yDAN64.8 mg/dLNormal<=30.0 [facility] SouthComment on above:Performed By: #### CBC #### [facility] [address] [address] Pb KarenMALB CR YYHLY903.1 MG/GCritically high0.0-29.9[facility] Comment on above:Performed By: #### CBC #### [facility] [address] [place] [address] Pb KarenMALB CR RATIO RANGESEE BELOWCity HospitalComment on above:Result Comment: NO MICROALBUMIN 0-29 MG/G CLINICAL MICROALBUMINURIA 30-300 MG/G MACROALBUMINURIA >300 MG/GPerformed By: #### CBC #### [facility] [address] [address] Pb KarenURINE CREAT85.02 mg/wUPknldv46.00-300.00The [facility] GeneralComment on above:Performed By: #### CBC #### [facility] [address] [address] Pb KarenPROF 14(COMP METB)on 75-40-8038Fanomkh [Mass/Vol]3.9 g/dLNormal 3.5-5.0The [facility] GeneralComment on above:Performed By: #### LIPID, CMP #### [facility] [address] [place] [address] Pb KarenAlbumin/Globulin [Mass ratio]1.2 {ratio}NormalSelect Medical Specialty Hospital [facility] Comment on above:Performed By: #### LIPID, CMP #### [facility] [address] [place] [address] Pb KarenALP [Catalytic activity/Vol]125 U/RJnwjfp54-217Xla [facility] Comment on above:Performed By: #### LIPID, CMP #### [facility] [address] [address] Pb KarenALT [Catalytic activity/Vol]36 U/HFaszdu01-03Gfh [facility] Comment on above:Performed By: #### LIPID, CMP #### [facility] [address] [place] [address] Pb KarenAnion gap [Moles/Vol]13.0 mmol/LNormalThe [facility] GeneralComment on above:Performed By: #### LIPID, CMP #### [facility] [address] [place] [address] Pb KarenAST [Catalytic activity/Vol]26 U/MJwkddl53-52Gnf [facility] Comment on above:Performed By: #### LIPID, CMP #### [facility] [address] [place] [address] Pb KarenBilirubin Ql (U)0.5 mg/dLNormal0.2-1.3The [facility] GeneralComment on above:Performed By: #### LIPID, CMP #### [facility] [address] [address] Pb KarenCalcium [Mass/Vol]9.5 mg/dLNormal8.4-10.2[facility] Comment on above:Performed By: #### LIPID, CMP #### [facility] [address] [address] Pb KarenChloride [Moles/Vol]105 mmol/XTjoxoc32-876Nde [facility] Comment on above:Performed By: #### LIPID, CMP #### [facility] [address] [address] Pb KarenCO2 [Moles/Vol]28.1 mmol/PPqkqxi24.0-30.0The [facility] Comment on above:Performed By: #### LIPID, CMP #### [facility] [address] [address] Pb KarenCreatinine [Mass/Vol]1.54 mg/dLCritically high0.66-1.25The [facility] GeneralComment on above:Performed By: #### LIPID, CMP #### [facility] [address] [address] Pb KarenEGFR-AF EMXSUOPR46 mL/min/1.45s5Coigrdgmpd low>=60The [facility] GeneralComment on above:Performed By: #### LIPID, CMP #### [facility] [address] [address] Pb KarenEGFR-NON AF QXMCIFPM09 mL/min/1.38t8Meurugbdvg low>=60The [facility] GeneralComment on above:Performed By: #### LIPID, CMP #### [facility] [address] [address] Pb KarenGlobulin (S) [Mass/Vol]3.2 g/dLNormalThe [facility] GeneralComment on above:Performed By: #### LIPID, CMP #### [facility] [address] [place] [address] Pb KarenGlucose [Mass/Vol]208 mg/dLCritically bhyc42-216Gti [facility] GeneralComment on above:Performed By: #### LIPID, CMP #### [facility] [address] [place], [place] [address] Bp KarenPotassium [Moles/Vol]5.1 mmol/LCritically high3.4-5.0The [facility] GeneralComment on above:Performed By: #### LIPID, CMP #### [facility] [address] [address] Pb KarenProtein [Mass/Vol]7.1 g/dLNormal6.1-8.2The [facility] GeneralComment on above:Performed By: #### LIPID, CMP #### [facility] [address] [address] Pb KarenSodium [Moles/Vol]141 mmol/TDujzax883-030Xpl [facility] Comment on above:Performed By: #### LIPID, CMP #### [facility] [address] [address] Pb KarenUrea nitrogen [Mass/Vol]26.0 mg/dLCritically high9.0-20.0The [facility] GeneralComment on above:Performed By: #### LIPID, CMP #### [facility] [address] [address] Pb KarenUrea nitrogen/Creatinine [Mass ratio]16.9 mg/mgNormalThe [facility] GeneralComselect specialty hospital on above:Performed By: #### LIPID, CMP #### [facility] [address] [id number] Pb KarenCBC With Auto DifferentialOrdered By: Lazara Hazel on 12-03-2019 Absolute Eos #0.40[facility] HospitalKOWN Work Phone: absolute Immature GranulocyteNOT REPORTEDSheltering Arms Hospital [employer] Work Phone: absolute Lymph #1.40[facility] HospitalKOWN Work Phone: absolute [place] #0.60[facility] HospitalKOWN Work Phone: basophils (Bld) [#/Vol]0.10 10*3/uLCleveland Clinic Union HospitalKOWN Work Phone: basophils/100 WBC (Bld)1 %0 - 2 %[employer] Phone: differential TypeNOT REPORTEDL[employer] a [employer] Phone: eosinophils/100 WBC (Bld)4 %1 - 4 %[employer] Phone: erythrocyte distribution width (RBC) [Ratio]14.7 %12.5 - 15.4 %[employer] Phone: Hematocrit (Bld) [Volume fraction]40.9 %Low41 - 53 % [employer] Phone: Hemoglobin (Bld) [Mass/Vol]13.5 g/dL13.5 - 17.5 g/dL [employer] Phone: Immature GranulocytesNOT REPORTED0 %[employer] Phone: Interpretation and review of laboratory results AbnormalL[employer] a [employer] Phone: lymphocytes/100 WBC (Bld)16 %Low24 - 44 %[employer] Phone: MCH (RBC) [Entitic mass]27.3 pg26 - 34 pgL[employer] a Hel[employer] Phone: MCHC (RBC) [Mass/Vol]33.0 g/dL31 - 37 g/dLLending a Helping Hand Phone: MCV (RBC) [Entitic vol]82.7 fL80 - 100 fLLending a Helping Hand Phone: Monocytes/100 WBC (Bld)7 %2 - 11 %[employer] Phone: NRBC AutomatedNOT REPORTEDper 100 WBCLending a Helping Hand Phone: platelet EstimateNOT REPORTEDL[employer] a [employer] Phone: platelet mean volume (Bld) [Entitic vol]9.6 fL6 - 12 fLLending a Helping Hand Phone: platelets (Bld) [#/Vol]204 10*3/uLCleveland Clinic Union HospitalKOWN Work Phone: RBC (Bld) [#/Vol]4.95 10*6/uL4.5 - 5.9 m/uLCleveland Clinic Union HospitalAdaptiveBlue Phone: rBC morphology finding Nom (Bld)NOT REPORTEDCleveland Clinic Union HospitalKOWN Work Phone: segmented neutrophils/100 WBC (Bld)72 %High36 - 66 % [employer] Phone: Legs Absolute6.20[facility] HospitalAdaptiveBlue Phone: WBC (Bld) [#/Vol]8.7 10*3/[facility] Phone: WBC MorphologyNOT REPORTEDCleveland Clinic Union HospitalAdaptiveBlue Phone: comprehensive Metabolic PanelOrdered By: Lazara Diaz on 05-70-1288Ogubuhw [Mass/Vol]4.3 g/dL3.5 - 5.2 g/dLCleveland Clinic Union HospitalAdaptiveBlue Phone: albumin/Globulin [Mass ratio]1.5 {ratio}[employer] Phone: aLP [Catalytic activity/Vol]150 U/LHigh40 - 129 U/L [employer] Phone: aLT [Catalytic activity/Vol]33 U/L5 - 41 U/LMSinocom Pharmaceutical Phone: anion gap [Moles/Vol]12 mmol/L9 - 17 mmol/LMmagruder memorial hospitaly [employer] Phone: aST [Catalytic activity/Vol]34 U/L<40[facility] HospitalAdaptiveBlue Phone: bilirubin [Mass/Vol]0.38 mg/dL0.3 - 1.2 mg/dLCleveland Clinic Union HospitalAdaptiveBlue Phone: bun/Cre RatioNOT REPORTEDCleveland Clinic Union HospitalAdaptiveBlue Phone: Calcium [Mass/Vol]9.5 mg/dL8.6 - 10.4 mg/dLSheltering Arms Hospital [employer] Phone: chloride [Moles/Vol]103 mmol/L98 - 107 mmol/LMcleveland clinic avon hospital [employer] Work Phone: cO2 [Moles/Vol]25 mmol/L20 - 31 mmol/LMcleveland clinic avon hospital [employer] Phone: creatinine [Mass/Vol]1.56 mg/dLHigh0.7 - 1.2 mg/dL [facility] [employer] Phone: GFR Gmqyjaav94 mL/minLow>60[facility] [employer] Phone: GFR CommentSheltering Arms Hospital [employer] Phone: comment on above:Average GFR for 60-69 years old: 85 mL/min/1.73sq m Chronic Kidney Disease: <60 mL/min/1.73sq m Kidney failure: <15 mL/min/1.73sq m eGFR calculated using average adult body mass. Additional eGFR calculator available at: http://www.[employer]/multiple_crcl_2012.htm GFR Non- [place]52 mL/minLow>60[facility] [employer] Phone: GFR StagingNOT REPORTEDSheltering Arms Hospital [employer] Phone: Glucose [Mass/Vol]227 mg/rZBbmx31 - 99 mg/dLSheltering Arms Hospital [employer] Phone: Interpretation and review of laboratory results AbnormalSheltering Arms Hospital [employer] Phone: potassium [Moles/Vol]4.8 mmol/L3.7 - 5.3 mmol/LMcleveland clinic avon hospital [employer] Work Phone: protein [Mass/Vol]7.1 g/dL6.4 - 8.3 g/dLSheltering Arms Hospital [employer] Phone: sodium [Moles/Vol]140 mmol/L135 - 144 mmol/LMcleveland clinic avon hospital [employer] Work Phone: Urea nitrogen [Mass/Vol]30 mg/dLHigh8 - 23 mg/dLParkview Health Bryan Hospital Work Phone: lactate DehydrogenaseOrdered By: Lazara Hazel on 34-99-2150GC017 U/L135 - 225 U/LMmagruder memorial hospitaly [facility] Work Phone: K (Potassium)on 83-63-3893Ptbejswmn molar conc4.6 mmol/LNormal3.7-5.3MParkview HealthComment on above:Performed By: #### K #### [facility] [address] [place] [address] Chucker: GEETHA Vera + Creatinineon 03-02-2018(cont.)NormalCincinnati Shriners HospitalComment on above:Result Comment: Average GFR for 60-69 years old: 85 mL/min/1.73sq m Chronic Kidney Disease: <60 mL/min/1.73sq m Kidney failure: <15 mL/min/1.73sq m eGFR calculated using average adult body mass. Additional eGFR calculator available at: http://www.[employer]s Direct.AktiveBay/multiple_crcl_2012.htm Performed at [address] [address] ([phone] By: #### BUNCRT, LYTE #### [address] [address] Creatinine mass conc1.46 mg/dLHigh0.70-1.20[facility] Shriners HospitalComment on above:Performed By: #### BUNCRT, LYTE #### [address] [address] GFR, Amer59 mL/minLow>60[facility] Shriners HospitalComment on above:Performed By: #### BUNCRT, LYTE #### [address] [address] GFR,non Amer49 mL/minLow>60[facility] Comment on above:Performed By: #### BUNCRT, LYTE #### [address] [address] Urea nitrogen mass conc27 mg/dLHigh8-23[facility] Comment on above:Performed By: #### BUNCRT, LYTE #### [address] [address] Staging:NOT REPORTEDNormalCincinnati Shriners HospitalComment on above:Performed By: #### BUNCRT, LYTE #### [address] [address] Electrolyteson 01-45-1564Cthvv gap molar conc14 mmol/LNormal9-17 [facility] Shriners HospitalComment on above:Result Comment: Performed at [address] [address] [phone] By: #### BUNCRT, LYTE #### [address] [address] Chloride molar xwmu862 mmol/KExdcff86-184JxmfdCincinnati Shriners Hospital Comment on above:Performed By: #### BUNCRT, LYTE #### [address] [address] CO2 molar conc23 mmol/EJamkuo49-40QnpwtCincinnati Shriners HospitalComment on above:Performed By: #### BUNCRT, LYTE #### [address] [address] Potassium molar conc4.7 mmol/LNormal3.7-5.3MParkview HealthComment on above:Performed By: #### BUNCRT, LYTE #### [address] [address] Sodium molar skjm125 mmol/TIzbyoa538-399Rdsru [facility] Comment on above:Performed By: #### MARGAUX FRANCO #### [address] [facility] [address] [place] [address] Vital Signs Date TimeVital SignValuePerforming QcunibxsmEmncmbgn08-80-3253 10:06-0400Body tekeax431.8 Angelica Hogan MD Work Phone: [phone] [place], [place] [address]Wahxildgzi64-31-0125 10:06-0400Body mass index (BMI) [Ratio]33.43 kg/k3WtqarYasmine Hogan MD Work Phone: [phone] [place], [place] [address]Sknnjsutzr04-86-8183 10:06-0400Body ttmvme286.69 kgYasmine Hogan MD Work Phone: [phone] [place], [place] [address]Jfhzexkwml99-24-0311 10:06-0400Diastolic blood mm[Hg]Yasmine Hogan MD Work Phone: [phone] [place], [place] [address]Osaxukosjt41-18-8554 10:06-0400Heart emit390 /min Yasmine Hogan MD Work Phone: [phone] [place], [place] [address]Txrujxfqxi26-08-3873 10:06-3299ToW5% (BldA) [Mass fraction]96 %Yasmine Hogan MD Work Phone: [phone] [place], [place] [address]Ebxwzcivja81-00-2775 10:06-0400Systolic blood avqlpboa12 mm[Hg]Yasmine Hogan MD Work Phone: [phone] [place], [place] [address]Ortdnpaqos94-85-0354 10:18-0400Body qawhax712.8 Angelica Hogan MD Work Phone: [phone] [place], [place] [address]Yzncfhzhzf96-00-6620 10:18-0400Body mass index (BMI) [Ratio]38.02 kg/z1WxklmYasmine Hogan MD Work Phone: [phone] [place], [place] [address]Pxtnqrdues95-08-8570 10:18-0400Body xiwpbr203.2 kgYasmine Hogan MD Work Phone: [phone] [place], [place] [address]Wgytpjsshv35-37-9486 10:18-0400Diastolic blood ztzyvqlp71 mm[Hg]Yasmine Hogan MD Work Phone: [facility] HospitalTixmvwlkhh82-60-4988 10:18-0400Heart rate94 /min Yasmine Hogan MD Work Phone: [facility] HospitalLayvhxtlqf31-99-2844 10:18-0400Respiratory rate18 /minYasmine Hogan MD Work Phone: 1([phone])049-[address] [place], [place] [address]Ytvgczsiqg18-77-5559 10:18-2552RmX1% (BldA) [Mass fraction]95 %Yasmine Hogan MD Work Phone: 1(337)754-[address] [place], [place] [address]Jjyzzvkdzu80-70-7513 10:18-0400Systolic blood knkzyudo393 mm[Hg]Yasmine Hogan MD Work Phone: [phone] HospitalLzsxpjshky97-56-8594 11:20-0400Diastolic blood mm[Hg]Basem Banks [facility]04-02-2025 11:20-0400Heart imss428 /minBasem Banks [facility]04-02-2025 11:20-0400Mean blood uvxgpzrv479 mm[Hg]Basem Banks [facility]04-02-2025 11:20-6654MtZ3% (BldA) [Mass fraction]96 %Basem Banks [facility]04-02-2025 11:20-0400 Systolic blood ttkeljtk728 mm[Hg]Basem Abnks [facility]03-03-2025 11:10-0500 Diastolic blood nxslydro42 mm[Hg]Basem Banks [facility]03-03-2025 11:10-0500Heart rate95 /minBasem Banks [facility]03-03-2025 11:10-0500Mean blood mvtidsaw24 mm[Hg]Sagrario Banks [facility]03-03-2025 11:10-0350CyP0% (BldA) [Mass fraction]94 %Sagrario Banks [facility]03-03-2025 11:10-0500 Systolic blood hfsxyccm281 mm[Hg]Sagrario Banks [facility]02-27-2025 10:02-0500Body .8 Angelica Hogan MD Work Phone: [phone] [place], [place] [address]Qlartenhgj44-45-8289 10:02-0500Body mass index (BMI) [Ratio]38.17 kg/q5UxuciYasmine Hogan MD Work Phone: [phone] [place], [place] [address]Ttbwwwgexg17-37-5745 10:02-0500Body rnvzyo491.66 kgYasmine Hogan MD Work Phone: [phone] [place], [place] [address]Sndtkshxwc30-02-2865 10:02-0500Diastolic blood omizhjqh98 mm[Hg]Yasmine Hogan MD Work Phone: [phone])666-[address] [place], [place] [address]Mzquzuzevr22-38-5734 10:02-0500Heart hiwk115 /min Yasmine Hogan MD Work Phone: 0(578)706-[address] [place], [place] [address]Ywsnwrbduf89-47-0310 10:02-0500Respiratory rate18 /minYasmine Hogan MD Work Phone: [facility] HospitalGmjpqydbqz20-93-8435 10:02-9876VkE9% (BldA) [Mass fraction]95 %Yasmine Hogan MD Work Phone: 1(078)846-[address] [place], [place] [address]Utwdivfurz91-12-1710 10:02-0500Systolic blood ikgnedmw106 mm[Hg]Yasmine Hogan MD Work Phone: 1(126)847-[address] [place], [place] [address]Ndigrumznl29-97-6834 11:34-0500Body txaloy205.8 Angelica Hogan MD Work Phone: 1(545)[address] [place], [place] 2437411-18-2024 11:34-0500Body mass index (BMI) [Ratio]38.45 kg/w0NmbkgYasmine Hogan MD Work Phone: 1(703)[address] [place], [place] 2437411-18-2024 11:34-0500Body urlkon197.56 kgYasmine Hogan MD Work Phone: 1(113)[address] [place], [place] 2437411-18-2024 11:34-0500Diastolic blood ducoblrl81 mm[Hg]Yasmine Hogan MD Work Phone: 1(449)[address] [place] [address]-18-2024 11:34-0500Heart axyq540 /min Yasmine Hogan MD Work Phone: 1(311)[address] [place], [place] 2437411-18-2024 11:34-0500Respiratory rate20 /minYasmine Hogan MD Work Phone: 1(060)[address] [place], [place] 2437411-18-2024 11:34-0500Systolic blood ueetvkdq940 mm[Hg]Yasmine Hogan MD Work Phone: 1(723)[address] [place], [place] 2437407-26-2024 13:02-0400Diastolic blood yapvkfmo56 mm[Hg]Pablojocy Beal [facility]07-26-2024 13:02-0400Heart wuoa573 /minMikhail Omkarus [facility]07-26-2024 13:02-0400 Respiratory rate16 /minMikhail Brittneenus [facility]07-26-2024 13:02-1989OfC2% (BldA) [Mass fraction]94 %Pablo Beal [facility]07-26-2024 13:02-0400 Systolic blood zohileff721 mm[Hg]Pablo Beal [facility]03-04-2024 22:17-0500 Diastolic blood mm[Hg]Elbert Hill [facility]03-04-2024 22:17-0500Heart rate37 /minJohn Sergio [address] [place], [place] 8064003-04-2024 22:17-0500Mean blood gdkuzmjq85 mm[Hg]Elbert Hill [address] [place], [place] 8064003-04-2024 22:17-0500 Respiratory rate16 /minJohn Sergio [address] [place], [place] 8064003-04-2024 22:17-8120GdE7% (BldA) [Mass fraction]93 %Elbert Hill [address] [place], [place] 8064003-04-2024 22:17-0500 Systolic blood xfaoecxt684 mm[Hg]Elbert Hill [address] [place], [place] 8064003-04-2024 22:06-0500Heart rate36 /minJohn Sergio [facility]03-04-2024 22:06-0500 Respiratory rate18 /minJohn Sergio [address] [place], [place] 8064003-04-2024 22:06-3274WcI3% (BldA) [Mass fraction]94 %Elbert Hill [address] [place], [place] 8064003-04-2024 20:52-0500 Diastolic blood mupwqskj41 mm[Hg]Elbert Hill [address] [place], [place] 8064003-04-2024 20:52-0500Heart rate38 /minJohn Sergio [address] [place], [place] 8064003-04-2024 20:52-0500Mean blood tfiqfpgp42 mm[Hg]Elbert Hill [address] [place], [place] 8064003-04-2024 20:52-3209NhS4% (BldA) [Mass fraction]99 %Elbert Hill [address] [place], [place] 8064003-04-2024 20:52-0500 Systolic blood jffolkzs565 mm[Hg]Elbert Hill [address] [place], [place] 8064003-04-2024 18:54-0500 Diastolic blood ulztquiz76 mm[Hg]Elbert Hill [address] [place], [place] 8064003-04-2024 18:54-0500Mean blood rtidmcpg79 mm[Hg]Elbert Hill [address] [place], [place] 8064003-04-2024 18:54-0500 Systolic blood zaewbuat839 mm[Hg]Elbert Hill [address]03-04-2024 17:14-0500 Respiratory rate18 /minElbert Hill [address] [place], [place] 8064003-04-2024 12:30-0500Body zwhgnepjnjq01.7 [degF]Elbert Hill [address] [place], [place] 8064003-04-2024 12:30-0500Heart rate41 /minElbert Hill [address] [place], [place] 8064003-04-2024 12:30-0500 Respiratory rate20 /minElbert Hill [address] [place] [address] Encounters Encounter DateEncounter TypeCare ProviderFacilityStart: 05-05-0093izbnakuyzy Tiffany MedellinbsFacility:FT BellevueStart: 09-30-2025 End: 23-28-5104rstzhnmvggNHJZRN A LEHMANNFacility:FT BellevueStart: 09-18-2025 End: 42-63-8983Akzpudvonda Hogan MD Work Phone: [facility] EndocrinologyStart: 09-18-2025 End: 57-44-8498Baezmzdiane Hogan MD Work Phone: [facility] [place] EndocrinologyStart: 09-18-2025 End: 76-81-7736Rxlrku outpatient visit 25 minutesYasmine Hogan MD Work Phone: [facility] [place] EndocrinologyComment on above:Type 2 diabetes mellitus with hyperglycemia, with long-term current use of insulin (HCC) (Primary Dx); Vitamin D deficiency, unspecified; Essential (primary) hypertension; Mixed hyperlipidemia; Autoimmune thyroiditis; FDC (current) use of insulin (HCC); Chronic kidney disease, stage 3a ([facility]-HCC); MicroalbuminuriaStart: 09-18-2025 End: 38-92-9123wherjfhlkeRQNXD F SABBAGHNot AvailableStart: 08-08-2025 End: 96-52-4005mwpldnobvmKP Maurice W CastleFacility:FTMCStart: 39-49-8385tmydeuwrdx Tony VasquezFacility:FT FM BellevueStart: 06-14-2025 End: 23-28-1454cqjxaronmqDrvsxa A SteinFacility:FTMCStart: 05-22-2025 End: 36-15-0617Bzqugh Micky Hogan MD Work Phone: noms ENDOCRINOLOGYStart: 05-22-2025 End: 02-27-5530Pmpgxy Micky Hogan MD Work Phone: noms ENDOCRINOLOGYStart: 05-22-2025 End: 40-16-2188Akvqoc outpatient visit 25 Lyla Hogan MD Work Phone: noms ENDOCRINOLOGYComment on above:Type 2 diabetes mellitus with hyperglycemia, with long-term current use of insulin (HCC) (Primary Dx); Vitamin D deficiency, unspecified; Essential (primary) hypertension ; Mixed hyperlipidemia ; Autoimmune thyroiditis ; FDC (current) use of insulin (HCC); Chronic kidney disease, stage 3a ([facility]-HCC)Start: 05-22-2025 End: 40-11-2544ltmgikpzelJCXWQWoody Chairez AvailableStart: 04-29-2025 End: 11-92-1551Bofsigpxm encounterYasmine Hogan MD Work Phone: noms ENDOCRINOLOGYComment on above:Med RefillStart: 04-16-2025 End: 88-13-4629Xoymdtbhi Zak Hogan MD Work Phone: noms ENDOCRINOLOGYComment on above:Medication ProblemStart: 04-11-2025 End: 72-25-8344vjengbappiSvkqnf E. RossFacility:FT FM BellevueStart: 03-27-2025 End: 51-40-2550osepgsgsirIqwzarb D KirnusFacility:FTMCStart: 03-27-2025 End: 29-29-4483Xboxdrl encounter procedureSyaima Vasquez [facility] Start: 03-25-2025 End: 79-11-7017xjdapbmtkqZxmiiz E. RossFacility:FT FM BellevueStart: 02-27-2025 End: 18-41-6620oebnwykbkpVllnl GinoKevin RuanodadFacility:FTMCStart: 02-27-2025 End: 30-46-3161Xpajwzz encounter procedureBasem Emilie Grecod [facility] Start: 01-31-2025 End: 03-94-4768nmruvgdebjLyajafg D KirnusFacility:FTMCStart: 01-28-2025 End: 80-38-2775mpifvpjbueMIUP NONEFacility:FTMCStart: 01-28-2025 End: 81-67-4777Gfsvybk encounter procedureBasem Emilie Grecod [facility] Start: 01-24-2025 End: 98-08-4914Wxrctq flowsheetYasmine Hogan MD Work Phone: noms ENDOCRINOLOGYStart: 01-24-2025 End: 82-38-1817Utygvw Micky Hogan MD Work Phone: noms ENDOCRINOLOGYStart: 01-24-2025 End: 76-53-3195xwdhdsgkrkMPGHM F SABBAGHNot AvailableStart: 01-24-2025 End: 16-52-3569Gllsid outpatient visit 25 minutesYasmine Hogan MD Work Phone: noms ENDOCRINOLOGYComment on above:Vitamin D deficiency, unspecified (Primary Dx); Type 2 diabetes mellitus with hyperglycemia, with long-term current use of insulin (CMS/HCC); Essential (primary) hypertension (CMS/HCC); Mixed hyperlipidemia (CMS/HCC); Autoimmune thyroiditis (CMS/HCC); FDC (current) use of insulin (CMS/HCC); Chronic kidney disease, stage 3a (HCC) (CMS/HCC); MicroalbuminuriaStart: 10-22-2024 End: 66-80-4266czqjktwkejRtndkw E. RossFacility:FTMCStart: 10-22-2024 End: 01-28-6108Gkxsvpd encounter procedureBasem Emilie Banks [facility] Start: 10-15-2024 End: 14-16-1320Ffmbhkvonda Hogan MD Work Phone: noms ENDOCRINOLOGYStart: 10-15-2024 End: 49-73-5098Dpmojbvonda Hogan MD Work Phone: noms ENDOCRINOLOGYStart: 10-15-2024 End: 28-21-5223ayqrphvpzkRLVAA F SABBAGHNot AvailableStart: 10-15-2024 End: 35-79-7703Zqmxrr outpatient visit 25 minutesYasmine Hogan MD Work Phone: noms ENDOCRINOLOGYComment on above:Type 2 diabetes mellitus with hyperglycemia, with long-term current use of insulin (CMS/HCC) (Primary Dx); Vitamin D deficiency, unspecified; Essential (primary) hypertension (CMS/HCC); Mixed hyperlipidemia (CMS/HCC); Autoimmune thyroiditis (CMS/HCC); FDC (current) use of insulin (CMS/HCC); Chronic kidney disease, stage 3a (HCC) ([facility]/HCC)Start: 10-01-2024 End: 43-81-9067Kklklta encounter procedureBasem Emilie Banks [facility] Start: 08-21-2024 End: 62-28-1293Gulljxq encounter procedureBasem Emilie Banks [facility] Start: 07-19-2024 End: 20-36-0546Nzt-admission assessmentMiaurelianomadhuri Beal [facility] Start: 07-19-2024 End: 36-22-9740Jjashyj encounter procedureMimoustapha Josué Beaulieuabimael [facility] Start: 07-17-2024 End: 33-59-5226Auj Drop offSyaima Vasquez [facility] Start: 04-27-2024 End: 54-22-8703Mvw-admission assessmentMimoustapha Moses Brittneeabimael [facility] Start: 01-30-2024 End: 75-73-8157Nxmnxzvkte and management of inpatientAdena Regional Medical Centertart: 01-30-2024 End: 50-67-4051Qzxjhmlrt department patient visitElbert Hill [facility] Start: 06-27-2023 End: 06-26-8997Xuj Drop Shellie Vasquez [facility] Start: 12-16-2020 End: 62-22-9984Wohemxu encounter procedureDOCTOR MISCFacility:V3Zbsip: 12-01-2020 End: 04-52-4458Uvoypmdgtm hospital visit by Usman Guerrero [facility] Med OncComment on above:Non-Hodgkin's lymphoma, unspecified body region, unspecified non-Hodgkin lymphoma type (HCC)Start: 11-25-2020 End: 43-59-2634Hndwqqk encounter procedureLLOYD MURRAYFacility:D5Vzltj: 03-29-7524Cqbkjww encounter procedureDOCTOR MISCFacility:F0Vegzc: 12-03-2019 End: 44-10-7086Zmbobefhap hospital visit by Usman Murray Work Phone: stProMed[facility] Med OncComment on above:Diffuse large B-cell lymphoma of lymph nodes of multiple regions (HCC)Start: 02-13-2019 End: 05-30-0744Pptcfkf encounter procedureALISON FLEDayton Osteopathic Hospitaly [facility] Start: 03-02-2018 End: 96-12-3931Agjklkp encounter procedureAKINFEMI [facility] Procedures DateProcedureProcedure DetailPerforming ClinicianStart: 29-68-2424Bmuj bld gluc mntr dev cleared fda spec home useYasmine Hogan MD Work Phone: Start: 37-29-5011Vjev bld gluc mntr dev cleared fda spec home useAhmajosué Hogan MD Work Phone: Start: 80-62-1533Ukhx bld gluc mntr dev cleared fda spec home useYasmine Hogan MD Work Phone: Start: 14-34-9341Xzpq bld gluc mntr dev cleared fda spec home useYasmine Hogan MD Work Phone: Start: 59-26-4231Dwhnhobqj catheter, device (physical object)Pablo Beal Start: 18-26-4999Ivtko count complete auto&auto difrntl wbcAdkristyn Hazel Work Phone: Start: 29-37-7669Zzyoqeudblkdd metabolic panelLazara Hazel Work Phone: Start: 49-20-1198Xmmmxju dehydrogenase ldhLazara Hazel Work Phone: Start: 55-45-1106Nuyepvylwevxz metabolic panelLazara Hazel MD Work Phone: Start: 48-44-5445Zcuyvvqcv serum plasma/whole blood AKINFEMI AFOLABIStart: 34-16-7256ILY AND CREATININEAKINFEMI AFOLABIStart: 19-57-9051BZJGLKVCWAG PANELAKINFEMI AFOLABIInsulin pump, device (physical object)Tony Vasquez Tonsillectomy and adenoidectomySaadina Vasquez Plan of Treatment DateCare ActivityDetailAuthorStart: 12-18-2025 End: 63-66-5193Tvfqusm encounter /21/2026 11:00 AM EST Office Visit [facility] [address] [place] [address] Yasmine Hogan MD [address], [address] [place] [address] [facility]OLVenus [facility] EndocrinologyStart: 09-18-2025 End: 89-86-1560Aivagfe encounter procedureNOMS ENDOCRINOLOGYComment on above: Type 2 diabetes mellitus with hyperglycemia, with long-term current use of insulin (HCC)Start: 41-34-7918Dcrdpcdza vaccinationInfluenza Vaccine (#1)NOM HealthcareStart: 05-23-2025 End: 04-42-9681Khdcnvw encounter nizvvxwiv31/26/2025 11:00 AM EDT [facility] [address] [place] [phone] Yasmine Hogan MD [address], [address] [place] [address] [facility] ENDOCRINOLOGYStart: 05-22-2025 End: 91-77-9444Sczkelr encounter procedureNOBARNES-[facility] ENDOCRINOLOGYComment on above: Type 2 diabetes mellitus with hyperglycemia, with long-term current use of insulin (HCC)Start: 01-24-2025 End: 08-48-3284Iguypau encounter procedureNOBARNES-JEWISH SAINT [facility] ENDOCRINOLOGYComment on above: ArrivedStart: 10-15-2024 End: 83-29-747978860911-xhktqfiefqorfj D3 [Mass/volume] in Serum or PlasmaVitamin D 25 hydroxy Total Lab Routine Type 2 diabetes mellitus with hyperglycemia, with long-term current use of insulin (CMS/[facility]) Expected: 10/15/2024 (Approximate), Expires: 10/15/2025[facility] Work Phone: Comment on above:Expected: 10/15/2024 (Approximate), Expires: 10/15/2025Start: 10-15-2024 End: 52-99-1752Ksqlc 1996 panel - Serum or PlasmaLipid panel Lab Routine Type 2 diabetes mellitus with hyperglycemia, with long-term current use of insulin (CMS/[facility]) Expected: 10/15/2024 (Approximate), Expires: 10/15/2025[facility] Comment on above:Expected: 10/15/2024 (Approximate), Expires: 10/15/2025Start: 10-15-2024 End: 72-26-2031Kvvzshvimalc/Creatinine panel in random UrineMicroalbumin / creatinine urine ratio Lab Routine Type 2 diabetes mellitus with hyperglycemia, withlong-term current use of insulin (CMS/HCC) Expected: 10/15/2024 (Approximate), Expires: 10/[facility]/2025[facility] HealthcareComment on above:Expected: 10/15/2024 (Approximate), Expires: 10/15/2025Start: 10-15-2024 End: 44-55-7493Ttmyb function panelRenal function panel Lab Routine Type 2 diabetes mellitus with hyperglycemia, with long-term current use of insulin (CMS/HCC) Expected: 10/15/2024 (Approximate), Expires: 10/15/2025[facility] Comment on above:Expected: 10/15/2024 (Approximate), Expires: 10/15/2025Start: 10-15-2024 End: 45-37-1920Guknbxmckjr [Units/volume] in Serum or PlasmaTSH Lab Routine Autoimmune thyroiditis (CMS/HCC) Expected: 10/15/2024 (Approximate), Expires: 10/15/2025[facility] HealthcareComment on above:Expected: 10/15/2024 (Approximate), Expires: 10/15/2025Start: 10-15-2024 End: 12-01-9610Ljtrlknee (T4) free [Mass/volume] in Serum or PlasmaT4, free Lab Routine Autoimmune thyroiditis (CMS/HCC) Expected: 10/15/2024 (Approximate), Expires: 10/15/2025[facility] HealthcareComment on above:Expected: 10/15/2024 (Approximate), Expires: 10/15/2025Start: 10-15-2024 End: 88-07-2594Nlelmukxzpvcqzai (T3) Free [Mass/volume] in Serum or PlasmaT3, free Lab Routine Autoimmune thyroiditis ([facility]/HCC) Expected: 10/15/2024 (Approximate), Expires: 10/15/2025[facility] HealthcareComment on above:Expected: 10/15/2024 (Approximate), Expires: 10/15/2025Start: 47-52-1936Fjnxkmdgqq measurementCreatinine [facility]: 53-57-4740Ijjggvaqn monitoringPotassium monitoringOhioHealth Dublin Methodist Hospital: 61-26-6822Dvzxicjyiijy 65+ yrs at Risk Vaccine (2 of 2 - PCV13)Pneumococcal 65+ yrs at Risk Vaccine (2 of 2 - PCV13)[facility]: 12-23-2020 End: 91-73-5284Wnngzf Visit12/23/2020 Office Visit Nephrology Wong Carreno MD [address] [place] [address] [phone] [facility]: 19-63-4802Wstxphfqss monitoringCreatinine monitoringCleveland Clinic Union HospitalKOWN Work Phone: start: 26-74-2749Qcomajjme monitoringPotassium monitoringCleveland Clinic Union HospitalKOWN Work Phone: start: 31-25-7402Nofik panelLipid screenOhioHealth Dublin Methodist Hospital: 86-41-6843Wlwva screenLipid screenSheltering Arms Hospital [employer] Work Phone: start: 09-69-2761Tahvfabhn vaccinationFlu vaccine (#1) [employer] Phone: start: 34-91-6681Htqigv Wellness Visit (AWV)Annual Wellness Visit (AWV)[employer] Phone: start: 75-56-5761Kalnledhfeus 65+ years Vaccine (1 of 1 - PPSV23)Pneumococcal 65+ years Vaccine (1 of 1 - PPSV23)[employer] Phone: start: 82-09-1005X4D test (Diabetic or Prediabetic)A1C test (Diabetic or Prediabetic)[employer] Phone: start: 57-99-6754IgB7y (Bld) [Mass fraction]A1C test (Diabetic or Prediabetic)[facility] CampusSkyn IcelandWellstar Paulding Hospital: 38-58-5790Brzpx cancer screen colonoscopyColon cancer screen colonoscopyCleveland Clinic Union HospitalAdaptiveBlue Phone: start: 18-88-1201Ylrzlceee for malignant neoplasm of colonColon cancer screen colonoscopyCleveland Clinic Union HospitalMind Candy [facility]: 2004 Shingles Vaccine (1 of 2)Shingles Vaccine (1 of 2)[employer] Phone: start: 58-55-6687AIjS/Tdap/Td vaccine (1 - Tdap) DTaP/Tdap/Td vaccine (1 - Tdap)[facility] [employer] DataWellstar Paulding Hospital: 14-02-9806DTnP/Tdap/Td vaccine (1 - Tdap)DTaP/Tdap/Td vaccine (1 - Tdap)[facility] Work Phone: start: comp foot exam completedDiabetic foot examParkview Health Bryan Hospital Work Phone: start: 18-28-7118Xcivbqcl foot examinationDiabetic foot examParkview Health Bryan Hospital- [place], [place]Start: 75-40-0791Fjniumnu retinal examDiabetic retinal examParkview Health Bryan Hospital Work Phone: start: 26-18-3467Fkeexmdll for malignant neoplasm of colonSt. [facility] Immunizations Immunization DateImmunizationNotesCare EyuljfnfEcgvxtqq39-22-8491huuraahds virus vaccine, unspecified formulationYasmine Hogan MD Work Phone: [facility] HospitalVpvwxlqcsk34-76-4284ykvldqggm virus vaccine, unspecified formulationJoRoosevelt General Hospital 420-6440Ditkiw-RdltkRegency Hospital [facility] 27-02-1895gnstwohdmvwg 20-valent conjugate vaccineBarton Memorial Hospital 502-4733Beeoaf-UzubpRegency Hospital Cleveland East 37-08-2145yqxrkexht virus vaccine, unspecified formulationSyaima Vasquez 720-1168Wxzfvu-NwockProtestant Deaconess Hospital10-23-2022 SARS-CoV-2 (COVID-19) mRNAMUL.ORD!j23552Xjlwrt Pedro 831-4697Wklhor-VjbprProtestant Deaconess Hospital04-09-2022 SARS-CoV-2 mRNA (kpdsxvbttvs-bxeu-bvtjhur) vaccineSyaima Vasquez 775-8968Osusnm-SpsifProtestant Deaconess Hospital10-02-2021 pneumococcal conjugate vaccine, 13 valentSyaima Vasquez 995-6025Ctnzuv-GzngjProtestant Deaconess Hospital09-27-2021 influenza virus vaccine, unspecified formulationSyaima Vasquez [phone]-RuuhmProtestant Deaconess Hospital09-27-2021 SARS-CoV-2 (COVID-19) mRNA BNT-162b2 Rosa Vasquez 407-0574Qfwkad-AzgfnProtestant Deaconess Hospital03-13-2021 SARS-CoV-2 (COVID-19) mRNA BNT-162b2 Rosa Vasquez 377-9337Gfjccs-ZshehOhiohealth Arthur G.[facility]. [facility] Cancer Center CloudCarComment on above: Result Comment: 2023-06-09: LHA8725-52-6535YTGE-NrL-0 (COVID-19) mRNA BNT-162b2 Rosa Vasquez 653-0321Aiypvg-TraesOhiohealth Arthur G.[facility]. [facility] Cancer Center CloudCarComment on above: Result Comment: 2023-06-09: ALN9421-54-7724pfbkxexiu virus vaccine, unspecified formulationSyaima Vasquez 950-3771Ebxnfb-AfwbfProtestant Deaconess Hospital10-01-2020 pneumococcal polysaccharide vaccine, 23 valentSyaima Vasquez 316-7410Ztxtmw-OxnwqProtestant Deaconess Hospital10-16-2017 influenza virus vaccine, unspecified formulationSyaima Vasquez 458-5179Mdyzbf-LbduiProtestant Deaconess Hospital10-16-2017 influenza, injectable, quadrivalent, preservative freeKirkbride Center 34-69-9447Fanwacefa Vaccine, unspecified formulationWooster Community Hospital, GW87-86-4041xmrieohzh virus vaccine, unspecified formulationSyaima Vasquez 321-0463Uantmq-GqmwbProtestant Deaconess Hospital Payers DatePayer CategoryPayerPolicy [id number] Health Insurance [id number] 2024MedicaidAETNA MEDICARE ADVANTAGE [id number] [id number] Health [id number] 2019MedicareMEDICARE RAILROAD MEDICARE xxxxxxxxxxx 2019-Present [phone] [address] [place], [place] [address]amyaoqkwcil [id number] 2019[place]ic[place] [id number] UnknownMEDICAL MUTUAL MEDICAL MUTUAL [address] xxxxxxxxxxxx 2019-Present [phone] [address] [place] [address]jrlchrcivunm [id number] Health Insurance [id number] Health [id number] 1960Medicare [id number]-tbo12-41-0630 [id number] [id number] 2.16.840.1.664630.3.57[id number] 2.16.840.1.761978.3.579.2.08945-75-8310Nofmcsa7189397 2.16.840.1.105630.3.579.2.55839-82-9972Apckaaq6338733 2.16.840.1.923714.3.579.2.76690-72-7432Cqisxqo0302405 2.16.840.1.347727.3.579.2.89429-51-6135Gmvcqsi693255818 2..840.1.467384.3.579.2.68433-68-5680Zfeaqzc94695849 2.16.840.1.819032.3.579.2.765141-32-0853Sdvtflt20524922 2.840.1.558881.3.579.2.419203-26-6019Iyamdut5616961 2..840.1.126055.3.579.2.717288-17-5201Gdtjmkv3714862 2..840.1.620444.3.579.2.436793-01-5656Apwvbqu35577112 2..840.1.766847.3.579.2.08794-67-5707Gtpzhtd26038939 2.16.840.1.732759.3.579.2.12846-12-4328Askqaug76425595 2.16.840.1.923342.3.579.2.24625-84-0185Jgfibqr06434256 2.16.840.1.462322.3.579.2.05157-90-7749Dblyfnh63146996 2.16.840.1.381735.3.579.2.47192-69-8340Hvxgwlb58560946 2.16.840.1.477360.3.579.2.07816-11-9449Frjikov07453698 2.16.840.1.658177.3.579.2.46994-23-5001Rzkpkgn55235434 2.16.840.1.510090.3.579.2.23438-98-0609Enylgjj31020181 2.16.840.1.371153.3.579.2.25680-07-3478Xjlypxf62924883 2.16.840.1.790780.3.579.2.06682-25-0897Jtnvtxk23178388 [id number] Social History DateTypeDetailFacilityStart: 12-01-2020 End: 96-12-5125Cteltjb smoking status NHISFormer smokerSouth [place]-[facility] BellevueComment on above:patinet quite at age 24. End: 56-08-0554Ghlhzcr of tobacco useCurrent smokerMerKOWN Work Phone: End: 96-12-5787Gwzkpug of tobacco useCigarette SmokerMerMind Candy Health Work Phone: start: 12-01-2020 End: 82-89-6841Idoygqgyfs smoked current (pack per day) - ReportedLending a Helping Hand Phone: start: 12-01-2020 End: 90-84-6938Oykseoe use and exposureNever DeeplinkCleveland Clinic Union HospitalKOWN- [place], [place]: 12-03-2019 End: 22-92-8819Wmtcdqr intakeCurrent drinker of alcohol (finding)[employer] Work Phone: start: 05-98-8292Aiaoccy CommentsKaiser Foundation HospitalKOWN Work Phone: start: 18-17-7316Gmr Assigned At BirthNot on [facility] HospitalKOWN Work Phone: start: 69-13-0805Yeavjkx smoking statusNeverUk Healthcare BellevueComment on above:patinet quite at age 24.Start: 09-28-2024 End: 61-59-1253Wnr Assigned At BirthMadison Healthtart: 05-03-9658Npmakwk smoking status NHISNever smoked tobaccoNOMS HealthcareStart: 10-10-2024 End: 70-08-0274Xdaytpbgc beverage intakeLifetime non-drinker (finding)NOMS HealthcareSexual OrientationBlanchard [facility] Health [facility] SexMale (finding)[facility] Medical Equipment Procedure CodeEquipment CodeEquipment Original TextEquipment IdentifierDates [id number]: 66-54-7316LZAPGCPY INSULIN SYRINGE 31G X 5/16 1 ML [facility] [id number]: 49-13-9272Rro Instructions, [employer] healthpro test strips Test sugars 4 times a dayStart: 61-54-8898hjtfab health pro twist lancets use to test sugars 4 times a dayStart: 36-70-1067okgktkl, See Instructions, 120 EA, 3, syrings 31g x8mm use qid and prn E11.9, [facility] [id number], SupplyStart: 54-21-6150Vzgr DME Prescription, See Instructions, 400 EA, 5, lancet use QID e11.9, [id number], Supply, 172.9, cm, 10/25/23 13:05:00 EST, Height/Length Dosing, 117.4, kg, 10/25/23 13:05:00 EST, Weight DosingStart: 29-51-7290wvaeshr, See Instructions, 120 EA, 3, syrings 31g x8mm use qid and prn E11.9, [id number], Supply, 172.9, cm, 10/25/23 13:05:00 EST, Height/Length Dosing, 117.4, kg, 10/25/23 13:05:00 EST, Weight DosingStart: 02-40-1994Tsgr DME Prescription, See Instructions, 400 EA, 5, lancet use QID e11.9, [id number], Supply, 172.9, cm, 10/25/23 13:05:00 EST, Height/Length Dosing, 117.4, kg, 10/25/23 13:05:00 EST, Weight DosingStart: 25-58-3205bgsqjka, See Instructions, 120 EA, 3, syrings 31g x8mm use qid and prn E11.9, [id number], Supply, 172.9, cm, 10/25/23 13:05:00 EST, Height/Length Dosing, 117.4, kg, 10/25/23 13:05:00 EST, Weight DosingStart: 18-81-3218Wokf DME Prescription, See Instructions, 400 EA, 5, lancet use QID e11.9, [id number], Supply, 172.9, cm, 10/25/23 13:05:00 EST, Height/Length Dosing, 117.4, kg, 10/25/23 13:05:00 EST, Weight DosingStart: 91-09-0750ayotxyl, See Instructions, 120 EA, 3, syrings 31g x8mm use qid and prn E11.9, [id number], Supply, 172.9, cm, 10/25/23 13:05:00 EST, Height/Length Dosing, 117.4, kg, 10/25/23 13:05:00 EST, Weight DosingStart: 77-16-0259Svro DME Prescription, See Instructions, 400 EA, 5, lancet use QID e11.9, [id number], Supply, 172.9, cm, 10/25/23 13:05:00 EST, Height/Length Dosing, 117.4, kg, 10/25/23 13:05:00 EST, Weight DosingStart: 41-11-6337exnbyno, See Instructions, 120 EA, 3, syrings 31g x8mm use qid and prn E11.9, [id number], Supply, 172.9, cm, 10/25/23 13:05:00 EST, Height/Length Dosing, 117.4, kg, 10/25/23 13:05:00 EST, Weight DosingStart: 83-05-3320Utde DME Prescription, See Instructions, 400 EA, 5, lancet use QID e11.9, [id number], Supply, 172.9, cm, 10/25/23 13:05:00 EST, Height/Length Dosing, 117.4, kg, 10/25/23 13:05:00 EST, Weight DosingStart: 01-32-5717dznyxtg, See Instructions, 120 EA, 3, syrings 31g x8mm use qid and prn E11.9, [id number], Supply, 172.9, cm, 10/25/23 13:05:00 EST, Height/Length Dosing, 117.4, kg, 10/25/23 13:05:00 EST, Weight DosingStart: 50-15-5011Glmw DME Prescription, See Instructions, 400 EA, 5, lancet use QID e11.9, [id number], Supply, 172.9, cm, 10/25/23 13:05:00 EST, Height/Length Dosing, 117.4, kg, 10/25/23 13:05:00 EST, Weight DosingStart: 17-81-2986ykxdthc, See Instructions, 120 EA, 3, syrings 31g x8mm use qid and prn E11.9, [id number], Supply, 172.9, cm, 10/25/23 13:05:00 EST, Height/Length Dosing, 117.4, kg, 10/25/23 13:05:00 EST, Weight DosingStart: 43-57-1320Quqi DME Prescription, See Instructions, 400 EA, 5, lancet use QID e11.9, [id number], Supply, 172.9, cm, 10/25/23 13:05:00 EST, Height/Length Dosing, 117.4, kg, 10/25/23 13:05:00 EST, Weight DosingStart: 02-17-5308yypxjwb, See Instructions, 120 EA, 3, syrings 31g x8mm use qid and prn E11.9, [id number], Supply, 172.9, cm, 10/25/23 13:05:00 EST, Height/Length Dosing, 117.4, kg, 10/25/23 13:05:00 EST, Weight DosingStart: 98-78-0869Hqjt DME Prescription, See Instructions, 400 EA, 5, lancet use QID e11.9, [id number], Supply, 172.9, cm, 10/25/23 13:05:00 EST, Height/Length Dosing, 117.4, kg, 10/25/23 13:05:00 EST, Weight DosingStart: 87-61-8358frycjko, See Instructions, 120 EA, 3, syrings 31g x8mm use qid and prn E11.9, [id number], Supply, 172.9, cm, 10/25/23 13:05:00 EST, Height/Length Dosing, 117.4, kg, 10/25/23 13:05:00 EST, Weight DosingStart: 16-08-1617TRD FOUR TIMES A [id number]: 58-62-2763WUW THREE TIMES DAILY [id number]: 67-08-6117Jokx DME Prescription, See Instructions, 400 EA, 5, lancet use QID e11.9, [id number], Supply, 172.9, cm, 10/25/23 13:05:00 EST, Height/Length Dosing, 117.4, kg, 10/25/23 13:05:00 EST, Weight D osingStart: 84-54-2057mrudbzb, See Instructions, 120 EA, 3, syrings 31g x8mm use qid and prn E11.9, [id number], Supply, 172.9, cm, 10/25/23 13:05:00 EST, Height/Length Dosing, 117.4, kg, 10/25/23 13:05:00 EST, Weight DosingStart: 09-13-0205Qhue DME Prescription, See Instructions, 400 EA, 5, lancet use QID e11.9, [id number], Supply, 172.9, cm, 10/25/23 13:05:00 EST, Height/Length Dosing, 117.4, kg, 10/25/23 13:05:00 EST, Weight DosingStart: 46-48-5329zvbsvyh, See Instructions, 120 EA, 3, syrings 31g x8mm use qid and prn E11.9, [id number], Supply, 172.9, cm, 10/25/23 13:05:00 EST, Height/Length Dosing, 117.4, kg, 10/25/23 13:05:00 EST, Weight DosingStart: 16-23-0391Awhm DME Prescription, See Instructions, 400 EA, 5, lancet use QID e11.9, [id number], Supply, 172.9, cm, 10/25/23 13:05:00 EST, Height/Length Dosing, 117.4, kg, 10/25/23 13:05:00 EST, Weight DosingStart: 51-27-3100udarcso, See Instructions, 120 EA, 3, syrings 31g x8mm use qid and prn E11.9, [id number], Supply, 172.9, cm, 10/25/23 13:05:00 EST, Height/Length Dosing, 117.4, kg, 10/25/23 13:05:00 EST, Weight DosingStart: 33-38-1844Kjb as [id number]: 38-69-0030CMS THREE TIMES A DAY [id number]: 28-48-1291XYB THREE TIMES A [id number]: 81-68-2578PML INSTRUCTED 3 TIMES A [id number]: 62-47-1880XQK TO TEST BLOOD SUGAR THREE TIMES [id number]: 08-28-2025 Functional Status UtzkHkgalzzdiwBuppmbYmbnvbpm16-07-4480Lmcirtlgbf StatusN/[facility]03-04-2024Functional StatusN/[facility] Clinical Notes 10-15-2024 to 09-30-2025 Note Date & OahnUlzkEzzznlqe61-03-9684 NotePatient Education Nephrology Chronic Kidney Disease, Adult Chronic kidney disease is when lasting damage happens to the kidneys slowly over a long time. The kidneys help to: ??? Make pee (urine). ??? Make hormones. ??? Keep the right amount of fluids and chemicals in the body. Most often, this disease does not go away. You must take steps to help keep the kidney damage from getting worse. If steps are not taken, the kidneys might stop working forever. What are the causes? Diabetes. ??? High blood pressure. ??? Diseases that affect the heart and blood vessels. ??? Other kidney diseases. ??? Diseases of the body's disease-fighting system. ??? A problem with the flow of pee. ??? Infections of the organs that make pee, store it, and take it out of the body. ??? Swelling or irritation of your blood vessels. What increases the risk? Getting older. ??? Having someone in your family who has kidney disease or kidney failure. ??? Having a disease caused by genes. ??? Taking medicines often that harm the kidneys. ??? Being near or having contact with harmful substances. ??? Being very overweight. ??? Using tobacco now or in the past. What are the signs or symptoms? Feeling very tired. ??? Having a swollen face, legs, ankles, or feet. ??? Feeling like you may vomit or vomiting. ??? Not feeling hungry. ??? Being confused or not able to focus. ??? Twitches and cramps in the leg muscles or other muscles. ??? Dry, itchy skin. ??? A taste of metal in your mouth. ??? Making less pee, or making more pee. ??? Shortness of breath. ??? Trouble sleeping. You may also become anemic or get weak bones. Anemic means there is not enough red blood cells or hemoglobin in your blood. You may get symptoms slowly. You may not notice them until the kidney damage gets very bad. How is this treated? Often, there is no cure for this disease. Treatment can help with symptoms and help keep the disease from getting worse. You may need to: ??? Avoid alcohol. ??? Avoid foods that are high in salt, potassium, phosphorous, and protein. ??? Take medicines for symptoms and to help control other conditions. ??? Have dialysis. This treatment gets harmful waste out of your body. ??? Treat other problems that cause your kidney disease or make it worse. Follow these instructions at home: Medicines ??? Take ratv-ppz-oayfcmy and prescription medicines only as told by your doctor. ??? Do not take any new medicines, vitamins, or supplements unless your doctor says it is okay. Lifestyle ??? Do not smoke or use any products that contain nicotine or tobacco. If you need help quitting, ask your doctor. ??? If you drink alcohol: ? Limit how much you use to: ? 0?1 drink a day for women who are not . ? 0?2 drinks a day for men. ? Know how much alcohol is in your drink. In the [place] one drink equals one 12 oz bottle of beer (355 mL), one 5 oz glass of wine (148 mL), or one 1? oz glass of hard liquor (44 mL). ??? Stay at a healthy weight. If you need help losing weight, ask your doctor. General instructions ??? Follow instructions from your doctor about what you cannot eat or drink. ??? Track your blood pressure at home. Tell your doctor about any changes. ??? If you have diabetes, track your blood sugar. ??? Exercise at least 30 minutes a day, 5 days a week. ??? Keep your shots (vaccinations) up to date. ??? Keep all follow-up visits. Where to find more information ??? [place] [employer]: www.aakp.org ??? National Kidney Foundation: www.kidney.org ??? [employer] [employer]: www.akfinc.org ??? Life Options: www.lifeoptions.org ??? Kidney School: www.kidneyschool.org Contact a doctor if: ??? Your symptoms get worse. ??? You get new symptoms. Get help right away if: ??? You get symptoms of end-stage kidney disease. These include: ? Headaches. ? Losing feeling in your hands or feet. ? Easy bruising. ? Having hiccups often. ? Chest pain. ? Shortness of breath. ? Lack of menstrual periods, in women. ??? You have a fever. ??? You make less pee than normal. ??? You have pain or you bleed when you pee or poop. These symptoms may be an emergency. Get help right away. Call your local emergency services (911 int [place] ??? Do not wait to see if the symptoms will go away. ??? Do not drive yourself to the hospital. Summary ??? Chronic kidney disease is when lasting damage happens to the kidneys slowly over a long time. ??? Causes of this disease include diabetes and high blood pressure. ??? Often, there is no cure for this disease. Treatment can help symptoms and help keep the diseasefrom getting worse. ??? Treatment may involve lifestyle changes, medicines, and dialysis. This information is not intended to replace advice given to you by your (more content not included)...[facility]10-22-2025 History of Present illness Narrative* Yasmine Hogan MD - 09/18/2025 10:10 AM EDT Isaiah Emerson is a 70 y.o. male No ref. provider found presents with chief complaint of Diabetes and Follow-up HPI: Interim History 08/2025: Followup visit 09/18/2025 A1c in our office 6.6. Blood sugar 222, his blood sugar ranging between 66-282, most of them are 161. And he is using Novolin N 40 units in the morning, 80 at bedtime and R 20-20-35 plus scale. Interim History 04/2025: Followup visit 05/22/2025 A1c in our office 7.2. Blood sugar 273, his blood sugar ranging between 60-270, most of them are 170. And he is using Novolin N 40 units in the morning, 80 at bedtime and R 20-20-35 plus scale. Interim History 12/2024: Followup visit 01/24/2025 A1c in our office 7.2. Blood sugar 73, his blood sugar ranging between 70-255, most of them are 160. And he is using Novolin N 40 units in the morning, 80 at bedtime and R 20-20-35 plus scale. Al/cr 167 Interim History 09/2024: Followup visit 10/15/2024. A1c in our office 7.2. Blood sugar 105, his blood sugar ranging between 80-235, most of them are 170. And he is using Novolin N 40 units in the morning, 80 at bedtime and Q96-52-31 plus scale. Interim History 05/2024: Followup visit 06/11/2024. A1c in our office 7.4. Blood sugar 208, his blood sugar ranging between 70-230, most of them are 160. And he is using Novolin N 40 units in the morning, 80 at bedtime and R 20-20-35 plus scale. unable to afford Januvia 50 mg daily. Interim History 01/2024: Followup visit 02/20/2024. A1c in our office 6.9. Blood sugar 187, his blood sugar ranging between 80 to 250, most of them are 150. And he is using Novolin N 40 units in the morning, 80 at bedtime andR 20-20-35 plus scale. His lab was done: GFR 53, AL/CR 156, K 5.1 Interim History 10/2023: Followup visit 10/28/2023. A1c in our office 7.1. Blood sugar 81, his blood sugar ranging between 150 to 250, most of them are 180. And he is using Novolin N 40 units in the morning, 80 at bedtime andR 20-20-35 plus scale. His lab was done: Total cholesterol 165 and triglycerides 159, HDL 47, LDL 87; TSH 1.8; albumin/creatinine high at 470 and GFR 43. And he is asking for Ozempic and I told him also he can ask his insurance for the insulin; we can switch him to pen, like Lantus and NovoLog, if his insurance approves. HPI: 06/2023 New patient sent from Dr. 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 He using insulin over the counter from [employer], Novolin N 40 units in the morning, 80 at bedtime; and Novolin R an average 20, 25 and 30 every meal, and he show me his log book is running from 71 to 220, mostly in 140, 150 range. He is also on levothyroxine 125. He want me to continue to follow his thyroid. SUBJECTIVE: MEDICATIONS: Current Outpatient Medications Medication Instructions Alcohol Swabs (Alcohol Prep) 70 % pads 3 TIMES A DAY atorvastatin (LIPITOR) 80 mg, Daily Blood Glucose Monitoring Suppl (ChemoCentryx Verio Flex System) w/Device kit 1 Device, Daily Continuous Glucose Sensor (Dexcom G7 Sensor) misc 1 Bar, Does not apply, Every 10 days ergocalciferol (VITAMIN D-2) 1.25 mg, Weekly fenofibrate (TRICOR) 48 mg, Daily finerenone (Kerendia) 10 MG tablet No dose, route, or frequency recorded. glucose blood (eWiseuch Ultra) test strip USE THREE TIMES A DAY INSULIN NPH, HUMAN,, ISOPHANE, SC Inject under the skin insulin NPH, Isophane, (NovoLIN N FlexPen) 100 UNIT/ML injection INJECT 40 UNITS IN THE MORNING AND80 UNITS AT BEDTIME SUBQUTANEOUSLY. insulin pen needle ([employer] Medical[employer]a Pen Needle Yokasta 2 Gen) 32G x 4 mm misc USE INSTRUCTED 3 TIMES A DAY insulin regular (NovoLIN R FlexPen) 100 UNIT/ML pen INJECT 30 UNITS UNDER THE SKIN IN THE MORNING, AT NOON AND IN THE EVENING WITH MEALS Lancets (ChemoCentryx Delica Plus Enlojb28S) misc USE TO TEST BLOOD SUGAR THREE TIMES DAILY levothyroxine (Synthroid, Levoxyl) 125 MCG tablet Daily before breakfast lisinopril 2.5 MG tablet Daily NovoLIN N FlexPen 50 Units, Subcutaneous, 2 times daily before meals, 40 UNITS IN THE AM AND 80 UNITS IN THE PM omeprazole OTC (PRILOSEC OTC) 20 mg, Daily before breakfast ALLERGIES: No Known Allergies Past Medical History: Diagnosis Date Autoimmune thyroiditis Chronic kidney disease, stage 3a (CMS-HCC) Diabetes (HCC) Dietary counseling and surveillance 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) Lymphoma (HCC) Mixed hyperlipidemia Obesity with body mass index (BMI) of 30.0 to 39.9 Type 2 diabetes mellitus with hyperglycemia (HCC) Vitamin D deficiency, unspecified Past Surgical History: Procedure Laterality Date INSERT / REPLACE / REMOVE PACEMAKER REVIEW OF SYMPTOMS: 14 POINT OF SYSTEM REVIEWED AND NEGATIVE OBJECTIVE: Constitutional: Afebrile @ home; no weakness or night sweats SKIN: No change in skin color; no itching, rash or lesions; no hair loss; HEENT: No HAs or injury; no dizziness; No difficulty with vision; no eye pain, discharge or lesions; no hearing loss or difficulty; no nasal discharge, NECK: No pain, limitation of motion, lumps or swollen glands RESP: No cough, wheezing or difficulty breathing. No CP with breathing; CARDIO: No CP , SOB or fatigue, No edema, palpitations or dyspnea with exertion GI: No N/V/D or abd. pain; good appetite with no recent change. No heart burn, liver or gallbladderdisease; no rectal bleeding or pain : No urinary pain , frequency or odor. MUSCULOSKELETAL: No muscle pain or cramps; no extremity weakness.No joint pain, stiffness, swellingor limitation of movement NEUROLOGY: No H/O seizures, stroke or fainting. No weakness, tremors. Hematology: No bleeding problems or excessive bruising ENDOCRINE: No increase in hunger, thirst or urination; admits compliance to medical management plan Feet: numbness tingling yes , ulcers or skin break no Lab Results Component Value Date HGBA1C 6.6 09/18/2025 HGBA1C 7.7 05/22/2025 HGBA1C 7.2 01/24/2025 Lab Results Component Value Date GLU 222 09/18/2025 GLU 273 05/22/2025 GLU 73 01/24/2025 06/11/2024 1:18 AM 06/11/2024 11:17 AM 10/15/2024 11:34 AM 01/24/2025 10:02 AM 05/22/2025 10:18 AM 09/18/2025 10:06 AM Vitals BMI 38.54 kg/m2 38.45 kg/m2 38.17 kg/m2 38.02 kg/m2 33.43 kg/m2 BSA (m2) 2.4 m2 2.45 m2 2.44 m2 2.43 m2 2.29 m2 Systolic 118 112 140 120 98 Diastolic 64 62 84 72 60 Heart Rate 101 102 104 94 108 SpO2 96 % 95 % 95 % 96 % Resp 20 20 20 18 18 Height (in) 5' 9 5' 10 5' 10 5' 10 5' 10 Weight (lb) 261 268 266 265 233 Visit Report Report Report Report Report ASSESSMENT AND PLAN: Assessment/Plan Diagnoses and all orders for this visit: Type 2 diabetes mellitus with hyperglycemia, with long-term current use of insulin (HCC) - POCT glucose manually resulted - POCT glycosylated hemoglobin (Hb A1C) docked device - Continuous Glucose Sensor (Dexcom G7 Sensor) misc; 1 Bar Every 10 (ten) days We will continue with Novolin N 40 units in the morning 80 at bedtime, Novolin R 20 breakfast 20 lunch 35 dinner plus moderate sliding scale. 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 documented in this encounterSt. Luke's [id number] Telephone encounter Note* Telephone Encounter - Vishal Brown - 04/29/2025 9:23 AM EDT [facility] for novolin please and thank you! Please call isaiah once resolved. He's run out. Thank you! [facility] [id number] Miscellaneous Notes* Telephone Encounter - Vishal Brown - 04/29/2025 9:23 AM EDT [facility] needs clarification for novolin please and thank you! Please call isaiah once resolved. He's run out. Thank you! documented in this encounterSt. Luke's [id number] History of Present illness Narrative* Yasmine Hogan MD - 05/22/2025 11:00 AM EDT Isaiah Emerson is a 70 y.o. male No ref. provider found presents with chief complaint of No chief complaint on file. HPI: Interim History 04/2025: Followup visit 05/22/2025 A1c in our office 7.2. Blood sugar 273, his blood sugar ranging between 60-270, most of them are 170. And he is using Novolin N 40 units in the morning, 80 at bedtime and R 20-20-35 plus scale. Interim History 12/2024: Followup visit 01/24/2025 A1c in our office 7.2. Blood sugar 73, his blood sugar ranging between 70-255, most of them are 160. And he is using Novolin N 40 units in the morning, 80 at bedtime and R 20-20-35 plus scale. Al/cr 167 Interim History 09/2024: Followup visit 10/15/2024. A1c in our office 7.2. Blood sugar 105, his blood sugar ranging between 80-235, most of them are 170. And he is using Novolin N 40 units in the morning, 80 at bedtime and G90-28-57 plus scale. Interim History 05/2024: Followup visit 06/11/2024. A1c in our office 7.4. Blood sugar 208, his blood sugar ranging between 70-230, most of them are 160. And he is using Novolin N 40 units in the morning, 80 at bedtime and R 20-20-35 plus scale. unable to afford Januvia 50 mg daily. Interim History 01/2024: Followup visit 02/20/2024. A1c in our office 6.9. Blood sugar 187, his blood sugar ranging between 80 to 250, most of them are 150. And he is using Novolin N 40 units in the morning, 80 at bedtime andR 20-20-35 plus scale. His lab was done: GFR 53, AL/CR 156, K 5.1 Interim History 10/2023: Followup visit 10/28/2023. A1c in our office 7.1. Blood sugar 81, his blood sugar ranging between 150 to 250, most of them are 180. And he is using Novolin N 40 units in the morning, 80 at bedtime andR 20-20-35 plus scale. His lab was done: Total cholesterol 165 and triglycerides 159, HDL 47, LDL 87; TSH 1.8; albumin/creatinine high at 470 and GFR 43. And he is asking for Ozempic and I told him also he can ask his insurance for the insulin; we can switch him to pen, like Lantus and NovoLog, if his insurance approves. HPI: 06/2023 New patient sent from Dr. Tony Vasquez for diabetes since he is on insulin group home, A1c in our office 6.7, blood sugar 121. He using insulin over the counter from [employer], Novolin N 40 units in the morning, 80 at bedtime; and Novolin R an average 20, 25 and 30 every meal, and he show me his log book is running from 71 to 220, mostly in 140, 150 range. He is also on levothyroxine 125. He want me to continue to follow his thyroid. SUBJECTIVE: MEDICATIONS: Current Outpatient Medications Medication Instructions Alcohol Swabs (Alcohol Prep) 70 % pads 3 TIMES A DAY atorvastatin (LIPITOR) 80 mg, Daily Blood Glucose Monitoring Suppl (ChemoCentryx Verio Flex System) w/Device kit 1 Device, Daily ergocalciferol (VITAMIN D-2) 1.25 mg, Weekly fenofibrate (TRICOR) 48 mg, Daily finerenone (Kerendia) 10 MG tablet No dose, route, or frequency recorded. glucose blood (eWiseuch Ultra) test strip USE FOUR TIMES A DAY INSULIN NPH, HUMAN,, ISOPHANE, SC Inject under the skin insulin NPH, Isophane, (NovoLIN N FlexPen) 100 UNIT/ML injection INJECT 40 UNITS IN THE MORNING AND80 UNITS AT BEDTIME SUBQUTANEOUSLY. insulin pen needle (BD Pen Needle Yokasta 2nd Gen) 32G x 4 mm misc Use as instructed Lancets (Cathy's Business ServicesTouch Delica Plus Wyysfz55C) misc USE THREE TIMES A DAY levothyroxine (Synthroid, Levoxyl) 125 MCG tablet Daily before breakfast lisinopril 2.5 MG tablet Daily NovoLIN N FlexPen 50 Units, Subcutaneous, 2 times daily before meals, 40 UNITS IN THE AM AND 80 UNITS IN THE PM NovoLIN R FlexPen 30 Units, Subcutaneous, 3 times daily with meals omeprazole OTC (PRILOSEC OTC) 20 mg, Daily before breakfast ALLERGIES: No Known Allergies Past Medical History: Diagnosis Date Autoimmune thyroiditis Chronic kidney disease, stage 3a (CMS-HCC) Diabetes (HCC) Dietary counseling and surveillance 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) Lymphoma (HCC) Mixed hyperlipidemia Obesity with body mass index (BMI) of 30.0 to 39.9 Type 2 diabetes mellitus with hyperglycemia (HCC) Vitamin D deficiency, unspecified Past Surgical History: Procedure Laterality Date INSERT / REPLACE / REMOVE PACEMAKER REVIEW OF SYMPTOMS: 14 POINT OF SYSTEM REVIEWED AND NEGATIVE OBJECTIVE: Constitutional: Afebrile @ home; no weakness or night sweats SKIN: No change in skin color; no itching, rash or lesions; no hair loss; HEENT: No HAs or injury; no dizziness; No difficulty with vision; no eye pain, discharge or lesions; no hearing loss or difficulty; no nasal discharge, NECK: No pain, limitation of motion, lumps or swollen glands RESP: No cough, wheezing or difficulty breathing. No CP with breathing; CARDIO: No CP , SOB or fatigue, No edema, palpitations or dyspnea with exertion GI: No N/V/D or abd. pain; good appetite with no recent change. No heart burn, liver or gallbladderdisease; no rectal bleeding or pain : No urinary pain , frequency or odor. MUSCULOSKELETAL: No muscle pain or cramps; no extremity weakness.No joint pain, stiffness, swellingor limitation of movement NEUROLOGY: No H/O seizures, stroke or fainting. No weakness, tremors. Hematology: No bleeding problems or excessive bruising ENDOCRINE: No increase in hunger, thirst or urination; admits compliance to medical management plan Feet: numbness tingling yes , ulcers or skin break no Lab Results Component Value Date HGBA1C 7.7 05/22/2025 HGBA1C 7.2 01/24/2025 HGBA1C 7.2 10/15/2024 Lab Results Component Value Date GLU 273 05/22/2025 GLU 73 01/24/2025 GLU 105 10/15/2024 06/11/2024 1:18 AM 06/11/2024 11:17 AM 10/15/2024 11:34 AM 01/24/2025 10:02 AM 05/22/2025 10:18 AM Vitals BMI 38.54 kg/m2 38.45 kg/m2 38.17 kg/m2 38.02 kg/m2 BSA (m2) 2.4 m2 2.45 m2 2.44 m2 2.43 m2 Systolic 118 112 140 120 Diastolic 64 62 84 72 Heart Rate 101 102 104 94 SpO2 96 % 95 % 95 % Resp 20 20 20 18 18 Height (in) 5' 9 5' 10 5' 10 5' 10 Weight (lb) 261 268 266 265 Visit Report Report Report Report ASSESSMENT AND PLAN: Assessment/Plan Diagnoses and all orders for this visit: Type 2 diabetes mellitus with hyperglycemia, with long-term current use of insulin (HCC) - POCT glucose manually resulted - POCT glycosylated hemoglobin (Hb A1C) docked device We will continue with Novolin N 40 units in the morning 80 at bedtime, Novolin R 20 breakfast 20 lunch 35 dinner plus moderate sliding scale. 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 documented in this [facility]05-20-2025 Telephone encounter Note* Telephone Encounter - Vishal Brown - 04/16/2025 4:24 PM EDT Received fax from [employer] 04/16 at 11:10am- Script clarification needed for novolin N please and thank you! [id number] Miscellaneous Notes* Telephone Encounter - Vishal Brown - 04/16/2025 4:24 PM EDT Received fax from [employer] 04/16 at 11:10am- Script clarification needed for novolin N please and thank you! documented in this [facility]03-03-2025 Hospital Discharge instructions Follow Up Care 01/28/2025 11:29:24 With:Jocelyn RODRIGES, Sagrario Phan, PUL, KJ Address: [address] [place] [address] Sleep Lab [place] [id number]- When:1 year [facility] 02-27-2025 History of Present illness Narrative* Yasmine Hogan MD - 01/24/2025 9:50 AM EST Isaiah Emerson is a 69 y.o. male No ref. provider found presents with chief complaint of Diabetes HPI: Interim History 12/2024: Followup visit 01/24/2025 A1c in our office 7.2. Blood sugar 73, his blood sugar ranging between 70-255, most of them are 160. And he is using Novolin N 40 units in the morning, 80 at bedtime and R 20-20-35 plus scale. Al/cr 167 Interim History 09/2024: Followup visit 10/15/2024. A1c in our office 7.2. Blood sugar 105, his blood sugar ranging between 80-235, most of them are 170. And he is using Novolin N 40 units in the morning, 80 at bedtime and [id number] plus scale. Interim History 05/2024: Followup visit 06/11/2024. A1c in our office 7.4. Blood sugar 208, his blood sugar ranging between 70-230, most of them are 160. And he is using Novolin N 40 units in the morning, 80 at bedtime and R 20-20-35 plus scale. unable to afford Januvia 50 mg daily. Interim History 01/2024: Followup visit 02/20/2024. A1c in our office 6.9. Blood sugar 187, his blood sugar ranging between 80 to 250, most of them are 150. And he is using Novolin N 40 units in the morning, 80 at bedtime andR 20-20-35 plus scale. His lab was done: GFR 53, AL/CR 156, K 5.1 Interim History 10/2023: Followup visit 10/28/2023. A1c in our office 7.1. Blood sugar 81, his blood sugar ranging between 150 to 250, most of them are 180. And he is using Novolin N 40 units in the morning, 80 at bedtime andR 20-20-35 plus scale. His lab was done: Total cholesterol 165 and triglycerides 159, HDL 47, LDL 87; TSH 1.8; albumin/creatinine high at 470 and GFR 43. And he is asking for Ozempic and I told him also he can ask his insurance for the insulin; we can switch him to pen, like Lantus and NovoLog, if his insurance approves. HPI: 06/2023 New patient sent from Dr. Tony Vasquez for diabetes since he is on insulin group home, A1c in our office 6.7, blood sugar 121. He using insulin over the counter from [employer], Novolin N 40 units in the morning, 80 at bedtime; and Novolin R an average 20, 25 and 30 every meal, and he show me his log book is running from 71 to 220, mostly in 140, 150 range. He is also on levothyroxine 125. He want me to continue to follow his thyroid. SUBJECTIVE: MEDICATIONS: Current Outpatient Medications Medication Instructions Alcohol Swabs pads 1 each, 3 times daily atorvastatin (LIPITOR) 80 mg, Daily Blood Glucose Monitoring Suppl (eWiseuch Verio Flex System) w/Device kit 1 Device, Daily ergocalciferol (VITAMIN D-2) 1.25 mg, Weekly fenofibrate (TRICOR) 48 mg, Daily finerenone (Kerendia) 10 MG tablet No dose, route, or frequency recorded. glucose blood ([employer] ServicesTouch Ultra) test strip USE FOUR TIMES A DAY Insulin NPH Human, Isophane, (NOVOLIN N FLEXPEN SC) 2 times daily INSULIN NPH, HUMAN,, ISOPHANE, SC Inject under the skin insulin pen needle (BD Pen Needle Yokasta 2nd Gen) 32G x 4 mm misc USE THREE TIMES DAILY DIRECTED insulin regular (NovoLIN R) 100 UNIT/ML pen 3 times daily with meals levothyroxine (Synthroid, Levoxyl) 125 MCG tablet Daily before breakfast lisinopril 2.5 MG tablet Daily omeprazole OTC (PRILOSEC OTC) 20 mg, Daily before breakfast ALLERGIES: No Known Allergies Past Medical History: Diagnosis Date Autoimmune thyroiditis (CMS/HCC) Chronic kidney disease, stage 3a (HCC) (CMS/HCC) Diabetes (CMS/HCC) Dietary counseling and surveillance Essential (primary) hypertension (CMS/HCC) 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 (CMS/HCC) Lymphoma (CMS/HCC) Mixed hyperlipidemia (CMS/HCC) Obesity with body mass index (BMI) of 30.0 to 39.9 Type 2 diabetes mellitus with hyperglycemia (CMS/HCC) Vitamin D deficiency, unspecified Past Surgical History: Procedure Laterality Date INSERT / REPLACE / REMOVE PACEMAKER REVIEW OF SYMPTOMS: 14 POINT OF SYSTEM REVIEWED AND NEGATIVE OBJECTIVE: Constitutional: Afebrile @ home; no weakness or night sweats SKIN: No change in skin color; no itching, rash or lesions; no hair loss; HEENT: No HAs or injury; no dizziness; No difficulty with vision; no eye pain, discharge or lesions; no hearing loss or difficulty; no nasal discharge, NECK: No pain, limitation of motion, lumps or swollen glands RESP: No cough, wheezing or difficulty breathing. No CP with breathing; CARDIO: No CP , SOB or fatigue, No edema, palpitations or dyspnea with exertion GI: No N/V/D or abd. pain; good appetite with no recent change. No heart burn, liver or gallbladderdisease; no rectal bleeding or pain : No urinary pain , frequency or odor. MUSCULOSKELETAL: No muscle pain or cramps; no extremity weakness.No joint pain, stiffness, swellingor limitation of movement NEUROLOGY: No H/O seizures, stroke or fainting. No weakness, tremors. Hematology: No bleeding problems or excessive bruising ENDOCRINE: No increase in hunger, thirst or urination; admits compliance to medical management plan Feet: numbness tingling yes , ulcers or skin break no Lab Results Component Value Date HGBA1C 7.2 01/24/2025 HGBA1C 7.2 10/15/2024 Lab Results Component Value Date GLU 73 01/24/2025 GLU 105 10/15/2024 GLU 267 (H) 02/03/2024 06/11/2024 1:18 AM 06/11/2024 11:17 AM 10/15/2024 11:34 AM 01/24/2025 10:02 AM Vitals BMI 38.54 kg/m2 38.45 kg/m2 38.17 kg/m2 BSA (m2) 2.4 m2 2.45 m2 2.44 m2 Systolic 118 112 140 Diastolic 64 62 84 Heart Rate 101 102 104 SpO2 96 % 95 % Resp 20 20 20 18 Height (in) 5' 9 5' 10 5' 10 Weight (lb) 261 268 266 Visit Report Report Report ASSESSMENT AND PLAN: Assessment/Plan Diagnoses and all orders for this visit: Vitamin D deficiency, unspecified Type 2 diabetes mellitus with hyperglycemia, with long-term current use of insulin (CMS/HCC) - POCT glycosylated hemoglobin (Hb A1C) docked device - POCT glucose manually resulted We will continue with Novolin N 40 units in the morning 80 at bedtime, Novolin R 20 breakfast 20 lunch 35 dinner plus moderate sliding scale. Essential (primary) hypertension (CMS/HCC) Mixed hyperlipidemia (CMS/HCC) Autoimmune thyroiditis (CMS/HCC) Continue levothyroxine 125 mcg daily. FDC (current) use of insulin (CMS/HCC) Chronic kidney disease, stage 3a (HCC) ([facility]/HCC) Follow up in about 4 months (around 05/24/2025). documented in this encounterSt. [facility]'s [id number] Hospital Discharge instructions Follow Up Care 01/07/2025 12:09:00 With:Sagrario Banks MD, PUL, KJ Address: [address] [place] [address] [facility] ([facility] [place] [address]- When:6 weeks [facility] 11-19-2024 Hospital Discharge instructions Follow Up Care 10/16/2024 11:29:38 With:Sagrario Banks MD, PUL, KJ Address: [address] [place] [address] [facility] ([facility] [place] [address]- When:6 weeks [facility] 11-18-2024 History of Present illness Narrative* Yasmine Hogan MD - 10/15/2024 11:00 AM EST Isaiah Emerson is a 69 y.o. male Yasmine Hogan MD presents with chief complaint of Diabetes and Follow-up HPI: Interim History 09/2024: Followup visit 10/15/2024. A1c in our office 7.2. Blood sugar 105, his blood sugar ranging between 80-235, most of them are 170. And he is using Novolin N 40 units in the morning, 80 at bedtime and [id number] plus scale. Interim History 05/2024: Followup visit 06/11/2024. A1c in our office 7.4. Blood sugar 208, his blood sugar ranging between 70-230, most of them are 160. And he is using Novolin N 40 units in the morning, 80 at bedtime and R 20-20-35 plus scale. unable to afford Januvia 50 mg daily. Interim History 01/2024: Followup visit 02/20/2024. A1c in our office 6.9. Blood sugar 187, his blood sugar ranging between 80 to 250, most of them are 150. And he is using Novolin N 40 units in the morning, 80 at bedtime andR 20-20-35 plus scale. His lab was done: GFR 53, AL/CR 156, K 5.1 Interim History 10/2023: Followup visit 10/28/2023. A1c in our office 7.1. Blood sugar 81, his blood sugar ranging between 150 to 250, most of them are 180. And he is using Novolin N 40 units in the morning, 80 at bedtime andR 20-20-35 plus scale. His lab was done: Total cholesterol 165 and triglycerides 159, HDL 47, LDL 87; TSH 1.8; albumin/creatinine high at 470 and GFR 43. And he is asking for Ozempic and I told him also he can ask his insurance for the insulin; we can switch him to pen, like Lantus and NovoLog, if his insurance approves. HPI: 06/2023 New patient sent from Dr. Tony Vasquez for diabetes since he is on insulin group home, A1c in our office 6.7, blood sugar 121. He using insulin over the counter from [employer], Novolin N 40 units in the morning, 80 at bedtime; and Novolin R an average 20, 25 and 30 every meal, and he show me his log book is running from 71 to 220, mostly in 140, 150 range. He is also on levothyroxine 125. He want me to continue to follow his thyroid. SUBJECTIVE: MEDICATIONS: Current Outpatient Medications Medication Instructions Alcohol Swabs pads 1 each, 3 times daily atorvastatin (LIPITOR) 80 mg, Daily Blood Glucose Monitoring Suppl (eWiseuch Verio Flex System) w/Device kit 1 Device, Daily ergocalciferol (VITAMIN D-2) 1.25 mg, Weekly fenofibrate (TRICOR) 48 mg, Daily finerenone (Kerendia) 10 MG tablet No dose, route, or frequency recorded. glucose blood (OneTouch Verio) test strip 1 each, 3 times daily Insulin NPH Human, Isophane, (NOVOLIN N FLEXPEN SC) 2 times daily INSULIN NPH, HUMAN,, ISOPHANE, SC Inject under the skin insulin pen needle (BD Pen Needle Yokasta U/F) 32G x 4 mm misc 1 each, 3 times daily insulin regular (NovoLIN R) 100 UNIT/ML pen 3 times daily with meals levothyroxine (Synthroid, Levoxyl) 125 MCG tablet Daily before breakfast lisinopril 2.5 MG tablet Daily omeprazole OTC (PRILOSEC OTC) 20 mg, Daily before breakfast ALLERGIES: No Known Allergies Past Medical History: Diagnosis Date Autoimmune thyroiditis (CMS/HCC) Chronic kidney disease, stage 3a (HCC) (CMS/HCC) Diabetes (CMS/HCC) Dietary counseling and surveillance Essential (primary) hypertension (CMS/HCC) FDC (current) use of insulin (CMS/HCC) Lymphoma (CMS/HCC) Mixed hyperlipidemia (CMS/HCC) Obesity with body mass index (BMI) of 30.0 to 39.9 Type 2 diabetes mellitus with hyperglycemia (CMS/HCC) Vitamin D deficiency, unspecified Past Surgical History: Procedure Laterality Date INSERT / REPLACE / REMOVE PACEMAKER REVIEW OF SYMPTOMS: 14 POINT OF SYSTEM REVIEWED AND NEGATIVE OBJECTIVE: Constitutional: Afebrile @ home; no weakness or night sweats SKIN: No change in skin color; no itching, rash or lesions; no hair loss; HEENT: No HAs or injury; no dizziness; No difficulty with vision; no eye pain, discharge or lesions; no hearing loss or difficulty; no nasal discharge, NECK: No pain, limitation of motion, lumps or swollen glands RESP: No cough, wheezing or difficulty breathing. No CP with breathing; CARDIO: No CP , SOB or fatigue, No edema, palpitations or dyspnea with exertion GI: No N/V/D or abd. pain; good appetite with no recent change. No heart burn, liver or gallbladderdisease; no rectal bleeding or pain : No urinary pain , frequency or odor. MUSCULOSKELETAL: No muscle pain or cramps; no extremity weakness.No joint pain, stiffness, swellingor limitation of movement NEUROLOGY: No H/O seizures, stroke or fainting. No weakness, tremors. Hematology: No bleeding problems or excessive bruising ENDOCRINE: No increase in hunger, thirst or urination; admits compliance to medical management plan Feet: numbness tingling , ulcers or skin break Lab Results Component Value Date HGBA1C 7.2 10/15/2024 Lab Results Component Value Date GLU 105 10/15/2024 GLU 267 (H) 02/03/2024 GLU 305 (H) 02/03/2024 Visit Vitals BP 112/62 Pulse 102 Resp 20 Ht 5' 10 Wt 268 lb BMI 38.45 kg/m Smoking Status Never BSA 2.45 m ASSESSMENT AND PLAN: Assessment/Plan Diagnoses and all orders for this visit: Type 2 diabetes mellitus with hyperglycemia, with long-term current use of insulin (CMS/HCC) - POCT glucose manually resulted - POCT glycosylated hemoglobin (Hb A1C) docked device - Vitamin D 25 hydroxy Total; Future - Microalbumin / creatinine urine ratio; Future - Lipid panel; Future - Renal function panel; Future We will continue with Novolin N 40 units in the morning 80 at bedtime, Novolin R 20 breakfast 20 lunch 35 dinner plus moderate sliding scale Vitamin D deficiency, unspecified Essential (primary) hypertension (CMS/HCC) Mixed hyperlipidemia (CMS/HCC) Continue with Lipitor Autoimmune thyroiditis (CMS/HCC) - T3, free; Future - T4, free; Future - TSH; Future Continue with levothyroxine 125 mcg daily we will check lab before next visit and adjust FDC (current) use of insulin (CMS/HCC) Chronic kidney disease, stage 3a (HCC) ([facility]) Follow up in about 4 months (around 02/12/2025). documented in this encounterNOME HealthcareEvaluation + Plan note Future Appointments Appointment Date:07/25/2023 11:40:00 AM Scheduled Provider:Tony Vasquez MD Location:[facility] Appointment Type: Open Appointment Date:08/16/2023 02:00:00 PM Scheduled Provider: Location:[facility] Appointment Type:FM Medicare Wellness Subsequent [facility] Future Appointments Appointment Date:07/17/2024 01:00:00 PM Scheduled Provider: Location:[facility] Appointment Type:FM Medicare Wellness Initial Future Scheduled Tests Laboratory* HgbA1c 01/30/24 * TSH With T4fr Reflex 01/30/24 * Vitamin D 25 Hydroxy 01/30/24 * CBC w/ Auto Diff 01/30/24 * Comprehensive Metabolic Panel 01/30/24 Radiology* NM Myocardial Spect Rest/Stress 2 Day 01/30/24 * NM Myocardial Spect Part 2 01/30/24 [facility] Future Appointments Appointment Date:07/17/2024 01:00:00 PM Scheduled Provider: Location:[facility] Appointment Type: Medicare Wellness Initial Appointment Date:07/17/2024 02:00:00 PM Scheduled Provider:Tony Vasquez MD Location:[facility] Appointment Type: Open Future Scheduled Tests Laboratory* HgbA1c 01/30/24 * TSH With T4fr Reflex 01/30/24 * Vitamin D 25 Hydroxy 01/30/24 * CBC w/ Auto Diff 01/30/24 * Comprehensive Metabolic Panel 01/30/24 Radiology* NM Myocardial Spect Rest/Stress 2 Day 01/30/24 * NM Myocardial Spect Part 2 01/30/24 [facility] evaluation + Plan note Future Appointments Appointment Date:07/19/2024 11:30:00 AM Scheduled [facility]:NCV Pacemaker () Appointment Date:07/22/2025 09:30:00 AM Scheduled Provider: Location:[facility] Appointment Type:FM Medicare Wellness Subsequent Diagnostic Tests Pending * Microalbumin Level Urine 07/17/24 * U Protein/Creat Ratio 07/17/24 Future Scheduled Tests Laboratory* HgbA1c 01/30/24 * TSH With T4fr Reflex 01/30/24 * Vitamin D 25 Hydroxy 01/30/24 * CBC w/ Auto Diff 01/30/24 * Comprehensive Metabolic Panel 01/30/24 Radiology* NM Myocardial Spect Rest/Stress 2 Day 01/30/24 * NM Myocardial Spect Part 2 01/30/24 [facility] evaluation + Plan note Future Appointments Appointment Date:01/10/2025 11:30:00 AM Scheduled Provider[facility] Type:NCV Pacemaker (FT) Appointment Date:07/22/2025 09:30:00 AM Scheduled Provider: Location:[facility] Appointment Type: Medicare Wellness Subsequent Future Scheduled Tests Laboratory* HgbA1c 01/30/24 * TSH With T4fr Reflex 01/30/24 * Vitamin D 25 Hydroxy 01/30/24 * CBC w/ Auto Diff 01/30/24 * Comprehensive Metabolic Panel 01/30/24 Radiology* NM Myocardial Spect Rest/Stress 2 Day 01/30/24 * NM Myocardial Spect Part 2 01/30/24 [facility] evaluation + Plan note Future Appointments Appointment Date:01/10/2025 11:30:00 AM Scheduled Provider[facility] Type:NCV Pacemaker (FT) Appointment Date:01/25/2025 11:00:00 AM Scheduled Provider: [facility] 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: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 Sleep Study Clinic Follow Up (FT) Appointment Date:07/22/2025 09:30:00 AM Scheduled Provider: Location:[facility] Appointment Type:FM Medicare Wellness Subsequent Future Scheduled Tests Laboratory* HgbA1c 01/30/24 * TSH With T4fr Reflex 01/30/24 * Vitamin D 25 Hydroxy 01/30/24 * CBC w/ Auto Diff 01/30/24 * Comprehensive Metabolic Panel 01/30/24 Radiology* NM Myocardial Spect Rest/Stress 2 Day 01/30/24 * NM Myocardial Spect Part 2 01/30/24 [facility] evaluation + Plan note Future Appointments Appointment Date:01/25/2025 11:00:00 AM Scheduled Provider: [facility] Type: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 Sleep Study Clinic Follow Up (FT) Appointment Date:01/28/2025 11:00:00 AM Scheduled Provider: [facility] Type: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 Sleep Study Clinic Follow Up (FT) Appointment Date:01/31/2025 11:00:00 AM Scheduled Provider[facility] Type:NCV Pacemaker (FT) Appointment Date:07/22/2025 09:30:00 AM Scheduled Provider: Location:[facility] Appointment Type:FM Medicare Wellness Subsequent Future Scheduled Tests Laboratory* HgbA1c 01/30/24 * TSH With T4fr Reflex 01/30/24 * Vitamin D 25 Hydroxy 01/30/24 * CBC w/ Auto Diff 01/30/24 * Comprehensive Metabolic Panel 01/30/24 Radiology* NM Myocardial Spect Rest/Stress 2 Day 01/30/24 * NM Myocardial Spect Part 2 01/30/24 [facility] evaluation + Plan note Future Appointments Appointment Date:01/31/2025 11:00:00 AM Scheduled Provider: [facility] Type:NCV Pacemaker (FT) Appointment Date:02/27/2025 11:15:00 AM Scheduled Provider: [facility] Type: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 Sleep Study Clinic Follow Up (FT) Appointment Date:07/22/2025 09:30:00 AM Scheduled Provider: Location:[facility] Appointment Type: Medicare Wellness Subsequent Future Scheduled Tests Laboratory* HgbA1c 01/30/24 * TSH With T4fr Reflex 01/30/24 * Vitamin D 25 Hydroxy 01/30/24 * CBC w/ Auto Diff 01/30/24 * Comprehensive Metabolic Panel 01/30/24 Radiology* NM Myocardial Spect Rest/Stress 2 Day 01/30/24 * NM Myocardial Spect Part 2 01/30/24 [facility] evaluation + Plan note Future Appointments Appointment Date:03/25/2025 10:30:00 AM Scheduled Provider:Tony Vasquez MD Location:[facility] Appointment Type: Open Appointment Date:07/22/2025 09:30:00 AM Scheduled Provider: Location:[facility] Appointment Type: Medicare Wellness Subsequent Appointment Date:08/08/2025 01:00:00 PM Scheduled Provider: [facility] Type:NCV Pacemaker (FT) Appointment Date:08/08/2025 01:30:00 PM Scheduled Provider:Maurice Badillo MD [facility]Cardiology Follow Up (FT) [facility] evaluation + Plan note Future Appointments Appointment Date:07/22/2025 01:00:00 PM Scheduled Provider: Location:[facility] Appointment Type: Medicare Wellness Subsequent Appointment Date:07/22/2025 03:20:00 PM Scheduled Provider:Tony Vasquez MD Location:[facility] Appointment Type: Open Appointment Date:08/08/2025 01:00:00 PM Scheduled Provider: Location:[facility] Appointment Type:NCV Pacemaker (FT) Appointment Date:08/08/2025 01:30:00 PM Scheduled Provider:Maurice Badillo MD Location:.[facility] Appointment Type:Cardiology Follow Up (FT) [facility] Evaluation note* Diagnosis Diffuse large B-cell lymphoma of lymph nodes of multiple regions (HCC) documented in this encounter [facility] [employer] Phone: evaluation note* Diagnosis Type 2 diabetes mellitus with hyperglycemia, with long-term current use of insulin (CMS/HCC)- Primary Vitamin D deficiency, unspecified Essential (primary) hypertension (CMS/HCC) Unspecified essential hypertension Mixed hyperlipidemia (CMS/HCC) Mixed hyperlipidemia Autoimmune thyroiditis (CMS/HCC) FDC (current) use of insulin (CMS/HCC) Chronic kidney disease, stage 3a (HCC) (CMS/HCC) documented in this encounter [facility] [facility]* Diagnosis Vitamin D deficiency, unspecified- Primary Type 2 diabetes mellitus with hyperglycemia, with long-term current use of insulin (CMS/HCC) Essential (primary) hypertension (CMS/HCC) Unspecified essential hypertension Mixed hyperlipidemia (CMS/HCC) Mixed hyperlipidemia Autoimmune thyroiditis (CMS/HCC) FDC (current) use of insulin (CMS/HCC) Chronic kidney disease, stage 3a (HCC) (CMS/HCC) Microalbuminuria Proteinuria documented in this encounter 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 N[facility] No data available for this section [facility] No data available for this section [facility] No data available for this section [facility] Summary Purpose Family History No Family [...] No Advanced Directives Records FoundDocuments on File TypeDate RecordedPatient RepresentativeExplanationACP-Advance DirectiveACP-Power of AttorneyCode StatusDate ActivatedDate InactivatedCommentsFull Code09/03/2014 2:03 09/04/2014 3:11 AMFull Code07/23/2014 1:30 PM07/24/2014 3:09 AMFull Code 07/02/2014 1:51 PM07/03/2014 3:10 AMFull Code06/11/2014 2:21 PM06/12/2014 3:09 AMFull Code05/21/2014 10:55 AM05/22/2014 9:57 PMTypeDate RecordedPatient Chief Cruiser ExplanationAdvance Directives and Living WillPower of Print Traffic Manager Assessments Diagnosis Non-Hodgkin's lymphoma, unspecified body region, [...] section and content) DATE CREATED AUTHOR 02/14/2019 [facility] DATE CREATED AUTHOR AUTHOR'S ORGANIZ ATION 12/20/2020 [facility] DATE CREATED AUTHOR AUTHOR'S ORGANIZ ATION 07/19/2024 [facility] DATE CREATED AUTHOR AUTHOR'S ORGANIZ ATION 08/25/2024 [facility] DATE CREATED AUTHOR AUTHOR'S ORGANIZ ATION 09/19/2025 [facility] DATE CREATED AUTHOR AUTHOR'S ORGANIZ ATION 09/26/2025 [facility] DATE CREATED AUTHOR AUTHOR'S ORGANIZ ATION 10/08/2025 [facility] Patient Care team informatio n (unrecognized section and content) Team MemberRelationshipSpecialtyStart DateEnd Date Tony Vasquez MD [address] [place] [address] PCP - GeneralFamily Gllesizu13/4/24Team MemberRelationshipSpecialtyStart DateEnd Date Tony Vasquez MD [address] [place] [address] PCP - GeneralFamily Afmhglxc08/4/24Team MemberRelationshipSpecialtyStart DateEnd Date Tony Vasquez MD [address] [place] [address] PCP - GeneralFamily Hhykvfmw52/4/24Team MemberRelationshipSpecialtyStart DateEnd Date Tony Vasquez MD [address] [place] [address] PCP - GeneralFamily Zfzskdnv84/4/24Team MemberRelationshipSpecialtyStart DateEnd Date Tony Vasquez MD [address] [place] [address] PCP - GeneralFamily Esxbvunf01/4/24Team MemberRelationshipSpecialtyStart DateEnd Date Toyn Vasquez MD [address] [place] [address] PCP - [facility]10/01/24Team MemberRelationshipSpecialtyStart DateEnd Date Tony Vasquez MD [address] [place] [address] PCP - [facility]10/01/24Team MemberRelationshipSpecialtyStart DateEnd Date Tony Vasquez MD [address] [place] [address] PCP - [facility]10/01/24Team MemberRelationshipSpecialtyStart DateEnd Date Tony Vasquez MD [address], [place] [id number] [facility]10/01/24 Reason for Visit (unrecogniz ed section and content) ReasonCommentsDiabetesFollow-upReasonCommentsDiabetesReasonOnset DateComments Medication Xjfydad4804/16/2025ReasonOnset DateCommentsMed Pmhavs0304/29/2025 FOR RECORDS PERTAINING TO PATIENTS WHO ARE [...] BE BASED ON THE PRIMARY CLINICAL RECORDS. [employer] [facility]. provides no warranty or guarantee of the accuracy or completeness of information in this document.
--- OUTSIDE RECORDS SUMMARY | 2025-11-23 09:41 | XMS_ITS | Clinical Summary ---
Author Organization [facility] tem Address [id number] [address] [place] [address] Care Team Providers Care Environmental Health Manager Name Role Phone Unavailable Primary Care Provider Unavailabl e Allergies No known active allergies Medications MedicationSigDispense QuantityRefillsLast FilledStart DateEnd DateStatus VITAMIN D2 50,000 unit capsule Take 1 capsule (50,000 Units total) by mouth once a week.03/07/2017Active ONETOUCH VERIO strip 06/29/2017Active ONETOUCH DELICA LANCETS 33 gauge misc 06/29/2017Active ONETOUCH VERIO SYSTEM misc 06/15/2017Active cholecalciferol (VITAMIN D3) 50,000 units capsule Take by mouth.Active MICROLET LANCET misc 10/27/2017Active magnesium oxide (MAG-OX) 400 mg tablet Take 400 mg by mouth.Active atorvastatin (LIPITOR) 80 mg tablet TAKE 1 TABLET AT BEDTIME 90 tablet Active fenofibrate (TRICOR) 48 mg tablet TAKE 1 TABLET DAILY 90 tablet Active levothyroxine (SYNTHROID, LEVOTHROID) 125 MCG tablet TAKE 1 TABLET DAILY 90 tablet 10/24/2018Active lisinopril (PRINIVIL,ZESTRIL) 2.5 mg tablet TAKE 1 TABLET DAILY 90 tablet Active omeprazole (PriLOSEC) 20 mg capsule TAKE 1 CAPSULE DAILY 90 capsule Active magnesium oxide (MAG-OX) 400 mg tablet TAKE 1 TABLET BY MOUTH EVERY DAY 30 tablet Active Additional Information Patient not taking.Reported on 12/14/2022 insulin NPH (NovoLIN N NPH U-100 Insulin) 100 unit/mL injection Indications:Type 2 diabetes mellitus with chronic kidney disease, with long-term current use of insulin, unspecified CKD stage ([facility])INJECT 50 U IN MORNING and 80 U AT NIGHT BEFORE BED 10 mL 12012/29/2022ctive insulin regular (NovoLIN R Regular U-100 Insuln) 100 unit/mL injection Indications:Type 2 diabetes mellitus with chronic kidney disease, with long-term current use of insulin, unspecified CKD stage ([facility])INJECT 25 UNITS SUBCUTANEOUSLY WITH BREAKFAST, 25 UNITS WITH LUNCH AND 40 UNITS WITH DINNER. 10 mL 12012/29/2022ctive Active Problems ProblemNoted DateDiagnosed DateSevere obesity (BMI 35.0-39.9) with comorbidity 07/05/2018HTN (hypertension)03/31/20170308Docfuyuantqtfs76/04/2017Hypothyroidism 03/31/2017GERD (gastroesophageal reflux disease)03/31/2017Type 2 diabetes mellitus with diabetic chronic kidney bauqrym4003/31/2017Chronic kidney disease, stage III (moderate)06/06/2014 Immunizations ImmunizationAdministration DatesNext DueCOVID-19, mRNA, LNP-S, PF, 30mcg/0.3mL Dose02/07/2021,01/17/2021 Family History Medical HistoryRelationNameCommentsNo Known ProblemsFatherColon cancerMother cause of deathBreast cancerSisterRelationNameStatusCommentsFatherDeceasedMother DeceasedSisterAlive Social History Tobacco UseTypesPacks/DayYears UsedDateSmoking Tobacco: FormerCigarettes0.35 03/31/1972 - 03/31/1977Smokeless Tobacco: Never Tobacco Cessation:Counseling Given: Not Answered Alcohol UseStandard Drinks/WeekCommentsYes0 (1 standard drink = 0.6 oz pure alcohol)2-4 per weekPHQ-2AnswerDate RecordedTotal Dpzfb974hildcare AnswerDate VzlcwfxoBbjviwhceZugnbsu45/12/2019EmploymentAnswerDate Recorded LmtearxcyrFaolmws97/12/2019Hunger ScreeningAnswerDate RecordedWithin the past 12 months we worried whether our food would run out before we got money to buy more.Never True12/29/2022Within the past 12 months the food we bought just didn't last and we didn't have money to get more.Never True3Purpose - LifeAnswerDate RecordedPurpose and direction in xyvaTmffjsu92/11/2021ex and Gender InformationValueDate RecordedSex Assigned at BirthNot on fileLegal Sex Male07/03/2015 12:14 PM EDTGender IdentityNot on fileSexual OrientationNot on file Last Filed Vital Signs Vital SignReadingTime TakenCommentsBlood Ncydqomo752/64012/29/2022 10:38 AM EST Fhlog242212/29/2022 10:38 AM ESDLrcdvgnfach58.8 ??C (98.2 ??F)12/29/2022 10:38 AM ESTRespiratory Rate--Oxygen Fxhygcxoqu18%12/29/2022 10:38 AM ESTInhaled Oxygen Concentration--Inovzn991.6 kg (250 lb 6.4 oz)12/29/2022 10:38 AM AOQXhngon417.8 cm (5' 10 )12/29/2022 10:38 AM ESTBody Mass Index35.9312/29/2022 10:38 AM EST Plan of Treatment Health MaintenanceDue DateLast DoneCommentsStatin Use: Rplwlige1954Tobacco Mkpoiwrhj06/17/1966DTaP,Tdap and Td Vaccines (1 - Tdap)1973Colon Cancer Screening Annual FOBT1999RSV ( or age 60+ yrs) (1 - Risk 50-74 years 1-dose series)2004Zoster (Shingles) Vaccine (1 of 2)2004 Abdominal Aortic Aneurysm (AAA) Thngck8404/13/2019Diabetic Foot Exam07/07/2019 07/07/2018, 04/07/2018Diabetic Ophthalmology ExamFall Risk Nsjixojuk13dult BMI Dthtmtivw34epression Oayfazmce84Hemoglobin A1C, 02/06/2019, 02/23/2018, Additional history existsCOVID-19 Vaccine ( season) , 03/06/2022, 08/24/2021, Additional history existsInfluenza Iwahmsf57/, 08/24/2021, 08/28/2020, Additional history exists Medical Devices Not on file Procedures Procedure NamePriorityDate/TimeAssociated DiagnosisCommentsPOCT HEMOGLOBIN A1C Trzcbxa6012/29/2022 Type 2 diabetes mellitus with chronic kidney disease, with long-term current use of insulin, unspecified CKD stage ([facility] DIABETES EYE AAOKJysedhq71/16/2018 from Last 3 Months or Most Recently Relevant to Health Maintenance Results * POCT Hemoglobin A1c (12/29/2022)ComponentValueRef RangeTest MethodAnalysis TimePerformed AtPathologist SignatureExternal Poct Hgb A1C6.84 - 7 g/dL MANUALLY TRANSCRIBED RESULTSSpecimen (Source)Anatomical Location / Laterality Collection Method / VolumeCollection TimeReceived SwboYshmx08/01/2023 Narrative Authorizing ProviderResult TypeResult StatusMusylvie Garcia Rubén MDPOINT OF CARE TEST ORDERABLESFinal ResultPerforming OrganizationAddressCity/State/ZIP CodePhone Number MANUALLY TRANSCRIBED RESULTS * DIABETES EYE EXAM (07/13/2018) Narrative Authorizing ProviderResult TypeResult StatusSumira Guevara MDHEALTH MAINTENANCE Final ResultPerforming OrganizationAddressCity/State/ZIP CodePhone Number MANUALLY TRANSCRIBED RESULTS from Last 3 Months or Most Recently Relevant to Health Maintenance Insurance
--- OUTSIDE RECORDS SUMMARY | 2025-11-23 09:41 | XMS_ITS ---
Author Organization [facility] Address [address], [address] [place] [address] Care Team Providers Care Home Energy Consultant Name Role Phone Tony Vasquez MD Primary Care Provider [phone] Active Problems ProblemNoted DateDiagnosed DateThird degree AV block02/02/2024Third degree heart block4Complete heart block4Disorder of prostate, unspecified 05/04/2019Severe obesity (BMI 35.0-39.9) with hwtkxyzzcaj20/08/2018Primary rrmhgipo86/16/2017GERD (gastroesophageal reflux disease)03/31/2017Diffuse large B-cell lymphoma of lymph nodes of multiple xyqkvqp2305/24/20165443Upwdrgxk22/27/2015 Antineoplastic chemotherapy induced artxfz8111/08/2014CKD (chronic kidney disease) stage 3, GFR 30-59 ml/min06/06/2014Diffuse large B cell wdlxsasm71/23/2014NHL (non-Hodgkin's lymphoma)05/13/2014Testicular mass05/13/2014Chest wall mass 05/09/2014cute on chronic kidney failureHypertensionSleep apnea Overview (07/05/2014): doesnt use machine HyperlipidemiaThyroid disease Overview (07/05/2014): hypothyroid Diabetes mellitus Current Treatment and Therapy Plans No current plan information found. Past Treatment and Therapy Plans No past plan information found. Lifetime Dose Tracking * ChemicalLifetime DoseAutomatic EntryManual EntryDOXOrubicinTotal Anthracycline Invasive Rbtqiagna19.5 mGy0 mGy23.5 gYrMGK73.43 Gy-cm20 Gy-cm216.43 Gy-cm2 Fluoro Time5.8 Minutes0 Minutes5.8 Minutes Resolved Problems ProblemNoted DateDiagnosed DateResolved DateUnspecified hypertensive kidney disease with chronic kidney disease stage I through stage IV, or uns pecified(403.90)03/02/2018Type II or unspecified type diabetes mellitus with renal manifestations, not stated as uncontrolled(250.40)03/02/2018
--- OUTSIDE RECORDS SUMMARY | 2025-11-23 09:41 | XMS_ITS | Clinical Summary ---
Author Organization [facility] Address [address], [address] [place] [address] Care Team Providers Care Filling Station Equipment Mechanic Name Role Phone Tony Vasquez MD Primary Care Provider [phone] Allergies No known active allergies Medications MedicationSigDispense QuantityRefillsLast FilledStart DateEnd DateStatus levothyroxine (SYNTHROID) 125 MCG tablet Take 1 tablet by mouth DailyActive lisinopril (PRINIVIL;ZESTRIL) 2.5 MG tablet Take 1 tablet by mouth daily10/02/2015ctive BD PEN NEEDLE MERARI U/F 32G X 4 MM [facility] [place] atorvastatin (LIPITOR) 80 MG tablet Take 1 tablet by mouth nightlyActive Cholecalciferol (VITAMIN D3) 94242 UNITS CAPS Take by mouth every 14 daysActive omeprazole (PRILOSEC) 20 MG delayed release capsule Take 1 capsule by mouth dailyActive Insulin Glargine, 1 Unit Dial, 300 UNIT/ML SOPN Inject into the skin 20 tid w mealsActive insulin lispro prot & lispro (HUMALOG 50/50) (50-50) 100 UNIT per ML SUPN injection pen Inject into the skin 3 times dailyActive TRUEPLUS INSULIN SYRINGE 31G X 5/16 1 ML [facility] [place] 04/02/2020Active fenofibrate (TRICOR) 48 MG tablet 12/02/2020ctive insulin aspart (NOVOLOG) 100 UNIT/ML injection vial Inject into the skin 3 times dailyActive insulin NPH (NOVOLIN N) 100 UNIT/ML injection vial Inject into the skin 2 times daily (before meals)Active vitamin D (ERGOCALCIFEROL) 1.25 MG (67531 UT) CAPS capsule TAKE 1 CAPSULE BY MOUTH EVERY OTHER WEEK07/17/2024ctive Alcohol Swabs (ALCOHOL PREP) 70 % PADS 3 TIMES A DAY07/29/2024ctive ONETOUCH ULTRA strip USE THREE TIMES A DAY06/02/2024ctive Active Problems ProblemNoted DateDiagnosed DateThird degree AV block02/02/2024Third degree heart block01/31/2024omplete heart block01/30/2024isorder of prostate, unspecified 05/04/2019Severe obesity (BMI 35.0-39.9) with hhsiqdcodli89/08/2018Primary ycyimqwq54/16/2017GERD (gastroesophageal reflux disease)03/31/2017Diffuse large B-cell lymphoma of lymph nodes of multiple fdpuzja7405/24/20160020Ztxufnio61/27/2015 Antineoplastic chemotherapy induced ctobsh2211/08/2014CKD (chronic kidney disease) stage 3, GFR 30-59 ml/min06/06/2014Diffuse large B cell gexldeci42/23/2014NHL (non-Hodgkin's lymphoma)05/13/2014Testicular mass05/13/2014Chest wall mass 05/09/2014cute on chronic kidney failureHypertensionSleep apnea Overview (07/05/2014): doesnt use machine HyperlipidemiaThyroid disease Overview (07/05/2014): hypothyroid Diabetes mellitus Resolved Problems ProblemNoted DateDiagnosed DateResolved DateUnspecified hypertensive kidney disease with chronic kidney disease stage I through stage IV, or uns pecified(403.90)03/02/2018Type II or unspecified type diabetes mellitus with renal manifestations, not stated as uncontrolled(250.40)03/02/2018 Immunizations ImmunizationAdministration DatesNext DueInfluenza Vaccine, unspecified nigdvnagfva69/10/2005Influenza, FLUARIX, FLULAVAL, FLUZONE (age 6 mo+) and AFLURIA, (age 3 y+), Quadv PF, 0.5mL09/12/2017 Family History Medical HistoryRelationNameCommentsCancerMothercolonCancerSisterbreastRelation NameStatusCommentsMotherSister Social History Tobacco UseTypesPacks/DayYears UsedDateSmoking Tobacco: FormerCigarettes0.510 05/08/1980 - 05/08/1990mokeless Tobacco: Never Tobacco Cessation:Counseling Given: Not Answered Alcohol UseStandard Drinks/WeekCommentsYes0 (1 standard drink = 0.6 oz pure alcohol)Formerly [facility], [facility] UtilitiesAnswerDate RecordedIn the past 12 months has the electric, gas, oil, or water company threatened to shut off services in your home?No01/31/2024Hunger Vital SignAnswerDate RecordedWithin the past 12 months, you worried that your food would run out before you got the money to buymore. Never true01/31/2024Within the past 12 months, the food you bought just didn't last and you didn't have money to get more.Never true01/31/2024RAPARE - TransportationAnswerDate RecordedIn the past 12 months, has lack of transportation kept you from medical appointments or from getting medications?No 01/31/2024In the past 12 months, has lack of transportation kept you from meetings, work, or from getting things needed for daily living?No01/31/2024 Housing Stability Vital SignAnswerDate RecordedIn the last 12 months, was there a time when you were not able to pay the mortgage or rent on time?No01/31/2024In the last 12 months, how many places have you lived?In the last 12 months, was there a time when you did not have a steady place to sleep or slept in winter parkelter (including now)?No01/31/2024Interpersonal Safety ([facility] HRSN)Answer Date RecordedHow often does anyone, including family and friends, physically hurt you?Never01/31/2024How often does anyone, including family and friends, scream or curse at you?Not on file01/31/2024How often does anyone, including family and friends, insult or talk down to you?Not on file01/31/2024How often does anyone, including family and friends, threaten you with harm?Not on file 01/31/2024Food InsecurityAnswerDate RecordedWithin the past 12 months, you worried that your food would run out before you got the money to buymore.1 01/31/2024Within the past 12 months, the food you bought just didn't last and you didn't have money to get more.Interpersonal Safety Domain Source: IP Abuse ScreeningAnswerDate RecordedRead-Only, Retired: Physical AbuseDenies 01/31/2024ead-Only, Retired: Verbal YcveiSukcyr78/05/2024ead-Only, Retired: Emotional ejnqsOnipzz91/05/2024ead-Only, Retired: Financial AbuseDenies 01/31/2024ead-Only, Retired: Sexual cukjtQhgolw49/05/2024Sex and Gender InformationValueDate RecordedSex Assigned at BirthNot on fileLegal SexMale 01/07/2013 3:53 PM ESTGender IdentityNot on fileSexual OrientationNot on file Last Filed Vital Signs Vital SignReadingTime TakenCommentsBlood Ohnvfzkj628/7509 11:55 AM EDT Dstee03114/27/2024 11:55 AM ZWQApgzzltenco24.1 ??C (97 ??F)08/24/2024 11:55 AM EDTRespiratory Pzpa382708/24/2024 11:55 AM EDTOxygen Wkvwpxzctx10%08/24/2024 11:55 AM EDTInhaled Oxygen Concentration--Eebzte253.9 kg (262 lb 1.6 oz)08/24/2024 11:55 AM JQREexbzj546.8 cm (5' 10 )12/23/2020 10:40 AM ESTBody Mass Index37.61 12/23/2020 10:40 AM EST Plan of Treatment Health MaintenanceDue DateLast DoneCommentsDiabetic foot exam1964 Depression Ruemnl7404/13/1966Diabetic retinal exam1972DTaP/Tdap/Td vaccine (1 - Tdap)1973Shingles vaccine (1 of 2)04/13/19737357Wbppzdrdevy57/17/1999 Colorectal Cancer Jgekcr5804/13/1999FIT/FOBT: Average risk1999Fecal-DNA (Cologuard): Average risk1999Sigmoidoscopy/CT /17/1999AAA nnvlwe28, 05/18/2016, 11/17/2015, Additional history exists Diabetic Alb to Cr ratio (uACR) test, 02/06/2019, 08/26/2017, Additional history existsAnnual Wellness Visit (Medicare Advantage) 5A1C test (Diabetic or Prediabetic)/03/2024, 01/04/2017, 10/30/2015, Additional history rubytiNrbexb30/05/202503/03/2024, 02/06/2019, 06/11/2016, Additional history existsGFR test (Diabetes, CKD 3-4, OR last GFR 15-59)/06/2024, 02/02/2024, 02/01/2024, Additional history existsFlu vaccine (#1), 09/19/2022, 08/24/2021, Additional history existsCOVID-19 Vaccine ( season), 09/19/2022, 03/06/2022, Additional history existsProstate Specific Antigen (PSA) Screening or GeqpuvilplSjwkfidrzdzl43/02/2011Hepatitis C tyeexoDqmdaivvy80/24/2014 Pneumococcal 50+ years TgrotueXujzcfpqf69/12/2023, 08/29/2021, 08/28/2020 Respiratory Syncytial Virus (RSV) or age 60 yrs+Qnncoxvde84/12/2023 Hepatitis A vaccineAged OutNo longer eligible based on patient's age to complete this topicHepatitis B vaccineAged OutNo longer eligible based on patient's age to complete this topicHib vaccineAged OutNo longer eligible based on patient's age to complete this topicMeningococcal (ACWY) vaccineAged OutNo longer eligible based on patient's age to complete this topicMeningococcal B vaccineAged OutNo longer eligible based on patient's age to complete this topicPolio vaccineAged OutNo longer eligible based on patient's age to complete this topic Medical Devices ImplantedTypeAreaManufacturerDevice IdentifierShelf Expiration DateModel / Serial / LotCatheter Pace 5fr L110cm 6fr Intro D10cm 1mm Space Polyur - [id number] Implanted:Qty: 1 on 01/31/2024 by Rios Rogel MD at [facility] [employer]-[id number] / / [id number] Pace Ad 6fr L58cm Vent Rosalba Plat Insul Bplr Platinized [id number]] Medtronic Crm] - [id number] Implanted:Qty: 1 on 02/02/2024 by Caterina Berg DO at [facility] Lead[employer] CARDIAC RTHY [id number] / [id number] / Lead Pace 6fr L52cm Rng Electrd Dia2mm Platinized [place] Rosalba - [id number] Implanted:Qty: 1 on 02/02/2024 by Caterina Berg DO at [facility] LeadMED[employer] [facility]-[id number] / [id number] / Pacemaker Card 22.5gm W50.8xh46.6mm D7.4mm Ti Polyur Rosalba - [id number] Implanted:Qty: 1 on 02/02/2024 by Caterina Berg DO at [facility] PPM/HAND LOOM WEAVER-PMEDTRONIC CARDIAC RTHYM [id number] / / Envelope Pacemkr M W2.5xl2.7in Absrb Antibact Tyrx - [id number] Implanted:Qty: 1 on 02/02/2024 [facility] [id number] / / [id number] Procedures Procedure NamePriorityDate/TimeAssociated DiagnosisCommentsCOMPREHENSIVE METABOLIC NCTVWYnzncnl20/08/2024 12:01 PM EST LIPID XLOAJNcbiixd07/05/2024 10:46 AM EST HEMOGLOBIN J1IIawhmgp93/05/2024 10:46 AM EST ALBUMIN/CREATININE RATIO, USSVEUydbvrb85/19/2021 CKD (chronic kidney disease), stage III Benign hypertension with CKD (chronic kidney disease) stage III Secondary diabetes mellitus with stage 3 chronic kidney disease (HCC) CT CHEST ABDOMEN PELVIS WO VMXMYYTBRzxifdb45/09/2017 12:27 PM EST Diffuse large B-cell lymphoma of lymph nodes of multiple regions (HCC) HEPATITIS C DMAMRVTYBwlvkgn85/24/2014 5:41 AM EDT PSA GZEOBEZFUUmjqbvs06/02/2011 6:10 AM EST from Last 3 Months or Most Recently Relevant to Health Maintenance Results * (ABNORMAL) Comprehensive Metabolic Panel (02/03/2024 12:01 PM EST)Component ValueRef RangeTest MethodAnalysis TimePerformed AtPathologist SignatureSodium 311466 - 145 mmol/L02/03/2024 12:01 PM ESTMERCY LABORATORIESPotassium4.83.7 - 5.3 mmol/L02/03/2024 12:01 PM ESTMERCY XZKNHRHHRAHURdzzpmhu49427 - 107 mmol/L 02/03/2024 12:01 PM ESTMERCY JNJVJYGVVPNMKN41968 - 31 mmol/L02/03/2024 12:01 PM ESTMERCY LABORATORIESAnion Mbr062 - 16 mmol/L02/03/2024 12:01 PM ESTMERCY BTDSEHVQGFDUSdbbzaq918(H)74 - 99 mg/dL02/03/2024 12:01 PM ESTMERCY ZGQEJIZUFRSZJTL84(H)8 - 23 mg/dL02/03/2024 12:01 PM [facility] Creatinine1.6(H)0.70 - 1.20 mg/dL02/03/2024 12:01 PM ESTMERCY LABORATORIESEst, Glom Filt Rate47(L)>60 mL/min/1.66g31802/03/2024 12:01 PM [facility] Comment: ? These results are not intended for use in patients <18 years of age. ? eGFR results are calculated without a race factor using the 2020 CKD-EPI equation. Careful clinical correlation is recommended, particularly when comparing to results calculated using previous equations. The CKD-EPI equation is less accurate in patients with extremes of muscle mass, extra-renal metabolism of creatine, excessive creatine ingestion, or following therapy that affects renal tubular secretion. Calcium9.48.6 - 10.4 mg/dL02/03/2024 12:01 PM ESTMERTVSmiles LABORATORIESTotal Protein 6.5(L)6.6 - 8.7 g/dL02/03/2024 12:01 PM ESTMERTVSmiles LABORATORIESAlbumin4.33.5 - 5.2 g/dL02/03/2024 12:01 PM ESTMERTVSmiles LABORATORIESAlbumin/Globulin Ratio2.01.0 - 2.5 02/03/2024 12:01 PM ESTMERTVSmiles LABORATORIESTotal Bilirubin0.60.00 - 1.20 mg/dL 02/03/2024 12:01 PM ESTMERTVSmiles LABORATORIESAlkaline Josulhjubbp0487 - 129 U/L 02/03/2024 12:[address] [facility]S HOSPITALTVSmiles YWQWSOPLNVSMTDG8847 - 50 U/L02/03/2024 12:01 PM EST [facility] HOSPITALSnapshot Interactive DWIMHRVSGDMQUDV0024 - 50 U/L02/03/2024 12:01 PM ESTMERZhongjia MRO Specimen (Source)Anatomical Location / LateralityCollection Method / Volume Collection TimeReceived TimeBloodBLOOD SPECIMEN / Ilaqrgj5602/03/2024 12:01 PM EST 02/03/2024 12:17 PM EST Narrative Authorizing ProviderResult TypeResult StatusNicholdedrick Wallace DOCHEMISTRY ORDERABLESFinal ResultPerforming OrganizationAddressCity/State/ZIP CodePhone Number [address] [place] [address], [facility] [phone] * (ABNORMAL) Hemoglobin A1C (01/31/2024 10:46 AM EST)ComponentValueRef RangeTest MethodAnalysis TimePerformed AtPathologist SignatureHemoglobin A1C7.3(H)4.0 - 6.0 %01/31/2024 10:46 AM ESTMERCY LABORATORIESEstimated Avg Yaocibg297lz/dL 01/31/2024 10:46 AM ESTMERCY LABORATORIESComment: The ADA and AACC recommend providing the estimated average glucose result to permit better patient understanding of their HBA1c result. Specimen (Source)Anatomical Location / LateralityCollection Method / Volume Collection TimeReceived Time01/31/2024 10:46 AM EST01/31/2024 10:58 AM EST Narrative Authorizing ProviderResult TypeResult StatusMercy [place] MDCHEMISTRY ORDERABLES Final ResultPerforming OrganizationAddressCity/State/ZIP CodePhone Number [address] [place] [address], [facility] [phone] * Lipid Panel (01/31/2024 10:46 AM EST)ComponentValueRef RangeTest Method Analysis TimePerformed AtPathologist YmxonmqenHdfngvegfkx4066 - 199 mg/dL 01/31/2024 10:46 AM ESTInfoMotion Sports Technologies LABORATORIESComment: Cholesterol Guidelines: <200 Desirable 200-240 ??Borderline >240 Undesirable HDL47>40 mg/dL01/31/2024 10:46 AM [employer] LABORATORIESComment: HDL Guidelines: <40 Undesirable 40-59 ?Borderline >59 Desirable LDL Dgtqlhjppiv257 - 100 mg/dL01/31/2024 10:46 AM ESTInfoMotion Sports Technologies LABORATORIESComment: LDL Guidelines: <100 Desirable 100-129 ?? Near to/above Desirable 130-159 ?? Borderline >159 Undesirable Direct (measured) LDL and calculated LDL are not interchangeable tests. Chol/HDL Ratio3. 10:46 AM [employer] GDMTZOISHLZUOzqveigcozzvx584<150 mg/dL01/31/2024 10:46 AM [employer] LABORATORIESComment: Triglyceride Guidelines: <150 Desirable 150-199 ??Borderline 200-499 ??High >499 Very high Based on AHA Guidelines for fasting triglyceride, August 2012. QIAK02ez/dL01/31/2024 10:46 AM [employer] LABORATORIESSpecimen (Source)Anatomical Location / LateralityCollection Method / VolumeCollection TimeReceived Time 01/31/2024 10:46 AM EST01/31/2024 10:58 AM EST Narrative Authorizing ProviderResult TypeResult StatusMercy [place] MDCHEMISTRY ORDERABLES Final ResultPerforming OrganizationAddressCity/State/ZIP CodePhone Number [address] [place] [address], [facility] [phone] * Microalbumin / Creatinine Urine Ratio (12/16/2020)ComponentValueRef RangeTest MethodAnalysis TimePerformed AtPathologist SignatureAlbumin/Creatinine Ratio 115.1Albumin Urine11.1Creatinine, Ur96.40Specimen (Source)Anatomical Location / LateralityCollection Method / VolumeCollection TimeReceived TimeURINE SPECIMEN / Agdzmxu1612/16/2020 Narrative Authorizing ProviderResult TypeResult StatusAkinfeyoni MOREIRA ORDERABLESFinal Result * CT Chest Abdomen Pelvis WO Contrast (12/06/2016 12:27 PM EST)Anatomical Region LateralityModalityChest, Abdomen, Pelvis, HipComputed TomographySpecimen (Source)Anatomical Location / LateralityCollection Method / VolumeCollection TimeReceived Time12/06/2016 12:32 PM EST Impressions 12/06/2016 3:15 PM EST Stable exam without evidence of recurrent disease. Bilateral nonobstructive urinary tract calculi. Narrative 12/06/2016 3:15 PM EST EXAMINATION: CT OF THE CHEST, ABDOMEN, AND PELVIS WITHOUT CONTRAST 12/06/2016 12:30 pm TECHNIQUE: CT of the chest, abdomen and pelvis was performed without the administration of intravenous contrast. Multiplanar reformatted images are provided for review. Dose modulation, iterative reconstruction, and/or weight based adjustment of the mA/kV was utilized to reduce the radiation dose to as low as reasonably achievable. COMPARISON: None HISTORY: ORDERING SYSTEM PROVIDED HISTORY: Diffuse large B-cell lymphoma of lymph nodes of multiple regions (HCC) TECHNOLOGIST PROVIDED HISTORY: Reason for exam:->follow up NHL Ordering Physician Provided Reason for Exam: lymphoma f/u Acuity: Chronic Type of Exam: Subsequent/Follow-up Additional signs and symptoms: diabetes Relevant Medical/Surgical History: CKD, HTN FINDINGS: Chest: Mediastinum: No enlarged thoracic lymph nodes by CT criteria. ??No pericardial effusion. Lungs/pleura: No discrete lung lesion, infiltrate or suspicious nodule. Stable minimal reticulonodular densities in the right lung apex. ??Scarring in the lingula, right middle lobe and left lower lobe redemonstrated. ??No pleural effusion. Soft Tissues/Bones: No significant osseous abnormality. Abdomen/Pelvis: Organs: Exam is limited by the absence of intravenous contrast. ??No focal abnormality in the liver. ??No calcified gallstones or biliary ductal dilatation. ??The spleen is not enlarged. ??No focal splenic lesion. ??The pancreas and the adrenal glands are unremarkable. ??Nonobstructing bilateral renal calculi redemonstrated. ??No collecting system dilatation. ??No focal renal lesion. GI/Bowel: The appendix is normal. ??No bowel obstruction. ??Moderate scattered colonic diverticulosis without evidence for diverticulitis. Pelvis: Again demonstrated is a knee calcification/calculus in the left deep tendon aspect of the bladder in the region of the left uterovesical junction. The prostate is not enlarged. Peritoneum/Retroperitoneum: No abdominal lymphadenopathy or ascites. Bones/Soft Tissues: Moderate lumbar spondylosis. ??No suspicious blastic/ lytic osseous lesion. ??Fragmentation of some right medial clavicles is redemonstrated. Procedure Note Jimenez Mackenzie MD - 12/06/2016 EXAMINATION: CT OF THE CHEST, ABDOMEN, AND PELVIS WITHOUT CONTRAST 12/06/2016 12:30 pm TECHNIQUE: CT of the chest, abdomen and pelvis was performed without theadministration of intravenous contrast. Multiplanar reformatted images are provided for review. Dose modulation, iterative reconstruction, and/or weight based adjustment of the mA/kV was utilized to reduce the radiation dose to aslow as reasonably achievable. COMPARISON: None HISTORY: ORDERING SYSTEM PROVIDED HISTORY: Diffuse large B-cell lymphoma of lymph nodes of multiple regions (HCC) TECHNOLOGIST PROVIDED HISTORY: Reason for exam:->follow up NHL Ordering Physician Provided Reason for Exam: lymphoma f/u Acuity: Chronic Type of Exam: Subsequent/Follow-up Additional signs and symptoms: diabetes Relevant Medical/Surgical History: CKD, HTN FINDINGS: Chest: Mediastinum: No enlarged thoracic lymph nodes by CT criteria. Nopericardial effusion. Lungs/pleura: No discrete lung lesion, infiltrate or suspicious nodule. Stable minimal reticulonodular densities in the right lung apex. Scarringin the lingula, right middle lobe and left lower lobe redemonstrated. No pleural effusion. Soft Tissues/Bones: No significant osseous abnormality. Abdomen/Pelvis: Organs: Exam is limited by the absence of intravenous contrast. Nofocal abnormality in the liver. No calcified gallstones or biliary ductal dilatation. The spleen is not enlarged. No focal splenic lesion. The pancreas and the adrenal glands are unremarkable. Nonobstructingbilateral renal calculi redemonstrated. No collecting system dilatation. Nofocal renal lesion. GI/Bowel: The appendix is normal. No bowel obstruction. Moderatescattered colonic diverticulosis without evidence for diverticulitis. Pelvis: Again demonstrated is a knee calcification/calculus in the leftdeep tendon aspect of the bladder in the region of the left uterovesicaljunction. The prostate is not enlarged. Peritoneum/Retroperitoneum: No abdominal lymphadenopathy or ascites. Bones/Soft Tissues: Moderate lumbar spondylosis. No suspicious blastic/ lytic osseous lesion. Fragmentation of some right medial clavicles is redemonstrated. IMPRESSION: Stable exam without evidence of recurrent disease. Bilateral nonobstructive urinary tract calculi. Authorizing ProviderResult TypeResult StatusLazara Hazel MDIMG CT ORDERABLESFinal Result * Hepatitis C Antibody (05/21/2014 5:41 AM EDT)ComponentValueRef RangeTest MethodAnalysis TimePerformed AtPathologist SignatureHepatitis C AbNONREACTIVE NR05/21/2014 9:38 AM EDTMHPN LABComment: ? The hepatitis C procedure used in our laboratory is a Chemiluminescent test specific for three recombinant HCV antigens. ??A negative anti-HCV result indicates that the antibodies to hepatitis C virus are not present at this time. Individuals with reactive anti-HCV should be considered infected and infectious until proven otherwise. ??Confirmation of all equivocal or reactive results is recommended by ordering HCV RNA by PCR. Performed at [address] [address] ([phone] Specimen (Source)Anatomical Location / LateralityCollection Method / Volume Collection TimeReceived TimeBLOOD SPECIMEN / Omzyqst6705/21/2014 5:41 AM EDT 05/21/2014 6:00 AM EDT Narrative Authorizing ProviderResult TypeResult StatusLuther Serna MDIMMUNOLOGY ORDERABLESFinal ResultPerforming OrganizationAddressCity/State/ZIP CodePhone Number [facility] [address] [place] [id number], [facility] [phone] [facility] [[email or web address] LAB * Psa screening (10/29/2011 6:10 AM EST)ComponentValueRef RangeTest Method Analysis TimePerformed AtPathologist SignaturePSA0.790 - 4 ug/LMHPN LAB Comment:Performed at [facility] (Source)Anatomical Location / LateralityCollection Method / VolumeCollection TimeReceived Time10/29/2011 6:10 AM EST10/29/2011 6:12 AM EST Narrative Authorizing ProviderResult TypeResult StatusSurendra Guevara MDCHEMISTRY ORDERABLESFinal ResultPerforming OrganizationAddressCity/State/ZIP CodePhone Number [facility] [[email or web address] LAB from Last 3 Months or Most Recently Relevant to Health Maintenance Insurance * Guarantor: Mirza Emersonamysouleymane TypeRelation to PatientDate of BirthPhone Billing AddressPersonal/VgqfbwZjuy1955 [address] [place] [address] * Guarantor: Mirza Emerson Trice TypeRelation to PatientDate of BirthPhone Billing AddressPersonal/TrjtmiHywl1955 [address] [place] [address] * Guarantor: Mirza Emerson TypeRelation to PatientDate of BirthPhone Billing AddressPersonal/RxmuwxDacy1955 [place] [address] Advance Directives * Full Code (Latest Code Status on File) Date ActivatedDate InactivatedComments01/31/2024 12:06 AM02/03/2024 8:33 PM * Full Code Date ActivatedDate IojnmzlxbcfTvrugxxb84/7/2014 2:03 PM10 3:11 AM * Full Code Date ActivatedDate InactivatedComments07/23/2014 1:30 PM07/24/2014 3:09 AM * Full Code Date ActivatedDate InactivatedComments07/02/2014 1:51 PM07/03/2014 3:10 AM * Full Code Date ActivatedDate InactivatedComments06/11/2014 2:21 PM06/12/2014 3:09 AM Care Teams Team MemberRelationshipSpecialtyStart DateEnd Date Tony Vasquez MD [address] [place] [address] [facility]08/24/24
[2025-11-23 10:26] LABS: Hematocrit 44.1 % (42.0-54.0); Hemoglobin 13.7 g/dL (14.0-18.0); Immature Granulocytes Abs Auto 0.10 10^3/uL (0.00-0.03); Immature Granulocytes Pct Auto 1.0 % (0.0-0.5); Lymphocytes Absolute Auto 2.3 10^3/uL (1.2-3.8); Mean Corpuscular HGB Conc 31.1 g/dL (29.9-35.2); Mean Corpuscular Hemoglobin 26.7 pg (25.9-34.0); Mean Corpuscular Volume 86.0 fL (80.0-94.0); Platelet Count 208 10^3/uL (150-450); Red Blood Count 5.13 10^6/uL (4.70-6.10); White Blood Count 9.9 10^3/uL (4.0-11.0)
[2025-11-23 11:35] LABS: Alanine Aminotransferase 26 U/L (16-63); Albumin Globulin Ratio 1.0; Albumin Level 3.6 g/dL (3.4-5.0); Alkaline Phosphatase 103 U/L (46-116); Anion Gap 11.0; Aspartate Amino Transferase 19 U/L (15-37); Blood Urea Nitrogen 19.0 mg/dL (7.0-18.0); Calcium 8.9 mg/dL (8.5-10.1); Carbon Dioxide 30.7 mmol/L (21.0-32.0); Chloride 106 mmol/L (98-107); Cholesterol 196 mg/dL (<=200); Estimated GFR (African America 51 (>=60 mL/min/1.73m^2); Estimated GFR (Non-African Ame 42 (>=60 mL/min/1.73m^2); Globulin 3.6 g/dL; Glucose 117 mg/dL (74-106); HDL Cholesterol 53 mg/dL (40-60); Potassium 4.7 mmol/L (3.5-5.1); Sodium 143 mmol/L (136-145); Thyroid Stimulating Hormone 2.508 uIU/mL (0.358-3.740); Total Protein 7.2 g/dL (6.4-8.2); Triglycerides 131 mg/dL (<=150); VLDL CHOLESTEROL 26.2 mg/dL
== END 2025-11-23 09:34 | disposition home or self-care (01) ==
LOC: LAB 09:38
PROVIDERS: Visit Provider Nurse Practitioner Family
DX: E11.69 Type 2 diabetes mellitus with other specified complication (principal); E11.22 Type 2 diabetes mellitus with diabetic chronic kidney disease; N18.32 Chronic kidney disease, stage 3b; Z12.5 Encounter for screening for malignant neoplasm of prostate; E03.9 Hypothyroidism, unspecified; E78.00 Pure hypercholesterolemia, unspecified
CPT/HCPCS: 36415; 80053; 80061; 82043; 83036; 84443; 85025; G0103